=== PATIENT | male | born 1945 | race Caucasian/White ===

== ENCOUNTER 2017-01-18 10:02 | Emergency (ER) | payer MEDICARE, BC ==
[2017-01-18] MEDS ORDERED: Dexamethasone 4 mg/ml Vial ONE (12:26)
[2017-01-18] MEDS ORDERED: Ketorolac Tromethamine 60 MG/2 ML VIAL ONE (12:26)
== END 2017-01-18 12:49 | disposition home or self-care (01) ==
LOC: ERS 10:02
DX: M54.41 Lumbago with sciatica, right side (principal); I25.10 Atherosclerotic heart disease of native coronary artery without angina pectoris; I10 Essential (primary) hypertension; E78.5 Hyperlipidemia, unspecified; F41.9 Anxiety disorder, unspecified; F32.9 Major depressive disorder, single episode, unspecified; F17.210 Nicotine dependence, cigarettes, uncomplicated; Z79.82 Long term (current) use of aspirin; Z79.899 Other long term (current) drug therapy
CPT/HCPCS: 96372; J1100; J1885

== ENCOUNTER 2017-01-23 12:08 | Emergency (ER) | payer MEDICARE, BC ==
[2017-01-23] MEDS ORDERED: Methocarbamol 1 GM in Sodium Chloride 0.9% 250 ML 250 ML IVPB SCH (14:00)
--- NOTE | 2017-01-23 14:07 | RAD ---
3 VIEWS LUMBAR SPINE: Date: 01/23/17 HISTORY: Pain. COMPARISON: None. FINDINGS: Six lumbar-type vertebral bodies. Vertebral body height is maintained. No fracture. Disc space heigh t is preserved. Osteophytes are noted. No spondylolisthesis or spondylolysis. Atherosclerosis is miriam ntified. IMPRESSION: Unremarkable 3 views lumbar spine. POS: [facility]
[2017-01-23] MEDS ORDERED: Morphine 2 MG/ML SYRINGE ONE ×2 (14:24→15:53)
== END 2017-01-23 20:07 | disposition home or self-care (01) ==
LOC: ERS 12:08
DX: M54.5 Low back pain (principal); I10 Essential (primary) hypertension; E78.5 Hyperlipidemia, unspecified; F41.9 Anxiety disorder, unspecified; F32.9 Major depressive disorder, single episode, unspecified; F17.210 Nicotine dependence, cigarettes, uncomplicated
CPT/HCPCS: 72100; 96365; 96375; 96376; J2270; J2800; J7050

== ENCOUNTER 2017-01-29 10:45 | Emergency (ER) | payer MEDICARE, BC ==
[2017-01-29] MEDS ORDERED: Ketorolac Tromethamine 30 MG/ML VIAL ONE (15:30)
== END 2017-01-29 16:07 | disposition home or self-care (01) ==
LOC: ERS 10:45
DX: G89.29 Other chronic pain (principal); M54.5 Low back pain; I25.10 Atherosclerotic heart disease of native coronary artery without angina pectoris; I10 Essential (primary) hypertension; E78.5 Hyperlipidemia, unspecified; F41.9 Anxiety disorder, unspecified; F32.9 Major depressive disorder, single episode, unspecified; F17.210 Nicotine dependence, cigarettes, uncomplicated; Z79.891 Long term (current) use of opiate analgesic; Z79.82 Long term (current) use of aspirin; Z79.899 Other long term (current) drug therapy
CPT/HCPCS: 96372; J1885

== ENCOUNTER 2017-03-28 11:16 | Emergency (ER) | payer MEDICARE, BC ==
[2017-03-28 13:16] LABS: #Eosinphils 0.2 thou/uL (0.0-0.7); #Lymphocytes 1.9 thou/uL (1.20-3.40); #Monocytes 1.2 thou/uL (0.11-0.59); #Neutrophils 5.7 thou/uL (1.40-6.50); %Basophils 0.5 % (0.0-1.0); %Eosinophils 1.8 % (0.0-10.0); %Lymphocytes 20.9 % (21.0-51.0); %Monocytes 12.9 % (0.0-10.0); %Neutrophils 63.9 % (42.0-75.0); Hemoglobin 13.6 g/dL (14.0-18.0); Mean Corpuscular HGB CONC 32.6 g/dL (32.0-36.0); Mean Corpuscular Hemoglobin 31.6 pg (27.0-31.0); Mean Corpuscular Volume 96.8 fl (80.0-94.0); Mean Platelet Volume 7.5 fL (7.4-10.4); Platelet Count 179 thou/uL (130-400); RBC Distribution Width 13.3 % (11.5-14.5)
--- NOTE | 2017-03-28 13:20 | RAD ---
PA AND LATERAL VIEWS OF CHEST: HISTORY: Cough. FINDINGS: Comparison is made with the exam of 08/03/16. The heart size is prominent but stable. A left-sided pacing device remains in place. The lungs are expanded without focal areas of consolidation, pneumothorax, piyush pulmonary edema, or pleural effusi ons. Mild chronic changes are stable. IMPRESSION: No acute process. POS: [facility]
[2017-03-28 13:31] LABS: ALT (SGPT) 19 U/L (8-55); AST (SGOT) 20 U/L (5-34); Albumin 3.4 g/dL (3.4-4.8); Alkaline Phosphatase 71 U/L (40-150); Anion Gap 11 mmol/L (10-20); BUN (Urea Nitrogen) 11 mg/dL (8.4-25.7); Bilirubin, Total 0.9 mg/dL (0.2-1.2); Calc. Creatinine Clearance 0 mL/min (70-130); Calcium 9.7 mg/dL (7.8-10.44); Carbon Dioxide 27 mmol/L (23-31); Chloride 105 mmol/L (98-107); Estimated GFR-MDRD 76; Globulin 3.4 g/dL (2.4-3.5); Glucose 96 mg/dL (83-110); Potassium 3.9 mmol/L (3.5-5.1); Protein, Total 6.8 g/dL (5.8-8.1); Sodium 139 mmol/L (136-145)
[2017-03-28] MEDS ORDERED: Furosemide 20 MG/2 ML VIAL ONE (14:18)
--- NOTE | 2017-03-28 16:33 | CT ---
CT PULMONARY ANGIOGRAM WITH IV CONTRAST AND 2D POST PROCESSING: HISTORY: Cough. Elevated D-dimer. FINDINGS: There is good contrast opacification of the pulmonary arterial vasculature without filling defects to suggest pulmonary embolism. There are vascular calcifications without evidence of aneurysmal dilata tion of the thoracic aorta. No pleural or pericardial effusions are seen. No pneumothoraces. There is a small area of patchy consolidation/atelectatic change in the lingula. Degenerative changes are present in the spine. There are mild infiltrates versus atelectatic changes at the left lung base. IMPRESSION: No CT evidence of pulmonary embolism. POS: [facility]
[2017-03-28] MEDS ORDERED: ISOVUE-370 76%-LOCM 1 ML ONE (17:03)
== END 2017-03-28 16:25 | disposition home or self-care (01) ==
LOC: ERS 11:16
DX: J06.9 Acute upper respiratory infection, unspecified (principal); I10 Essential (primary) hypertension; E78.5 Hyperlipidemia, unspecified; F41.9 Anxiety disorder, unspecified; F32.9 Major depressive disorder, single episode, unspecified; F17.210 Nicotine dependence, cigarettes, uncomplicated; Z79.82 Long term (current) use of aspirin; Z79.899 Other long term (current) drug therapy
CPT/HCPCS: 36415; 71010; 71275; 80053; 83605; 83880; 85025; 85379; 96374; 96375; 99406; J0696; J1940; J7620

== ENCOUNTER 2017-04-20 09:28 | Outpatient (CLI) | payer MEDICARE, BC ==
--- NOTE | 2017-04-20 11:56 | CT ---
CT LUMBAR SPINE WITHOUT CONTRAST: Date: 04/20/17 HISTORY: Low back pain with lumbar radiculopathy. Bilateral hip pain. COMPARISON: None. TECHNIQUE: Lumbar spine CT is performed without intravenous or intrathecal contrast. Reformatted images are subm itted for interpretation. FINDINGS: No retroperitoneal mass, lymphadenopathy, or hematoma. Atherosclerosis of the nonaneurysmal aorta is noted. Symmetric attenuation of psoas muscles. Bilaterally, no obstructive uropathy. Neither urinary collecting system is completely assessed. There are five lumbar-type vertebral bodies. Lumbar spine vertebral body heights are maintained from L2 to L5. There is a chronic mild compression fracture versus a Schmorl's node defect along the super ior end plate of L1. The transverse processes are preserved. Vacuum disc phenomenon at L4-L5 and L5-S 1. Vacuum joint phenomenon involving the left interarticular facet joint at L5-S1. Limited evaluation of the contents of the central spinal canal and neural foramina due to technique. T11-T12: No high grade central canal stenosis or high grade foraminal narrowing. T12-L1: No high grade central canal stenosis or high grade foraminal narrowing. L1-L2: No high grade central canal stenosis. Right neural foramen is patent. Mild left foraminal narrowing. L2-L3: No high grade central canal stenosis. Mild to moderate right and left foraminal narrowing. L3-L4: Generalized disc bulge, ligamentum flavum thickening, and facet hypertrophy result in mild central ca nal stenosis. There is disc material extending laterally into the right paraspinal region. There is a lso disc material in the right neural foramen which partially obscures the foraminal right L3 nerve r oot, resulting in moderate foraminal narrowing. There is also moderate left foraminal narrowing due t o a combination of disc material and posterior element hypertrophy. L4-L5: Vacuum disc phenomenon, ligamentum flavum thickening, and facet hypertrophy result in moderate centra l canal stenosis. Moderate bilateral foraminal narrowing. L5-S1: Generalized disc bulge results in mild stenosis of the thecal sac. Disc material abuts but does not o bscure either traversing S1 nerve root. Mild to moderate right and moderate to severe left neural for aminal narrowing. IMPRESSION: 1. Degenerative changes of lumbar spine as above. 2. Significant central canal stenosis at L4-L5. 3. Significant foraminal narrowing at L3-L4, L4-L5 and L5-S1. POS: [facility]
== END 2017-04-20 09:29 | disposition home or self-care (01) ==
LOC: TBSIIMAG 09:28
PROVIDERS: ATTEND Neurological Surgery
DX: M47.26 Other spondylosis with radiculopathy, lumbar region (principal); M48.061 Spinal stenosis, lumbar region without neurogenic claudication; M99.53 Intervertebral disc stenosis of neural canal of lumbar region; M99.54 Intervertebral disc stenosis of neural canal of sacral region
CPT/HCPCS: 72131

== ENCOUNTER 2017-05-07 13:35 | Emergency (ER) | payer MEDICARE, BC ==
[2017-05-07 14:11] LABS: #Basophils 0.1 thou/uL (0.0-0.2); #Eosinphils 0.2 thou/uL (0.0-0.7); #Lymphocytes 2.1 thou/uL (1.20-3.40); #Monocytes 0.9 thou/uL (0.11-0.59); #Neutrophils 5.9 thou/uL (1.40-6.50); %Basophils 0.6 % (0.0-1.0); %Eosinophils 2.2 % (0.0-10.0); %Lymphocytes 23.4 % (21.0-51.0); %Monocytes 9.9 % (0.0-10.0); %Neutrophils 63.9 % (42.0-75.0); Mean Corpuscular HGB CONC 32.5 g/dL (32.0-36.0); Mean Corpuscular Hemoglobin 31.7 pg (27.0-31.0); Mean Corpuscular Volume 97.5 fl (80.0-94.0); Mean Platelet Volume 7.9 fL (7.4-10.4); Platelet Count 177 thou/uL (130-400); RBC Distribution Width 13.1 % (11.5-14.5); Red Blood Cell (RBC) Count 4.42 mill/uL (4.70-6.10); White Blood Cell (WBC) Count 9.2 thou/uL (4.8-10.8)
--- NOTE | 2017-05-07 14:26 | RAD ---
PORTABLE CHEST 1 VIEW: Date: 05/07/17 Time: 1408 hours HISTORY: Chest pain. FINDINGS/IMPRESSION: Comparison made with exam of 03/28/17. The heart size is enlarged. Left-sided pacemaker device remains in place. No pneumothoraces or large effusions are seen. There is suggestion of an infiltrate in the lingula. POS: [facility]
[2017-05-07 14:27] LABS: ALT (SGPT) 17 U/L (8-55); AST (SGOT) 17 U/L (5-34); Albumin 3.7 g/dL (3.4-4.8); Alkaline Phosphatase 74 U/L (40-150); Anion Gap 14 mmol/L (10-20); BUN (Urea Nitrogen) 14 mg/dL (8.4-25.7); CK (CPK) 58 U/L (30-200); Calc. Creatinine Clearance 0 mL/min (70-130); Calcium 9.6 mg/dL (7.8-10.44); Carbon Dioxide 23 mmol/L (23-31); Chloride 105 mmol/L (98-107); Estimated GFR-MDRD 64; Globulin 3.6 g/dL (2.4-3.5); Glucose 106 mg/dL (83-110); Potassium 3.8 mmol/L (3.5-5.1); Protein, Total 7.3 g/dL (5.8-8.1); Sodium 138 mmol/L (136-145)
[2017-05-07 14:33] LABS: CKMB 1.4 ng/mL (0-6.6); Troponin I 0.013 ng/mL (< 0.028)
[2017-05-07] MEDS ORDERED: diphenhydrAMINE 50 MG/ML VIAL ONE (16:22)
[2017-05-07] MEDS ORDERED: Famotidine/PF 20 mg/2ml Vial ONE (16:22)
[2017-05-07] MEDS ORDERED: methylPREDNISolone Sod Succ/PF 125 MG/2 ML VIAL ONE (16:22)
[2017-05-07] MEDS ORDERED: ISOVUE-370 76%-LOCM 1 ML ONE (16:38)
--- NOTE | 2017-05-07 17:37 | CT ---
CT ANGIO OF CHEST AND ABDOMEN PERFORMED WITH INTRAVENOUS CONTRAST ENHANCEMENT WITH 3D RECONSTRUCTIONS : 05/07/17 HISTORY: Acute onset of chest pain, also with pain while eating. Pain extending into right neck. This was done per the aortic dissection protocol. COMPARISON: 07/18/16 CT angio of the abdomen and a 03/28/17 CT angio of the chest. The lungs show some interstitial change in the left base which has been present on the prior studies most compatible with scar. There is no significant mediastinal or hilar lymphadenopathy. There is fairly good pulmonary artery opacification to evaluate for central pulmonary emboli and I se e no central embolus. The thoracic aorta is tortuous, but not aneurysmal. No dissection. CT ANGIO OF ABDOMEN PERFORMED WITH INTRAVENOUS CONTRAST ENHANCEMENT AND 3D RECONSTRUCTIONS: The liver, spleen, pancreas and gallbladder regions appear unremarkable given the limitations of an a ngiographic phase of the exam. Right and left adrenal glands are normal in appearance. There are hypodensities involving both kidney s that are stable in size as compared to the prior exam. There is no significant periaortic or mesent lilia adenopathy. The abdominal aorta is normal in caliber. No signs of dissection. IMPRESSION: No evidence of aortic aneurysm or dissection. POS: [facility]
== END 2017-05-07 18:00 | disposition home or self-care (01) ==
LOC: ERS 13:35
DX: R07.89 Other chest pain (principal); I25.10 Atherosclerotic heart disease of native coronary artery without angina pectoris; I10 Essential (primary) hypertension; E78.5 Hyperlipidemia, unspecified; F41.9 Anxiety disorder, unspecified; F17.210 Nicotine dependence, cigarettes, uncomplicated; Z79.82 Long term (current) use of aspirin; Z79.02 Long term (current) use of antithrombotics/antiplatelets; Z71.6 Tobacco abuse counseling; Z79.899 Other long term (current) drug therapy
CPT/HCPCS: 36415; 71045; 71275; 80053; 82550; 82553; 83880; 84484; 85025; 85379; 93005; 96374; 96375; J1200; J2930; S0028

== ENCOUNTER 2017-05-30 11:13 | Observation (INO) | payer MEDICARE, BC ==
[2017-05-30] MEDS ORDERED: Morphine 10 MG/ML VIAL ONE (11:55)
[2017-05-30] MEDS ORDERED: Dexamethasone 10 MG/ML VIAL ONE (11:55)
--- NOTE | 2017-05-30 12:59 | CT ---
CT LUMBAR SPINE WITHOUT CONTRAST: INDICATION: Low back pain with radiation to both extremities. This has worsened over the last 2 days. The patie nt reports pain with ambulation and sitting. COMPARISON: Prior exam dated 04/20/17. FINDINGS: There is diffuse osteopenia. There is stable superior end plate compression abnormality of L1. There are vascular calcifications involving the abdominopelvic vasculature. There is a stable left paracentral caudad-extending disc extrusion containing some vacuum-induced gas seen on image 46 of the sagittal series measuring 8 mm causing some mild encroachment on the marlee ing left S1 nerve root. This extrusion was present on the comparison examination in March of 2017. There is a residual broad-based disk-osteophyte complex and facet joint degenerative change at this level inducing at least moderate left and mild right osseous neural foraminal narrowing which is sta ble. At L4-5, there is a broad-based bulge with facet joint degenerative change and loss of disk space hei ght likely inducing at least moderate bilateral neural foraminal narrowing which is stable. There is vacuum disk phenomenon at L4-5. At L3-4, there is a suspected asymmetric to the right disk-osteophyte complex likely inducing moderat e to severe right and mild left osseous neural foraminal narrowing. This is stable to the prior exam . At L2-3, there is a suspected mild broad-based bulge likely inducing some mild bilateral neural marisela inal narrowing which appears similar to the prior exam. At L1-L2, there is no appreciable central canal or neural foraminal narrowing. At T12-L1, there is no appreciable central canal or neural foraminal narrowing. IMPRESSION: 1. Multilevel spondylosis of the lumbar spine is stable. Multilevel neural foraminal narrowing as d etailed above. 2. Stable superior end plate compression abnormality of L1. POS: [facility]
--- NOTE | 2017-05-30 13:54 | PDOC.FPRHP ---
- History of Present Illness Chief Complaint: low back pain History of Present Illness: Patient is a 71yo male with significant PMH of lumbar radiculopathy s/p injections done by Dr. Obando presents to ED with worsening back pain onset 2 days ago. Patient reports no unusual activity or injury outside of his normal. He works as a local company flatbed truck driver. Lying flat makes pain better and moving any other way but especially flexing the hip makes pain worse. He reports he wakes up in the morning, he takes an Oxycodone which usually gets him through the day but did not seem to help at all. He also tried Morphine without relief. He denies urinary sx, GI sx, and neurologic sx besides some numbness on the anterior aspect of the R leg. ED Course: Lumbar CT was done and shows extensive disc bulge along multiple levels. Dexamethasone 10mg and 8mg morphine were given for pain control. Patient continues to endorse severe pain and is not able to tolerate walking. - Allergies/Adverse Reactions Allergies Allergy/AdvReac Type Severity Reaction Status Date / Time iodine Allergy Verified 05/30/17 15:27 Iczgria-Mec-Pud Reductase Allergy Verified 05/30/17 15:27 Inhibitor - Home Medications Medication Instructions Recorded Confirmed Type Clopidogrel Bisulfate [Plavix] 75 mg PO DAILY 11/13/13 05/30/17 History Fish Oil/DHA/EPA [Fish Oil 1,200 1,000 mg PO BID 11/13/13 05/30/17 History mg Fish Oil] Finasteride [Proscar] 5 mg PO HS 07/02/14 05/30/17 History Aspirin 325 mg PO DAILY 02/21/15 05/30/17 History Lisinopril [Zestril] 5 mg PO DAILY #0 tab 02/27/15 05/30/17 Rx busPIRone HCl [Buspirone HCl] 10 mg PO TID 03/13/16 05/30/17 History Carvedilol [Coreg] 12.5 mg PO DAILY 07/15/16 05/30/17 History Cyclobenzaprine [Flexeril] 10 mg PO TID #40 tab 07/19/16 05/30/17 Rx Carvedilol [Coreg] 25 mg PO DAILY 05/30/17 05/30/17 History Digoxin [Lanoxin] 0.125 mg PO SEEPHYS 05/30/17 05/30/17 History Morphine Sulfate [Morphine Sulfate 30 mg PO Q12H 05/30/17 05/30/17 History ER] Multivitamin [Multiple Vitamins] 1 each PO DAILY 05/30/17 05/30/17 History PARoxetine HCl [PARoxetine HCl] 40 mg PO HS 05/30/17 05/30/17 History Ubidecarenone [Co Q-10] 100 mg PO BID 05/30/17 05/30/17 History oxyCODONE HCl/Acetaminophen 1 tab PO Q8H PRN 05/30/17 05/30/17 History [Oxycodone-Acetaminophen 10-325] predniSONE 10 mg PO QAM-WM 05/30/17 05/30/17 History - History PMHx: CAD s/p stent x2, HTN, HLD, anxiety PSHx: pacemaker, stent placement, carpal tunnel surgery, ear surgery x2, back surger (2013) FHx: Social: Smokes 2ppd for the last years. Denies alcohol and drug use. - Review of Systems General: denies: fever/chills Eyes: denies: eye pain, vision changes ENT: denies: nasal congestion, rhinorrhea Respiratory: denies: cough, congestion, shortness of breath Cardiovascular: denies: chest pain, palpitation Gastrointestinal: denies: nausea, vomiting, diarrhea, constipation, abdominal pain, GI bleeding Genitourinary: reports: other (Denies hematuria). denies: incontinence, dysuria , polyuria Skin: denies: rashes Musculoskeletal: reports: pain, tenderness, arthritis/arthralgias Neurological: reports: numbness. denies: syncope Psychological: denies: anxiety, depression - Vital signs BP: 166/88 HR: 68 RR: 20 Tmax: 97.9 Pox: 97% on RA Wt: 120.2kg - Physical Exam Constitutional: NAD, awake, alert and oriented -Constitutional: Obese HEENT: EOMI, grossly normal vision, grossly normal hearing Neck: FROM Chest: no-tender to palpation Heart: RRR, normal S1/S2, no murmurs/rubs/gallops Lungs: CTAB, no respiratory distress, good air movement Abdomen: soft, non-tender -Abdomen: hypoactive BS -Musculoskeletal: Tenderness to palpation along lumbar paraspinal muscles on the R, particularly quadratus lumborum, with hypertonicity of muscle. No ttp along R hip. Pain with hip flexion. Positive straight leg raise on the R. Decreased sensation in anterior medial thigh. Neurological: no focal deficit Skin: no rash/lesions Psychiatric: normal mood and affect, intact recent and remote memory FMR H&P: Results - Labs Result Diagrams: 05/30/17 16:03 05/30/17 16:03 - Radiology Interpretation Other Status: report reviewed by me Additional comment: Lumbar CT: Multilevel spondylosis of lumbar spine, stable from prior read. Multilevel neural foraminal narrowing and areas of concern for severe disc bulge. Stable superior end plate compression abnormality of L1. FMR H&P: A/P - Problem List (1) Lumbar radiculopathy, chronic Current Visit: Yes Status: Acute Code(s): M54.16 - RADICULOPATHY, LUMBAR REGION (2) Hx of polymyalgia rheumatica Current Visit: Yes Status: Acute Code(s): Z87.39 - PERSONAL HISTORY OF DISEASES OF THE MS SYS AND CONN TISS (3) CAD (coronary atherosclerotic disease) Current Visit: No Status: Chronic Code(s): I25.10 - ATHSCL HEART DISEASE OF [place] CORONARY ARTERY W/O ANG PCTRS (4) CHF (congestive heart failure) Current Visit: No Status: Chronic Code(s): I50.9 - HEART FAILURE, UNSPECIFIED (5) Depression Current Visit: No Status: Chronic Code(s): F32.9 - MAJOR DEPRESSIVE DISORDER , SINGLE EPISODE, UNSPECIFIED (6) Hyperlipidemia Current Visit: Yes Status: Acute Code(s): E78.5 - HYPERLIPIDEMIA, UNSPECIFIED (7) Anxiety Current Visit: No Status: Chronic Code(s): F41.9 - ANXIETY DISORDER, UNSPECIFIED (8) BPH (benign prostatic hyperplasia) Current Visit: No Status: Chronic Code(s): N40.0 - BENIGN PROSTATIC HYPERPLASIA WITHOUT LOWER URINRY TRACT SYMP (9) Hypertension Current Visit: No Status: Chronic Code(s): I10 - ESSENTIAL (PRIMARY) HYPERTENSION (10) Obstructive sleep apnea on CPAP Current Visit: No Status: Chronic Code(s): G47.33 - OBSTRUCTIVE SLEEP APNEA (ADULT) (PEDIATRIC) - Plan Lumbar Radiculopathy - Lumbar spine CT significant for multilevel neural foraminal narrowing and evidence of disc bulging. CT unchanged from 03/[address] - Pain control with oxycodone and morphine for breakthrough. - Will get BMP, CBC, UA, and UDS to throughouly evaluate. - Would likely benefit from muscle relaxer. - Will give one time dose of Toradol for acute pain. - Consider Gabapentin if not already on at home. - PT/OT consult - Patient unsure about home medications but has someone bringing meds. Will med rec at that time and restart home medications as needed. Hx of Polymyalgia Rheumatica - Started on Prednisone in the clinic and given Decadron in ED. Continue Decadron. CHF - Continue home meds once known CAD s/p stent x2 - Continue home meds once known - Patient on Plavix, continue. HTN - Hypertensive at this time. Will restart home meds and put on Labetalol prn. HLD - Continue home meds Anxiety - Continue home meds LIVE on CPAP - Continue CPAP at night. FMR H&P: Upper Level - Pertinent history 71 year old white male with a longstanding history of lumbar pain presents with increased right lumbar pain starting on Wednesday. He denies recent injury or increased activity. He is on oxycodone-acetaminophen 10-325 at home, last filled on 05/03/17 per [facility] Aware review. He states he has not yet run out of that prescription but that it has not improved his pain. It is prescribed by Dr. Natan Obando who is managing his pain. He has a history of spinal surgery in [address] Becerril. He was also prescribed prednisone [address] Guido Guan for polymyalgia rheumatica. He reports the current pain radiates to right anterior thigh and he has numbness in anterior of right anterior thigh. He denies fevers, chills, dysuria , polyuria, bowel incontinence, bladder incontinence, and muscle weakness. Also denies headache, chest pain, dyspnea, abdominal pain, nausea, vomiting, and diarrhea. - Pertinent findings Vital Signs at time of exam: RR 16 HR 69 BP 167/87 O2 sat 98% on room air Exam: General: Obese. Appears to be in pain but not in distress, AA&Ox4 Eyes: EORLI, PERRLA, nonicteric ENT: MMM, oropharynx clear CV: RRR, no murmurs, rubs, gallops auscultated. Pulses full and equal in all 4 extremities Resp: Distant breath sounds but clear. No wheezing, rales, or rhonchi. Breathing unlabored Abdomen: Soft, nontender, nondistended. BS+ in all 4 quadrants Ext: No cyanosis, clubbing, or edema. Equal movement of all limbs all though patient is laying on his side avoiding moving his right leg. Skin: Substantial sun damage apparent on dorsal surface of both forearms Neuro: CN II-XII intact. No focal deficits. Right sided straight leg raise causes pain radiating to right anterior thigh. Left straight leg raise negative Back: Tender to palpation over right lower lumbar muscles. No left-sided or spinal tenderness Musculoskeletal: Passive range of motion of right hip wnl. Mild discomfort in lumbar spine but not true hip joint with JESSE test. No pain with FADIR test. No tenderness or localization of pain to right hip joint - Plan Date/Time: 05/30/17 1352 I, Demetrius Mcnamara DO, have evaluated this patient and agree with findings/plan as outlined by epidemiology intern resident. Pertinent changes/additions are listed here. A/P: 71 year old white male with a past medical history of chronic lower back pain and polymyalgia rheumatica p/w: 1) Acute on chronic lumbar pain - Suspect muscular source - Place in observation - Will attempt to manage pain with patients home oxycodone with morphine for breakthrough pain - Check BMP to determine if kidneys can tolerate NSAIDs over the short term - Check CBC, BMP, UA, urine culture, and UDS - Consult PT/OT - Would likely benefit from muscle relaxer. - Continue Decadron 2) Polymalgia rheumatica - Continue steroids and to manage pain 3) Hypertension - Reconcile and restart home meds 4) CAD s/p stents - Continue home meds 5) History of renal insufficiency - Will check BMP. 6) Anxiety - Home meds 7) LIVE - Will order CPAP 8) HLD - Home meds. Heart healthy diet Attending Addendum - Attending Addendum Date/Time: 05/30/17 1720 I personally evaluated the patient and discussed the management with Dr. Barone. I agree with the History, Examination, Assessment and Plan documented above with any addition or exceptions noted below.. Patient here with 3 days of increased back pain above his baseline with radiation from R lower back around to mid thigh. Reports this pain is in his chronic location, but substantially increased. Reports only movement worsens his pain. He has been taking his home Oxycodone and MS Contin with no relief in pain. In ER, had CT lumbar spine that does not show any acute change. His neurological exam is normal other than chronic L thigh numbness. He does have significant tenderness to palpation in the paralumbar area radiating into R buttock. Labs are overall normal/stable with the exception of UA showing RBCs and moderate blood. Renal function normal. CT lumbar spine as above. Patient will be admitted for acute on chronic back pain that is affecting ambulation. Home meds with addition of Toradol x1 and Baclofen BID. PT will be consulted. Due to nature of pain and UA results, concern for urolithiasis. Radiology contacted and unable to expand view of CT L spine enough to evaluate the ureters. No sign of hydronephrosis. If pain not improved with current measures, consider CT stone protocol in AM. Fluid hydrate and will add Flomax. May consult pain mgmt in AM to see if they can offer any therapeutics if he is not improved. Chronic conditions will be managed with his home meds.
[2017-05-30] MEDS ORDERED: Ondansetron HCl/PF 4 MG/2 ML Vial IVP PRN (15:02)
[2017-05-30] MEDS ORDERED: Ondansetron ODT 4 MG TAB SL PRN (15:02)
[2017-05-30] MEDS ORDERED: Docusate 100 MG CAP PO PRN (15:29)
[2017-05-30] MEDS ORDERED: Ondansetron ODT 4 MG TAB PO PRN (15:29)
[2017-05-30] MEDS ORDERED: Nicotine 14 MG PATCH TD PRN (15:29)
[2017-05-30] MEDS ORDERED: Acetaminophen 325 MG TAB PO PRN (15:41)
[2017-05-30 16:08] LABS: Bilirubin Negative (Negative); Blood, Urine Moderate (Negative); Clarity CLEAR (Clear); Glucose, Urine (Dipstick) Negative (Negative); Leukocyte Negative (Negative); Nitrite Negative (Negative); Protein, Urine (Dipstick) Negative (Neg-Trace); Specific Gravity, Urine 1.011 (1.002-1.036); pH, Urine 6.5 (5.0-9.0)
[2017-05-30 16:11] LABS: Bacteria/HPF Rare-Few HPF (None Seen); Hyaline Casts/LPF 0-3 HYALINE CAST LPF (0-3 Hyaline); Pathc Cast-AUWi Flag 0.13 (0-2.49); RBC/HPF 21-50 HPF (0-3); Squamous Epithelial None Seen HPF (0-3); WBC/HPF 0-3 HPF (0-3)
[2017-05-30 16:12] LABS: #Monocytes 0.1 thou/uL (0.11-0.59); #Neutrophils 8.4 thou/uL (1.40-6.50); %Basophils 0.3 % (0.0-1.0); %Eosinophils 0.2 % (0.0-10.0); %Lymphocytes 10.1 % (21.0-51.0); %Monocytes 1.5 % (0.0-10.0); %Neutrophils 87.9 % (42.0-75.0); Hemoglobin 15.1 g/dL (14.0-18.0); Mean Corpuscular HGB CONC 33.1 g/dL (32.0-36.0); Mean Corpuscular Hemoglobin 31.4 pg (27.0-31.0); Mean Corpuscular Volume 94.8 fl (80.0-94.0); Mean Platelet Volume 7.4 fL (7.4-10.4); Platelet Count 207 thou/uL (130-400); RBC Distribution Width 12.5 % (11.5-14.5); Red Blood Cell (RBC) Count 4.82 mill/uL (4.70-6.10); White Blood Cell (WBC) Count 9.6 thou/uL (4.8-10.8)
[2017-05-30 16:21] LABS: Amphetamine Not Detected (NotDetected); Barbiturates Screen Not Detected (NotDetected); Benzodiazepine Screen Not Detected (NotDetected); Cocaine Metabolite Screen Not Detected (NotDetected); Medtox Control Line Valid? VALID (VALID); Medtox Reader # READER 1; Methadone Not Detected (NotDetected); Methamphetamine Not Detected (NotDetected); Opiate Screen Detected (NotDetected); Oxycodone Screen Not Detected (NotDetected); Phencyclidine (PCP) Not Detected (NotDetected); THC/Cannabinoid Screen Not Detected (NotDetected); Tricyclic Screen Not Detected (NotDetected)
[2017-05-30] MEDS ORDERED: Ketorolac Tromethamine 30 MG/ML VIAL IVP SCH (16:30)
[2017-05-30] MEDS ORDERED: Ketorolac Tromethamine 60 MG/2 ML VIAL IM SCH (16:30)
[2017-05-30 16:37] LABS: ALT (SGPT) 17 U/L (8-55); AST (SGOT) 16 U/L (5-34); Albumin 3.7 g/dL (3.4-4.8); Alkaline Phosphatase 84 U/L (40-150); Anion Gap 12 mmol/L (10-20); BUN (Urea Nitrogen) 11 mg/dL (8.4-25.7); Bilirubin, Total 0.9 mg/dL (0.2-1.2); Calc. Creatinine Clearance 0 mL/min (70-130); Calcium 9.5 mg/dL (7.8-10.44); Carbon Dioxide 25 mmol/L (23-31); Chloride 106 mmol/L (98-107); Estimated GFR-MDRD 80; Globulin 3.5 g/dL (2.4-3.5); Glucose 97 mg/dL (83-110); Potassium 4.2 mmol/L (3.5-5.1); Protein, Total 7.2 g/dL (5.8-8.1); Sodium 139 mmol/L (136-145)
[2017-05-30] MEDS ORDERED: Tamsulosin HCl 0.4 MG CAP PO SCH ×2 (17:30→21:00)
[2017-05-30] MEDS: Sodium Chloride 0.9% 1,000 ML IV SCH (17:38)
[2017-05-30] MEDS ORDERED: Polyethylene Glycol 3350 17 GM Packet PO PRN (17:56)
[2017-05-30] MEDS ORDERED: Polyethylene Glycol 3350 17 GM Packet PO SCH (18:00)
[2017-05-30] MEDS: Carvedilol 25 MG TAB PO SCH (20:54)
[2017-05-30] MEDS: Fish Oil 1,000 MG CAP PO SCH (20:54)
[2017-05-30] MEDS: Docusate 100 MG CAP PO SCH (20:56)
[2017-05-30] MEDS: Baclofen 10 MG TAB PO SCH (20:56)
[2017-05-30] MEDS: busPIRone HCl 10 MG TAB PO SCH (20:57)
[2017-05-30] MEDS: Finasteride 5 MG TAB PO SCH (20:57)
[2017-05-30] MEDS: PARoxetine 20 MG TAB PO SCH (20:57)
[2017-05-30] MEDS: Ubidecarenone 50 MG CAP PO SCH (20:58)
[2017-05-30] MEDS: oxyCODONE/Acetaminophen 5 mg/325 mg Tablet PO SCH (21:00)
[2017-05-31] MEDS: Sodium Chloride 0.9% 1,000 ML IV SCH ×2 (05:21→20:41)
[2017-05-31] MEDS: oxyCODONE/Acetaminophen 5 mg/325 mg Tablet PO SCH ×3 (05:22→21:30)
[2017-05-31] MEDS ORDERED: Carvedilol 25 MG TAB PO SCH (09:00)
[2017-05-31] MEDS ORDERED: FLU VACC TS2017-18 (>65YR) 0.5 ML SYRINGE IM ONE (09:00)
--- NOTE | 2017-05-31 09:15 | PDOC.FM ---
- Subjective Subjective: Patient states his pain is at 3/10 while laying down, but moves to 10/10 if he sits up on the side of the bed. He describes the pain as a sharp pain in the lumbar spine radiating around to the front of the right thigh. He denies incontinence or foot drop. Strength 4/4 in all extremities, leg raise negative bilaterally today. - Objective Vital Signs & Weight: Vital Signs (12 hours) Temp Pulse Resp BP Pulse Ox 05/31/17 07:29 97.5 F L 72 16 155/81 H 99 05/31/17 04:00 97.4 F L 71 18 123/65 99 05/31/17 00:00 98.0 F 71 20 111/65 99 Weight Weight 120 g I&O: 05/30/17 05/31/17 06/01/17 06:59 06:59 06:59 Intake Total 1860 Output Total 400 Balance 1460 Result Diagrams: 05/30/17 16:03 05/30/17 16:03 <Mika Quintana - Last Filed: 05/31/17 09:13> - Objective Vital Signs & Weight: Vital Signs (12 hours) Temp Pulse Resp BP BP Pulse Ox 05/31/17 11:00 97.5 F L 74 16 137/75 98 05/31/17 10:00 155/81 H 05/31/17 09:41 74 05/31/17 09:39 155/81 H 05/31/17 08:00 97.5 F L 74 16 99 05/31/17 07:29 97.5 F L 72 16 155/81 H 99 Weight Weight 120 g I&O: 05/30/17 05/31/17 06/01/17 06:59 06:59 06:59 Intake Total 1860 Output Total 400 Balance 1460 Result Diagrams: 05/30/17 16:03 05/30/17 16:03 <Aaron Travis - Last Filed: 05/31/17 16:02> Phys Exam - Physical Examination Constitutional: NAD HEENT: PERRLA, TM's clear Neck: no nodes, full ROM Respiratory: no wheezing, clear to auscultation bilateral Cardiovascular: RRR, no significant murmur Gastrointestinal: soft, non-tender, no distention, positive bowel sounds Musculoskeletal: no edema, pulses present normal sensation throughout lower extremities, raises both legs off bed 4/4 plantar/dorsiflexion, leg raise negative Psychiatric: normal affect, A&O x 3 Skin: no rash, cap refill <2 seconds <Mika Quintana - Last Filed: 05/31/17 09:13> Dx/Plan - Plan Plan: 1) Acute on chronic lumbar pain Suspect muscular source Place in observation Will attempt to manage pain with patients home oxycodone with morphine for breakthrough pain Consult PT/OT Continue Decadron Patient still unable to walk today, consulted neurosurgery, non-contrast MRI is ordered 2) Polymalgia rheumatica Continue steroids and to manage pain 3) Hypertension Reconcile and restart home meds 4) CAD s/p stents Continue home meds 5) History of renal insufficiency Cr 0.93, will monitor 6) Anxiety Home meds 7) LIVE Will order CPAP 8) HLD Home meds. Heart healthy diet 9) Possible Nephrolithiasis - blood on U/A - patient denies burning with urination - continue to strain urine <Mika Quintana - Last Filed: 05/31/17 09:13> Attending Addendum - Attending Addendum Date/Time: 05/31/17 1601 I personally evaluated the patient and discussed the management with Dr. Quintana. I agree with the History, Examination, Assessment and Plan documented above with any addition or exceptions noted below. MRI planned. Appreciate neurosurg recommendations. <Aaron Travis - Last Filed: 05/31/17 16:02>
[2017-05-31] MEDS: Fish Oil 1,000 MG CAP PO SCH ×2 (09:38→21:29)
[2017-05-31] MEDS: Carvedilol 6.25 MG TAB PO SCH ×2 (09:39→10:00)
[2017-05-31] MEDS: Baclofen 10 MG TAB PO SCH ×2 (09:41→21:26)
[2017-05-31] MEDS: Docusate 100 MG CAP PO SCH ×2 (09:41→20:41)
[2017-05-31] MEDS: busPIRone HCl 10 MG TAB PO SCH ×3 (09:41→20:42)
[2017-05-31] MEDS: Ubidecarenone 50 MG CAP PO SCH ×2 (09:41→21:25)
[2017-05-31] MEDS: Digoxin 0.125 MG TAB PO SCH (09:41)
[2017-05-31] MEDS: Lisinopril 5 MG TAB PO SCH (09:41)
[2017-05-31] MEDS: Aspirin 325 MG TAB PO SCH (09:42)
[2017-05-31] MEDS: Clopidogrel Bisulfate 75 MG TAB PO SCH (09:42)
[2017-05-31] MEDS: Dexamethasone 10 MG in Sodium Chloride 0.9% 50 ML IVPB SCH (11:10)
[2017-05-31] MEDS ORDERED: Lorazepam 2 MG/ML VIAL SLOW IVP SCH (14:15)
--- NOTE | 2017-05-31 17:43 | MRI ---
LUMBAR SPINE MRI WITHOUT CONTRAST; Date: 05/31/17 COMPARISON: 05/13/11. HISTORY: Lumbar radiculopathy. Disc bulge noted on CT. Back pain radiating down both legs x4 days. CORRELATION: CT lumbar spine dated 05/30/17. TECHNIQUE: MRI lumbar spine is performed without intravenous Gadolinium administration. Multisequential, multipl isabella imaging is performed. FINDINGS: There is a mild Schmorl's node irregularity involving the superior end plate of T12, chronic. There is appropriate T1 marrow signal intensity of the lumbar vertebra. Lumbar spine vertebral body h eight is maintained. No fracture. No significant STIR hyperintensity to suggest edema or ligamentous injury. Symmetric signal intensity of the psoas muscles. T2 hyperintensities in the right kidney are redemons trated, compatible with cysts. Conus medullaris terminates at the superior aspect of L1. T12-L1: Adequate disc hydration. No significant central canal stenosis or foraminal narrowing. L1-2: Adequate disc hydration. No significant central canal stenosis or foraminal narrowing. L2-L3: Adequate disc hydration. No significant posterior disc abnormality. Mild ligamentum flavum thickening or facet hypertrophy. No significant central canal stenosis. Mild bilateral foraminal narrowing. L3-L4: Adequate disc hydration. Generalized disc bulge, ligamentum flavum thickening, and facet hypertrophy result in mild central canal stenosis. Moderate bilateral foraminal narrowing. L4-L5: Mild loss of disc space height. Generalized disc bulge with a left subarticular component is present. There is ligament flavum thickening and facet hypertrophy. Overall mild stenosis of the thecal sac. There is mass effect and near complete obscuration of the traversing left L5 nerve root secondary to disc material. Moderate right and left foraminal narrowing. L5-S1: Desiccation with mild loss of disc space height. There is a generalized disc bulge with al eft and ri ght subarticular component. Disc material abuts both traversing S1 nerve roots without obscuration. O verall, there is mild central canal stenosis. There is bilateral facet hypertrophy, left greater than right. Moderate right and moderate to severe left foraminal narrowing. IMPRESSION: Degenerative changes of the lumbar spine at L4-L5 and L5-S1 as detailed above. There is mass effect u lilo the traversing bilateral S1 nerve roots. There is mass effect upon the traversing left L5 nerve r oots with partial obscuration. POS: [facility]
[2017-05-31] MEDS: Carvedilol 25 MG TAB PO SCH (21:27)
[2017-05-31] MEDS: Finasteride 5 MG TAB PO SCH (21:28)
[2017-05-31] MEDS: PARoxetine 20 MG TAB PO SCH (21:29)
[2017-06-01] MEDS: oxyCODONE/Acetaminophen 5 mg/325 mg Tablet PO SCH ×3 (05:53→21:31)
[2017-06-01] MEDS: Fish Oil 1,000 MG CAP PO SCH ×2 (08:42→21:26)
[2017-06-01] MEDS: Ubidecarenone 50 MG CAP PO SCH ×2 (08:42→23:25)
[2017-06-01] MEDS: Baclofen 10 MG TAB PO SCH ×2 (08:42→21:26)
[2017-06-01] MEDS: Clopidogrel Bisulfate 75 MG TAB PO SCH (08:42)
[2017-06-01] MEDS: Lisinopril 5 MG TAB PO SCH (08:43)
[2017-06-01] MEDS: Docusate 100 MG CAP PO SCH ×2 (08:43→21:27)
[2017-06-01] MEDS: Carvedilol 6.25 MG TAB PO SCH (08:43)
[2017-06-01] MEDS: Aspirin 325 MG TAB PO SCH (08:48)
[2017-06-01] MEDS: Dexamethasone 10 MG in Sodium Chloride 0.9% 50 ML IVPB SCH (08:48)
--- NOTE | 2017-06-01 09:17 | PDOC.FM ---
- Subjective Subjective: This morning patient was able to walk to the restroom which is improvement from yesterday. He states his pain is about the same as yesterday, says "I cannot live like this." Had MRI done yesterday, awaiting Neurosurgery consultation. - Objective Vital Signs & Weight: Vital Signs (12 hours) Temp Pulse Resp BP BP Pulse Ox 06/01/17 08:43 69 145/85 H 06/01/17 08:00 99.1 F 80 16 145/95 H 96 06/01/17 04:00 97.9 F 68 18 155/87 H 97 06/01/17 00:00 98.0 F 69 20 137/78 95 Weight Weight 120 g I&O: 05/31/17 06/01/17 06/02/17 06:59 06:59 06:59 Intake Total 1860 1440 Output Total 400 920 Balance 1460 520 Result Diagrams: 05/30/17 16:03 05/30/17 16:03 <Mika Quintana - Last Filed: 06/01/17 09:15> - Objective Vital Signs & Weight: Vital Signs (12 hours) Temp Pulse Resp BP BP Pulse Ox 06/03/17 11:37 97.3 F L 68 22 H 135/82 94 L 06/03/17 08:00 98.2 F 74 22 H 157/71 H 93 L 06/03/17 07:31 69 153/79 H 06/03/17 04:00 98.1 F 69 18 153/79 H 93 L Weight Weight 120 g I&O: 06/02/17 06/03/17 06/04/17 06:59 06:59 06:59 Intake Total 5250 Output Total 1100 2875 Balance -1100 2375 Result Diagrams: 05/30/17 16:03 06/02/17 04:14 <Aaron Travis - Last Filed: 06/03/17 13:42> Phys Exam - Physical Examination Constitutional: NAD HEENT: PERRLA, moist MMs Neck: no nodes, full ROM Respiratory: no wheezing, clear to auscultation bilateral Cardiovascular: RRR, no significant murmur Gastrointestinal: soft, non-tender, no distention, positive bowel sounds Musculoskeletal: no edema, pulses present Neurological: moves all 4 limbs 4/4 strength in all extremities, straight leg test negative, good sensation Psychiatric: normal affect, A&O x 3 <Mika Quintana - Last Filed: 06/01/17 09:15> Dx/Plan (1) Hx of polymyalgia rheumatica Code(s): Z87.39 - PERSONAL HISTORY OF DISEASES OF THE MS SYS AND CONN TISS Status: Acute (2) Hyperlipidemia Code(s): E78.5 - HYPERLIPIDEMIA, UNSPECIFIED Status: Acute (3) Lumbar radiculopathy, chronic Code(s): M54.16 - RADICULOPATHY, LUMBAR REGION Status: Acute (4) CHF, acute on chronic Code(s): I50.9 - HEART FAILURE, UNSPECIFIED Status: Acute QualifierTitle: Qualified Code(s): I50.43 - Acute on chronic combined systolic (congestive) and diastolic (congestive) heart failure (5) Obesity (BMI 30-39.9) Code(s): E66.9 - OBESITY, UNSPECIFIED Status: Acute (6) Hypertension Code(s): I10 - ESSENTIAL (PRIMARY) HYPERTENSION Status: Chronic (7) Obstructive sleep apnea on CPAP Code(s): G47.33 - OBSTRUCTIVE SLEEP APNEA (ADULT) (PEDIATRIC) Status: Chronic - Plan Plan: # Acute on chronic lumbar pain -Will attempt to manage pain with patients home oxycodone with morphine for breakthrough pain -Consult PT/OT -Continue Decadron -MRI yesterday shows disc bulging, narrowed foramina, central stenosis L4-S1 -Neurosurgery consulted, appreciate recs # Polymalgia rheumatica - Continue steroids and manage pain # Hypertension - home meds # CAD s/p stents - Continue home meds # History of renal insufficiency - Cr 0.93, will monitor # Anxiety - Home meds # LIVE - CPAP # HLD - Home meds. Heart healthy diet # Possible Nephrolithiasis - blood on U/A - patient denies burning with urination - continue to strain urine Dispo: awaiting neurosurgery recommendations <Mika Quintana - Last Filed: 06/01/17 09:15> Attending Addendum - Attending Addendum Date/Time: 06/03/17 [id number] I personally evaluated the patient and discussed the management with Drs. Quintana and Anders. I agree with the History, Examination, Assessment and Plan documented above with any addition or exceptions noted below. Neurosurg does not recommend surgical intervention. Neuro recommends lumbar steroid injection. Pain Management cannot perform injection until he is off plavix for 1 week. He is bale to walk with walker although the pain is considerable. He is disappointed surgery or injection could not be performed. He is stable for discharge with walker. <Aaron Travis - Last Filed: 06/03/17 13:42>
[2017-06-01] MEDS: busPIRone HCl 10 MG TAB PO SCH ×3 (10:02→21:28)
[2017-06-01] MEDS: Sodium Chloride 0.9% 1,000 ML IV SCH (10:25)
[2017-06-01] MEDS ORDERED: Gabapentin 300 MG CAP PO SCH ×2 (13:00→18:45)
[2017-06-01] MEDS: Gabapentin 300 MG CAP PO SCH (14:24)
--- NOTE | 2017-06-01 14:36 | RAD ---
LEFT HIP TWO VIEWS: History: Left hip pain. FINDINGS/IMPRESSION: Mild degenerative changes are present. No fracture, dislocation, or bony destruction is identified. POS: OFF
--- NOTE | 2017-06-01 14:37 | RAD ---
RIGHT HIP TWO VIEWS: History: Right hip pain. FINDINGS: Comparison made with exam of 03-16-16. Mild osteoarthritic changes are again seen. No fracture, dislocation, or bony destruction is identifi ed. IMPRESSION: No acute process. POS: OFF
[2017-06-01] MEDS ORDERED: Cyclobenzaprine 10 MG TAB PO PRN (18:39)
[2017-06-01] MEDS ORDERED: Ketorolac Tromethamine 30 MG/ML VIAL IVP SCH (18:45)
--- NOTE | 2017-06-01 19:57 | PRG-2 ---
DATE OF SERVICE: 06/01/2017 ENCOUNTER IN DETAIL: Primary team asked me to come and see the patient as I am his primary care physician outside the hospital. When I spoke with the patient starting approximately 1800 hours on date of service, the patient was complaining that he did not feel that his back pain was being addressed adequately. He stated that he was unable to ambulate without pain. Per the primary team, the patient was seen walking to and from the bathroom. When presented with this information, the patient stated that he did so, but with excruciating pain and was concerned that he would fall. He states that the only way he can experience relief is if he lies flat. MRI shows degenerative changes of the spine with desiccation and loss of disk space height in the level of L5-S1. There appeared to be mild central canal stenosis at that level as well. Per the primary team, Neurosurgery team did not feel that he was a surgical candidate at this time. The patient states that outside the hospital he sees a manufacturing engineer paint. He states he has been dealing with chronic low back pain for several years, but that has progressively worsened over the past 6 months. He takes oxycodone for pain control at baseline. He states that he has been on this medication approximately 1-1/2 months and that initially it worked well. However, his back has been having 2 to 3-day spells of [id number] pain leading up to this hospitalization for the past 2-3 weeks. Additionally, he sees a pain management doctor outpatient. Care plan was discussed with the patient. He is refusing to leave the hospital as he cannot ambulate. He does not have any support in the area. Closest next of kin lives in [place]. He does not have anybody to live at home with him. He does not currently have home health arranged. I informed the patient that the team would give an additional injection of Toradol, start him on gabapentin , and give him t.i.d. Flexeril. The primary team will re-evaluate him in the morning. I informed the patient that ideal disposition for him will be go to either alf facility or an inpatient rehabilitation center. However , since the patient does not meet inpatient criteria at this time and is on observation status, this would likely hinder the process. We will reconvene with case management in the morning to discuss possible placement options. The patient was still disgruntled, but somewhat in agreement with this plan at this time. We will recheck his basic metabolic panel in the morning to monitor kidney function. Creatinine at the time of admission was 0.93 and estimated GFR was 80. Could consider giving an additional dose of Toradol if he experiences some pain relief with this. MTDD
[2017-06-01] MEDS: Carvedilol 25 MG TAB PO SCH (21:26)
[2017-06-01] MEDS: PARoxetine 20 MG TAB PO SCH (21:26)
[2017-06-01] MEDS: Finasteride 5 MG TAB PO SCH (21:31)
[2017-06-02] MEDS: Sodium Chloride 0.9% 1,000 ML IV SCH ×3 (01:54→22:02)
[2017-06-02 04:55] LABS: Anion Gap 8 mmol/L (10-20); BUN (Urea Nitrogen) 24 mg/dL (8.4-25.7); Calc. Creatinine Clearance 0 mL/min (70-130); Calcium 8.8 mg/dL (7.8-10.44); Carbon Dioxide 27 mmol/L (23-31); Chloride 107 mmol/L (98-107); Estimated GFR-MDRD 67; Glucose 82 mg/dL (83-110); Potassium 4.2 mmol/L (3.5-5.1); Sodium 138 mmol/L (136-145)
[2017-06-02] MEDS: oxyCODONE/Acetaminophen 5 mg/325 mg Tablet PO SCH ×4 (06:03→22:10)
[2017-06-02] MEDS ORDERED: Ketorolac Tromethamine 30 MG/ML VIAL IVP SCH (06:15)
[2017-06-02] MEDS: Aspirin 325 MG TAB PO SCH (08:40)
[2017-06-02] MEDS: Lisinopril 5 MG TAB PO SCH (08:40)
[2017-06-02] MEDS: Carvedilol 6.25 MG TAB PO SCH (08:40)
[2017-06-02] MEDS: Digoxin 0.125 MG TAB PO SCH (08:41)
[2017-06-02] MEDS: Baclofen 10 MG TAB PO SCH ×2 (08:41→20:18)
[2017-06-02] MEDS: Cyclobenzaprine 10 MG TAB PO SCH ×3 (08:41→20:20)
[2017-06-02] MEDS: Gabapentin 300 MG CAP PO SCH ×3 (08:42→20:20)
[2017-06-02] MEDS: Docusate 100 MG CAP PO SCH ×2 (08:42→20:20)
[2017-06-02] MEDS: Clopidogrel Bisulfate 75 MG TAB PO SCH (08:42)
[2017-06-02] MEDS: Ubidecarenone 50 MG CAP PO SCH ×2 (08:46→20:25)
[2017-06-02] MEDS: busPIRone HCl 10 MG TAB PO SCH ×4 (08:57→20:19)
--- NOTE | 2017-06-02 09:23 | CON ---
DATE OF CONSULTATION: 06/02/2017 HISTORY OF PRESENT ILLNESS: Mr. Nettles is a 71-year-old man who is known to us for prior clinical ev aluation of low back pain who came to the hospital 2 days ago on 05/31/2017 for sudden increase in lo wer back pain and groin pain. Initially it appears that maybe this was hip related. Ultimately an M RI was performed. I am seeing him this morning at bedside and in addition to his groin pain he actua matildey has radicular intense pain that wraps from his buttock over the anterior thigh on the right lower extremity and stopping in the knee. It does not progress further down the omalley and into the foot an d is intensified when either sitting upright or standing. If he lays flat on his back he does get im provement in the symptoms, though they are still there. There is definitive L3 pattern of pain and o n the review of his MRI he does have some small disk protrusions at L4 and L5 and then centrally at L 1, L2, and L3. He has no significant pathology; however, to the right at L3 in the far lateral space lateral even to the foramen. There looks to be very likely is a far lateral disk herniation that co uld be displacing the exiting L3 nerve root. At present it does not look to be eminently surgical, but given his severe amount of pain he will nee d some type of intervention sooner than later. Preference would be to see if we can get him down to our pain management colleagues at the [facility] on-site in the hospital for an L3 ep idural steroid injection on the right. I think this will result in significant relief for him and we can likely get him home at that point for outpatient workup afterwards. He has no clinical weakness in the right lower extremity that would preclude surgery at this time, it is just significant pain t hat is needing to be brought under control.
[2017-06-02] MEDS: Fish Oil 1,000 MG CAP PO SCH ×2 (10:26→20:21)
[2017-06-02] MEDS: Dexamethasone 10 MG in Sodium Chloride 0.9% 50 ML IVPB SCH (12:50)
--- NOTE | 2017-06-02 12:56 | PDOC.FM ---
- Subjective Subjective: This morning patient states that he feels "a hair better." Still has significant pain sitting up or standing. He states he still does not feel safe walking without assistance because of the pain and he is afraid he will fall even walking to the bathroom. - Objective Vital Signs & Weight: Vital Signs (12 hours) Temp Pulse Resp BP BP Pulse Ox 06/02/17 12:25 98.6 F 70 20 145/72 H 95 06/02/17 11:45 98.6 F 70 20 145/72 H 95 06/02/17 08:41 71 06/02/17 08:40 71 151/88 H 06/02/17 08:30 98.6 F 71 20 06/02/17 07:37 98.6 F 71 20 151/88 H 93 L 06/02/17 06:16 98.1 F 69 16 139/73 92 L 06/02/17 01:44 97.5 F L 69 18 Weight Weight 120 g I&O: 06/01/17 06/02/17 06/03/17 06:59 06:59 06:59 Intake Total 1440 Output Total 920 1100 Balance 520 -1100 Result Diagrams: 05/30/17 16:03 06/02/17 04:14 <Mika Quintana - Last Filed: 06/02/17 12:55> - Objective Vital Signs & Weight: Vital Signs (12 hours) Temp Pulse Resp BP BP Pulse Ox 06/02/17 16:58 97.8 F 71 20 129/72 91 L 06/02/17 12:25 98.6 F 70 20 145/72 H 95 06/02/17 11:45 98.6 F 70 20 145/72 H 95 06/02/17 08:41 71 06/02/17 08:40 71 151/88 H 06/02/17 08:30 98.6 F 71 20 06/02/17 07:37 98.6 F 71 20 151/88 H 93 L 06/02/17 06:16 98.1 F 69 16 139/73 92 L Weight Weight 120 g I&O: 06/01/17 06/02/17 06/03/17 06:59 06:59 06:59 Intake Total 1440 Output Total 920 1100 775 Balance 520 -1100 -775 Result Diagrams: 03/04/18 16:03 06/02/17 04:14 <Aaron Travis - Last Filed: 06/02/17 17:16> Phys Exam - Physical Examination Constitutional: NAD HEENT: PERRLA, moist MMs Neck: no nodes, full ROM Respiratory: no wheezing, clear to auscultation bilateral Cardiovascular: RRR, no significant murmur, no rub Gastrointestinal: soft, non-tender, no distention, positive bowel sounds Musculoskeletal: no edema, pulses present strength is 4/4 in all extremities, patient has difficulty even sitting up this difficulty seems to be pain related, straight leg negative Psychiatric: normal affect, A&O x 3 Skin: no rash, normal turgor, cap refill <2 seconds <Mika Quintana - Last Filed: 06/02/17 12:55> Dx/Plan (1) Hx of polymyalgia rheumatica Code(s): Z87.39 - PERSONAL HISTORY OF DISEASES OF THE MS SYS AND CONN TISS Status: Acute (2) Hyperlipidemia Code(s): E78.5 - HYPERLIPIDEMIA, UNSPECIFIED Status: Acute (3) Lumbar radiculopathy, chronic Code(s): M54.16 - RADICULOPATHY, LUMBAR REGION Status: Acute (4) CHF, acute on chronic Code(s): I50.9 - HEART FAILURE, UNSPECIFIED Status: Acute QualifierTitle: Qualified Code(s): I50.43 - Acute on chronic combined systolic (congestive) and diastolic (congestive) heart failure (5) Obesity (BMI 30-39.9) Code(s): E66.9 - OBESITY, UNSPECIFIED Status: Acute (6) Hypertension Code(s): I10 - ESSENTIAL (PRIMARY) HYPERTENSION Status: Chronic (7) Obstructive sleep apnea on CPAP Code(s): G47.33 - OBSTRUCTIVE SLEEP APNEA (ADULT) (PEDIATRIC) Status: Chronic - Plan Plan: # Acute on chronic lumbar pain -PT/OT consulted - started tramadol, flexeril last night - titrating up on Gabapentin 300mg BID today -Neurosurgery consulted, appreciate recs - R L3 steroid injection is recommend by neurosurgery # Polymalgia rheumatica - Continue steroids and manage pain # Hypertension - home meds # CAD s/p stents - Continue home meds # History of renal insufficiency - Cr 0.93, will monitor # Anxiety - Home meds # LIVE - CPAP # HLD - Home meds. Heart healthy diet Dispo: anticipate L3 injection per neurosurgery, awaiting placement at inpatient rehab 2/2 patient's inability to consistently walk, awaiting PT nelly <Mika Quintana - Last Filed: 06/02/17 12:55> Attending Addendum - Attending Addendum Date/Time: 06/02/17 1516 I personally evaluated the patient and discussed the management with Dr. Quintana. I agree with the History, Examination, Assessment and Plan documented above with any addition or exceptions noted below. <Aaron Travis - Last Filed: 06/02/17 17:16>
[2017-06-02] MEDS: Carvedilol 25 MG TAB PO SCH (20:20)
[2017-06-02] MEDS: PARoxetine 20 MG TAB PO SCH (20:21)
[2017-06-02] MEDS: Finasteride 5 MG TAB PO SCH (20:25)
[2017-06-03] MEDS: oxyCODONE/Acetaminophen 5 mg/325 mg Tablet PO SCH ×2 (05:36→13:47)
--- NOTE | 2017-06-03 06:24 | CON ---
DATE OF CONSULTATION: 06/02/2017 REFERRING PHYSICIAN: Zay Cross MD REASON FOR CONSULTATION: Pain management. HISTORY OF PRESENT ILLNESS: Mr. Nettles is a 71-year-old male who has been consulted for ev aluation of pain management. History was obtained from the patient as well as the patient's medical chart. Apparently, the patient has a longstanding history of chronic lower back pain. He has had anu mbar spine surgery done approximately [address] Villarreal[address] He stated that this did help improve his pain at that time; however, his pain has returned over the past 1-2 years. He has been seeing Zarina Obando and has had injections done in the past without any help. He notes that his pain has been increasingly getting worse and he has been tried on multiple different neuropathic pain medicat ions, as well as muscle relaxers, as well as opioid analgesic pain medications without any help. He notes that the pain is located in the lower back, which radiates to the right hip and into the right groin and anterior aspect of the right thigh up to the knee. It does not go below the knee. This pa in is constant and is worse with any activities. It is also worse with lying down. He notes that he has tried Neurontin; he has tried Lyrica; he has tried tramadol, Toradol, oxycodone, morphine, and m ultiple other medications without any relief of his pain. He has had injections done by Dr. Obando approximately 2-3 weeks ago without any relief. As this pain was not improving, he decided to presen t to the hospital for further evaluation. PAST MEDICAL HISTORY: Significant for hypertension, hyperlipidemia, coronary artery disease, chronic back pain. PAST SURGICAL HISTORY: Significant for pacemaker placement, cardiac stent placement, ear surgery, ca rpal tunnel release, back surgery. SOCIAL HISTORY: The patient denies alcohol use or illicit drug use. He does smoke cigarettes, appro ximately 2 packs per day. CURRENT MEDICATIONS: Please review MAR. ALLERGIES: Include IODINE, STATINS. FAMILY HISTORY: Noncontributory. REVIEW OF SYSTEMS: As mentioned above in HPI, otherwise negative. PHYSICAL EXAMINATION: VITAL SIGNS: Blood pressure of 129/72, pulse of 71, temperature of 97.8, respirations of 20, O2 sats of 91% on room air. GENERAL: Agitated white male in no apparent distress. RESPIRATORY: Clear to auscultation bilaterally. CARDIOVASCULAR: Regular rate and rhythm. NEUROLOGIC: Mental status: The patient is awake, alert, oriented x3. He is very agitated throughou t my interview and examination. Cranial nerves: Pupils are 3 mm and reactive. Visual german are fu ll to threat. Extraocular muscles are intact. Face is symmetric. Motor exam showed normal tone and bulk with a 5/5 strength in both upper and lower extremities. This exam is limited by antalgic weak ness. I was not able to perform sensory or deep tendon reflexes as he had refused. LABORATORY DATA: Reviewed, which included CBC, CMP, urinalysis, and urine drug screen, which is sign ificant for BNP of 196.4. Urine drug screen was positive for opioids. IMAGING STUDIES: MRI of L-spine without contrast was reviewed, which showed degenerative changes on the lumbar spine at L4-L5 and L5-S1. There is a mass effect upon traversing bilateral S1 nerve roots , as well as left L5 nerve root. IMPRESSION: Chronic lumbar radiculopathy. ASSESSMENT AND PLAN: Mr. Nettles is a 71-year-old male with a chronic lower back pain, pres ented with worsening of lower back pain with radiation to the right groin and anterior aspect of the thigh up to the knee. This would indicate L3-L4 radiculopathy. At this time, he has tried multiple different neuropathic as well as opioid analgesic pain medications without any relief. The patient i s known to Dr. Obando with previous epidural injections. I will recommend reconsulting him tomorrow for his further recommendations. Unfortunately, my options are limited as far as the medication for pain management is concerned. Thank you for consultation.
[2017-06-03] MEDS: busPIRone HCl 10 MG TAB PO SCH ×2 (07:31→14:30)
[2017-06-03] MEDS: Lisinopril 5 MG TAB PO SCH (07:31)
[2017-06-03] MEDS: Aspirin 325 MG TAB PO SCH (07:31)
[2017-06-03] MEDS: Gabapentin 300 MG CAP PO SCH ×3 (07:31→13:47)
[2017-06-03] MEDS: Fish Oil 1,000 MG CAP PO SCH (07:31)
[2017-06-03] MEDS: Clopidogrel Bisulfate 75 MG TAB PO SCH (07:32)
[2017-06-03] MEDS: Baclofen 10 MG TAB PO SCH (07:32)
[2017-06-03] MEDS: Docusate 100 MG CAP PO SCH (07:32)
[2017-06-03] MEDS: Ubidecarenone 50 MG CAP PO SCH (07:32)
[2017-06-03] MEDS: Cyclobenzaprine 10 MG TAB PO SCH ×2 (07:32→13:48)
[2017-06-03] MEDS: Dexamethasone 10 MG in Sodium Chloride 0.9% 50 ML IVPB SCH (08:42)
--- NOTE | 2017-06-03 08:45 | PDOC.FM ---
Addendum entered and electronically signed by Mika Quintana MD 06/03/17 12:28: Rehab had accepted the patient pending L3 injection Injection cannot be completed for 1 week because the patient is on plavix CM and Rehab coordinator have been made aware Original Note: - Subjective Subjective: This morning the patient states his pain is a 2/10 while laying down but goes up to a 10/10 when sitting up or walking. The patient was able to ambulate to the restroom today using a walker, he states it was quite difficult. He thinks the muscle relaxers may be helping some. Patient is frustrated and thinks he needs a surgery to fix his pain. Re-iterated that this problem has been getting worse for some time and will take time working with rehab to get better. Re- iterated that surgery has seen and evaluated the patient and does not think he is a surgical candidate at this time. Dr. Fraser was consulted, he recommended consulting Dr. Obando who has seen this patient in the past. - Objective Vital Signs & Weight: Vital Signs (12 hours) Temp Pulse Resp BP BP Pulse Ox 06/03/17 08:00 98.2 F 74 22 H 157/71 H 93 L 06/03/17 07:31 69 153/79 H 06/03/17 04:00 98.1 F 69 18 153/79 H 93 L 06/03/17 00:00 98.1 F 74 20 137/76 92 L Weight Weight 120 g I&O: 06/02/17 06/03/17 06/04/17 06:59 06:59 06:59 Intake Total 5250 Output Total 1100 1745 Balance -1100 2375 Result Diagrams: 05/30/17 16:03 06/02/17 04:14 <Mika Quintana - Last Filed: 06/03/17 08:41> - Objective Vital Signs & Weight: Vital Signs (12 hours) Temp Pulse Resp BP BP Pulse Ox 06/03/17 11:37 97.3 F L 68 22 H 135/82 94 L 06/03/17 08:00 98.2 F 74 22 H 157/71 H 93 L 06/03/17 07:31 69 153/79 H Weight Weight 120 g I&O: 06/02/17 06/03/17 06/04/17 06:59 06:59 06:59 Intake Total 5250 Output Total 1100 0135 Balance -1100 2375 Result Diagrams: 05/30/17 16:03 06/02/17 04:14 <Aaron Tarvis - Last Filed: 06/03/17 16:03> Phys Exam - Physical Examination Constitutional: NAD HEENT: PERRLA, moist MMs Neck: no nodes, full ROM Respiratory: no wheezing, clear to auscultation bilateral Cardiovascular: RRR, no significant murmur Gastrointestinal: soft, non-tender, no distention, positive bowel sounds Musculoskeletal: no edema, pulses present observed patient having difficulty sitting up to eat breakfast, see PT note Neurological: non-focal, moves all 4 limbs unable to lift R foot off bed today 2/2 pain Lymphatic: no nodes Psychiatric: normal affect, A&O x 3 Skin: no rash, cap refill <2 seconds <Mika Quintana - Last Filed: 06/03/17 08:41> Dx/Plan (1) Hx of polymyalgia rheumatica Code(s): Z87.39 - PERSONAL HISTORY OF DISEASES OF THE MS SYS AND CONN TISS Status: Acute (2) Hyperlipidemia Code(s): E78.5 - HYPERLIPIDEMIA, UNSPECIFIED Status: Acute (3) Lumbar radiculopathy, chronic Code(s): M54.16 - RADICULOPATHY, LUMBAR REGION Status: Acute (4) CHF, acute on chronic Code(s): I50.9 - HEART FAILURE, UNSPECIFIED Status: Acute QualifierTitle: Qualified Code(s): I50.43 - Acute on chronic combined systolic (congestive) and diastolic (congestive) heart failure (5) Obesity (BMI 30-39.9) Code(s): E66.9 - OBESITY, UNSPECIFIED Status: Acute (6) Hypertension Code(s): I10 - ESSENTIAL (PRIMARY) HYPERTENSION Status: Chronic (7) Obstructive sleep apnea on CPAP Code(s): G47.33 - OBSTRUCTIVE SLEEP APNEA (ADULT) (PEDIATRIC) Status: Chronic - Plan Plan: # Acute on chronic lumbar pain -Will attempt to manage pain with patients home oxycodone with morphine for breakthrough pain - Patient still having difficulty with ambulation -Consult PT/OT -MRI shows disc bulging, narrowed foramina, central stenosis L4-S1 -Neurosurgery consulted, recommended steroid injection -Neurology Dr. Fraser consulted, recommended to consult Dr. Obando who has seen patient in the past # Polymalgia rheumatica - Continue steroids and manage pain # Hx CHF - BNP 196 on this admit - home meds # Hypertension - home meds # CAD s/p stents - Continue home meds # History of renal insufficiency - Cr 0.93, will monitor # Anxiety - Home meds # LIVE - CPAP # HLD - Home meds. Heart healthy diet Dispo: awaiting rehab placement, Dr. Obando recs <Mika Quintana - Last Filed: 06/03/17 08:41> Attending Addendum - Attending Addendum Date/Time: 06/03/17 1602 I personally evaluated the patient and discussed the management with Dr. Quintana. I agree with the History, Examination, Assessment and Plan documented above with any addition or exceptions noted below. <Aaron Travis - Last Filed: 06/03/17 16:03>
[2017-06-03] MEDS: Sodium Chloride 0.9% 1,000 ML IV SCH ×2 (09:55→14:30)
[2017-06-03] MEDS ORDERED: Ibuprofen 200 MG TAB PO SCH (11:30)
--- NOTE | 2017-06-03 13:59 | PDOC.EVN ---
Event Note - Event Note Event Note: Patient's oxycodone frequency has been increased. Dr. Godfrey consulted the pharmacy, they report patient has approximately 1/2 bottle of his 90 tablets from his home med. I called Dr. Obando's office as they prescribe this medication and advised them that his frequency has been increased and he would likely need a refill sooner. Office staff verbalized understanding. <Demetrius Mcnamara - Last Filed: 06/03/17 13:59> Attending Addendum - Attending Addendum Date/Time: 06/03/17 0019 I personally evaluated the patient and discussed the management with Dr. Quintana. I agree with the History, Examination, Assessment and Plan documented above with any addition or exceptions noted below. <Aaron Travis - Last Filed: 06/03/17 16:04>
[2017-06-03 16:04] VITALS: BP 133/68; TEMP 97.6
--- NOTE | 2017-06-03 17:01 | PDOC.EVN ---
Event Note - Event Note Event Note: Notified by IDALIA Abreu, that patient now reports he will participate in PT/OT if rehab will reevaluate him. Rehab has agreed to evaluate patient. Order placed to hold discharge pending rehab eval.
--- NOTE | 2017-06-03 19:19 | DIS-2 ---
DATE OF ADMISSION: 05/30/2017 DATE OF DISCHARGE: 06/03/2017 RESIDENT: Mika Quintana MD ADMITTING ATTENDING: Jg Servin MD DISCHARGE ATTENDING: Aaron Travis MD CONSULTATIONS: Neurosurgery, Neurology x2, Rehab, Pain Management. PROCEDURES: None. PRIMARY DIAGNOSIS: Lumbar radiculopathy. SECONDARY DIAGNOSES: Acute on chronic lumbar pain, polymyalgia rheumatica, history of congestive heart failure, hypertension, history of coronary artery disease, renal insufficiency history, anxiety, obstructive sleep apnea, hyperlipidemia. DISCHARGE MEDICATIONS: Aspirin 81 mg daily; Flexeril 10 mg p.o. t.i.d.; Percocet 10 mg q.6 hours p.r.n.; buspirone 10 mg t.i.d.; carvedilol 12.5 mg daily; digoxin 0.125 mg Wednesday, Wednesday, Wednesday; finasteride 5 mg nightly, gabapentin 300 mg p.o. t.i.d., lisinopril 5 mg p.o. daily, paroxetine 40 mg p.o. nightly. DISCONTINUED MEDICATIONS: Plavix. HOSPITAL COURSE: A 71-year-old male with significant past medical history of lumbar radiculopathy, status post injection by Dr. Obando presented to the ED with worsening back pain that started 2 days before his presentation. He reported no unusual activity or injury outside of his normal activity. He used to work as a dump truck operator. Lying flat made him better, but moving in any direction or sitting up made him hurt worse. He called EMS because he stated he was having difficulty walking. During the course of the hospital, lumbar CT was done and showed extensive disk bulge on multiple levels. He ultimately had a lumbar MRI, which showed central stenosis, bulging disk, narrowed foramina at L4 through S1. Also, showed disk bulge at L3 characteristic of lumbar radiculopathy. Neurosurgery was consulted and ultimately deemed the patient not a surgical candidate. Neurology was then consulted, who recommended consultation of another neurologist for pain management. I spoke to Pain Management who said that they could not do an injection secondary to the patient being on Plavix. Extensive work was done trying to get the patient into inpatient rehabilitation. The patient did not participate in physical therapy during his stay. There are multiple notes showing that he either already denied physical therapy or would only participate very briefly and then told them that the pain was too bad for him to participate. Because he could not get the steroid injection and he did not participate in physical therapy, inpatient rehab would not accept him. Then a way was found to get him into inpatient rehab by the excellent 4th floor case management team. He was discharged to inpatient rehab. for followup with PCP for pain management. He is to have a steroid injection in 1 week. After the steroid injection with Dr. Roa, he should be reevaluated for inpatient rehabilitation qualification. DISPOSITION: Stable. DISCHARGE INSTRUCTIONS: 1. Location: Inpatient Rehab 2. Diet: Heart healthy. ACTIVITY: As tolerated. FOLLOWUP: Follow up outpatient physical therapy, PCP within 3-5 days, pain management with Dr. Roa in 1 week for injection, inpatient rehabilitation. WANDA
== END 2017-06-03 19:10 ==
LOC: ERS 11:13 → T4-A 13:50
PROVIDERS: ADMIT Student in an Organized Health Care Education/Training Program; ATTEND Student in an Organized Health Care Education/Training Program
DX: M54.16 Radiculopathy, lumbar region (principal); G89.29 Other chronic pain; M35.3 Polymyalgia rheumatica; I11.0 Hypertensive heart disease with heart failure; I50.9 Heart failure, unspecified; I25.10 Atherosclerotic heart disease of native coronary artery without angina pectoris; N28.9 Disorder of kidney and ureter, unspecified; G47.33 Obstructive sleep apnea (adult) (pediatric); E78.5 Hyperlipidemia, unspecified; F41.9 Anxiety disorder, unspecified; E66.9 Obesity, unspecified; Z91.041 Radiographic dye allergy status; Z88.8 Allergy status to other drugs, medicaments and biological substances
CPT/HCPCS: 72131; 72148; 73502 ×2; 80048; 80053; 80306; 81001; 83880; 85025; 94760 ×2; 96361; 96365; 96366 ×2; 96375 ×3; 96376 ×2; 97139 ×6; 97530 ×3; 99285; 99406; G0008; G0378 ×2; G8978; G8979; G8987; G8988; Q2036; 36415; 90471; 90682; 96374; J1100; J1885; J2060; J2270; J7050; Q0162

== ENCOUNTER 2017-06-16 13:40 | Observation (INO) | payer MEDICARE, BC ==
[2017-06-16 16:22] LABS: Bilirubin Negative (Negative); Blood, Urine Moderate (Negative); Clarity CLEAR (Clear); Glucose, Urine (Dipstick) Negative (Negative); Leukocyte Negative (Negative); Nitrite Negative (Negative); Protein, Urine (Dipstick) Negative (Neg-Trace); Specific Gravity, Urine 1.013 (1.002-1.036)
[2017-06-16 16:24] LABS: Bacteria/HPF None Seen HPF (None Seen); Hyaline Casts/LPF 0-3 HYALINE CAST LPF (0-3 Hyaline); Pathc Cast-AUWi Flag 0.72 (0-2.49); RBC/HPF 21-50 HPF (0-3); Squamous Epithelial 0-3 HPF (0-3); WBC/HPF 0-3 HPF (0-3)
[2017-06-16 16:31] LABS: #Eosinphils 0.2 thou/uL (0.0-0.7); #Lymphocytes 1.8 thou/uL (1.20-3.40); #Neutrophils 5.6 thou/uL (1.40-6.50); %Basophils 0.3 % (0.0-1.0); %Lymphocytes 20.7 % (21.0-51.0); %Monocytes 11.3 % (0.0-10.0); %Neutrophils 65.7 % (42.0-75.0); Hemoglobin 14.1 g/dL (14.0-18.0); Mean Corpuscular HGB CONC 33.9 g/dL (32.0-36.0); Mean Corpuscular Hemoglobin 31.7 pg (27.0-31.0); Mean Corpuscular Volume 93.5 fl (80.0-94.0); Mean Platelet Volume 7.8 fL (7.4-10.4); Platelet Count 154 thou/uL (130-400); RBC Distribution Width 12.2 % (11.5-14.5); Red Blood Cell (RBC) Count 4.46 mill/uL (4.70-6.10); White Blood Cell (WBC) Count 8.5 thou/uL (4.8-10.8)
[2017-06-16 16:51] LABS: Troponin I 0.022 ng/mL (< 0.028)
[2017-06-16 16:53] LABS: ALT (SGPT) 20 U/L (8-55); AST (SGOT) 18 U/L (5-34); Albumin 3.5 g/dL (3.4-4.8); Alkaline Phosphatase 71 U/L (40-150); Anion Gap 13 mmol/L (10-20); BUN (Urea Nitrogen) 11 mg/dL (8.4-25.7); Bilirubin, Total 0.7 mg/dL (0.2-1.2); Calc. Creatinine Clearance 0 mL/min (70-130); Calcium 9.8 mg/dL (7.8-10.44); Carbon Dioxide 23 mmol/L (23-31); Chloride 106 mmol/L (98-107); Estimated GFR-MDRD 70; Globulin 3.4 g/dL (2.4-3.5); Glucose 95 mg/dL (83-110); Potassium 3.8 mmol/L (3.5-5.1); Protein, Total 6.9 g/dL (5.8-8.1); Sodium 138 mmol/L (136-145)
--- NOTE | 2017-06-16 17:17 | RAD ---
RADIOGRAPH CHEST 1 VIEW: Date: 06/16/17 Time: 4:39 p.m. HISTORY: 71-year-old male with mid sternal acute chest pain. COMPARISON: 05/07/17 FINDINGS: Left subclavian pacemaker. Left base, including left lateral costophrenic angle, has been excluded fr om the current field of view. Increased attenuation in the retrocardiac portion of left lower lobe, s imilar to or perhaps slightly worse, than on prior study. No consolidation in the upper lung zones. M ild haziness of the right mid and lower lung zones, slightly greater than prior study. No pneumothora x. IMPRESSION: 1. Nonspecific mildly increased density in the left lower lobe. 2. Recommend followup. MIRA [] POS: GILLIAN
[2017-06-16 17:26] LABS: Digoxin 0.26 ng/mL (0.8-2.0)
[2017-06-16 19:31] VITALS: BMI 32.6
--- NOTE | 2017-06-16 20:03 | PDOC.FPRHP ---
- History of Present Illness Chief Complaint: weakness History of Present Illness: 71 yo male with pmhx of polymyalgia rheumatica, CAD s/p stents placed in 2003 and sCHF presents with progressive weakness over the past month. He was discharged from the hospital recently after being treated for a lumbar radiculopathy. He reports that over the past month he become more and more weak in his upper and lower extremities. He endorses an overall lack of energy as well. He was prescribed prednisone in April when he was seen in our clinic for polymyalgia rheumatica, however at some time in the past few weeks he stopped taking it. He endorses worsening dyspnea on exertion, with only taking a few steps. He denies chest pain, cough, sick contacts. He does endorse nausea but denies vomiting or diarrhea. Denies sick contacts, but does endorse HIV exposure. - Allergies/Adverse Reactions Allergies Allergy/AdvReac Type Severity Reaction Status Date / Time iodine Allergy Verified 06/16/17 19:55 Yabdztg-Lxf-Urd Reductase Allergy Verified 06/16/17 19:55 Inhibitor - Home Medications Medication Instructions Recorded Confirmed Type Fish Oil/DHA/EPA [Fish Oil 1,200 1,000 mg PO BID 11/13/13 06/16/17 History mg Fish Oil] Finasteride [Proscar] 5 mg PO DAILY 07/02/14 06/16/17 History Lisinopril [Zestril] 5 mg PO DAILY #0 tab 02/27/15 06/16/17 Rx Carvedilol [Coreg] 12.5 mg PO DAILY 07/15/16 06/16/17 History Carvedilol [Coreg] 25 mg PO HS 05/30/17 06/16/17 History Digoxin [Lanoxin] 0.125 mg PO SEEPHYS 05/30/17 06/16/17 History Multivitamin [Multiple Vitamins] 1 each PO DAILY 05/30/17 06/16/17 History PARoxetine HCl 40 mg PO HS 05/30/17 06/16/17 History Ubidecarenone [Co Q-10] 200 mg PO BID 05/30/17 06/16/17 History oxyCODONE HCl/Acetaminophen 1 tab PO Q6HR 7 Days #30 tablet 06/03/17 06/16/17 Rx [Oxycodone-Acetaminophen 10-325] Aspirin 325 mg PO DAILY 06/16/17 06/16/17 History Clopidogrel Bisulfate [Plavix] 75 mg PO DAILY 06/16/17 06/16/17 History - History PMHx: 1.)CAD s/p stents placed in 2003, sees Dr. Neil; last saw him 3 mo prior 2.)Polymyalgia Rheumatica 3.)Anxiety 4.)Depression 5.)CHF, systolic 6.)LIVE 7.)Vit. D Deficiency 8.)CKD 9.)Hx of colon cancer s/p partial colectomy ~20 years prior; says he doesn't need another colonoscopy for several years. Dr. Choudhury is his GI dr. PSHx: 1.)Partial Colon resection ~ 20 years prior 2.)Ex lap 3.)back surgery 4.)pacemaker placed 5.)carpal tunnel surgery 6.)stents placed 2003 FHx: brother has HIV Social: endorses smoking 1-2ppd for the past 6 mo; prior to that had quit for 11 years. denies alcohol or drug use - Review of Systems General: reports: fatigue. denies: fever/chills, weight/appetite/sleep changes Eyes: denies: eye pain, vision changes ENT: denies: nasal congestion, rhinorrhea Respiratory: reports: shortness of breath. denies: cough, congestion Cardiovascular: denies: chest pain, palpitation, edema, paroxysmal nocturnal dyspnea, orthopnea Gastrointestinal: reports: nausea. denies: vomiting, diarrhea, constipation, abdominal pain Genitourinary: denies: incontinence, dysuria Skin: denies: rashes Musculoskeletal: denies: pain, tenderness, stiffness Neurological: reports: weakness (generalized). denies: numbness, syncope, seizure Psychological: denies: anxiety, depression - Vital signs BP: 133/68 HR: 76 RR: 22 Tmax: 97.6 Pox: 93% on RA Wt: 112kg - Physical Exam Constitutional: NAD, awake, alert and oriented, well developed HEENT: normocephalic and atraumatic, PERRLA, EOMI, grossly normal vision, grossly normal hearing, normal nasal mucosa, MMM Neck: supple, no LAD, no JVD, no thyromegaly Heart: RRR, normal S1/S2, no murmurs/rubs/gallops, pulses present, other (trace) Lungs: other (crackles at bases bilaterally; decreased breath sounds on the right) Abdomen: soft, non-tender, no masses/distention Musculoskeletal: normal structure, normal tone, ROM grossly normal Neurological: no focal deficit, CN II-XII intact, normal sensation, DTRs 2+, other (5/5 strenght bilateral upper and lower extremities) Skin: no rash/lesions, capillary refill <2 seconds, no jaundice Heme/Lymphatic: no unusual bruising or bleeding, no purpura, no petechia Psychiatric: normal mood and affect FMR H&P: Results - Labs Result Diagrams: 06/16/17 16:26 06/16/17 16:26 Lab results: WBC 8.5 thou/uL (4.8-10.8) 06/16/17 16:26 Hgb 14.1 g/dL (14.0-18.0) 06/16/17 16:26 Hct 41.8 % (42.0-52.0) L 06/16/17 16:26 MCV 93.5 fl (80.0-94.0) 06/16/17 16:26 Plt Count 154 thou/uL (130-400) 06/16/17 16:26 Neutrophils % 65.7 % (42.0-75.0) 06/16/17 16:26 Sodium 138 mmol/L (136-145) 06/16/17 16:26 Potassium 3.8 mmol/L (3.5-5.1) 06/16/17 16:26 Chloride 106 mmol/L (98-107) 06/16/17 16:26 Carbon Dioxide 23 mmol/L (23-31) 06/16/17 16:26 BUN 11 mg/dL (8.4-25.7) 06/16/17 16:26 Creatinine 1.04 mg/dL (0.6-1.3) 06/16/17 16:26 Glucose 95 mg/dL (83-110) 06/16/17 16:26 Calcium 9.8 mg/dL (7.8-10.44) 06/16/17 16:26 Total Bilirubin 0.7 mg/dL (0.2-1.2) 06/16/17 16:26 AST 18 U/L (5-34) 06/16/17 16:26 ALT 20 U/L (8-55) 06/16/17 16:26 Alkaline Phosphatase 71 U/L (40-150) 06/16/17 16:26 B-Natriuretic Peptide 130.3 pg/mL (0-100) H 06/16/17 16:27 Serum Total Protein 6.9 g/dL (5.8-8.1) 06/16/17 16:26 Albumin 3.5 g/dL (3.4-4.8) 06/16/17 16:26 Urine Ketones Negative mg/dL (Negative) 06/16/17 16:15 Urine Blood Moderate (Negative) H 06/16/17 16:15 Urine Nitrite Negative (Negative) 06/16/17 16:15 Ur Leukocyte Esterase Negative (Negative) 06/16/17 16:15 Urine RBC 21-50 HPF (0-3) H 06/16/17 16:15 Urine WBC 0-3 HPF (0-3) 06/16/17 16:15 Ur Squamous Epith Cells 0-3 HPF (0-3) 06/16/17 16:15 Urine Bacteria None Seen HPF (None Seen) 06/16/17 16:15 - EKG Interpretation EKG: paced rythm with some PVCs - Radiology Interpretation Chest x-ray Status: image reviewed by me, report reviewed by me (cardiomegaly; blunting of the left diaphragmatic border and possible infiltrate vs fluid collection in right lower lung base) FMR H&P: A/P - Problem List (1) Systolic CHF Current Visit: Yes Status: Acute Code(s): I50.20 - UNSPECIFIED SYSTOLIC ( CONGESTIVE) HEART FAILURE (2) Acute exacerbation of CHF (congestive heart failure) Current Visit: Yes Status: Acute Code(s): I50.9 - HEART FAILURE, UNSPECIFIED (3) Polymyalgia rheumatica syndrome Current Visit: Yes Status: Acute Code(s): M35.3 - POLYMYALGIA RHEUMATICA (4) Dyspnea Current Visit: No Status: Acute Code(s): R06.00 - DYSPNEA, UNSPECIFIED (5) History of colon cancer Current Visit: No Status: Acute Code(s): Z85.038 - PERSONAL HISTORY OF MALIGNANT NEOPLASM OF LARGE INTESTINE (6) Weakness Current Visit: No Status: Acute Code(s): R53.1 - WEAKNESS (7) Anxiety Current Visit: No Status: Chronic Code(s): F41.9 - ANXIETY DISORDER, UNSPECIFIED (8) CAD (coronary atherosclerotic disease) Current Visit: No Status: Chronic Code(s): I25.10 - ATHSCL HEART DISEASE OF [place] CORONARY ARTERY W/O ANG PCTRS (9) Depression Current Visit: No Status: Chronic Code(s): F32.9 - MAJOR DEPRESSIVE DISORDER , SINGLE EPISODE, UNSPECIFIED (10) Hypertension Current Visit: No Status: Chronic Code(s): I10 - ESSENTIAL (PRIMARY) HYPERTENSION (11) Obstructive sleep apnea on CPAP Current Visit: No Status: Chronic Code(s): G47.33 - OBSTRUCTIVE SLEEP APNEA (ADULT) (PEDIATRIC) (12) Vitamin D deficiency Current Visit: No Status: Chronic Code(s): E55.9 - VITAMIN D DEFICIENCY, UNSPECIFIED (13) CKD (chronic kidney disease) stage 2, GFR 60-89 ml/min Current Visit: Yes Status: Acute Code(s): N18.2 - CHRONIC KIDNEY DISEASE, STAGE 2 (MILD) - Plan 71 yo male with pmhx of polymyalgia rheumatica, CAD s/p stent placement in 2003 , and sCHF presents with generalized weakness/fatigue and REA, admitted for an acute systolic CHF exacerbation and polymyalgia rheumatica syndrome. 1.)Acute Systolic CHF exacerbation-Mr. Nettles has a hx of sCHF and was seen by Dr. Neil ~3mo ago. His BNP is elevated today and he has crackles in his bilateral lung bases. We will give him 80mg of lasix now, and then restart his home medications of Lasix 40mg daily, Lisinopril 5 mg daily, Coreg 25mg BID, Aspirin 325mg daily, and digoxin 125mcg daily. His most recent echo in [facility] was ~ 1 yr ago which showed an EF of 35-40%, mild aortic stenosis and posterior wall hypokinesis. 2.)Polymyalgia Rheumatica relapse-He was started on prednisone 10mg daily in clinic in April, but stopped taking it about 1 mo ago. We will start him on prednisone 20mg daily here since it appears that he is having a relapse in symptoms. We also ordered an ESR, CRP, and CK. 3.)Hematuria, chronic-recommend outpatient workup. He likely needs an abdominal and pelvic CT with and without contrast because of his risk factors for bladder cancer (male, >35, smoking hx). 4.)Infiltrate on CXR-pt does not have a leukocytosis or fever. We will follow his vitals and consider antibiotics if he fevers. 5.)CAD s/p stents in 2003-We will restart his aspirin 325mg daily and plavix 75mg daily. We will trend troponins and repeat an EKG if he develops chest pain. 6.)Tobacco use and abuse-We will [place] on cessation and provide a nicotine patch. 7.)Suspected COPD-He has a long smoking hx and complains of worsening shortness of breath, rea. We will provide duonebs scheduled and albuterol prn. We recommend outpatient spirometry testing and outpatient management. 8.)HIV exposure-Pt's brother has HIV and he said he was exposed in April. We ordered an HIV antibody test. 9.)Depression, controlled. We will restart his paxil 10.)Anxiety, controlled. We will restart his home meds 11.)HLD, controlled. We will restart his lipitor. 12.)LIVE, controlled with CPAP at night. We will order CPAP for him to use at night. 13.) CKD, stage 2-monitor with daily bmp's FMR H&P: Upper Level - Plan Date/Time: 06/16/172002 IVika, PGY3, have evaluated this patient and agree with findings/plan as outlined by automotive internet sales consultant resident. Pertinent changes/additions are listed here. This is a 71 yo WM w/ PMH CAD s/p stents x2, HTN, HLD, sCHF last ECHO 35-40% in 2017 w/ AICD and see's Dr. Neil Data Sme, LIVE on CPAP, tobacco abuse, Colon CA yrs ago in remission, presents w/ progressive weakness and general malaise over the past week. He has had difficulty concentrating as well. About 2 weeks ago he stopped his steroids. He also admits to worsening SOB at rest and w/ exertion. Denies any weight gain, LE edema. His last cardiology appointment was 3 months ago. PE: Gen: AOX4, but slower cognition HEENT: Atraumatic, appears unkept, very weak and fatigued. No lymphadenopathy. CV: +3 systolic murmur. RRR Resp: + crackles bases lungs bilaterally. minimally diminished air movement Abd: Non-tender, no rebound, no guarding Ext: Trace LE edema bilaterally Neuro: CN II-XII intact, strength +4/5 UE and LE symmetric bilaterally. Sensation intact UE and LE. +2 patellar reflexes bilaterally A/P: Generalized weakness possibly due to PMR vs sCHF exacerbation vs infection - Blood cx, urine cx, flu swab, HIV 1) sCHF exacerbation - Diuresis. I/O. Daily weights. BNP 130 verses 50 about 1 month ago. Continue other home medications. 2) Polymyalgia Rheumatica Flare - Prednisone. ESR, CRP, CK. Likely causing his weakness, fatigue as his steroids were stopped about 2 weeks ago. 3) LIVE - CPAP at night 4) CAD s/p stents x2 - CE x3. Initial EKG. Continue home medications. 5) Hx of exposure to HIV - HIV 6) Hematuria - present for over 1 year now. Recommend outpatient abdominopelvic CT w/ & w/o contrast and consider urology f/u as outpatient is a smoker and has hx of colon CA. 7) Infiltrate noted on CXR - no WBC, no fever. Consider starting antibiotics if patient fevers 8) COPD - Duonebs PHILIP. Workup outpatient. 9) Tobacco abuse - group therapy counselor on cessation. 10) Hx of colon ca - follow-up with Dr. [place] outpatient. Attending Addendum - Attending Addendum Date/Time: 06/16/17 4508 I personally evaluated the patient and discussed the management with Dr. Bobby Thomas on 06/16/17. I agree with the History, Examination, Assessment and Plan documented above with any addition or exceptions noted below. Patient with CHF exacerbation. With IV Lasix has now diuresed >750 mL and has improved clinically. Initially had frequent PVCs and chest pain, these are now resolved. Cardiac enzymes negative x2. With hx of CAD, will consider cardiology consult in AM. ESR 32, restart prednisone for PMR, although these symptoms are not likely related.
[2017-06-16] MEDS ORDERED: Albuterol Sulfate 1.25 MG/3 ML NEB NEB PRN (20:23)
[2017-06-16] MEDS ORDERED: Furosemide 100 MG/10 ML VIAL SLOW IVP SCH (20:30)
[2017-06-16 20:47] LABS: Magnesium 1.8 mg/dL (1.6-2.6)
[2017-06-16 20:54] LABS: Troponin I 0.012 ng/mL (< 0.028)
[2017-06-16 20:56] LABS: CRP (Inflammatory) 0.68 mg/dL (= or < 0.5)
[2017-06-16] MEDS ORDERED: Nicotine 21 MG PATCH TD SCH (21:00)
[2017-06-16] MEDS ORDERED: PARoxetine 20 MG TAB PO SCH (21:30)
[2017-06-16] MEDS ORDERED: Ubidecarenone 50 MG CAP PO SCH (21:30)
[2017-06-16] MEDS ORDERED: Carvedilol 25 MG TAB PO SCH (21:30)
[2017-06-16] MEDS ORDERED: Fish Oil 1,000 MG CAP PO SCH (21:30)
[2017-06-16 22:54] LABS: Troponin I 0.014 ng/mL (< 0.028)
[2017-06-16 23:14] LABS: HIV (1/2) Antibody/Antigen Non-Reactive (NonReactive); HIV 1/2 INDEX 0.15 S/CO (<1.00)
[2017-06-17 04:35] LABS: #Eosinphils 0.3 thou/uL (0.0-0.7); #Lymphocytes 2.1 thou/uL (1.20-3.40); #Neutrophils 4.3 thou/uL (1.40-6.50); %Basophils 0.6 % (0.0-1.0); %Eosinophils 3.4 % (0.0-10.0); %Lymphocytes 26.8 % (21.0-51.0); %Monocytes 13.3 % (0.0-10.0); %Neutrophils 55.9 % (42.0-75.0); Hemoglobin 13.9 g/dL (14.0-18.0); Mean Corpuscular HGB CONC 33.3 g/dL (32.0-36.0); Mean Corpuscular Hemoglobin 31.1 pg (27.0-31.0); Mean Corpuscular Volume 93.1 fl (80.0-94.0); Mean Platelet Volume 7.9 fL (7.4-10.4); Platelet Count 161 thou/uL (130-400); RBC Distribution Width 12.3 % (11.5-14.5); Red Blood Cell (RBC) Count 4.46 mill/uL (4.70-6.10); White Blood Cell (WBC) Count 7.7 thou/uL (4.8-10.8)
[2017-06-17 04:57] LABS: Anion Gap 12 mmol/L (10-20); BUN (Urea Nitrogen) 12 mg/dL (8.4-25.7); Calc. Creatinine Clearance 102 mL/min (70-130); Carbon Dioxide 27 mmol/L (23-31); Chloride 104 mmol/L (98-107); Estimated GFR-MDRD 70; Glucose 94 mg/dL (83-110); Potassium 3.7 mmol/L (3.5-5.1); Sodium 139 mmol/L (136-145)
[2017-06-17] MEDS ORDERED: Ubidecarenone 50 MG CAP PO SCH (09:00)
[2017-06-17] MEDS ORDERED: Clopidogrel Bisulfate 75 MG TAB PO SCH (09:00)
[2017-06-17] MEDS ORDERED: Fish Oil 1,000 MG CAP PO SCH (09:00)
[2017-06-17] MEDS ORDERED: Prevnar 13-Val Conj/PF 0.5 ML SYRINGE IM ONE (09:00)
[2017-06-17] MEDS ORDERED: Carvedilol 6.25 MG TAB PO SCH (09:00)
[2017-06-17] MEDS ORDERED: Finasteride 5 MG TAB PO SCH (09:00)
[2017-06-17] MEDS ORDERED: Furosemide 40 MG/4 ML VIAL SLOW IVP SCH (09:00)
[2017-06-17] MEDS ORDERED: Multivitamin W/ Minerals 1 TAB PO SCH (09:00)
[2017-06-17] MEDS ORDERED: Aspirin 325 MG TAB PO SCH (09:00)
[2017-06-17] MEDS ORDERED: Lisinopril 5 MG TAB PO SCH (09:00)
[2017-06-17] MEDS ORDERED: FLU VACC TS2017-18 (>65YR) 0.5 ML SYRINGE IM ONE (09:00)
--- NOTE | 2017-06-17 10:29 | RAD ---
2 VIEW CHEST: Date: 06/17/17 HISTORY: Follow-up after diuresis. Shortness of breath. COMPARISON: 06/16/17. FINDINGS: There is patchy atelectasis and/or infiltrate in the left lung base. Lungs are otherwise clear. No evidence of vascular congestion or edema. Heart size upper normal and s table. Pacemaker leads unchanged. Tiny effusions not excluded. IMPRESSION: 1. Patchy atelectasis and/or infiltrate in the left lung base. 2. Evidence of small bilateral effusions. POS: OFF
[2017-06-17] MEDS ORDERED: hydrOXYzine 25 MG TAB PO PRN (11:25)
--- NOTE | 2017-06-17 11:41 | PDOC.FM ---
- Subjective Subjective: This morning patient states he is feeling somewhat better. He denies any pain. Denies any dysuria or hematuria. He states he is still feeling generally weak but he is able to ambulate on the restroom on his own without difficulty. He states he is eating well with no N/V/D. Patient states he is feeling anxious like it is difficult to tame his thoughts. States he does feel occasional palpitations. - Objective Vital Signs & Weight: Vital Signs (12 hours) Temp Pulse Resp BP BP Pulse Ox 06/17/17 09:32 74 124/62 06/17/17 08:00 97.8 F 74 18 06/17/17 07:42 97.8 F 70 18 107/60 92 L 06/16/17 23:44 97.6 F 69 16 113/62 93 L Weight Weight 110.813 kg I&O: 06/16/17 06/17/17 06/18/17 06:59 06:59 06:59 Intake Total 340 Output Total 1850 175 Balance -1510 -175 Result Diagrams: 06/17/17 03:54 06/17/17 03:54 Phys Exam - Physical Examination Constitutional: NAD HEENT: PERRLA, moist MMs Neck: no nodes, full ROM Respiratory: no wheezing, clear to auscultation bilateral Cardiovascular: RRR, no significant murmur Gastrointestinal: soft, non-tender, no distention, positive bowel sounds Musculoskeletal: no edema, pulses present Neurological: non-focal, moves all 4 limbs Psychiatric: normal affect, A&O x 3 Skin: no rash, cap refill <2 seconds Dx/Plan (1) Acute exacerbation of CHF (congestive heart failure) Code(s): I50.9 - HEART FAILURE, UNSPECIFIED Status: Acute (2) CKD (chronic kidney disease) stage 2, GFR 60-89 ml/min Code(s): N18.2 - CHRONIC KIDNEY DISEASE, STAGE 2 (MILD) Status: Acute (3) Polymyalgia rheumatica syndrome Code(s): M35.3 - POLYMYALGIA RHEUMATICA Status: Acute (4) Systolic CHF Code(s): I50.20 - UNSPECIFIED SYSTOLIC (CONGESTIVE) HEART FAILURE Status: Acute (5) Anemia Code(s): D64.9 - ANEMIA, UNSPECIFIED Status: Acute (6) Dyspnea Code(s): R06.00 - DYSPNEA, UNSPECIFIED Status: Acute (7) Hematuria Code(s): R31.9 - HEMATURIA, UNSPECIFIED Status: Acute (8) History of colon cancer Code(s): Z85.038 - PERSONAL HISTORY OF MALIGNANT NEOPLASM OF LARGE INTESTINE Status: Acute (9) Hypertension Code(s): I10 - ESSENTIAL (PRIMARY) HYPERTENSION Status: Chronic (10) Obstructive sleep apnea on CPAP Code(s): G47.33 - OBSTRUCTIVE SLEEP APNEA (ADULT) (PEDIATRIC) Status: Chronic - Plan Plan: 71 yo male with pmhx of polymyalgia rheumatica, CAD s/p stent placement in 2003 , and sCHF presents with generalized weakness/fatigue and LAMAR, admitted for an acute systolic CHF exacerbation and polymyalgia rheumatica syndrome. 1.)Acute Systolic CHF exacerbation-Mr. Nettles has a hx of sCHF and was seen by Dr. Neil ~3mo ago. His BNP is elevated today and he has crackles in his bilateral lung bases. We will give him 80mg of lasix now, and then restart his home medications of Lasix 40mg daily, Lisinopril 5 mg daily, Coreg 25mg BID, Aspirin 325mg daily, and digoxin 125mcg daily. His most recent echo in [facility] was ~ 1 yr ago which showed an EF of 35-40%, mild aortic stenosis and posterior wall hypokinesis. 2.)Polymyalgia Rheumatica relapse-He was started on prednisone 10mg daily in clinic in April, but stopped taking it about 1 mo ago. We will start him on prednisone 20mg daily here since it appears that he is having a relapse in symptoms. We also ordered an ESR, CRP, and CK. 3.)Hematuria, chronic-recommend outpatient workup. He likely needs an abdominal and pelvic CT with and without contrast because of his risk factors for bladder cancer (male, >35, smoking hx). 4.)Infiltrate on CXR-pt does not have a leukocytosis or fever. We will follow his vitals and consider antibiotics if he fevers. 5.)CAD s/p stents in 2003-We will restart his aspirin 325mg daily and plavix 75mg daily. We will trend troponins and repeat an EKG if he develops chest pain. 6.)Tobacco use and abuse-We will [place] on cessation and provide a nicotine patch. 7.)Suspected COPD-He has a long smoking hx and complains of worsening shortness of breath, lamar. We will provide duonebs scheduled and albuterol prn. We recommend outpatient spirometry testing and outpatient management. 8.)HIV exposure-Pt's brother has HIV and he said he was exposed in April. We ordered an HIV antibody test. 9.)Depression, controlled. We will restart his paxil 10.)Anxiety, controlled. We will restart his home meds 11.)HLD, controlled. We will restart his lipitor. 12.)LIVE, controlled with CPAP at night. We will order CPAP for him to use at night. 13.) CKD, stage 2-monitor with daily bmp's # CHF exacerbation - diuresing well with lasix - repeat CXR 2 view at 1200 - CTA bilaterally - Per Dr. Neil's office, echo in apr 2017 shows EF 50-55% # Non-sustained Vtach - 2 events overnight - Coreg, Dig level below therapeutic - Consulted Dr. Neil, recs appreciated # PMR - did not receive steroids overnight - doing better this AM, anxious - will resume prednisone upon discharge # Hematuria - generalized weakness, hematuria on U/A, no gross hematuria per patient, no wt loss, hx smoking - outpatient workup consider CT w/ w/o contrast # Infiltrate on CXR - repeat CXR, likely fluid # HIV Exposure - negative # Depression - home meds #HLD - home meds # LIVE -cpap at night # Code - full # PPx - lovenox Dispo: Anticipate D/c this PM , pending cardiology recs
[2017-06-17] MEDS ORDERED: hydrOXYzine 25 MG TAB PO SCH ×2 (11:45→12:00)
[2017-06-17] MEDS ORDERED: Enoxaparin Sodium 40 MG/0.4 ML SYRINGE SC SCH (12:00)
--- NOTE | 2017-06-17 13:57 | ADD-PRG ---
This is an addendum to the note of Dr. Mika Quintana. Mr. Nettles is a 71-year-old white male patient who was admitted with a mild exacerbation of systolic heart failure. He has responded well to treatment and is not experiencing shortness of breath at thi s time. He is awake and alert. PHYSICAL EXAMINATION: Blood pressure is currently 107/60, his pulse rate 70 and regular. He is afeb rile. LABORATORY DATA: CBC: White count is 7,700, hemoglobin 13.9, hematocrit 41.5. Sodium 139, potassiu m 3.7, chloride 104, bicarbonate 27, BUN 12, and creatinine 1.04. C-reactive protein elevated at 0.6 8. ASSESSMENT AND PLAN: He also has microhematuria, which we will need to pursue as an outpatient once he is more clinically stable from a heart standpoint.
[2017-06-17 15:33] VITALS: BP 104/55; TEMP 98.3
--- NOTE | 2017-06-17 16:29 | PRG ---
DATE OF SERVICE: 06/17/2017 SUBJECTIVE: Mr. Ruben Nettles is a 71-year-old gentleman, who came to the hospital yesterday having some shortness of breath and lack of energy. He did not have chest pain. It was noted that he had p remature ventricular contractions on his EKG were consulted. He is currently feeling better. OBJECTIVE: VITAL SIGNS: His blood pressure has been variable, the most recent is 104/55, pulse 60. LUNGS: Clear. CARDIAC: Normal S1, normal S2. I do not hear any murmur. ABDOMEN: Soft, nontender. EXTREMITIES: There is no clubbing, no cyanosis, or edema. The echocardiogram revealed ejection fraction is unchanged at 40% to 45%. There is mild to moderate aortic stenosis. PERTINENT LABORATORY DATA: Hemoglobin is 13.9. The BNP is 130. Troponin level 0.022. The patient's cardiac enzymes were negative. We interrogated the pacemaker. He does have some asymptomatic short runs of ventricular tachycardia. He is pacing ventricular sensing 92.7% of the time. The patient had 4 episodes of VT over 4 beats since last interrogated in 02/2017. There was one episode of 1 second and one episode of 3 seconds. ASSESSMENT: 1. Probably has some element of congestive heart failure. 2. Mild to moderate aortic stenosis. 3. Previous coronary disease. PLAN: 1. We will stop digoxin at this point. 2. Continue carvedilol. Consider increasing dose later as tolerated. 3. Add Lasix 20 mg a day, potassium 10 mEq a day.
[2017-06-17] MEDS ORDERED: Carvedilol 25 MG TAB PO SCH (21:00)
[2017-06-17] MEDS ORDERED: PARoxetine 20 MG TAB PO SCH (21:00)
[2017-06-18] MEDS ORDERED: Potassium Chloride 10 MEQ TAB PO SCH (08:00)
[2017-06-18] MEDS ORDERED: Furosemide 20 MG TAB PO SCH (09:00)
[2017-06-18] MEDS ORDERED: Digoxin 0.125 MG TAB PO SCH (09:00)
--- NOTE | 2017-06-18 11:33 | DIS-2 ---
DATE OF ADMISSION: 06/16/2017 DATE OF DISCHARGE: 06/18/2017 RESIDENT: Mika Quintana M.D. ADMITTING ATTENDING: Annamaria José D.O. DISCHARGE ATTENDING: Favio Resendez M.D. CONSULTATIONS: Cardiology. PROCEDURES: None. PRIMARY DIAGNOSIS: Congestive heart failure exacerbation. SECONDARY DIAGNOSES: Polymyalgia rheumatica, hematuria, history of coronary artery disease, tobacco use, depression, anxiety, hyperlipidemia, obstructive sleep apnea, CKD stage 2, tachyarrhythmia. DISCHARGE MEDICATIONS: Lasix 20 mg daily, hydroxyzine 50 mg p.r.n., potassium 10 mg, prednisone 10 m g for 7 days, aspirin 325, carvedilol 12.5 mg daily, finasteride 5 mg daily, lisinopril 5 mg daily, m ultivitamin, and paroxetine 40 mg daily. DISCONTINUED MEDICATIONS: Digoxin. HISTORY OF PRESENT ILLNESS AND HOSPITAL COURSE: A 71-year-old male with history of polymyalgia rheum atica, CAD, and systolic congestive heart failure, presented with progressive weakness, worsening sin ce being discharged home from rehabilitation 4 days ago. He was recently treated for lumbar radiculo tad. He stated that his weakness just got worse overall. He stated he was having dyspnea with exe rtion, but denied chest pain, cough or sick contacts. Denied nausea, vomiting, or diarrhea. States he did have an HIV exposure. The patient's BNP was found to be in the 130s. Patient was diuresed aggressively overnight and some small effusions were found on chest x-ray. During the night, he was found to have a few short runs o f ventricular tachycardia. Cardiology was consulted. Interrogated the pacemaker and states that the re were a few nonsustained instances of ventricular tachycardia, but stated that treating him with co ntinued carvedilol was sufficient. The patient's digoxin was stopped based on Cardiology recommendat ions. He had a pacing ventricular sense of 92.7% of the time. He has instances of nonsustained V-ta ch and 3 seconds respectively. The patient was restarted on prednisone for his polymyalgia rheumatic a. DISPOSITION: Stable. DISCHARGE INSTRUCTIONS: 1. Location: Home. 2. Diet: Regular. 3. Activity: As tolerated. 4. Followup: Outpatient physical therapy, PCP. Please follow up on treatment of patient's polymyal krysta rheumatica. He has been given a 7-day course of steroids. Follow up with Cardiology as previous ly scheduled.
== END 2017-06-17 17:39 | disposition home or self-care (01) ==
LOC: ERS 13:40 → 2SW 19:24
PROVIDERS: ADMIT Family Medicine; ATTEND Family Medicine
DX: I13.0 Hypertensive heart and chronic kidney disease with heart failure and stage 1 through stage 4 chronic kidney disease, or unspecified chronic kidney disease (principal); N18.2 Chronic kidney disease, stage 2 (mild); I50.21 Acute systolic (congestive) heart failure; M35.3 Polymyalgia rheumatica; I25.10 Atherosclerotic heart disease of native coronary artery without angina pectoris; F32.9 Major depressive disorder, single episode, unspecified; F41.9 Anxiety disorder, unspecified; E78.5 Hyperlipidemia, unspecified; G47.33 Obstructive sleep apnea (adult) (pediatric); I35.0 Nonrheumatic aortic (valve) stenosis; R31.29 Other microscopic hematuria; F17.210 Nicotine dependence, cigarettes, uncomplicated; E55.9 Vitamin D deficiency, unspecified; Z85.038 Personal history of other malignant neoplasm of large intestine; Z88.8 Allergy status to other drugs, medicaments and biological substances; Z91.041 Radiographic dye allergy status; Z79.82 Long term (current) use of aspirin; Z79.02 Long term (current) use of antithrombotics/antiplatelets; Z79.899 Other long term (current) drug therapy; Z95.5 Presence of coronary angioplasty implant and graft; Z95.0 Presence of cardiac pacemaker; Z99.89 Dependence on other enabling machines and devices
CPT/HCPCS: 71045; 71046; 80048; 80162; 82550; 83735; 83880; 84100; 84484 ×2; 85025; 85652; 86140; 87040; 87081; 87389; 87430; 87804 ×2; 93005; 93306; 94640; 96372; 96374; 96376; 97139; 99285; G0008; G0378; Q2036; 36415; 80053; 81003; 81015; 84443; 90471; 90682; J1650; J1940; J7620

== ENCOUNTER 2017-06-21 16:33 | Emergency (ER) | payer MEDICARE, BC ==
--- NOTE | 2017-06-21 17:35 | RAD ---
SINGLE VIEW OF THE CHEST: Comparison: 06-16-17 History: Shortness of breath, chest pain. Tachycardia. FINDINGS: Single view of the chest shows an enlarged but stable cardiomediastinal silhouette. The pacemaker is unchanged in position. Increased interstitial markings are present. There is no evidence of consolida tion, mass, or pleural effusion. IMPRESSION: No evidence of acute cardiopulmonary disease. POS: [facility]
[2017-06-21 18:20] LABS: #Basophils 0.1 thou/uL (0.0-0.2); #Eosinphils 0.2 thou/uL (0.0-0.7); #Lymphocytes 2.8 thou/uL (1.20-3.40); #Neutrophils 6.5 thou/uL (1.40-6.50); %Basophils 0.6 % (0.0-1.0); %Eosinophils 2.1 % (0.0-10.0); %Lymphocytes 26.1 % (21.0-51.0); %Monocytes 9.8 % (0.0-10.0); %Neutrophils 61.5 % (42.0-75.0); Hemoglobin 14.8 g/dL (14.0-18.0); Mean Corpuscular HGB CONC 33.8 g/dL (32.0-36.0); Mean Corpuscular Hemoglobin 31.7 pg (27.0-31.0); Mean Corpuscular Volume 93.7 fl (80.0-94.0); Mean Platelet Volume 7.4 fL (7.4-10.4); Platelet Count 236 thou/uL (130-400); RBC Distribution Width 12.5 % (11.5-14.5); Red Blood Cell (RBC) Count 4.66 mill/uL (4.70-6.10); White Blood Cell (WBC) Count 10.6 thou/uL (4.8-10.8)
[2017-06-21 18:45] LABS: ALT (SGPT) 26 U/L (8-55); AST (SGOT) 19 U/L (5-34); Albumin 3.9 g/dL (3.4-4.8); Alkaline Phosphatase 72 U/L (40-150); Anion Gap 13 mmol/L (10-20); BUN (Urea Nitrogen) 23 mg/dL (8.4-25.7); Bilirubin, Total 0.6 mg/dL (0.2-1.2); CK (CPK) 40 U/L (30-200); Calc. Creatinine Clearance 0 mL/min (70-130); Carbon Dioxide 24 mmol/L (23-31); Chloride 107 mmol/L (98-107); Estimated GFR-MDRD 52; Globulin 3.5 g/dL (2.4-3.5); Glucose 96 mg/dL (83-110); Lipase 26 U/L (8-78); Potassium 4.1 mmol/L (3.5-5.1); Protein, Total 7.4 g/dL (5.8-8.1); Sodium 140 mmol/L (136-145)
[2017-06-21 18:49] LABS: Troponin I Less than 0.010 ng/mL (< 0.028)
== END 2017-06-21 22:14 | disposition left against medical advice (07) ==
LOC: ERS 16:33
DX: Z53.21 Procedure and treatment not carried out due to patient leaving prior to being seen by health care provider (principal)
CPT/HCPCS: 36415; 71045; 80053; 82550; 82553; 83690; 84484; 85025; 93005

== ENCOUNTER 2017-12-16 10:17 | Outpatient (CLI) | payer MEDICARE, BC ==
--- NOTE | 2017-12-16 12:51 | CT ---
CERVICAL SPINE CERVICAL SPINE WITHOUT CONTRAST: COMPARISON: 07/19/16. HISTORY: Radicular neck pain. Left-sided symptoms. TECHNIQUE: Noncontrast CT cervical spine is performed in the axial plane. Reformatted images are submitted for interpretation. FINDINGS: No craniocervical dissociation. There is appropriate alignment of the lateral masses of C1 and C2 as well as the facets. Intact odontoid process. Cervical vertebral body height is maintained. There is no fracture. There is straightening of normal cervical lordosis. There is an anterior fusion annetta te with transvertebral body screws at C4, C5, and C6. There is no evidence of perihardware lucency. The left screw at C6 has started to back out by approximately 3.2 mm. This finding is unchanged. Soft tissue neck structures, upper mediastinum, and lung apices are unremarkable. Limited evaluation of the contents of the central spinal canal and neural foramen due to technique. C2-C3: There is 2.7 mm of anterolisthesis of C2 upon C3. No significant central canal stenosis or f oraminal narrowing. C3-C4: There appears to be a broad-based disk-osteophyte complex with at least mild to moderate cent ral canal stenosis. Moderate bilateral foraminal narrowing. C4-C5. There is a disk prosthesis. There is a broad-based osteophyte ridge with at least mild centr al canal stenosis. Severe bilateral foraminal narrowing due to degenerative changes of the uncoverte bral joint and facet hypertrophy. C5-C6: There is a disk prosthesis in the joint space. There is a broad-based osteophyte ridge with mild central canal stenosis. Moderate bilateral foraminal narrowing. C6-C7: There is a broad-based osteophyte ridge. There is mild central canal stenosis. Moderate rig ht and mild to moderate left foraminal narrowing. C7-T1: No significant cardiac silhouette. Neural foramen are patent. IMPRESSION: 1. Degenerative changes of the cervical spine as detailed above. 2. Stable changes to the left screw at C6. POS: [facility]
== END 2017-12-16 10:18 | disposition home or self-care (01) ==
LOC: TBSIIMAG 10:17
PROVIDERS: ATTEND Neurological Surgery
DX: M47.22 Other spondylosis with radiculopathy, cervical region (principal); Z98.1 Arthrodesis status
CPT/HCPCS: 72125

== ENCOUNTER 2018-01-03 06:47 | Day surgery (SDC) | payer MEDICARE, BC ==
[2017-12-31 12:30] VITALS: BMI 32.1
[~2018-01-03 06:47] MED LIST: Prevnar 13-Val Conj/PF 0.5 ML SYRINGE IM ONE
[2018-01-03] MEDS ORDERED: diphenhydrAMINE 25 MG CAP ONE (07:08)
[2018-01-03 07:55] VITALS: BP 147/89; TEMP 97.7
--- NOTE | 2018-01-03 11:10 | RAD ---
CERVICAL SPINE MYELOGRAM UNDER FLUOROSCOPIC GUIDANCE: Date: 01/03/18 RADIATION EXPOSURE DATA: 0.3 minutes intermittent fluoroscopy. DOSE: 562 mGy*cm^2. CLINICAL HISTORY: Neck pain, back pain, radiculopathy. PROCEDURE: Informed consent was obtained. The patient was escorted to the fluoroscopy suite. Gas Booster Engineer imaging of th e lumbar spine was acquired. Utilizing a right interlaminar approach, attempt at the L3-4 level was p erformed. The needle was advanced to the posterior aspect of the vertebral canal, although CSF was no t retrieved at the needle hub, likely due to the high grade stenosis and the prominent degree of oste ophytosis impeding CSF backflow through the 22 gauge needle. Therefore, the patient was transferred t o CT to undergo CT guidance for the myelogram procedure. Reference separate procedure report for nai galvez in this regard. IMPRESSION: Fluoroscopic imaging for placement of 22 gauge needle to the posterior aspect of the vertebral canal of the lumbar spine in preparation for cervical spine myelogram. POS: [facility]
--- NOTE | 2018-01-03 12:04 | CT ---
CT GUIDED CERVICAL MYELOGRAM: Date: 01/03/18 CLINICAL HISTORY: Cervical radiculopathy, neck and back pain. PROCEDURE: Informed consent was obtained. The patient was escorted to the CT suite and placed in the prone posit ion. The L3-4 level of the low back was prepped and draped in the standard sterile fashion. Topical a nesthesia with buffered 1% lidocaine was performed. Using CT fluoroscopic guidance, uneventful access into the thecal sac was acquired with a 22 gauge needle. This was confirmed by the small volume of c ontrast which did occupy the thecal sac. Subsequently, 10 mL [id number]-300 was instilled into the thecal sac. Needle was removed. There were no procedural complications. Note is made that the patient does state an iodine allergy, and therefore the patient was appropriate ly prepped with medications for this allergy prior to the procedure. IMPRESSION: Technically successful CT guided cervical myelogram. Reference separate CT cervical spine report for details. POS: [facility]
--- NOTE | 2018-01-03 12:19 | CT ---
CT CERVICAL SPINE WITH CONTRAST CT CERVICAL MYELOGRAM: INDICATION: Cervical radiculopathy, back and neck pain. FINDINGS: There is multilevel prominent degenerative change throughout the postoperative cervical spine, with a nterior metallic fusion spanning the C4, C5, and C6 segments with intravertebral disk space devices a t the C4-5 and C5-6 levels. There is mottled heterogeneous density of the C4, 5, and 6 vertebral bod ies, likely postoperative, giving the indwelling hardware. Multilevel prominent marginal osteophyte formation is present. There is straightening of the normal cervical curvature. There is degenerativ e change at the atlantodental articulation. There is no high-grade central canal stenosis at the C1-2 or C2-3. There is a mild osteophyte of C2- 3. C3-4: There is a broad-based disk-osteophyte without high-grade central canal stenosis. There is mo derate left and mild right osseous compromise of the neural foramina. C4-5: Broad-based osteophyte effaces the ventral thecal sac. There is moderate to severe osseous na rrowing of each neural foramen. C5-6: Broad-based osteophyte with mild effacement of the ventral thecal sac and moderate to severe o sseous narrowing of each neural foramen. C6-7: There is a right asymmetric broad-based osteophyte with mild effacement of the ventral thecal sac. Moderate to severe osseous narrowing of the right neural foramen and moderate osseous narrowing of the left neural foramen present. C7-T1: There is no high-grade central canal stenosis. Lateral osteophyte formation, bilaterally, re sults in mild osseous narrowing of the neural foramina. There is multilevel bilateral mild to moderate degenerative facet hypertrophy. Incidental note of partial left mastoidectomy suggested, although incompletely visualized. Incidental note of heterogeneity of the thyroid gland and scattered vascular calcification. IMPRESSION: Multilevel prominent cervical spondylosis of the postoperative spine, as outlined above. POS: [facility]
[2018-01-03] MEDS ORDERED: Iopamidol-M 300 61% 15 ML VIAL ONE (15:18)
== END 2018-01-03 11:00 | disposition home or self-care (01) ==
LOC: RAD 06:47
PROVIDERS: ATTEND Neurological Surgery
DX: M47.22 Other spondylosis with radiculopathy, cervical region (principal); Z91.041 Radiographic dye allergy status
CPT/HCPCS: 62302; 72126; 77002

== ENCOUNTER 2018-04-18 11:32 | Inpatient (IN) | payer MEDICARE ==
[2018-04-18 12:21] LABS: #Eosinphils 0.1 thou/uL (0.0-0.7); #Lymphocytes 2.3 thou/uL (1.20-3.40); #Monocytes 1.1 thou/uL (0.11-0.59); #Neutrophils 10.3 thou/uL (1.40-6.50); %Basophils 0.3 % (0.0-1.0); %Eosinophils 0.5 % (0.0-10.0); %Lymphocytes 16.7 % (21.0-51.0); %Monocytes 8.3 % (0.0-10.0); %Neutrophils 74.3 % (42.0-75.0); Hemoglobin 13.2 g/dL (14.0-18.0); Mean Corpuscular HGB CONC 31.8 g/dL (32.0-36.0); Mean Corpuscular Hemoglobin 30.9 pg (27.0-31.0); Mean Platelet Volume 7.6 fL (7.4-10.4); Platelet Count 210 thou/uL (130-400); RBC Distribution Width 13.1 % (11.5-14.5); Red Blood Cell (RBC) Count 4.28 mill/uL (4.70-6.10); White Blood Cell (WBC) Count 13.8 thou/uL (4.8-10.8)
[2018-04-18 12:54] LABS: ALT (SGPT) 57 U/L (8-55); AST (SGOT) 55 U/L (5-34); Albumin 3.5 g/dL (3.4-4.8); Alkaline Phosphatase 69 U/L (40-150); Anion Gap 14 mmol/L (10-20); BUN (Urea Nitrogen) 24 mg/dL (8.4-25.7); Bilirubin, Total 0.8 mg/dL (0.2-1.2); Calc. Creatinine Clearance 0 mL/min (70-130); Calcium 9.2 mg/dL (7.8-10.44); Carbon Dioxide 22 mmol/L (23-31); Chloride 107 mmol/L (98-107); Estimated GFR-MDRD 54; Globulin 3.8 g/dL (2.4-3.5); Glucose 98 mg/dL (83-110); Potassium 4.9 mmol/L (3.5-5.1); Protein, Total 7.3 g/dL (5.8-8.1); Sodium 138 mmol/L (136-145)
[2018-04-18] MEDS ORDERED: predniSONE 20 MG TAB ONE (12:59)
[2018-04-18] MEDS ORDERED: Magnesium 2 GM/50 ML BAG (IN WATER) ONE (14:03)
--- NOTE | 2018-04-18 14:38 | RAD ---
PORTABLE CHEST: Date: 04-18-18 Provided Clinical History: Sepsis. Comparison: 06-21-17 FINDINGS: Cardiac silhouette remains enlarged. Left subclavian pacing device is again noted with the tips overl cisco the expected locations of RA and RV. Prominence of the pulmonary vasculature and pulmonary inter stitium. Bibasilar subsegmental atelectatic change. No large effusion or pneumothorax evident. IMPRESSION: Findings suggesting congestive failure. POS: [facility]
[2018-04-18] MEDS ORDERED: Albuterol Sulfate 2.5 mg/0.5 ml Neb ONE ×3 (14:39)
[2018-04-18] MEDS ORDERED: Albuterol Sulfate 2.5 mg/3 ml Neb ONE (14:40)
[2018-04-18] MEDS ORDERED: Furosemide 40 MG/4 ML VIAL ONE (15:07)
[2018-04-18] MEDS ORDERED: Calcium Carbonate 500 MG ChewTAB PO PRN (16:18)
[2018-04-18] MEDS ORDERED: Ondansetron PF 4 MG/2 ML Vial IVP PRN (16:18)
[2018-04-18] MEDS ORDERED: Bisacodyl 5 MG TAB PO PRN (16:18)
[2018-04-18] MEDS ORDERED: Ondansetron ODT 4 MG TAB PO PRN (16:18)
[2018-04-18] MEDS ORDERED: Acetaminophen 650 MG Suppository PR PRN (16:18)
[2018-04-18] MEDS ORDERED: Senokot S 8.6-50 MG TAB PO PRN (16:18)
[2018-04-18] MEDS ORDERED: Acetaminophen 325 MG TAB PO PRN (16:18)
[2018-04-18] MEDS ORDERED: Nicotine 21 MG PATCH TD PRN (16:18)
[2018-04-18] MEDS ORDERED: Enoxaparin Sodium 40 MG/0.4 ML SYRINGE SC SCH (17:15)
[2018-04-18] MEDS ORDERED: Enoxaparin Sodium 40 MG/0.4 ML SYRINGE ONE (20:44)
[2018-04-18] MEDS ORDERED: Gabapentin 300 MG CAP PO SCH (21:00)
[2018-04-18] MEDS ORDERED: PARoxetine 20 MG TAB PO SCH (21:00)
--- NOTE | 2018-04-18 21:44 | CON ---
DATE OF CONSULTATION: 04/18/2018 REASON FOR CONSULTATION: Atrial fibrillation. PRIMARY PRE SALES TECHNICAL ENGINEER: Marco Neil MD HISTORY OF PRESENT ILLNESS: Mr. Nettles is a pleasant 72-year-old white gentleman, who comes to the hospital for increased shortness of breath. He was evaluated and found to be in atrial fibrillation, so Cardiology has been consulted. He also has increased fluid with his last EF was on an echo back in 2018 at 40% to 45%. He is already feeling better after IV Lasix was given. PAST MEDICAL HISTORY: 1. Paroxysmal atrial fibrillation. 2. Hyperlipidemia. 3. Colon cancer in the past. 4. History of nonischemic cardiomyopathy. 5. Coronary artery disease, not sufficient to provoke such a reduced EF in the past. It has been a slow 30% and he only has a small circumflex lesion. 6. History of SVT. 7. Hypertension. 8. PVCs. 9. Sick sinus syndrome, status post pacemaker placement. 10. Removal of right nephrolithiasis. OUTPATIENT MEDICATIONS: Include; 1. Proscar. 2. CoQ10. 3. Fish oil. 4. Cyclobenzaprine. 5. Probiotic. 6. Aspirin 325 a day. 7. Paxil 40 mg a day. 8. Lisinopril 5 mg a day. 9. Ezetimibe 10 mg a day. 10. Plavix 75 mg a day. ALLERGIES: IODINE. FAMILY HISTORY: Father with heart disease. SOCIAL HISTORY: The patient continues to smoke cigarettes. REVIEW OF SYSTEMS: A 12-point review of systems was done and was found to be negative unless stated in the history present illness. PHYSICAL EXAMINATION: VITAL SIGNS: Temperature 98.2, pulse 78, respiratory rate 18, and sat 94% on 2 L nasal cannula. GENERAL: Awake, alert, and oriented x3. No distress. HEENT: Normocephalic and atraumatic. NECK: Supple. LUNGS: Have reduced breath sounds bilaterally at the bases with mild crackles. CARDIOVASCULAR: S1 and S2. No S3 or S4. Irregularly irregular heart rate in the 80s to 100s. ABDOMEN: Soft. Positive bowel sounds. EXTREMITIES: No edema. SKIN: Warm and dry. LABORATORY DATA: Laboratory work was reviewed. CBC with white count of 13, hemoglobin of 13, hematocrit of 41, and platelet count of 210. Chemistries were reviewed. AST and ALT mildly elevated. Magnesium of 2.8 is a little bit high. BNP is 138, is mildly elevated. Albumin is 3.8. Procalcitonin is 0.06. Chest x-ray was reviewed. Mild CHF. ASSESSMENT: 1. Atrial fibrillation: The patient has history of paroxysmal atrial fibrillation. He has never been on full anticoagulation as his burden of atrial fibrillation has been very, very low in the past. He has had several different runs, but they were less than a minute in length. This is probably the longest been an atrial fibrillation. We will probably need full anticoagulation after this given his left ventricular dysfunction. 2. Acute on chronic systolic heart failure. 3. Possible chronic obstructive pulmonary disease exacerbation. PLAN: 1. IV Lasix, gentle diuresis. 2. Continue pulmonary toilet per primary team. 3. Atrial fibrillation is not new onset. He has had that before. Continue outpatient regimen. We will probably need to start full anticoagulation before discharge. 4. We will follow. Job ID: [id number]
[2018-04-18 22:17] VITALS: BMI 31.4
--- NOTE | 2018-04-18 23:28 | HP ---
CODE STATUS: DNI/cardiac only. Discussion was held with the patient, who stated he would only want chest compressions, asynchronized defibrillation and medications given in the event of cardiac or respiratory arrest. He said he did not want to be intubated. RESIDENT: Guido Guan MD ATTENDING PHYSICIAN: Jim Giordano MD PRIMARY CARE PHYSICIAN: Guido Guan MD CHIEF COMPLAINT: Shortness of breath. HISTORY OF PRESENT ILLNESS: Mr. Nettles is a pleasant 72-year-old male with a known past medical history of coronary artery disease, status post stenting x2 vessel in 2003, status post two lead dual chamber pacemaker placement; obstructive sleep apnea; and extensive smoking history. He presents with a 4- day history of progressive worsening shortness of breath. He states he was seen in the urgent care on Wednesday, where he received a steroid dose-pack, azithromycin, and a "shot of antibiotics." This was believe to be a third-generation cephalosporin. He stated that he continued to experience worsening shortness of breath in spite of this treatment. This prompted him to come to the emergency room for evaluation. He reports chest tightness with deep inspiration. Also reports shortness of breath , dyspnea on exertion, and productive cough for the last 2 to 3 weeks, where he has been producing yellow sputum. He denies fevers or chills. He also reports rhinorrhea during the course of this illness. He denies history of atrial fibrillation or COPD. He states he sees Dr. Cunningham routinely for his obstructive sleep apnea and last saw Dr. Cunningham on Wednesday. He follows up with Dr. Neil for Cardiology. ER COURSE: While in the ER, the patient was seen and evaluated. Routine labs were drawn. EKG and chest x-ray were obtained. The patient received Lasix 40 mg IV, Levaquin 750 mg IV, continues albuterol nebulizer after receiving 2 DuoNeb, magnesium 2 g IV, normal saline 1 L, and prednisone 40 mg p.o. PAST MEDICAL HISTORY: 1. Coronary artery disease, status post stent placement x2 in 2003. 2. Remote history of colon cancer in his 20's. 3. Anxiety. 4. Depression. 5. Known heart failure with reduced ejection fraction of 40% to 45% on echo in May 2017. 6. Chronic kidney disease, stage 3. 7. Polymyalgia rheumatica, not currently on long-term steroids. 8. BPH. 9. Erectile dysfunction. PAST SURGICAL HISTORY: 1. Partial colon resection in his 20's. 2. Multiple back surgeries. 3. Pacemaker placement. 4. Carpal tunnel release. 5. Cardiac stents placed x2 in 2003. FAMILY HISTORY: Reports family history of hypertension, diabetes, and unspecified cancer. MEDICATIONS: 1. Aspirin 325 mg daily. 2. CoQ10 1 tab daily. 3. Fish oil 1200 mg daily. 4. Lisinopril 5 mg daily. 5. Finasteride 5 mg daily. 6. Paxil 40 mg daily. 7. Carvedilol 12.5 mg b.i.d. 8. Esomeprazole 40 mg daily. 9. Plavix 75 mg daily. 10. Gabapentin 300 mg at bedtime. ALLERGIES: THE PATIENT DENIES ALLERGIES TO MEDICATION, HOWEVER, EHR DOCUMENTS ALLERGIES TO IODINE AND STATINS. SOCIAL HISTORY: Reports smoking cigarettes 2 packs per day for over 40 years. Denies alcohol or illicit drug use. Currently, he lives alone and states he is able to perform all activities of daily living and essential activities of daily living. REVIEW OF SYSTEMS: GENERAL: Denies fevers or chills. HEENT: Denies blurry vision, double vision, or sore throat. Endorses rhinorrhea. CV: Denies palpitations or chest pain. Reports chest pressure. PULMONARY: Endorses shortness of breath, dyspnea on exertion. Denies hemoptysis. GI: Denies nausea, vomiting, constipation, or diarrhea. : Denies dysuria, incontinence, or difficulty initiating stream. MUSCULOSKELETAL: Endorses chronic neck and back pain. Denies new aches or pains. NEUROLOGIC: Denies numbness, weakness, or tingling. DERM: Denies rashes or lesions. PSYCHIATRIC: Denies anxiety or depression. ENDOCRINE: Denies warm or cold intolerance. PHYSICAL EXAMINATION: VITAL SIGNS: Blood pressure 121/71, pulse 102, respiratory rate 22, SpO2 100% on nebulizer. GENERAL: Mild respiratory distress, alert, and oriented x4, speaks in short 3 to 4 words sentences. Well developed, obese, appropriately interactive. HEENT: Normocephalic and atraumatic. PERRL. EOMI. External ears and nose grossly normal. Oropharynx reveals mild erythema of the posterior oropharynx. Moist mucous membranes. Normal dentition. NECK: Supple without lymphadenopathy or thyromegaly. CARDIOVASCULAR: Normal rate, irregularly irregular rhythm. No murmurs, rubs, or gallops noted. Radial pulses 2+ bilaterally. PULMONARY: Coarse breath sounds throughout, however, this felt to be of upper airway sounds. Faint crackles are heard in lung bases bilaterally. ABDOMEN: Soft, nontender to palpation. Bowel sounds present x4. No masses are noted. EXTREMITIES: Strength grossly normal. No gross deficits. NEUROLOGIC: No focal deficits. Moves all 4 limbs equally. SKIN: No rashes or lesions noted. Warm, dry, and intact. EXTREMITIES: No clubbing, cyanosis, or edema noted. PSYCHIATRIC: Mood and affect are congruent with stated. The patient is appropriately interactive. LABORATORY DATA: CBC; white blood cell count 13.8, hemoglobin 13.2, hematocrit 41.5, MCV 97, RDW 13.1, platelets 210, neutrophil 74.2, lymphocytes 16.7%. CMP: Sodium 138, potassium 4.9, chloride 107, bicarb 22, BUN 24, creatinine 1.30, estimated GFR 54, baseline GFR between 60 and 70, glucose 98, calcium 9.2, bilirubin 0.8, protein 7.3, albumin 3.5, globulin 3.8, alk phos 69, AST 55, ALT 57. Cardiac markers: Brain natriuretic peptide 138.8. Troponin 0.022. IMAGING DATA: Chest x-ray one-view reviewed by me shows pacemaker in place. Increased pulmonary vascular congestion in the lower lung field bilaterally. No effusions noted. EKG; atrial fibrillation with pacemaker spikes noted. Rate 104, occasional PVCs , no gross ST elevations or depressions, QTc interval 452. ASSESSMENT: Mr. Nettles is a 72-year-old male with a past medical history of coronary artery disease, status post pacemaker placement and 2-vessel stent placement; hypertension; with a known heart failure with reduced ejection fraction of 40% to 45%; obstructive sleep apnea; and presumed chronic obstructive pulmonary disease. He presents with a 4-day history of progressively worsening shortness of breath that has been refractory to steroids and outpatient antibiotics. The patient did not improve with nebulizer treatments and steroids in the ER. The patient had just received first dose of Lasix at the time of my examination. EKG shows atrial fibrillation with no known history of atrial fibrillation. PLAN: 1. Acute heart failure with reduced ejection fraction exacerbation. We will continue Lasix 40 mg IV b.i.d. Strict I's and O's, daily weights, fluid restrict to 1800 mL per day. We will monitor for signs of improved respiratory status. Continue home heart failure medications. Repeat transthoracic echocardiogram, which has been approximately 1 year since he had echo performed. 2. Atrial fibrillation. Currently, not in rapid ventricular response. Continue Coreg. We will consult Cardiology for recommendations. We will anticoagulate prophylactically with Lovenox 40 mg subcutaneous daily. We will check an anti- Xa level tomorrow morning. 3. Possible COPD exacerbation. We will continue p.o. prednisone at this time. Procalcitonin pending and we will continue antibiotics based on results of procalcitonin. If procalcitonin is positive, we will start Levaquin as the patient would have failed outpatient treatments with azithromycin and presumed Rocephin or other third-generation cephalosporin injection. 4. Coronary artery disease, status post stent placement. Continue home medications. 5. Hypertension, home medications. 6. Chronic back pain, p.r.n. medications available. 7. BPH, monitor for urine outputs, continue home medications. 8. CKD, 3, appears stable. 9. Obstructive sleep apnea. We will order CPAP h.s. and p.r.n. 10. Prophylaxis, Lovenox, fall. 11. Diet; heart-healthy, low sodium, 1800 mL fluid restriction. 12. Code status: DNI/cardiac code only. Again, this was discussed at length with the patient. 13. Disposition: Admitted under inpatient status, placed on telemetry monitoring. Length of stay, likely greater than 2 midnights. History and physical exam and management of this patient were discussed with Dr. Giordano, who is in agreement unless otherwise stated in his history and physical. Job ID: [id number] I, Jim Giordano MD, saw and examined the patient above and reviewed the Assessment and Plan with Dr. Guan on 04/18/18. I agree with the History, Physical Exam, Assessment and Plan as described above. Pt. is 72 y.o. WM with h/o CAD s/p stent x2 in 2003, h/o Colon CA, Anxiety/ Depression. sCHF with LVEF 40% to 45% on echo in May,, LIVE, CKD 3, Polymyalgia rheumatica, not currently on long-term steroids, BPH Erectile dysfunction here with progressive weakness and SOB with PE and CXR findings c/w acute exacerbation of CHF and new onset a-fib. Pt. also has poorly controlled COPD due to pt.'s denial this is a problem and will benefit from optimizing management in acute exacerbation of this. MTDD
[2018-04-19] MEDS: Fish Oil 1,000 MG CAP PO SCH ×2 (02:38→09:34)
[2018-04-19 05:22] LABS: #Lymphocytes 1.2 thou/uL (1.20-3.40); #Monocytes 0.8 thou/uL (0.11-0.59); #Neutrophils 6.5 thou/uL (1.40-6.50); %Basophils 0.5 % (0.0-1.0); %Eosinophils 0.1 % (0.0-10.0); %Lymphocytes 14.2 % (21.0-51.0); %Monocytes 8.8 % (0.0-10.0); %Neutrophils 76.3 % (42.0-75.0); Hemoglobin 11.5 g/dL (14.0-18.0); Mean Corpuscular HGB CONC 32.3 g/dL (32.0-36.0); Mean Corpuscular Hemoglobin 31.2 pg (27.0-31.0); Mean Corpuscular Volume 96.6 fL (78.0-98.0); Mean Platelet Volume 7.8 fL (7.4-10.4); Platelet Count 168 thou/uL (130-400); RBC Distribution Width 12.9 % (11.5-14.5); White Blood Cell (WBC) Count 8.6 thou/uL (4.8-10.8)
[2018-04-19 05:42] LABS: Anion Gap 13 mmol/L (10-20); BUN (Urea Nitrogen) 22 mg/dL (8.4-25.7); Calc. Creatinine Clearance 96 mL/min (70-130); Calcium 8.7 mg/dL (7.8-10.44); Carbon Dioxide 26 mmol/L (23-31); Chloride 105 mmol/L (98-107); Estimated GFR-MDRD 68; Glucose 87 mg/dL (83-110); Potassium 4.2 mmol/L (3.5-5.1); Sodium 140 mmol/L (136-145)
--- NOTE | 2018-04-19 06:16 | PDOC.FM ---
- Subjective Subjective: NAEO. Patient reports improved breathing as compared to yesterday. No complaints or concerns. Denies SOB, chest pain, palpitations, abdominal pain, NVD. - Objective MAR Reviewed: Yes Vital Signs & Weight: Vital Signs (12 hours) Temp Pulse Resp BP Pulse Ox 04/19/18 04:00 97.4 F L 81 20 120/58 L 93 L 04/18/18 22:50 94 L 04/18/18 22:10 98.4 F 99 16 113/55 L 94 L Weight Weight 110.949 kg I&O: 04/17/18 04/18/18 04/19/18 06:59 06:59 06:59 Output Total 300 Balance -300 Result Diagrams: 04/19/18 04:27 04/19/18 04:27 Phys Exam - Physical Examination Constitutional: NAD HEENT: PERRLA, moist MMs, sclera anicteric Neck: supple, full ROM Respiratory: no rales, no rhonchi exp wheeze heard diffusely Cardiovascular: RRR Gastrointestinal: soft, non-tender, no distention, positive bowel sounds Musculoskeletal: no edema Neurological: non-focal, moves all 4 limbs Psychiatric: normal affect, A&O x 3 Skin: no rash Dx/Plan (1) Atrial fibrillation Code(s): I48.91 - UNSPECIFIED ATRIAL FIBRILLATION Status: Acute (2) COPD exacerbation Code(s): J44.1 - CHRONIC OBSTRUCTIVE PULMONARY DISEASE W (ACUTE) EXACERBATION Status: Acute (3) Acute exacerbation of CHF (congestive heart failure) Code(s): I50.9 - HEART FAILURE, UNSPECIFIED Status: Acute (4) Cervical radiculopathy Code(s): M54.12 - RADICULOPATHY, CERVICAL REGION Status: Acute (5) Hx of polymyalgia rheumatica Code(s): Z87.39 - PERSONAL HISTORY OF DISEASES OF THE MS SYS AND CONN TISS Status: Acute (6) Lumbar radiculopathy, chronic Code(s): M54.16 - RADICULOPATHY, LUMBAR REGION Status: Acute (7) Obesity (BMI 30-39.9) Code(s): E66.9 - OBESITY, UNSPECIFIED Status: Acute (8) BPH (benign prostatic hyperplasia) Code(s): N40.0 - BENIGN PROSTATIC HYPERPLASIA WITHOUT LOWER URINRY TRACT SYMP Status: Chronic (9) CAD (coronary atherosclerotic disease) Code(s): I25.10 - ATHSCL HEART DISEASE OF [place] CORONARY ARTERY W/O ANG PCTRS Status: Chronic (10) Hypertension Code(s): I10 - ESSENTIAL (PRIMARY) HYPERTENSION Status: Chronic (11) Obstructive sleep apnea on CPAP Code(s): G47.33 - OBSTRUCTIVE SLEEP APNEA (ADULT) (PEDIATRIC) Status: Chronic - Plan Plan: Acute HFrEF exacerbation CXR evidence of HF. Symptoms consistent w/ acute CHF exacerbation. Symptoms improved today. - Will continue lasix 40mg IV BID - Strict I/Os, daily weight, fluid restrict 1800ml/day - Will continue to monitor resp status - Continue home HF medications - TTE pending Atrial Fibrillation - Continue coreg - Cards consulted - recommend full anticoagulation prior to discharge. Appreciate recommendations and participating in the care of this patient. Pt has a hx of atrial fibrillation, not a new diagnosis. Discussed with patient the need for anticoagulation including risks of bleeding and benefit stroke prophylaxis. Patient agrees to starting anticoagulation. All questions asked and answered. Will start xarelto and d/c lovenox. Possible COPD exacerbation - Will continue prednisone - day 05/03 - Will d/c abx as procal was negative at 0.06 CAD s/p stent placement - continue home medications HTN - continue home medications - Will continue to monitor; BPs 120/58 this AM Chronic back pain - PRN meds available BPH - Will monitor urine output and continue home medications CKD stage 3, stable - Will continue to monitor - BUN/Cr 22/1.07, GFR 68 LIVE - CPAP ordered and used overnight PPX: Xarelto Diet: HH, low sodium, 1800mL fluid restrict CODE: DNI/cardiac code only DISPO: discharge later today or tomorrow Addendum - Attending - Attending Attestation Date/Time: 04/19/18 2305 I personally evaluated the patient and discussed the management with Dr. Haynes I agree with the History, Examination, Assessment and Plan documented above with any addition or exceptions noted below. acute CHF exacerbation- EF 40% in 06/13- pending ECHO read from today. Continue lasix, beta cinthya and ZACHARY Inh Afib- rate controlled- will increase to full anticoagulation with Xarelto (or preferred insurance NOAC) COPD with exacerbation- on nebs and po prednisone Patient requesting discharge as his breathing at baseline. Stable for d/c home with close outpatient follow-up
[2018-04-19] MEDS: Furosemide 40 MG/4 ML VIAL SLOW IVP SCH ×2 (06:18→14:53)
[2018-04-19] MEDS ORDERED: predniSONE 20 MG TAB PO SCH (08:00)
[2018-04-19 08:23] LABS: Base Excess-Venous 4.2 mmol/L (0 (+/- 2.5)); Bicarbonate (HCO3v) 27.6 mmol/L (22.0-29.0); CO2 Tension (PvCO2) 36.3 mmHg (41.0-51.0); O2 Tension (PvO2) 93.9 mmHg (35.0-45.0); pH (Venous) 7.489 (7.35-7.45)
[2018-04-19 08:24] LABS: Calcium, Ionized 1.06 mmol/L (1.12-1.32); Hemoglobin - Calc 14.5 g/dL (12.0-18.0); Potassium 4.9 mmol/L (3.4-4.7); T. Carbon Dioxide 28.7 mmol/L (1.0-85.0); vO2 Saturation-calc 97.9 % (94-98)
[2018-04-19 08:25] LABS: Lactate 1.65 mmol/L (0.50-2.20)
[2018-04-19] MEDS ORDERED: Aspirin 325 MG TAB PO SCH (09:00)
[2018-04-19] MEDS ORDERED: Enoxaparin Sodium 40 MG/0.4 ML SYRINGE SC SCH (09:00)
[2018-04-19] MEDS ORDERED: Clopidogrel Bisulfate 75 MG TAB PO SCH (09:00)
[2018-04-19] MEDS ORDERED: Lisinopril 5 MG TAB PO SCH (09:00)
[2018-04-19] MEDS ORDERED: Rivaroxaban 10 MG TAB PO SCH (09:00)
[2018-04-19] MEDS ORDERED: Carvedilol 6.25 MG TAB PO SCH (09:00)
[2018-04-19 16:12] VITALS: BP 118/72; TEMP 98.2
--- NOTE | 2018-04-19 17:52 | PDOC.CTH ---
Cardiology Progress Note - Subjective Breathing better. Diuresing well. - Objective Vital Signs Temp Pulse Pulse Pulse Resp BP BP 04/19/18 15:25 98.2 F 91 18 04/19/18 09:00 89 129 H 141/71 H 124/65 04/19/18 08:45 04/19/18 07:40 98.4 F 94 18 BP Pulse Ox 04/19/18 15:25 118/72 91 L 04/19/18 09:00 04/19/18 08:45 94 L 04/19/18 07:40 140/80 94 L Weight 244 lb 9.6 oz 04/18/18 04/19/18 04/20/18 06:59 06:59 06:59 Output Total 300 Balance -300 - Physical Examination General/Neuro: alert & oriented x3, NAD Neck: no JVD present Lungs: unlabored respirations Heart: other: (Irregular) Abdomen: NT/ND Extremities: + edema B (1+) - Telemetry Telemetry Rhythm: Afib HR 80's. - Labs Result Diagrams: 04/19/18 04:27 04/19/18 04:27 Troponin/CKMB Troponin I 0.022 ng/mL (< 0.028) 04/18/18 11:58 - Assessment/Plan 1. Acute on chronic systolic heart failure. 2. COPD 3. Afib, paroxysmal 4. Presence of PPM. PLAN: - Will recommend full anticoagulation for stroke prophylaxis. - Switch to PO lasix tomorrow. - Would start Eliquis 5 mg BID.
[2018-04-19] MEDS ORDERED: Apixaban 5 MG TAB PO SCH (21:00)
[2018-04-20] MEDS ORDERED: Furosemide 40 MG TAB PO SCH (07:30)
[2018-04-20] MEDS ORDERED: Ubidecarenone 50 MG CAP PO SCH (09:00)
[2018-04-20] MEDS ORDERED: Lactinex Tablet PO SCH (09:00)
--- NOTE | 2018-04-20 12:54 | DIS ---
DATE OF ADMISSION: 04/18/2018 DATE OF DISCHARGE: 04/19/2018 RESIDENT: Rosalina Haynes MD ADMITTING ATTENDING: Dr. Giordano. DISCHARGE ATTENDING: Dr. Hobbs. CONSULTATION: Cardiology. PROCEDURES PERFORMED: None. PRIMARY DIAGNOSES: Acute congestive heart failure exacerbation, atrial fibrillation, and chronic obstructive pulmonary disease exacerbation. SECONDARY DIAGNOSES: Coronary artery disease, status post stent placement, hypertension, chronic back pain, BPH, chronic kidney disease stage 3, and obstructive sleep apnea. DISCHARGE MEDICATIONS: 1. Aspirin 81 mg oral daily. 2. Coreg 12.5 mg oral daily. 3. Prednisone 40 mg as directed. 4. Lasix 40 mg oral daily. 5. Eliquis 5 mg oral twice daily. 6. Fish oil 1000 mg oral twice daily. 7. Finasteride 5 mg oral daily. 8. Lisinopril 5 mg oral daily. 9. Paroxetine 40 mg oral at bedtime. 10. Plavix 75 mg oral daily. 11. Nexium 40 mg oral twice daily. 12. Coenzyme Q.10, 100 mg oral daily. 13. Probiotic 1.5 oral daily. DISCONTINUED MEDICATIONS: Coreg 25 mg oral twice daily. HISTORY OF PRESENT ILLNESS/HOSPITAL COURSE: This is a 72-year-old male who presents to the emergency department with a 4-day history of progressive worsening shortness of breath. The patient has a past medical history significant for coronary artery disease, status post stent, pacemaker placement, obstructive sleep apnea, and extensive smoking history. The patient states that he was seen at an Urgent Care on Wednesday, where he received a steroid dose pack, azithromycin, and a shot of antibiotics, presumably a third-generation cephalosporin. The patient states that over the weekend, shortness of breath continued to worsen despite this treatment. Upon admission, the patient also reported chest tightness with deep inspiration. The patient endorsed shortness of breath, dyspnea on exertion, and productive cough for last 2 to 3 weeks. The cough was productive of yellow sputum. The patient denied fever or chills. In the ED, the patient was given 40 mg IV Lasix, Levaquin, albuterol nebulizer, DuoNeb, magnesium, 1 L of normal saline, and prednisone. The patient was given Lasix due to symptoms possibly being related to CHF exacerbation. The patient was fluid restricted to 1800 mL per day. Heart failure medications from home were restarted. The patient was found to be in atrial fibrillation on EKG, rate controlled. Cardiology is consulted for further recommendations. Cardiology recommended full anticoagulation. The patient was started on Eliquis. The patient was also started on prednisone due to symptoms possibly being related to COPD. Antibiotics were discontinued due to procalcitonin being negative. The patient was given CPAP at night due to obstructive sleep apnea. Echo results are still pending at this time. The patient is planning on following up [facility], which will be discussed with the patient. Discussed with the patient starting anticoagulation with Eliquis including risk of bleeding. The patient asked questions which were answered. The patient agreed to move forward with full anticoagulation. DISPOSITION: Stable. DISCHARGE INSTRUCTIONS: 1. Location, home. 2. Activity, ad raj. 3. Diet, heart healthy with low-sodium diet. 4. Follow up with PCP on 04/25/2018 at 1:20 p.m., with Dr. Neil on 05/23/2018, and with cardiac rehab. Job ID: [id number]
== END 2018-04-19 19:55 | disposition home or self-care (01) | DRG 291 ==
LOC: ERS 11:32 → ERHOLD 15:44 → 2NO 22:10
PROVIDERS: ADMIT Family Medicine; ATTEND Family Medicine
DX: I13.0 Hypertensive heart and chronic kidney disease with heart failure and stage 1 through stage 4 chronic kidney disease, or unspecified chronic kidney disease (principal); I50.23 Acute on chronic systolic (congestive) heart failure; J44.1 Chronic obstructive pulmonary disease with (acute) exacerbation; I25.10 Atherosclerotic heart disease of native coronary artery without angina pectoris; G47.33 Obstructive sleep apnea (adult) (pediatric); F41.9 Anxiety disorder, unspecified; F32.9 Major depressive disorder, single episode, unspecified; N18.3 Chronic kidney disease, stage 3 (moderate); N40.0 Benign prostatic hyperplasia without lower urinary tract symptoms; F17.210 Nicotine dependence, cigarettes, uncomplicated; G89.29 Other chronic pain; M54.9 Dorsalgia, unspecified; M54.12 Radiculopathy, cervical region; M54.16 Radiculopathy, lumbar region; E66.9 Obesity, unspecified; I48.0 Paroxysmal atrial fibrillation; Z95.0 Presence of cardiac pacemaker; Z85.038 Personal history of other malignant neoplasm of large intestine; Z90.49 Acquired absence of other specified parts of digestive tract; Z98.890 Other specified postprocedural states; Z98.61 Coronary angioplasty status; Z79.82 Long term (current) use of aspirin; Z79.899 Other long term (current) drug therapy; Z79.02 Long term (current) use of antithrombotics/antiplatelets; Z88.8 Allergy status to other drugs, medicaments and biological substances; Z91.041 Radiographic dye allergy status; Z87.39 Personal history of other diseases of the musculoskeletal system and connective tissue; Z68.31 Body mass index [BMI] 31.0-31.9, adult
CPT/HCPCS: 36415; 71045; 80048; 80053; 82330; 82803; 83605; 83735; 83880; 84145; 84484; 85025; 85520; 87040; 93005; 93306; 94640; 94644; 96361; 96365; 96367; 96375; J1650; J1940; J1956; J7506; J7611; J7620

== ENCOUNTER 2018-05-02 10:00 | Observation (INO) | payer MEDICARE ==
[2018-05-02 10:37] LABS: #Lymphocytes 1.2 thou/uL (1.20-3.40); #Monocytes 1.4 thou/uL (0.11-0.59); #Neutrophils 7.1 thou/uL (1.40-6.50); %Basophils 0.2 % (0.0-1.0); %Eosinophils 0.5 % (0.0-10.0); %Lymphocytes 12.4 % (21.0-51.0); %Monocytes 14.2 % (0.0-10.0); %Neutrophils 72.8 % (42.0-75.0); Hemoglobin 12.8 g/dL (14.0-18.0); Mean Corpuscular HGB CONC 31.9 g/dL (32.0-36.0); Mean Corpuscular Hemoglobin 30.6 pg (27.0-31.0); Mean Platelet Volume 7.1 fL (7.4-10.4); Platelet Count 147 thou/uL (130-400); RBC Distribution Width 13.2 % (11.5-14.5); Red Blood Cell (RBC) Count 4.18 mill/uL (4.70-6.10); White Blood Cell (WBC) Count 9.7 thou/uL (4.8-10.8)
[2018-05-02 10:45] LABS: Prothrombin Time 13.6 SEC (12.0-14.7)
[2018-05-02 11:02] LABS: ALT (SGPT) 20 U/L (8-55); AST (SGOT) 14 U/L (5-34); Albumin 3.5 g/dL (3.4-4.8); Alkaline Phosphatase 60 U/L (40-150); Anion Gap 13 mmol/L (10-20); BUN (Urea Nitrogen) 15 mg/dL (8.4-25.7); Bilirubin, Total 1.8 mg/dL (0.2-1.2); CK (CPK) 43 U/L (30-200); Calc. Creatinine Clearance 0 mL/min (70-130); Carbon Dioxide 22 mmol/L (23-31); Chloride 105 mmol/L (98-107); Estimated GFR-MDRD 80; Globulin 3.1 g/dL (2.4-3.5); Glucose 92 mg/dL (83-110); Potassium 4.2 mmol/L (3.5-5.1); Protein, Total 6.6 g/dL (5.8-8.1); Sodium 136 mmol/L (136-145)
--- NOTE | 2018-05-02 11:15 | RAD ---
PORTABLE CHEST: Comparison: 04-18-18 History: Syncope. FINDINGS: Heart size is enlarged with a pacemaker in place. The lungs are clear of any infiltrative process. Th ere are no signs of failure. IMPRESSION: Cardiomegaly. POS: [facility]
[2018-05-02 11:22] LABS: CKMB 1.4 ng/mL (0-6.6)
[2018-05-02 12:20] LABS: Bilirubin Negative (Negative); Blood, Urine Moderate (Negative); Clarity CLEAR (Clear); Glucose, Urine (Dipstick) Negative (Negative); Leukocyte Negative (Negative); Nitrite Negative (Negative); Protein, Urine (Dipstick) Negative (Neg-Trace); Specific Gravity, Urine 1.013 (1.002-1.036); pH, Urine 7.5 (5.0-9.0)
[2018-05-02 12:37] LABS: Bacteria/HPF None Seen HPF (None Seen); Hyaline Casts/LPF 0-3 HYALINE CAST LPF (0-3 Hyaline); Pathc Cast-AUWi Flag 0.14 (0-2.49); RBC/HPF 21-50 HPF (0-3); Squamous Epithelial 0-3 HPF (0-3); WBC/HPF None Seen HPF (0-3)
--- NOTE | 2018-05-02 13:38 | PDOC.FPRHP ---
- History of Present Illness Chief Complaint: Weakness History of Present Illness: Mr. Nettles presents to the ED for a one month hx of weakness He reports he started feeling bad a few days after leaving the hospital, that one of the medications they started him on for his heart makes him feel bad. When asked to describe what he means he reports weakness all over, drowsiness, and pain in his legs. He additionally reports shortness of breath, which may be close to his baseline. He reports he stopped taking his coreg/eliquis 2 days [employer]. Otherwise he has been taking his medications as prescribed. Denies any CP, fever, wheeze, syncope, palpitations, or LAMAR. ED Course: Ua, Mg, Trop, CMP, PT/INR, CXR, CBC, CK, EKG 500 mL bolus - Allergies/Adverse Reactions Allergies Allergy/AdvReac Type Severity Reaction Status Date / Time iodine Allergy Verified 05/02/18 18:41 Ksblkir-Lda-Pjr Reductase Allergy Verified 05/02/18 18:41 Inhibitor - Home Medications Medication Instructions Recorded Confirmed Type Fish Oil/DHA/EPA [Fish Oil 1,200 1,000 mg PO DAILY 11/13/13 05/02/18 History mg Fish Oil] Finasteride [Proscar] 5 mg PO DAILY 07/02/14 05/02/18 History Lisinopril [Zestril] 5 mg PO DAILY #0 tab 02/27/15 05/02/18 Rx PARoxetine HCl 40 mg PO DAILY 05/30/17 05/02/18 History Clopidogrel Bisulfate [Plavix] 75 mg PO DAILY 12/31/17 05/02/18 History Aspirin [Ecotrin Low Strength] 81 mg PO DAILY 04/18/18 05/02/18 History Esomeprazole Magnesium [NexIUM 40 mg PO BID 04/18/18 05/02/18 History Oral Suspension] Lactobacillus Acidophilus 1 cap PO DAILY 04/18/18 05/02/18 History [Probiotic] Ubidecarenone [Coenzyme Q-10] 100 mg PO DAILY 04/18/18 05/02/18 History Carvedilol [Coreg] 12.5 mg PO DAILY #0 tab 04/19/18 05/02/18 Rx Furosemide [Lasix] 20 mg PO DAILY #30 tab 05/04/18 Rx - History PMHx:CAD, HFrEF, CKD, Polymyalgia rheumatica, BPH, ED PSHx: sentx2 2003, colon resection, back surg, pacemaker, FHx: HTN, DMII Social: 80 pk year, no alcohol or drugs - Review of Systems General: denies: fever/chills, weight/appetite/sleep changes Eyes: denies: vision changes ENT: denies: nasal congestion Respiratory: reports: shortness of breath. denies: cough, congestion, exercise intolerance Cardiovascular: denies: chest pain, palpitation, edema, paroxysmal nocturnal dyspnea Gastrointestinal: denies: nausea, vomiting, diarrhea, constipation, abdominal pain Genitourinary: reports: polyuria. denies: incontinence, dysuria Skin: denies: rashes Musculoskeletal: denies: pain, tenderness Neurological: denies: numbness, syncope - Vital signs BP: 112/66 HR: 102 RR: 19 Tmax: 99.1 Pox: 98% on 2L Wt: 113.4kg - Physical Exam Constitutional: other (mildly obtunded) HEENT: grossly normal vision, grossly normal hearing, MMM Neck: trachea midline, no JVD Chest: no-tender to palpation, no lesions Heart: normal S1/S2, other (irregularly irregular with elevated rate) Lungs: no respiratory distress, other (crackles/ronchi in LLF) Abdomen: soft, non-tender, bowel sounds present Musculoskeletal: normal structure, normal tone Neurological: no focal deficit, CN II-XII intact Skin: no rash/lesions, good turgor Heme/Lymphatic: no unusual bruising or bleeding Psychiatric: other (poor insight) FMR H&P: Results - Labs Result Diagrams: 05/03/18 05:18 05/03/18 05:18 Lab results: WBC 9.7 thou/uL (4.8-10.8) 05/02/18 10:26 Hgb 12.8 g/dL (14.0-18.0) L 05/02/18 10:26 Hct 40.1 % (42.0-52.0) L 05/02/18 10:26 MCV 96.0 fL (78.0-98.0) 05/02/18 10:26 Plt Count 147 thou/uL (130-400) 05/02/18 10:26 Neutrophils % 72.8 % (42.0-75.0) 05/02/18 10:26 Sodium 136 mmol/L (136-145) 05/02/18 10:26 Potassium 4.2 mmol/L (3.5-5.1) 05/02/18 10:26 Chloride 105 mmol/L (98-107) 05/02/18 10:26 Carbon Dioxide 22 mmol/L (23-31) L 05/02/18 10:26 BUN 15 mg/dL (8.4-25.7) 05/02/18 10:26 Creatinine 0.93 mg/dL (0.7-1.3) 05/02/18 10:26 Glucose 92 mg/dL (83-110) 05/02/18 10:26 Calcium 9.0 mg/dL (7.8-10.44) 05/02/18 10:26 Total Bilirubin 1.8 mg/dL (0.2-1.2) H 05/02/18 10:26 AST 14 U/L (5-34) 05/02/18 10:26 ALT 20 U/L (8-55) 05/02/18 10:26 Alkaline Phosphatase 60 U/L (40-150) 05/02/18 10:26 Creatine Kinase 43 U/L (30-200) 05/02/18 10:26 CK-MB (CK-2) 1.4 ng/mL (0-6.6) 05/02/18 10:26 Serum Total Protein 6.6 g/dL (5.8-8.1) 05/02/18 10:26 Albumin 3.5 g/dL (3.4-4.8) 05/02/18 10:26 Urine Ketones Negative mg/dL (Negative) 05/02/18 11:40 Urine Blood Moderate (Negative) H 05/02/18 11:40 Urine Nitrite Negative (Negative) 05/02/18 11:40 Ur Leukocyte Esterase Negative (Negative) 05/02/18 11:40 Urine RBC 21-50 HPF (0-3) H 05/02/18 11:40 Urine WBC None Seen HPF (0-3) 05/02/18 11:40 Ur Squamous Epith Cells 0-3 HPF (0-3) 05/02/18 11:40 Urine Bacteria None Seen HPF (None Seen) 05/02/18 11:40 - Radiology Interpretation Chest x-ray Status: image reviewed by me Additional comment: nawaf structure intact, enlarged mediastinum, cardiomegaly, lower lung opacifications possible indicating fluid overload or infectious process. FMR H&P: A/P - Problem List (1) CKD (chronic kidney disease) Status: Acute Code(s): N18.9 - CHRONIC KIDNEY DISEASE, UNSPECIFIED (2) Elevated troponin Status: Acute Code(s): R74.8 - ABNORMAL LEVELS OF OTHER SERUM ENZYMES (3) Atrial fibrillation Status: Acute Code(s): I48.91 - UNSPECIFIED ATRIAL FIBRILLATION (4) Hematuria Status: Acute Code(s): R31.9 - HEMATURIA, UNSPECIFIED (5) Hyperlipidemia Status: Acute Code(s): E78.5 - HYPERLIPIDEMIA, UNSPECIFIED (6) Polymyalgia rheumatica syndrome Status: Acute Code(s): M35.3 - POLYMYALGIA RHEUMATICA (7) CAD (coronary atherosclerotic disease) Status: Chronic Code(s): I25.10 - ATHSCL HEART DISEASE OF [place] CORONARY ARTERY W/O ANG PCTRS (8) CHF (congestive heart failure) Status: Chronic Code(s): I50.9 - HEART FAILURE, UNSPECIFIED (9) Hypertension Status: Chronic Code(s): I10 - ESSENTIAL (PRIMARY) HYPERTENSION - Plan Afib with RVR -diagnosed on last admission, previously rate controlled on medication -Resume coreg and eliquis -Admit to tele for monitoring Indeterminate troponin -Most likely demand ischemia -Down-trended HFrEF -CXR findings and PE c/w CHF exac vs lower lobe pna -Further work up required. BNP, procal, LA, BCx pending -Echo 05/2017 showed EF 40-45% consider repeat -strict IOs, weigh pt daily -continue home meds, treat as appropriate with completed work up. Hematuria -Unlikely infectious, UCx ordered. See above for infectious work up -present on previous admission -Cytology pending CAD - aware, continue home meds - EKG and additional trops for chest pain HLD - aware, does not tolerate statins Tobacco abuse - possible diagnosis of COPD - duonebs q4hr prn Code: full ppx: eliquis Disposition/LOS: Admit to tele for monitoring, further workup required to determine etiology. FMR H&P: Upper Level - Pertinent history 72M presents for complaint of weakness for 1 week, steadily worsening. He states that it was due to being started on elliquis for afib and moving worsens it. Associated symptom include confusion, knee pain, cough, congestion and sob. ER has concern that there is hx of high ER utilization and drug seeking behavior. In ER, he had trops that were indeterminate and was at one point, afib with rvr. He has smoked 2 pack per day, approximately 50 year. He has history of coronary artery requiring stent, pacemaker placement for a fib, hld and htn. - Pertinent findings Gen: Alert, grossly oriented, but unable to provide clear history, often meandering in thought process and dishevel looking HEENT: Normocephalic, no conjunctival injection, moist appearing mucosal membrane,supple neck CV: Irregularly irregular, tachycardic, no obvious m/g/r. Spider angioma present on chest. Resp: In lung bases, greater left then right, were crackles. No retraction or labored breathing. GI: Normoactive bowel, not tender. No heptojuglar reflex noted. Derm: Bruising noted on multiple extremities that may be from eillquis. Ext: 1+ pitting edema bilateral in lower extremities Neuro: Confused speech at time, but mostly appropriate. No gross focal abnormalities noted - Plan Date/Time: 05/02/18 1336 I, [Tristian Lynn], have evaluated this patient and agree with findings/plan as outlined by corporate intern resident. Pertinent changes/additions are listed here. 1. Indeterminate trop - EKG shows afib with pvc. Trops indeterminate. Patient with more 1 week of malaise and sob, but no other typicalACS signs - Heart Score 6 due to age, risk factor, ekg changes, and trops. - Plan to trend trops. Due to his afib with rvr, likely elevated trops and long time period would make ACS less likely. Will obtain echo, previous 1 year ago, 40-45 EF with mild-moderate aortic stenosis. - Base on further result, will plan further work up. 2. Afib with rvr - At this time rate controlled. - His coreg was recently lowered and his HR in ER has been WNL. Obtain TSH. Consider increasing coreg. Continue anticoagulant. 3. Malaise - Multiple different possible causes - Will rule out flu with swab. - CXR was read as normal, but there is crackles on exam, 1+ pitting edema. Consider CHF, will obtain lactic acid, BNP, ABG and treat as appropriate - Possibly due to ACS or afib with rvr. Will treat those as appropriate. - Consider COPD due to smoking history. Will place on breathing treatment, consider steroid if it becomes more apparent. 4. Microscopic hematuria - Found incidentally on UA. Advise follow up for repeat urine in outpatient setting. Will consider running urine cytology to elucidate cause of hematuria. Addendum - Attending - Attending Attestation Date/Time: 05/02/18 3024 I personally evaluated the patient and discussed the management with Dr. Canseco and Dr. Lynn I agree with the History, Examination, Assessment and Plan documented above with any addition or exceptions noted below. 72 yo male with history of CV dz including CAD, A. fib, HTN, HLD, and HFrEF presents for evaluation of weakness. Patient reports weakness, fatigue, and leg pain since d/c from hospital. Reports he stopped his beta cinthya and anticoagulant due to these symptoms. Also over the past 2 days report SOB/LAMAR. VS reviewed. Labs reviewed. NAD. IRR. a fib with RVR on monitor. Crackles at baseline bilaterally NT/ND. BS present No edema. 1. Acute CHF ex: Strict I/Os. BNP and CXR pending. IV diuresis. Place in obs on tele. 2. A. fib with RVR: Restart AV jacquelyn agent. Interrogate pace make to make sure no other concerning arrhythmias present. CCB drip as needed. CHADSVASC = 4. 3. Hematuria: Unsure etiology. Possible antiplatelet/anticoagulant, but with fpc tobacco use. Will send for FISH vs urine cytology review. Will need outpatient urology follow up. 4. Weakness/SOB: Believe related to CV dz and medication use. Flu negative. Continue to monitor. Obs on tele. Monitor closely for resolution of RVR. Adjust home meds as needed. Dinesh
[2018-05-02] MEDS ORDERED: Ondansetron ODT 4 MG TAB PO PRN (18:37)
[2018-05-02 18:41] VITALS: BMI 31.4
[2018-05-02 18:59] LABS: Amphetamine Not Detected (NotDetected); Barbiturates Screen Not Detected (NotDetected); Benzodiazepine Screen Not Detected (NotDetected); Cocaine Metabolite Screen Not Detected (NotDetected); Medtox Control Line Valid? VALID (VALID); Medtox Reader # READER 1; Methadone Not Detected (NotDetected); Methamphetamine Not Detected (NotDetected); Opiate Screen Not Detected (NotDetected); Oxycodone Screen Not Detected (NotDetected); Phencyclidine (PCP) Not Detected (NotDetected); THC/Cannabinoid Screen Not Detected (NotDetected); Tricyclic Screen Not Detected (NotDetected)
[2018-05-02 19:43] LABS: Lactic Acid 0.8 mmol/L (0.5-2.2)
[2018-05-02 20:06] LABS: Thyroid Stimulating Hormone 0.6962 uIU/mL (0.35-4.94)
[2018-05-02] MEDS: Apixaban 5 MG TAB PO SCH (21:03)
[2018-05-03 06:13] LABS: #Lymphocytes 1.5 thou/uL (1.20-3.40); #Monocytes 1.2 thou/uL (0.11-0.59); #Neutrophils 7.2 thou/uL (1.40-6.50); %Basophils 0.1 % (0.0-1.0); %Eosinophils 0.5 % (0.0-10.0); %Lymphocytes 14.7 % (21.0-51.0); %Monocytes 11.7 % (0.0-10.0); %Neutrophils 73.1 % (42.0-75.0); Hemoglobin 12.6 g/dL (14.0-18.0); Mean Corpuscular HGB CONC 32.8 g/dL (32.0-36.0); Mean Corpuscular Hemoglobin 31.1 pg (27.0-31.0); Mean Platelet Volume 7.7 fL (7.4-10.4); Platelet Count 140 thou/uL (130-400); RBC Distribution Width 13.1 % (11.5-14.5); Red Blood Cell (RBC) Count 4.06 mill/uL (4.70-6.10); White Blood Cell (WBC) Count 9.9 thou/uL (4.8-10.8)
[2018-05-03 06:30] LABS: ALT (SGPT) 14 U/L (8-55); AST (SGOT) 12 U/L (5-34); Albumin 3.4 g/dL (3.4-4.8); Alkaline Phosphatase 67 U/L (40-150); Anion Gap 11 mmol/L (10-20); BUN (Urea Nitrogen) 13 mg/dL (8.4-25.7); Bilirubin, Total 2.3 mg/dL (0.2-1.2); Calc. Creatinine Clearance 108 mL/min (70-130); Calcium 9.2 mg/dL (7.8-10.44); Carbon Dioxide 24 mmol/L (23-31); Chloride 104 mmol/L (98-107); Estimated GFR-MDRD 79; Globulin 3.2 g/dL (2.4-3.5); Glucose 90 mg/dL (83-110); Protein, Total 6.6 g/dL (5.8-8.1); Sodium 135 mmol/L (136-145)
[2018-05-03 06:40] LABS: Actual Bicarbonate (HCO3a) 24.1 mEq/L (22-28); Base Excess (BEa) 0.6 mEq/L (-2.0 to +3.0); CO2 Tension 35.3 mmHg (35.0-45.0); Calcium, Ionized 1.18 mmol/L (1.12-1.30); Hemoglobin (Hb) 13.2 g/dL (14.0-18.0); O2 Tension (PaO2) 87.6 mmHg (> 70.0); Potassium - ABG Lab 4.01 mmol/L (3.70-5.30); pH, Arterial 7.45 (7.35-7.45)
[2018-05-03 06:41] LABS: ALV-art Gradient 67.915 (0-20); Puncture Site LRA
--- NOTE | 2018-05-03 07:11 | PDOC.FM ---
- Subjective Subjective: Mr. Nettles is resting comfortably in bed, he reports pain in his back and legs that is worse since starting eliquis. He has pain at baseline but reports it has been worse for the past month. He has been refusing eliquis, risks explained. - Objective Vital Signs & Weight: Vital Signs (12 hours) Temp Pulse Resp BP Pulse Ox 05/03/18 04:17 98.4 F 113 H 20 117/67 93 L Weight Weight 109.27 kg I&O: 05/01/18 05/02/18 05/03/18 06:59 06:59 06:59 Intake Total 800 Output Total 1000 Balance -200 Result Diagrams: 05/03/18 05:18 05/03/18 05:18 Phys Exam - Physical Examination Constitutional: NAD HEENT: moist MMs Neck: no JVD crackles in LLW Cardiovascular: no significant murmur Gastrointestinal: soft, non-tender Musculoskeletal: pulses present Neurological: moves all 4 limbs Lymphatic: no nodes Deviation from normal: poor insight Skin: no rash Dx/Plan (1) CKD (chronic kidney disease) Code(s): N18.9 - CHRONIC KIDNEY DISEASE, UNSPECIFIED Status: Acute (2) Elevated troponin Code(s): R74.8 - ABNORMAL LEVELS OF OTHER SERUM ENZYMES Status: Acute (3) Atrial fibrillation Code(s): I48.91 - UNSPECIFIED ATRIAL FIBRILLATION Status: Acute (4) Hematuria Code(s): R31.9 - HEMATURIA, UNSPECIFIED Status: Acute (5) Hyperlipidemia Code(s): E78.5 - HYPERLIPIDEMIA, UNSPECIFIED Status: Acute (6) Polymyalgia rheumatica syndrome Code(s): M35.3 - POLYMYALGIA RHEUMATICA Status: Acute (7) CAD (coronary atherosclerotic disease) Code(s): I25.10 - ATHSCL HEART DISEASE OF [place] CORONARY ARTERY W/O ANG PCTRS Status: Chronic (8) CHF (congestive heart failure) Code(s): I50.9 - HEART FAILURE, UNSPECIFIED Status: Chronic (9) Hypertension Code(s): I10 - ESSENTIAL (PRIMARY) HYPERTENSION Status: Chronic - Plan Plan: Afib with RVR -diagnosed on last admission, previously rate controlled on medication -Resume coreg and eliquis, pt is refusing eliquis, risks/benefits/options explained -monitor on tele Indeterminate troponin -Most likely demand ischemia -Down-trended HFrEF -CXR findings and PE c/w CHF exac vs lower lobe pna - BNP >200, procal and LA neg, BCx pending -Echo 05/2017 showed EF 40-45%, repeat pending -strict IOs, weigh pt daily - begin lasix to address fluid overload -continue home meds Hematuria -Unlikely infectious, UCx ordered. See above for infectious work up -present on previous admission -Cytology pending CAD - aware, continue home meds - EKG and additional trops for chest pain HLD - aware, does not tolerate statins Tobacco abuse - possible diagnosis of COPD - duonebs q4hr prn Code: full ppx: eliquis dispo: [place], monitor. possible DC today or tomorrow.
[2018-05-03] MEDS: Carvedilol 6.25 MG TAB PO SCH (09:22)
[2018-05-03] MEDS: Apixaban 5 MG TAB PO SCH ×2 (09:22→21:18)
[2018-05-03] MEDS: Finasteride 5 MG TAB PO SCH (09:23)
[2018-05-03] MEDS: Lisinopril 5 MG TAB PO SCH (09:23)
[2018-05-03] MEDS: Clopidogrel Bisulfate 75 MG TAB PO SCH (09:23)
[2018-05-03] MEDS ORDERED: Furosemide 20 MG/2 ML VIAL SLOW IVP SCH (10:15)
[2018-05-03] MEDS: Acetaminophen 325 MG TAB PO PRN ×2 (10:57→21:18)
--- NOTE | 2018-05-03 12:44 | PRG ---
DATE OF SERVICE: 05/03/2018 Mr. Nettles was admitted for generalized weakness. He really seems no different than his discharge for heart failure over a month ago. He states that the Eliquis makes him drowsy, this is doubtful. We are continuing his treatment for what is likely diastolic heart failure in anticipation of possibly discharging him tomorrow. He is in no distress. Very talkative and complaining of chronic neck pain. Job ID: [id number]
--- NOTE | 2018-05-04 06:37 | PDOC.FM ---
- Subjective Subjective: Mr. Nettles reports improvement today, he still feels "droggy" but denies SOB or CP - Objective Vital Signs & Weight: Vital Signs (12 hours) Temp Pulse Resp BP Pulse Ox 05/04/18 03:42 97.4 F L 105 H 20 136/83 95 05/03/18 23:14 98.6 F 86 21 H 107/65 93 L 05/03/18 19:13 97.3 F L 96 20 112/57 L 91 L Weight Weight 109.089 kg I&O: 05/02/18 05/03/18 05/04/18 06:59 06:59 06:59 Intake Total 800 1140 Output Total 1000 1275 Balance -200 -135 Result Diagrams: 05/03/18 05:18 05/03/18 05:18 Phys Exam - Physical Examination HEENT: moist MMs Neck: no JVD Respiratory: no rhonchi, wheezing present Cardiovascular: RRR, no significant murmur, no rub Musculoskeletal: no edema, pulses present Neurological: non-focal, moves all 4 limbs Psychiatric: normal affect Skin: no rash Dx/Plan (1) CKD (chronic kidney disease) Code(s): N18.9 - CHRONIC KIDNEY DISEASE, UNSPECIFIED Status: Acute (2) Elevated troponin Code(s): R74.8 - ABNORMAL LEVELS OF OTHER SERUM ENZYMES Status: Acute (3) Atrial fibrillation Code(s): I48.91 - UNSPECIFIED ATRIAL FIBRILLATION Status: Acute (4) Hematuria Code(s): R31.9 - HEMATURIA, UNSPECIFIED Status: Acute (5) Hyperlipidemia Code(s): E78.5 - HYPERLIPIDEMIA, UNSPECIFIED Status: Acute (6) Polymyalgia rheumatica syndrome Code(s): M35.3 - POLYMYALGIA RHEUMATICA Status: Acute (7) CAD (coronary atherosclerotic disease) Code(s): I25.10 - ATHSCL HEART DISEASE OF [place] CORONARY ARTERY W/O ANG PCTRS Status: Chronic (8) CHF (congestive heart failure) Code(s): I50.9 - HEART FAILURE, UNSPECIFIED Status: Chronic (9) Hypertension Code(s): I10 - ESSENTIAL (PRIMARY) HYPERTENSION Status: Chronic - Plan Plan: Afib with RVR -diagnosed on last admission, previously rate controlled on medication -Resume coreg and eliquis -monitor on tele Indeterminate troponin -Most likely demand ischemia -Down-trended HFrEF -CXR findings and PE c/w CHF exac vs lower lobe pna - BNP >200, procal and LA neg, BCx pending -Echo 05/2017 showed EF 40-45% -strict IOs, weigh pt daily - begin lasix to address fluid overload -continue home meds Hematuria -Unlikely infectious, UCx ordered. See above for infectious work up -present on previous admission -Cytology pending, further work up including cystoscopy can be done outpatient CAD - aware, continue home meds - EKG and additional trops for chest pain HLD - aware, does not tolerate statins Tobacco abuse - possible diagnosis of COPD - duonebs q4hr b[place] Code: full ppx: eliquis dispo: [place], jean-paul. possible DC today or tomorrow.
[2018-05-04] MEDS ORDERED: Furosemide 20 MG TAB PO SCH (09:00)
[2018-05-04] MEDS: Clopidogrel Bisulfate 75 MG TAB PO SCH (09:14)
[2018-05-04] MEDS: Apixaban 5 MG TAB PO SCH (09:14)
[2018-05-04] MEDS: Lisinopril 5 MG TAB PO SCH (09:14)
[2018-05-04] MEDS: Carvedilol 6.25 MG TAB PO SCH (09:14)
[2018-05-04] MEDS: Finasteride 5 MG TAB PO SCH (09:14)
[2018-05-04 12:15] VITALS: TEMP 98.9
--- NOTE | 2018-05-04 12:37 | PRG ---
DATE OF SERVICE: 05/04/2018 Mr. Nettles really seems to be back to his baseline. He feels somewhat improvement with diuresis. I really believe his fatigue is a result of his reduced EF, heart failure as well as the use of beta cinthya for his heart failure. In any event, his current problems can likely be managed as an outpatient. Job ID: [id number]
[2018-05-04 15:03] VITALS: BP 106/78
--- NOTE | 2018-05-05 15:23 | DIS ---
DATE OF ADMISSION: 05/02/2018 DATE OF DISCHARGE: 05/04/2018 ADMITTING ATTENDING: Maricel Santos MD. DISCHARGE ATTENDING: Favio Resendez MD. RESIDENT: Trent Canseco DO. PROCEDURES: None. IMAGING DATA: Chest x-ray suspicious for bilateral pleural effusion, possibly volume overload from congestive heart failure. PRIMARY DIAGNOSIS: Congestive heart failure exacerbation. SECONDARY DIAGNOSES: 1. Indeterminate troponin. 2. Heart failure with reduced ejection fraction. 3. Hematuria. 4. Coronary artery disease. 5. Hyperlipidemia. 6. Tobacco abuse. DISCHARGE MEDICATIONS: 1. Fish oil 1000 mg p.o. daily. 2. Finasteride 5 mg p.o. daily. 3. Lisinopril 5 mg p.o. daily. 4. Paroxetine 40 mg p.o. daily. 5. Plavix 75 mg p.o. daily. 6. Nexium 40 mg p.o. b.i.d. 7. Aspirin 81 mg daily. 8. Coenzyme Q10 100 mg p.o. daily. 9. Probiotic 1 cap p.o. daily. 10. Coreg 12.5 mg daily. 11. Eliquis 5 mg daily. 12. Lasix 20 mg p.o. daily. DISCONTINUED MEDICATIONS: None. HISTORY OF PRESENT ILLNESS/HOSPITAL COURSE: Mr. Nettles is a 72-year-old male who presents to the emergency department for 1 month history of weakness. He reports that upon discharge from his last hospital stay, he has continued to feel weak. Upon further questioning, he is unable to quantify his weakness or describe it in further ways. He reports pain in his back and spine and feeling " Groggy." He reports that he believes this is secondary to taking Eliquis. He has read the package insert and is sure this is what it is. The patient had normal lab values and vital signs were normal besides an initial elevation in his pulse. Troponins were near baseline. His chest x-ray was significant for what appeared to be indicating a mild CHF exacerbation. He was given Lasix, did improve somewhat and how he was doing, but was counseled that congestive heart failure can cause a feeling of weakness and that was probably due to his severely reduced ejection fraction. The patient was deemed medically stable for discharge. He reported that he did not feel good for discharge, but it was determined that the rest of his symptoms could be followed up on an outpatient basis. DISPOSITION: Stable. DISCHARGE INSTRUCTIONS: Home. DIET: Heart healthy, low-sodium with volume restriction of 2 L a day. ACTIVITY: As tolerated. FOLLOWUP: Follow up with PCP, Dr. Guido Guan, in 3 days. Job ID: [id number]
== END 2018-05-04 17:59 | disposition home or self-care (01) ==
LOC: ERS 10:00 → ERHOLD 13:55 → 2SW 18:33
PROVIDERS: ADMIT Student in an Organized Health Care Education/Training Program; ATTEND Student in an Organized Health Care Education/Training Program
DX: I13.0 Hypertensive heart and chronic kidney disease with heart failure and stage 1 through stage 4 chronic kidney disease, or unspecified chronic kidney disease (principal); N18.9 Chronic kidney disease, unspecified; I50.21 Acute systolic (congestive) heart failure; I25.10 Atherosclerotic heart disease of native coronary artery without angina pectoris; E78.5 Hyperlipidemia, unspecified; F17.210 Nicotine dependence, cigarettes, uncomplicated; N40.0 Benign prostatic hyperplasia without lower urinary tract symptoms; N52.9 Male erectile dysfunction, unspecified; M35.3 Polymyalgia rheumatica; R74.8 Abnormal levels of other serum enzymes; I48.91 Unspecified atrial fibrillation; R31.9 Hematuria, unspecified; Z79.01 Long term (current) use of anticoagulants; Z79.02 Long term (current) use of antithrombotics/antiplatelets; Z79.82 Long term (current) use of aspirin; Z79.899 Other long term (current) drug therapy; Z88.8 Allergy status to other drugs, medicaments and biological substances; Z91.041 Radiographic dye allergy status; Z95.0 Presence of cardiac pacemaker; Z95.5 Presence of coronary angioplasty implant and graft; Z90.49 Acquired absence of other specified parts of digestive tract
CPT/HCPCS: 71045; 80053; 80306; 82550; 82553; 82805; 83605; 83735; 83880; 84145; 84484 ×2; 85025; 85610; 87040; 87804 ×2; 88112; 93005; 93798 ×2; 94640; 96374; 97139 ×3; 99285; G0378 ×2; 36415; 81003; 81015; 84443; J1940; J7620

== ENCOUNTER 2018-07-01 09:58 | Day surgery (SDC) | payer MEDICARE, BC ==
[2018-06-30 15:17] VITALS: BMI 32.3
[2018-07-01] MEDS ORDERED: PROPOFOL 200 MG/20 ML VIAL ONE (10:38)
[2018-07-01 11:30] LABS: #Eosinphils 0.2 thou/uL (0.0-0.7); #Lymphocytes 1.8 thou/uL (1.20-3.40); #Monocytes 0.7 thou/uL (0.11-0.59); #Neutrophils 3.1 thou/uL (1.40-6.50); %Basophils 0.8 % (0.0-1.0); %Eosinophils 2.8 % (0.0-10.0); %Lymphocytes 30.1 % (21.0-51.0); %Monocytes 12.8 % (0.0-10.0); %Neutrophils 53.6 % (42.0-75.0); Hemoglobin 11.2 g/dL (14.0-18.0); Mean Corpuscular HGB CONC 31.6 g/dL (32.0-36.0); Mean Corpuscular Hemoglobin 29.7 pg (27.0-31.0); Mean Corpuscular Volume 93.9 fL (78.0-98.0); Mean Platelet Volume 7.7 fL (7.4-10.4); Platelet Count 197 thou/uL (130-400); RBC Distribution Width 12.9 % (11.5-14.5); Red Blood Cell (RBC) Count 3.76 mill/uL (4.70-6.10); White Blood Cell (WBC) Count 5.8 thou/uL (4.8-10.8)
[2018-07-01 11:36] LABS: INR-International Normal Ratio 1.2; PTT 33.9 SEC (22.9-36.1); Prothrombin Time 15.6 SEC (12.0-14.7)
[2018-07-01 12:27] LABS: Anion Gap 11 mmol/L (10-20); BUN (Urea Nitrogen) 17 mg/dL (8.4-25.7); Calc. Creatinine Clearance 92 mL/min (70-130); Calcium 9.3 mg/dL (7.8-10.44); Carbon Dioxide 27 mmol/L (23-31); Chloride 107 mmol/L (98-107); Estimated GFR-MDRD 64; Glucose 96 mg/dL (83-110); Sodium 141 mmol/L (136-145)
[2018-07-01] MEDS ORDERED: PROPOFOL 20 ML ONE (12:53)
--- NOTE | 2018-07-01 14:46 | EKG ---
Test Reason : PREOP CARDIOVERSION Blood Pressure : / mmHG Vent. Rate : 079 BPM Atrial Rate : 088 BPM P-R Int : 000 ms QRS Dur : 150 ms QT Int : 448 ms P-R-T Axes : 000 -78 103 degrees QTc Int : 513 ms Electronic ventricular pacemaker When compared with ECG of 02-MAY-2018 10:08, Electronic ventricular pacemaker has replaced Atrial fibrillation Confirmed by JEN ORTIZ, DR. Corrigan ([id number]) on 07/01/2018 2:46:12 PM Referred By: LUIS Confirmed By:DR. Shekhar LI MD
--- NOTE | 2018-07-01 20:58 | OP ---
DATE OF PROCEDURE: 07/01/2018 PROCEDURE PERFORMED: Electrical cardioversion. REASON FOR PROCEDURE: Mr. Nettles is a 72-year-old man with prior history of a coronary artery disease, previously had an isthmus dependent atrial flutter ablated in September 2015, but now has atrial fibrillation since February 2018. He has been on triple anticoagulants and is undergoing a cardioversion to restore sinus rhythm. DESCRIPTION OF PROCEDURE: The patient received propofol by Anesthesia specialist. After adequate level of sedation achieved, a synchronized 200-joule shocks promptly converted the patient back to sinus rhythm. The pacemaker was interrogated pre and post procedure and was found to be adequate functioning. PLAN: At this point, continue monitoring for recurrent arrhythmias. Consider ablation procedure if recurrent arrhythmias seen versus antiarrhythmic agents could be considered. Job ID: [id number]
== END 2018-07-01 15:20 | disposition home or self-care (01) ==
LOC: CCL 09:58
PROVIDERS: ATTEND Internal Medicine Cardiovascular Disease
PROC: 5A2204Z Restoration of Cardiac Rhythm, Single (ICD-10-PCS; principal; 2018-07-01)
DX: I48.91 Unspecified atrial fibrillation (principal); I25.10 Atherosclerotic heart disease of native coronary artery without angina pectoris; Z95.0 Presence of cardiac pacemaker; E78.5 Hyperlipidemia, unspecified; F32.9 Major depressive disorder, single episode, unspecified; F41.9 Anxiety disorder, unspecified; M35.3 Polymyalgia rheumatica; I12.9 Hypertensive chronic kidney disease with stage 1 through stage 4 chronic kidney disease, or unspecified chronic kidney disease; N18.3 Chronic kidney disease, stage 3 (moderate); Z85.038 Personal history of other malignant neoplasm of large intestine; Z95.5 Presence of coronary angioplasty implant and graft; Z87.891 Personal history of nicotine dependence; Z91.09 Other allergy status, other than to drugs and biological substances; Z88.8 Allergy status to other drugs, medicaments and biological substances; Z79.82 Long term (current) use of aspirin; Z79.02 Long term (current) use of antithrombotics/antiplatelets; Z79.01 Long term (current) use of anticoagulants; Z79.899 Other long term (current) drug therapy
CPT/HCPCS: 80048; 85025; 85610; 85730; 92960; 93005; 93010; J2704

== ENCOUNTER 2018-08-17 10:07 | Inpatient (IN) | payer MEDICARE ==
[2018-08-17 11:22] LABS: #Eosinphils 0.2 thou/uL (0.0-0.7); #Lymphocytes 1.6 thou/uL (1.20-3.40); #Monocytes 0.6 thou/uL (0.11-0.59); #Neutrophils 2.9 thou/uL (1.40-6.50); %Basophils 0.6 % (0.0-1.0); %Eosinophils 3.1 % (0.0-10.0); %Lymphocytes 29.6 % (21.0-51.0); %Monocytes 12.3 % (0.0-10.0); %Neutrophils 54.5 % (42.0-75.0); Hemoglobin 11.5 g/dL (14.0-18.0); Mean Corpuscular HGB CONC 31.5 g/dL (32.0-36.0); Mean Corpuscular Hemoglobin 28.1 pg (27.0-31.0); Mean Corpuscular Volume 89.2 fL (78.0-98.0); Mean Platelet Volume 7.7 fL (7.4-10.4); Platelet Count 228 thou/uL (130-400); RBC Distribution Width 13.6 % (11.5-14.5); Red Blood Cell (RBC) Count 4.09 mill/uL (4.70-6.10); White Blood Cell (WBC) Count 5.2 thou/uL (4.8-10.8)
[2018-08-17 11:32] LABS: INR-International Normal Ratio 1.3
[2018-08-17 11:47] LABS: Anion Gap 12 mmol/L (10-20); BUN (Urea Nitrogen) 19 mg/dL (8.4-25.7); Calc. Creatinine Clearance 0 mL/min (70-130); Calcium 9.4 mg/dL (7.8-10.44); Carbon Dioxide 26 mmol/L (23-31); Chloride 104 mmol/L (98-107); Estimated GFR-MDRD 53; Glucose 89 mg/dL (83-110); Potassium 4.1 mmol/L (3.5-5.1); Sodium 138 mmol/L (136-145)
[2018-08-17] MEDS ORDERED: PROPOFOL 200 MG/20 ML VIAL ONE (14:59)
[2018-08-17] MEDS ORDERED: PROPOFOL 20 ML ONE (15:13)
[2018-08-17] MEDS ORDERED: PROVENTIL INHALER 6.7 G (200 INHALATIONS) INH PRN (15:44)
[2018-08-17 18:19] VITALS: BMI 29.9
[2018-08-17] MEDS: Carvedilol 3.125 MG TAB PO SCH (21:50)
[2018-08-17] MEDS: Sotalol HCl 80 MG TAB PO SCH (21:51)
[2018-08-17] MEDS: Apixaban 5 MG TAB PO SCH (21:53)
--- NOTE | 2018-08-17 22:38 | OP ---
DATE OF PROCEDURE: 08/17/2018 PROCEDURE PERFORMED: Electrical cardioversion. REFERRING PHYSICIAN: Marco Neil MD. REASON FOR PROCEDURE: Mr. Nettles is a 72-year-old man, with prior history of persistent atrial fibrillation, nonischemic cardiomyopathy, sick sinus syndrome post pacemaker implantation in the past, mild renal disease, and remote history of stenting. He is here with recurrent atrial fibrillation. He was given Multaq, but he could not tolerate it, and he quit about 10 days ago. Plan is to restore sinus rhythm. He has been well anticoagulated with Eliquis, also Plavix and aspirin on board. DESCRIPTION OF PROCEDURE: The patient received propofol by Anesthesia specialist. After adequate level of sedation achieved, a synchronized 150-joule shock converted the patient back to sinus rhythm. After this initial shock, recurrence of atrial fibrillation was seen. A repeated 150 joule shock was delivered. The patient maintained sinus rhythm after that. CONCLUSION: Successful cardioversion. PLAN: Admit for sotalol loading and monitor for over 2 nights. EKGs will be obtained regularly. Job ID: [id number]
[2018-08-18] MEDS: Lactinex Tablet PO SCH (09:26)
[2018-08-18] MEDS: Apixaban 5 MG TAB PO SCH ×2 (09:26→21:22)
[2018-08-18] MEDS: Sotalol HCl 80 MG TAB PO SCH ×2 (09:26→21:21)
[2018-08-18] MEDS: Fish Oil 1,000 MG CAP PO SCH (09:29)
[2018-08-18] MEDS: PARoxetine 20 MG TAB PO SCH (09:29)
[2018-08-18] MEDS: Lisinopril 5 MG TAB PO SCH (09:29)
[2018-08-18] MEDS: Magnesium Oxide 400 MG TAB PO SCH (09:29)
[2018-08-18] MEDS: Clopidogrel Bisulfate 75 MG TAB PO SCH (09:29)
[2018-08-18] MEDS: Carvedilol 3.125 MG TAB PO SCH ×2 (09:29→21:21)
[2018-08-18] MEDS: Finasteride 5 MG TAB PO SCH (09:30)
[2018-08-18] MEDS: Ubidecarenone 50 MG CAP PO SCH (09:30)
[2018-08-18] MEDS: Furosemide 40 MG TAB PO SCH (09:31)
[2018-08-18] MEDS: Aspirin 81 mg Enteric Coated Tablet PO SCH (09:43)
--- NOTE | 2018-08-18 16:29 | PDOC.CTH ---
Cardiology Progress Note - Subjective EP PROGRESS NOTE: 08/18/18 Mr. Nettles is a 72-year-old man, with prior history of persistent atrial fibrillation, nonischemic cardiomyopathy, sick sinus syndrome post pacemaker implantation in the past, mild renal disease, and remote history of stenting. He is here with recurrent atrial fibrillation. He was given Multaq, but he could not tolerate it, and he quit about 10 days ago. He has been well anticoagulated with Eliquis, also Plavix and aspirin on board. He was admitted s/p CV for sotalol loading. He is feeling well today. No new concerns or complaints. - Objective Vital Signs Temp Pulse Resp BP BP Pulse Ox 08/18/18 15:13 98.3 F 74 13 112/60 96 08/18/18 11:25 98.6 F 80 16 127/68 94 L 08/18/18 09:29 75 126/75 08/18/18 09:26 98.4 F 80 14 126/75 93 L Admit Weight 233 lb 9.6 oz Weight 233 lb 9.6 oz 08/17/18 08/18/18 08/19/18 06:59 06:59 06:59 Intake Total 480 720 Output Total 700 240 Balance -220 480 - Physical Examination General/Neuro: alert & oriented x3, NAD Neck: carotid US brisk, no JVD present Lungs: CTA, unlabored respirations Heart: PMI normal, RRR Abdomen: NT/ND, soft - Telemetry Telemetry Rhythm: SR, A Paced, Long VT. Occasional V pacing. - Labs Result Diagrams: 08/17/18 11:10 08/17/18 11:10 - Assessment/Plan 1. Persistent atrial fibrillation -s/p CV on 08/17 -sotalol loading. started on 120mg PO BID. I found Qt 420/QTc 491ms on 12 lead this AM after sotalol. Continue current dose. - Likley PVAI as outpt. 2. Chronic anticoagulation - continue Eliquis 5mg PO BID 3. ChF, LVEF 40-45%. 4. Dual Chamber PPM in place.
[2018-08-19 06:32] LABS: Anion Gap 9 mmol/L (10-20); BUN (Urea Nitrogen) 19 mg/dL (8.4-25.7); Calc. Creatinine Clearance 80 mL/min (70-130); Calcium 9.3 mg/dL (7.8-10.44); Carbon Dioxide 25 mmol/L (23-31); Chloride 107 mmol/L (98-107); Estimated GFR-MDRD 57; Glucose 84 mg/dL (83-110); Potassium 3.8 mmol/L (3.5-5.1); Sodium 137 mmol/L (136-145)
[2018-08-19] MEDS: Aspirin 81 mg Enteric Coated Tablet PO SCH (08:57)
[2018-08-19] MEDS: Finasteride 5 MG TAB PO SCH (08:57)
[2018-08-19] MEDS: Lactinex Tablet PO SCH (08:57)
[2018-08-19] MEDS: Fish Oil 1,000 MG CAP PO SCH (08:57)
[2018-08-19] MEDS: Sotalol HCl 80 MG TAB PO SCH (08:57)
[2018-08-19] MEDS: Ubidecarenone 50 MG CAP PO SCH (08:58)
[2018-08-19] MEDS: Carvedilol 3.125 MG TAB PO SCH (08:59)
[2018-08-19] MEDS: Lisinopril 5 MG TAB PO SCH (08:59)
[2018-08-19] MEDS: Apixaban 5 MG TAB PO SCH (08:59)
[2018-08-19] MEDS: Clopidogrel Bisulfate 75 MG TAB PO SCH (08:59)
[2018-08-19] MEDS: Furosemide 40 MG TAB PO SCH (08:59)
[2018-08-19] MEDS: PARoxetine 20 MG TAB PO SCH (09:00)
[2018-08-19] MEDS: Magnesium Oxide 400 MG TAB PO SCH (09:00)
--- NOTE | 2018-08-19 10:47 | PQF ---
DATE: 08-19-18 ATTN: DR. ODALYS SMITH Please exercise your independent, professional judgment in responding to the clarification form. Clinical indicators are provided on the bottom of this form for your review Please check appropriate box(s): [ ] Acute Renal Failure (ARF) / Acute Kidney Injury (JENNIE) [ ] Acute on Chronic Renal Failure please specify Stage of CKD (see below) [ X ] CKD without ARF/JENNIE please specify Stage of CKD [ ] Other diagnosis [ ] Unable to determine In addition, please specify: Present on Admission (POA): [X ] Yes [ ] No [ ] Unable to determine National Kidney Foundation Guidelines for CKD Staging Stage I Kidney damage with normal or increased GFRGFR > 90 Stage IIKidney damage with mildly decreased GFRGFR 60-89 XX Stage III Kidney damage with moderately decreased GFRGFR 30-59 Stage IVKidney damage with severely decreased GFRGFR 16-29 Stage VKidney failureGFR<15 ESRDEnd Stage Renal DiseaseOn dialysis Acute Renal Failure/Acute Kidney Failure defined as: Increases in SCr by (>) 0.3 mg/dl within 48 hours OR- Increases in SCr by (>) 1.5 times baseline, known or presumed to have occurred within the prior 7 days OR- Urine volume < 0.5 ml/kg/hour for 6 hours (KDIGO supplement 2012 for RIFLE/SHASHANK criteria) For continuity of documentation, please document condition throughout progress notes and discharge summary. Thank You. CLINICAL INDICATORS - SIGNS / SYMPTOMS / LABS: GFR: 08-17-18: 53 08-19-18: 57 CREATININE: 08-17-18: 1.32 08-19-18: 1.24 BUN: 08-17-18: 19 08-19-18: [address] SMITH 08-17-18: PRIOR HX OF PERSISTENT A FIB, NONISCHEMIC CARDIOMYOPATHY, SICK SINUS SYNDROME POST PACEMAKER IMPLANTATION IN THE PAST, MILD RENAL DISEASE AND REMOTE HX OF STENTING. RISK FACTORS: CARDIOLOGY PN DR. SMITH 08-17-18: PRIOR HX OF PERSISTENT A FIB, NONISCHEMIC CARDIOMYOPATHY, SICK SINUS SYNDROME POST PACEMAKER IMPLANTATION IN THE PAST, MILD RENAL DISEASE AND REMOTE HX OF STENTING. MAR: LASIX PO, COREG PO, LISINOPRIL, ASA TREATMENTS: MONITORING LABS ANESTHESIA NOTE 08-17-18: NORMAL SALINE IV (This form is maintained as a part of the permanent medical record) 2014 [employer]. All Rights Reserved [email or web address] Office: [phone] [facility] CENTERZarina
[2018-08-19] MEDS ORDERED: Acetaminophen 325 MG TAB PO PRN (12:57)
[2018-08-19] MEDS ORDERED: Ibuprofen 200 MG TAB PO PRN (12:58)
--- NOTE | 2018-08-19 13:03 | PDOC.CTH ---
Cardiology Progress Note - Subjective EP PROGRESS NOTE: 08/18/18 Mr. Nettles is a 72-year-old man, with prior history of persistent atrial fibrillation, nonischemic cardiomyopathy, sick sinus syndrome post pacemaker implantation in the past, mild renal disease, and remote history of stenting. He is here with recurrent atrial fibrillation. He was given Multaq, but he could not tolerate it, and he quit about 10 days ago. He has been well anticoagulated with Eliquis, also Plavix and aspirin on board. He was admitted s/p CV for sotalol loading. He is feeling well today. No new concerns or complaints but is reporting some left neck tenderness this AM. - Objective Vital Signs Temp Pulse Resp BP Pulse Ox 08/19/18 12:09 98.2 F 84 18 117/65 96 08/19/18 08:55 97.6 F 98 20 125/71 97 08/19/18 04:00 98.6 F 86 12 112/71 94 L Admit Weight 233 lb 9.6 oz Weight 233 lb 9.6 oz 08/18/18 08/19/18 08/20/18 06:59 06:59 06:59 Intake Total 480 970 Output Total 700 240 Balance -220 730 - Physical Examination General/Neuro: alert & oriented x3, NAD Neck: carotid US brisk, no JVD present Lungs: CTA, unlabored respirations Heart: PMI normal, RRR Abdomen: NT/ND, soft - Telemetry Telemetry Rhythm: AP, VS. Prolonged NM. Occasional V pacing - Labs Result Diagrams: 08/17/18 11:10 08/19/18 05:41 - Assessment/Plan 1. Persistent atrial fibrillation - s/p CV on 08/17 - sotalol loading. started on 120mg PO BID. I found - 08/18: QT/QTc 420/491ms on 12 lead - 08/19: QT/QTc= 400/479 ms on 12 lead - needs PVAI as outpt. 2. Chronic anticoagulation - continue Eliquis 5mg PO BID 3. ChF, LVEF 40-45%. 4. Dual Chamber PPM in place. -nml operation/function QT/QTc stable on current sotalol dose. DC today. Plan for PVAI in near future as OP
[2018-08-19 15:20] VITALS: BP 114/62; TEMP 98.3
--- NOTE | 2018-08-20 05:51 | DIS ---
DATE OF ADMISSION: 08/17/2018 DATE OF DISCHARGE: 08/19/2018 HISTORY OF PRESENT ILLNESS: Mr. Nettles is a 72-year-old gentleman with prior history of persistent atrial fibrillation; nonischemic cardiomyopathy; sick sinus syndrome, status post pacemaker implantation in the past; mild renal disease; and history of coronary artery stenting. He was admitted for cardioversion for recurrent atrial fibrillation. He was previously on Multaq, but could not tolerate it. He had been well anticoagulated with Eliquis in addition to Plavix and aspirin. Following successful cardioversion, he was admitted for sotalol loading and arrhythmia suppression. His QT and QTc intervals have remained stable on sotalol 120 mg p.o. b.i.d. with QTc remaining between 470 to 500 milliseconds with no ventricular arrhythmias detected. He is feeling well today and eager to discharge home. Ultimately, he will require an outpatient atrial fibrillation ablation, but will continue sotalol in the interim until these arrangements are made. SUBJECTIVE: Mr. Nettles is feeling well today. He denies any heart racing, palpitations, chest pain, pressure, syncope, near syncope, stroke, stroke-like symptoms, bleeding dyscrasias, or shortness of breath. He had mild symptoms of shortness of breath when he was in atrial fibrillation, which have subsided since maintaining sinus rhythm. OBJECTIVE: VITAL SIGNS: Temperature 98.3, pulse 84, blood pressure 114/62, respirations 18, and oxygen is 95% on room air. GENERAL: Patient is alert and oriented. Speech is clear. Affect is appropriate. NECK: Supple without jugular venous distention. LUNGS: Clear to auscultation. HEART: Rate is . ABDOMEN: Obese, soft, and nontender. Hepatojugular reflux is negative. EXTREMITIES: Warm and dry to touch without clubbing, cyanosis, or edema. NEUROLOGIC: Grossly intact and nonfocal. Gait is stable. DATABASE: Telemetry and EKGs reveal A paced V sensed rhythm with occasional ventricular pacing. There is [place] prolongation at baseline. DISCHARGE MEDICATIONS: 1. Resuming home medications of magnesium oxide daily. 2. Probiotic daily. 3. Furosemide 40 mg daily. 4. Fish oil daily. 5. Zestril 5 mg daily. 6. Finasteride daily. 7. Esomeprazole 40 mg b.i.d. 8. Plavix 75 mg daily. 9. Paroxetine 10 daily. 10. Aspirin 81 mg daily. 11. CoQ10 daily. 12. Eliquis 5 mg p.o. b.i.d. 13. Carvedilol 12.5 mg p.o. b.i.d. 14. ProAir as needed. New prescription for sotalol 120 mg p.o. b.i.d. was submitted electronically. DISCHARGE INSTRUCTIONS: Continue medical management as detailed above with oral anticoagulation Eliquis and antiarrhythmic therapy on sotalol. Contact [facility] with any arrhythmia or device related questions. I will be contacting him to schedule an outpatient ablation in the near future. If this will be scheduled for greater than 30 days in the future, I will need to see him back in clinic for an HP update. CONDITION AT DISCHARGE: Stable. Job ID: [id number]
--- NOTE | 2018-08-20 13:31 | EKG ---
Test Reason : PREOP Blood Pressure : / mmHG Vent. Rate : 076 BPM Atrial Rate : 076 BPM P-R Int : 000 ms QRS Dur : 112 ms QT Int : 434 ms P-R-T Axes : 000 085 -66 degrees QTc Int : 488 ms Atrial fibrillation with occasional ventricular paced beats and premature ventricular beats Nonspecific ST and T wave abnormality Prolonged QT Abnormal ECG Confirmed by DR. Rosa Isela CERVANTES ([id number]) on 08/20/2018 1:31:37 PM Referred By: LUIS Confirmed By:DR. Rosa Isela CERVANTES
--- NOTE | 2018-08-20 13:32 | EKG ---
Test Reason : Blood Pressure : / mmHG Vent. Rate : 093 BPM Atrial Rate : 093 BPM P-R Int : 000 ms QRS Dur : 106 ms QT Int : 374 ms P-R-T Axes : -19 071 -44 degrees QTc Int : 465 ms Atrial-paced rhythm with prolonged AV conduction with occasional ventricular-paced complexes and Mauro ature ventricular complexes Low voltage QRS Nonspecific ST and T wave abnormality Prolonged QT Abnormal ECG Confirmed by DR. Rosa Isela CERVANTES ([id number]) on 08/20/2018 1:32:39 PM Referred By: [facility] Confirmed By:DR. Rosa Isela CERVANTES
--- NOTE | 2018-08-20 13:35 | EKG ---
Test Reason : ROUTINE Blood Pressure : / mmHG Vent. Rate : 089 BPM Atrial Rate : 089 BPM P-R Int : 144 ms QRS Dur : 110 ms QT Int : 386 ms P-R-T Axes : 013 069 -37 degrees QTc Int : 469 ms Electronic atrial pacemaker When compared with ECG of 17-AUG-2018 15:34, (Unconfirmed) Electronic atrial pacemaker has replaced Electronic ventricular pacemaker Confirmed by DR. Rosa Isela CERVANTES ([id number]) on 08/20/2018 1:35:00 PM Referred By: [facility] Confirmed By:DR. Rosa Isela CERVANTES
--- NOTE | 2018-08-20 13:47 | EKG ---
Test Reason : TIMED EKG Blood Pressure : / mmHG Vent. Rate : 082 BPM Atrial Rate : 082 BPM P-R Int : 330 ms QRS Dur : 112 ms QT Int : 458 ms P-R-T Axes : 000 084 -05 degrees QTc Int : 535 ms Electronic atrial pacemaker long first degree AV block Nonspecific ST and T wave abnormality Prolonged QT Abnormal ECG When compared with ECG of 17-AUG-2018 15:34, (Unconfirmed) Electronic atrial pacemaker has replaced Electronic ventricular pacemaker Confirmed by DR. Rosa Isela CERVANTES ([id number]) on 08/20/2018 1:46:55 PM Referred By: [facility] Confirmed By:DR. Rosa Isela CERVANTES
--- NOTE | 2018-08-20 13:50 | EKG ---
Test Reason : ROUTINE Blood Pressure : / mmHG Vent. Rate : 087 BPM Atrial Rate : 087 BPM P-R Int : 000 ms QRS Dur : 110 ms QT Int : 412 ms P-R-T Axes : 000 084 -77 degrees QTc Int : 495 ms Electronic atrial pacemaker long first degree AV block Incomplete left bundle branch block Nonspecific ST and T wave abnormality Prolonged QT Abnormal ECG When compared with ECG of 18-AUG-2018 11:41, (Unconfirmed) Nonspecific T wave abnormality now evident in Anterior leads Confirmed by DR. Rosa Isela CERVANTES ([id number]) on 08/20/2018 1:50:27 PM Referred By: Confirmed By:DR. Rosa Isela CERVANTES
--- NOTE | 2018-08-20 13:54 | EKG ---
Test Reason : 2 HRS POST MED Blood Pressure : / mmHG Vent. Rate : 086 BPM Atrial Rate : 086 BPM P-R Int : 154 ms QRS Dur : 110 ms QT Int : 394 ms P-R-T Axes : -21 079 -65 degrees QTc Int : 471 ms Electronic atrial pacemaker long first degree AV block Prolonged QT Abnormal ECG When compared with ECG of 18-AUG-2018 23:16, (Unconfirmed) Incomplete left bundle branch block is no longer Present Confirmed by DR. Rosa Isela CERVANTES ([id number]) on 08/20/2018 1:53:52 PM Referred By: LUIS Confirmed By:DR. Rosa Isela CERVANTES
== END 2018-08-19 16:30 | disposition home or self-care (01) | DRG 309 ==
LOC: CCL 10:07 → 2NO 17:26
PROVIDERS: ADMIT Internal Medicine Cardiovascular Disease; ATTEND Internal Medicine Cardiovascular Disease
PROC: 5A2204Z Restoration of Cardiac Rhythm, Single (ICD-10-PCS; principal; 2018-08-17)
DX: I48.1 Persistent atrial fibrillation (principal); I13.0 Hypertensive heart and chronic kidney disease with heart failure and stage 1 through stage 4 chronic kidney disease, or unspecified chronic kidney disease; N18.3 Chronic kidney disease, stage 3 (moderate); I50.9 Heart failure, unspecified; I42.8 Other cardiomyopathies; I49.5 Sick sinus syndrome; E78.5 Hyperlipidemia, unspecified; G47.30 Sleep apnea, unspecified; M19.90 Unspecified osteoarthritis, unspecified site; F17.210 Nicotine dependence, cigarettes, uncomplicated; N40.0 Benign prostatic hyperplasia without lower urinary tract symptoms; Z95.0 Presence of cardiac pacemaker; Z95.5 Presence of coronary angioplasty implant and graft; Z79.01 Long term (current) use of anticoagulants; Z79.899 Other long term (current) drug therapy
CPT/HCPCS: 36415; 80048; 85025; 85610; 85730; 92960; 93005; 93010; J2704

== ENCOUNTER 2018-09-19 06:32 | Observation (INO) | payer MEDICARE, BC ==
[2018-09-16 09:49] VITALS: BMI 30.8
[2018-09-19] MEDS ORDERED: Fentanyl 100 MCG/2 ML VIAL ONE (08:33)
[2018-09-19] MEDS ORDERED: Sodium Chloride 0.9% 10 ML ONE (08:49)
[2018-09-19] MEDS ORDERED: Heparin 10,000 UNITS/1 ML VIAL ONE ×4 (09:01→12:30)
[2018-09-19] MEDS ORDERED: Phenylephrine HCL 10 MG/ML VIAL ONE ×2 (09:07→10:26)
[2018-09-19] MEDS ORDERED: Lidocaine 1% (PF) 30 ML VIAL ONE (09:12)
[2018-09-19] MEDS ORDERED: ePHEDrine 50 MG/ML VIAL ONE (10:30)
[2018-09-19] MEDS ORDERED: Lidocaine 1% PF 5 ML VIAL ONE (10:30)
[2018-09-19] MEDS ORDERED: Rocuronium Bromide 10 MG/ML (10ML VIAL) ONE (10:30)
[2018-09-19] MEDS ORDERED: Dexamethasone 20 MG/5 ML VIAL ONE (10:30)
[2018-09-19] MEDS ORDERED: PROPOFOL 200 MG/20 ML VIAL ONE (10:30)
[2018-09-19] MEDS ORDERED: Ondansetron PF 4 MG/2 ML Vial ONE (10:30)
[2018-09-19] MEDS ORDERED: Glycopyrrolate 0.2 MG/ML 5 ML SYRINGE ONE (10:30)
[2018-09-19] MEDS ORDERED: PHENYLEPHRINE-NS 100 MCG/ML 10 ML SYRINGE ONE (10:30)
[2018-09-19] MEDS ORDERED: Heparin 30,000 units/30 ml VIAL ONE (10:30)
[2018-09-19] MEDS ORDERED: Heparin 25,000 units/D5W 500 ML ONE (11:16)
[2018-09-19] MEDS ORDERED: Protamine Sulfate 50 MG/5 ML VIAL ONE (11:18)
[2018-09-19] MEDS ORDERED: Isoproterenol 0.2 MG/1 ML AMP ONE (11:34)
[2018-09-19] MEDS ORDERED: Ketorolac Tromethamine 30 MG/ML VIAL IVP PRN ×2 (14:28→15:30)
[2018-09-19] MEDS ORDERED: Acetaminophen/Codeine 30-300mg Tablet PO PRN ×2 (14:30)
[2018-09-19] MEDS ORDERED: PROVENTIL INHALER 6.7 G (200 INHALATIONS) INH PRN (14:42)
[2018-09-19] MEDS ORDERED: Acetaminophen/Codeine 30-300mg Tablet ONE (15:09)
[2018-09-19] MEDS ORDERED: Apixaban 5 MG TAB PO SCH (17:00)
--- NOTE | 2018-09-19 17:04 | OP ---
DATE OF PROCEDURE: 09/19/2018 PROCEDURES PERFORMED: Electrophysiology study and radiofrequency ablation. REASON FOR PROCEDURE: Mr. Nettles is a 73-year-old man with history of recurrent atrial arrhythmias, sick sinus syndrome with pacemaker in place, hypertension, and cardiomyopathy with LVEF 40% to 45%. He is on anticoagulation. He is here for hence recurrent and persistent atrial fibrillation. DESCRIPTION OF PROCEDURE: The patient received propofol by Anesthesia specialist with a general anesthesia was performed. The left and right femoral venous area were prepped, draped, and anesthetized using subcutaneous lidocaine and under ultrasound guidance, both femoral veins were cannulated. On the left side, an 11-Maldivian sheath was used to advance an intracardiac echocardiogram probe, which was used to monitor transseptal procedure as well as pericardial. Also on the left side, a Preface sheath was used to advanced a duodeca catheter to the right atrium and coronary sinus positions. On the right side, the femoral venous access, two 8-Maldivian short sheath was introduced, initially a [employer] SFST catheter was used to obtain the right atrial image/Carto 3D map with His bundle and CS were delineated. Following that, transseptal puncture was performed after exchanging an 8-Maldivian short sheath through the SL1 sheath and under fluoroscopy and ultrasound guidance, transseptal puncture was performed. IV heparin bolus and drip were administered at this point to keep ACTs over 350 throughout the procedure. The left atrial map was obtained with a 20 pole Lasso catheter and four-vein pulmonary venous isolation and posterior wall ablation were performed with roof and inferior line. Throughout the course of procedure, an esophageal temperature probe was used to avoid excessive heating in the esophagus. Following that, basic EP study was obtained. The following findings were noted; the baseline rhythm was sinus rhythm with cycle length 1055 milliseconds, AL 198 milliseconds, QRS 108 milliseconds, QT 445 milliseconds, AH 105 milliseconds, and HV 56 milliseconds. AV Wenckebach cycle is 480 milliseconds. AV and VA Wenckebach cycle lengths were both 480 milliseconds. The concentric retrograde VA conduction was seen. Atrial pacing induced the right atrial appearing atrial flutter with [id number] activation on the CS catheter. Overdrive pacing attempts terminated the flutter. The cycle length was 320 milliseconds. Following this, Isuprel was administered and any reconnection was re-ablated. The catheter was pulled in the right side, heparin was stopped. Cavo-tricuspid isthmus ablation was also performed achieving transisthmus block>150ms. The intracardiac ultrasound and cine did not demonstrate effusion. IV heparin was reversed with protamine infusion. The sheaths were exchanged for short sheaths and a Vascade closure device was performed at all femoral venous access sites. The patient tolerated the procedure well. No complications noted. A total of 20 ablation lesions, 28 minute at 40 arceo were delivered. CONCLUSION: 1. Successful pulmonary venous and posterior wall isolation. 2. Cavotricuspid isthmus ablation performed, hence inducible typical atrial flutter. 3. No evidence of accessory pathway with LV pacing. PLAN: 1. Resumo oral anticoagulants Job ID: [id number] [facility]
[2018-09-19] MEDS: Carvedilol 6.25 MG TAB PO SCH (21:00)
[2018-09-20] MEDS ORDERED: Clopidogrel Bisulfate 75 MG TAB PO SCH (09:00)
[2018-09-20] MEDS ORDERED: Lactinex Tablet PO SCH (09:00)
[2018-09-20] MEDS ORDERED: Finasteride 5 MG TAB PO SCH (09:00)
[2018-09-20] MEDS ORDERED: Fish Oil 1,000 MG CAP PO SCH (09:00)
[2018-09-20] MEDS ORDERED: Apixaban 5 MG TAB PO SCH (09:00)
[2018-09-20] MEDS ORDERED: PARoxetine 20 MG TAB PO SCH (09:00)
[2018-09-20] MEDS ORDERED: Furosemide 40 MG TAB PO SCH (09:00)
[2018-09-20] MEDS: Carvedilol 6.25 MG TAB PO SCH (10:02)
[2018-09-20 12:27] VITALS: BP 112/59; TEMP 98.1
--- NOTE | 2018-09-20 23:10 | DIS ---
DATE OF ADMISSION: 09/19/2018 DATE OF DISCHARGE: 09/20/2018 DIAGNOSIS: Persistent atrial fibrillation. PROCEDURES PERFORMED: Electrophysiology study and radiofrequency ablation. The patient received a total of 28 minutes RF energy lesions delivered, successful pulmonary venous and posterior wall isolation in addition to cavotricuspid isthmus ablation for typical atrial flutter. No evidence of accessory pathway with LV pacing. HISTORY OF PRESENT ILLNESS: Mr. Nettles is a pleasant in 73-year-old gentleman known to our practice for history of persistent atrial fibrillation. He has previously been attempted on Multaq in addition to sotalol for antiarrhythmic therapy. He did not tolerate Multaq and had refractory arrhythmia issues with sotalol. He is anticoagulated with Xarelto, which he feels makes him quite fatigued, but it was decided upon to proceed with an elective outpatient ablation to better address his atrial arrhythmia issues. His procedure was performed on 09/19/2018, by Dr. Escobedo as mentioned above without any obvious or postablation complications. He has done well overnight and denies any heart racing, palpitations, chest pain, pressure, syncope, near syncope, stroke, or stroke-like symptoms. He is eating and drinking, been out of bed. Groin sites are stable. He feels he is stable to go home. REVIEW OF SYSTEMS: As per HPI. PHYSICAL EXAMINATION: VITAL SIGNS: Temperature 98.1 degrees Fahrenheit, pulse 69, blood pressure 112/59, respirations 16, oxygen is 94% on room air. GENERAL: The patient is alert oriented. Speech is clear. Affect is appropriate. NECK: Supple without jugular venous distention. LUNGS: Respirations are even and nonlabored. No crackles are heard. Mild expiratory wheezes heard, greater on the right than the left. No rhonchi. HEART: Rate is regularly regular. [place] S1 and S2 appreciated. ABDOMEN: Obese, soft, and nontender without palpable masses. EXTREMITIES: Warm and dry to touch with trace bilateral lower extremity edema. No clubbing or cyanosis. NEUROLOGICAL: Nonfocal. Bilateral groin sites are stable without hematoma or bleeding complication. DISCHARGE INSTRUCTIONS: No lifting more than 10 pounds for 1 week, light duty for 1 week. No soaking baths for one week. Then resume activity gradually as tolerated. No driving for at least 2 days or until access site pain is resolved. Follow up with clinic in 6 weeks or sooner if symptoms dictate. Take medications as prescribed. Do not interrupt Eliquis for oral anticoagulation. DISCHARGE MEDICATIONS: 1. Eliquis 5 mg p.o. b.i.d. 2. CoQ10 100 mg daily. 3. Paroxetine 40 mg daily. 4. Probiotic daily. 5. Lasix 40 mg daily. 6. Fish oil daily. 7. Carvedilol 12.5 mg p.o. b.i.d. 8. Nexium 40 mg b.i.d. 9. Plavix 75 mg daily. 10. Finasteride 5 mg daily. 11. ProAir as needed. New prescriptions called in for: 1. Carafate 1 g p.o. q.i.d. x2 weeks. 2. Furosemide 40 mg daily p.o. p.r.n. shortness of breath, fluid retention, to be taken with potassium chloride 20 mEq p.o. p.r.n. CONDITION AT DISCHARGE: Stable. Job ID: [id number]
== END 2018-09-20 13:33 | disposition home or self-care (01) ==
LOC: CCL 06:32 → 2SW 14:14
PROVIDERS: ADMIT Internal Medicine Cardiovascular Disease; ATTEND Internal Medicine Cardiovascular Disease
PROC: 02583ZZ Destruction of Conduction Mechanism, Percutaneous Approach (ICD-10-PCS; principal; 2018-09-19)
PROC: 02K83ZZ Map Conduction Mechanism, Percutaneous Approach (ICD-10-PCS; 2018-09-19)
PROC: 4A023FZ Measurement of Cardiac Rhythm, Percutaneous Approach (ICD-10-PCS; 2018-09-19)
PROC: 4A0234Z Measurement of Cardiac Electrical Activity, Percutaneous Approach (ICD-10-PCS; 2018-09-19)
DX: I48.1 Persistent atrial fibrillation (principal); I49.5 Sick sinus syndrome; I25.10 Atherosclerotic heart disease of native coronary artery without angina pectoris; I48.91 Unspecified atrial fibrillation; E78.5 Hyperlipidemia, unspecified; F32.9 Major depressive disorder, single episode, unspecified; F41.9 Anxiety disorder, unspecified; I12.9 Hypertensive chronic kidney disease with stage 1 through stage 4 chronic kidney disease, or unspecified chronic kidney disease; N18.3 Chronic kidney disease, stage 3 (moderate); I42.9 Cardiomyopathy, unspecified; Z79.01 Long term (current) use of anticoagulants; Z79.02 Long term (current) use of antithrombotics/antiplatelets; Z79.899 Other long term (current) drug therapy; Z88.8 Allergy status to other drugs, medicaments and biological substances; Z91.041 Radiographic dye allergy status; Z98.890 Other specified postprocedural states; Z95.5 Presence of coronary angioplasty implant and graft; Z95.0 Presence of cardiac pacemaker
CPT/HCPCS: 76942; 85347 ×2; 93005 ×3; 93613; 93622; 93623; 93656; 93662; C1731; C1732 ×3; C1769; 93010; J1100; J1644; J2001; J2370; J2405; J2704; J2720; J3010; J3490; J7620

== ENCOUNTER 2018-11-10 01:07 | Inpatient (IN) | payer MEDICARE, BC ==
[2018-11-10] MEDS ORDERED: methylPREDNISolone Sod Succ/PF 125 MG/2 ML VIAL ONE (01:15)
[2018-11-10 01:28] LABS: #Lymphocytes 1.7 thou/uL (1.20-3.40); #Monocytes 0.9 thou/uL (0.11-0.59); #Neutrophils 7.2 thou/uL (1.40-6.50); %Basophils 0.3 % (0.0-1.0); %Eosinophils 0.4 % (0.0-10.0); %Lymphocytes 16.9 % (21.0-51.0); %Monocytes 8.8 % (0.0-10.0); %Neutrophils 73.6 % (42.0-75.0); Hemoglobin 8.6 g/dL (14.0-18.0); Mean Corpuscular HGB CONC 31.5 g/dL (32.0-36.0); Mean Corpuscular Hemoglobin 25.7 pg (27.0-31.0); Mean Corpuscular Volume 81.6 fL (78.0-98.0); Mean Platelet Volume 7.9 fL (7.4-10.4); Platelet Count 186 thou/uL (130-400); RBC Distribution Width 15.4 % (11.5-14.5); Red Blood Cell (RBC) Count 3.33 mill/uL (4.70-6.10); White Blood Cell (WBC) Count 9.8 thou/uL (4.8-10.8)
[2018-11-10 01:52] LABS: ALT (SGPT) Less than 7 U/L (8-55); AST (SGOT) 16 U/L (5-34); Albumin 3.6 g/dL (3.4-4.8); Alkaline Phosphatase 79 U/L (40-150); Anion Gap 11 mmol/L (10-20); BUN (Urea Nitrogen) 11 mg/dL (8.4-25.7); Bilirubin, Total 1.3 mg/dL (0.2-1.2); CK (CPK) 81 U/L (30-200); Calc. Creatinine Clearance 0 mL/min (70-130); Calcium 9.1 mg/dL (7.8-10.44); Carbon Dioxide 24 mmol/L (23-31); Chloride 104 mmol/L (98-107); Estimated GFR-MDRD 60; Globulin 3.6 g/dL (2.4-3.5); Glucose 107 mg/dL (83-110); Potassium 3.4 mmol/L (3.5-5.1); Protein, Total 7.2 g/dL (5.8-8.1); Sodium 136 mmol/L (136-145)
[2018-11-10] MEDS ORDERED: Furosemide 40 MG/4 ML VIAL ONE (02:38)
[2018-11-10] MEDS ORDERED: Senokot S 8.6-50 MG TAB PO PRN (04:22)
[2018-11-10] MEDS ORDERED: Loperamide HCl 2 MG CAP PO PRN ×2 (04:22)
[2018-11-10] MEDS ORDERED: Guaifenesin DM 100-10/5 ML UDCUP PO PRN (04:22)
[2018-11-10] MEDS ORDERED: Acetaminophen 325 MG TAB PO PRN (04:22)
--- NOTE | 2018-11-10 04:22 | PDOC.FPRHP ---
- History of Present Illness Chief Complaint: SOB History of Present Illness: Pt is a 73 yo M with PMH of HFrEF, Afib, and HTN who presents with worsening SOB. The patient said he has been feeling more short of breath since he started Eliquis a couple of months ago. He said it has worsened over the past couple of days and he has started coughing up a white mucus. He says he decide to come in today, because he tried laying down to rest and couldn't breathe every time he laid down. ED Course: In the ED, He was given 3 Duoneb breathing treatments, received 40mg IV Lasix, and 125 of Solumedrol IV. His chest xray showed pulmonary edema. He had several runs of wide QRS Vtach, so he was started on an amio drip. - Allergies/Adverse Reactions Allergies Allergy/AdvReac Type Severity Reaction Status Date / Time iodine Allergy Unknown Verified 11/10/18 07:46 Nnqaawl-Fmu-Mhd Reductase Allergy Verified 11/10/18 07:46 Inhibitor - Home Medications Medication Instructions Recorded Confirmed Type Fish Oil/DHA/EPA [Fish Oil 1,200 1,200 mg PO DAILY 11/13/13 11/10/18 History mg Fish Oil] PARoxetine HCl 40 mg PO DAILY 05/30/17 11/10/18 History Clopidogrel Bisulfate [Plavix] 75 mg PO DAILY 12/31/17 11/10/18 History Esomeprazole Magnesium [NexIUM 40 mg PO BID 04/18/18 11/10/18 History Oral Suspension] Lactobacillus Acidophilus 1 cap PO DAILY 04/18/18 11/10/18 History [Probiotic] Ubidecarenone [Coenzyme Q-10] 100 mg PO DAILY 04/18/18 11/10/18 History Albuterol Sulfate [Proair HFA] 2 puff INH ASDIR PRN 06/30/18 11/10/18 History Furosemide [Lasix] 40 mg PO DAILY 06/30/18 11/10/18 History Carvedilol 12.5 mg PO BID 08/17/18 11/10/18 History Finasteride 5 mg PO DAILY 08/17/18 11/10/18 History Apixaban [Eliquis] 1 tab PO BID 09/19/18 11/10/18 History Furosemide 40 mg PO DAILY PRN #10 tablet 09/20/18 11/10/18 Rx Potassium Chloride [K-Dur] 20 meq PO DAILY PRN #10 tab 09/20/18 11/10/18 Rx Sucralfate [Carafate] 1 gm PO QID #56 tab 09/20/18 11/10/18 Rx - History PMHx:CAD, HFrEF, CKD, Polymyalgia rheumatica, BPH, ED, Afib PSHx: Stents x2 2003, Colon resection, Back surg, Pacemaker, Ablation in September FHx: HTN, DMII Social: 80 pk year, no alcohol or drugs - Review of Systems General: denies: fever/chills, night sweats Eyes: denies: eye pain, vision changes ENT: denies: nasal congestion, rhinorrhea Respiratory: reports: cough, shortness of breath Cardiovascular: reports: chest pain, edema Gastrointestinal: denies: nausea, vomiting Skin: denies: rashes, jaundice Musculoskeletal: denies: pain, tenderness Neurological: reports: weakness. denies: syncope Psychological: denies: anxiety, depression - Vital signs BP: [143/76] HR: [81] RR: [15] Tmax: [97.8] Pox: [96]% on [3L] Wt: [111.13 kg ] - Physical Exam Constitutional: NAD, awake, alert and oriented HEENT: normocephalic and atraumatic, MMM Neck: supple Heart: pulses present -Heart: Tachycardic with regular rhythm -Lungs: Diffuse wheezing Abdomen: soft, non-tender, bowel sounds present Musculoskeletal: normal structure Neurological: no focal deficit, CN II-XII intact Skin: no rash/lesions, no jaundice Heme/Lymphatic: no unusual bruising or bleeding, no purpura Psychiatric: normal mood and affect FMR H&P: Results - Labs Result Diagrams: 11/10/18 01:20 11/10/18 01:20 Lab results: WBC 9.8 thou/uL (4.8-10.8) 11/10/18 01:20 Hgb 8.6 g/dL (14.0-18.0) L 11/10/18 01:20 Hct 27.2 % (42.0-52.0) L 11/10/18 01:20 MCV 81.6 fL (78.0-98.0) 11/10/18 01:20 Plt Count 186 thou/uL (130-400) 11/10/18 01:20 Neutrophils % 73.6 % (42.0-75.0) 11/10/18 01:20 Sodium 136 mmol/L (136-145) 11/10/18 01:20 Potassium 3.4 mmol/L (3.5-5.1) L 11/10/18 01:20 Chloride 104 mmol/L (98-107) 11/10/18 01:20 Carbon Dioxide 24 mmol/L (23-31) 11/10/18 01:20 BUN 11 mg/dL (8.4-25.7) 11/10/18 01:20 Creatinine 1.18 mg/dL (0.7-1.3) 11/10/18 01:20 Glucose 107 mg/dL (83-110) 11/10/18 01:20 Calcium 9.1 mg/dL (7.8-10.44) 11/10/18 01:20 Total Bilirubin 1.3 mg/dL (0.2-1.2) H 11/10/18 01:20 AST 16 U/L (5-34) 11/10/18 01:20 ALT Less than 7 U/L (8-55) L 11/10/18 01:20 Alkaline Phosphatase 79 U/L (40-150) 11/10/18 01:20 Creatine Kinase 81 U/L (30-200) 11/10/18 01:20 B-Natriuretic Peptide 801.4 pg/mL (0-100) H 11/10/18 01:20 Serum Total Protein 7.2 g/dL (5.8-8.1) 11/10/18 01:20 Albumin 3.6 g/dL (3.4-4.8) 11/10/18 01:20 FMR H&P: A/P - Problem List (1) V-tach Current Visit: Yes Status: Acute Code(s): I47.2 - VENTRICULAR TACHYCARDIA (2) CHF (congestive heart failure) Current Visit: No Status: Chronic Code(s): I50.9 - HEART FAILURE, UNSPECIFIED (3) Anemia Current Visit: No Status: Acute Code(s): D64.9 - ANEMIA, UNSPECIFIED (4) History of emphysema Current Visit: No Status: Chronic Code(s): Z87.09 - PERSONAL HISTORY OF OTHER DISEASES OF THE RESPIRATORY SYSTEM (5) Hypertension Current Visit: No Status: Chronic Code(s): I10 - ESSENTIAL (PRIMARY) HYPERTENSION - Plan Pt is a 73 yo M with PMH of HFrEF, Afib, and HTN who presents with worsening SOB. 1. V-tach EKG shows wide QRS with V-Tach. He had several episodes in the ER * Trend Trops * Amio drip started * Will move to [facility] and keep on telemetry 2. CHF with reduced EF SOB * Cxray: shows pulm edema * Lasix given in ER * Requiring 3L of Oxygen * Started on Duonebs Q4H with Albuterol 2H prn 3. Normocytic Anemia Hgb:8.6, MCV: 81.6 * Will monitor Hgb status * Ordered Iron, TIBC, and Ferritin to rule out Iron deficiency anemia 4. History of Emphysema Wheezing on Exam * Being treated with Duonebs and Albuterol * Continue on O2 * Nicotine patch and smoking cessation counseling ordered 5. HTN BP:143/76 * Restarted home medication: Carvedilol 6. BPH * Restarted Finasteride Lines: Peripheral Code Status: Full DVT Prophylaxis: Eliquis and Plavix GI Prophylaxis: Pepcid and Carafate Dispo: Inpt, LOS>2 days. FMR H&P: Upper Level - Pertinent history 73 yo M w/ PMH of A fib, htn, cad, hld, BPH and polymyalgia rheumatica presents with 3 day h/o increasing dyspnea. Pt reports he has been becoming progressively more short of breath and has noticed worsenieng symptoms when lying flat. He also reports cough productive of white sputum over same time. denies fever, chills. Denies CP. Denies NVDC. - Pertinent findings ROS: As above PE: Gen: Ill appearing male HEENT: NCAT, PERRLA, EOMI CV: RRR course murmur 2/6, hepatojugular reflux present, JVD present Resp: Diminished breath sounds throughout with mild scattered expiratory wheezes Abd: Soft NTND BSx4 Neuro: Alert and oriented, no focal deficit Extremities: No clubbing cyanosis. Trace LE edema CXR: Image reviewed shows pulmonary edema and small pleural effusions, concerning for CHF - Plan Date/Time: 11/10/18420 Ruslan Quintero DO, have evaluated this patient and agree with findings/ plan as outlined by it intern resident. Pertinent changes/additions are listed here. 1) Wide complex tahycardia - pt developed arrythmia after initial evaluation - repeat troponins mildly increased - pt placed on amio drip and transferred to IMCU - after initittion of amio pt returned to atrial paced rhythm 2) Pulmonary edema - pt had bnp >800, most recent echo showed aortic stenosis and EF 40-45% - cardiology cosulted and appreciate recs - repeat echo - 40mg lasix given in ed - strict Is Os and daily weights 3) A fib - s/p ablation - cont home medications and eliquis 4) BPH: cont home meds 5) CAD: - ekg showed atrial paced rhythm; however, intermittent wide complex tachycardia and nonsustained vtach which has been rpesent since the according to pacemaker readings - cards consult, await recs - chest pain free on evaluation 6) TOBACCO ABUSE: - 80 pack year history - bryon duonedbs and prn albuterol - continue diuresis Dispo: guarded, admit to IMCU and consult cardiology. Start amio drip for ventricular arrythmia and await cardiology recs. Addendum - Attending - Attending Attestation Date/Time: 11/10/18 4618 I personally evaluated the patient and discussed the management with Dr. Alejandro. I agree with the History, Examination, Assessment and Plan documented above with any addition or exceptions noted below. The patient presents with a history of worsening shortness of breath and lower extremity edema. He was found to have a bnp over 800. Pt with hx of HFrEF with EF of 40%. The patient was noted to have a wide complex tachycardia in the ER and decision was made to admit to IMCU instead of tele. He was placed on an amiodarone drip. Dr. Neil has been consulted. Dr. Neil was at the bedside when I saw the patient. Interrogation of pacer showed on v-tach. Amiodarone will be stopped. Pt can transfer to telemetry. Will also add nebs and he received a dose of steroids for copd as well. He is currently requiring oxygen and we will wean as tolerated. Strict I/O's. Continue IV lasix. Repeat Echo.
[2018-11-10] MEDS ORDERED: Albuterol Sulfate 1.25 MG/3 ML NEB NEB PRN (04:28)
[2018-11-10] MEDS ORDERED: Furosemide 100 MG/10 ML VIAL SLOW IVP SCH (04:30)
[2018-11-10] MEDS ORDERED: Potassium Chloride 20 MEQ TAB PO PRN (04:30)
[2018-11-10] MEDS ORDERED: Potassium Chloride 20 MEQ TAB ONE (05:24)
[2018-11-10] MEDS: Nicotine 14 MG PATCH TD SCH (05:28)
[2018-11-10] MEDS ORDERED: Potassium Chloride 20 MEQ TAB PO SCH ×2 (05:30→12:00)
[2018-11-10 05:54] LABS: Troponin I 0.033 ng/mL (< 0.028)
[2018-11-10] MEDS ORDERED: Amiodarone 150 MG/3 ML VIAL ONE (06:27)
[2018-11-10] MEDS ORDERED: Amiodarone 150 MG in Dextrose 5% in Water 100 ML IVPB SCH (06:30)
[2018-11-10] MEDS ORDERED: Amiodarone 450 MG in Dextrose 5% in Water 250 ML IVPB SCH (06:30)
[2018-11-10] MEDS ORDERED: Ondansetron ODT 4 MG TAB PO PRN (07:26)
[2018-11-10] MEDS ORDERED: Ondansetron PF 4 MG/2 ML Vial IVP PRN (07:26)
[2018-11-10 07:53] VITALS: BMI 31.4
--- NOTE | 2018-11-10 08:17 | RAD ---
CHEST ONE VIEW: Indication: Shortness of breath, chest pain Comparison: 05-02-18 FINDINGS: There is cardiomegaly with pulmonary vascular congestion and perihilar edema. There are small right p leural effusions. There is a dual-lead pacemaker. No acute osseous abnormality is evident. IMPRESSION: Findings suspicious for CHF. POS: BH
[2018-11-10] MEDS ORDERED: Spironolactone 25 MG TAB PO SCH (09:30)
[2018-11-10 09:57] LABS: Hemoglobin A1c 5.3 % (4.0-6.0)
[2018-11-10 10:12] LABS: Iron 22 ug/dL (65-175); Iron Binding Capacity, Total 393 mcg/dL (261-462)
[2018-11-10] MEDS: Ubidecarenone 50 MG CAP PO SCH (10:35)
[2018-11-10] MEDS: PARoxetine 20 MG TAB PO SCH (10:35)
[2018-11-10] MEDS: Fish Oil 1,000 MG CAP PO SCH (10:35)
[2018-11-10] MEDS: Apixaban 5 MG TAB PO SCH ×2 (10:35→21:41)
[2018-11-10] MEDS: Carvedilol 25 MG TAB PO SCH ×2 (10:36→21:45)
[2018-11-10] MEDS: Finasteride 5 MG TAB PO SCH (10:36)
[2018-11-10] MEDS: Saccharomyces boulardii 250 MG CAP PO SCH (10:36)
[2018-11-10] MEDS: Famotidine 20 MG TAB PO SCH ×2 (10:37→21:41)
[2018-11-10] MEDS: Sucralfate 1 GM TAB PO SCH ×4 (10:37→21:41)
[2018-11-10] MEDS: Clopidogrel Bisulfate 75 MG TAB PO SCH (10:37)
--- NOTE | 2018-11-10 10:50 | CON ---
DATE OF CONSULTATION: 11/10/2018 HISTORY OF PRESENT ILLNESS: Mr. Nettles is admitted to the hospital last night with episode of congestive heart failure. He was short of breath. He had no chest pain. He received diuretic. He is feeling better. His situation is improved since coming in early this morning. PAST MEDICAL HISTORY: 1. He has a history of coronary artery disease, best treated medically. 2. History of congestive heart failure, systolic, diastolic, mixed, chronic. 3. Atrial fibrillation ablation about 6 weeks ago. 4. Previous pacemaker insertion. 5. History of cardiac catheterization most recently, February 2015, at least in an obtuse marginal, a previously placed stent the circumflex patent with good flow. MEDICATIONS: At home included; 1. Clopidogrel 75 mg a day. 2. Carvedilol 12.5 mg twice a day. 3. Apixaban 5 mg twice a day. 4. Sucralfate. 5. Potassium if needed. 6. Furosemide 40 mg a day. ALLERGIES: TO IODINE AND STATINS. REVIEW OF SYSTEMS: VISION: No changes. HEARING: No changes. PULMONARY: Positive for shortness of breath. CARDIAC: Positive for shortness of breath. GASTROINTESTINAL: No nausea, vomiting, or diarrhea. SKIN: No rashes. NEUROLOGIC: No unilateral weakness or numbness. PSYCHIATRIC: No unusual depression or anxiety. DIAGNOSTIC DATA: EKG reveals atrial paced, ventricular sensed rhythm with occasional ventricular pacing. PERTINENT LABORATORY DATA: Potassium is 3.4. Troponin 0.033. BNP 801. Chest x-ray does look like some pulmonary vascular congestion. ASSESSMENT: 1. Congestive heart failure, systolic, diastolic, mixed, acute on chronic. 2. Coronary artery disease, appears stable. 3. Anemia. 4. Previous pacemaker insertion. 5. Atrial fibrillation is now very infrequent. PLAN: 1. Replete potassium. 2. Add spironolactone. 3. Repeat echocardiogram. Most recent echo was in April 2018. Ejection fraction was 40% to 45% at that time. We will follow with you. 4. We will stop IV amiodarone. I do not see any evidence of ventricular tachycardia. Job ID: [id number]
[2018-11-10 13:18] LABS: Troponin I 0.021 ng/mL (< 0.028)
[2018-11-10] MEDS: Furosemide 40 MG TAB PO SCH (13:20)
[2018-11-10] MEDS ORDERED: Doxycycline 100 MG CAP PO SCH ×2 (14:00→21:00)
[2018-11-10 14:02] LABS: Reticulocyte Count 1.3 % (0.5-1.5)
[2018-11-10] MEDS: Doxycycline 100 MG CAP PO SCH (21:41)
[2018-11-11] MEDS ORDERED: Melatonin 3 MG TAB PO SCH (00:15)
[2018-11-11 04:33] LABS: #Lymphocytes 1.6 thou/uL (1.20-3.40); #Monocytes 1.1 thou/uL (0.11-0.59); #Neutrophils 6.2 thou/uL (1.40-6.50); %Basophils 0.3 % (0.0-1.0); %Eosinophils 0.5 % (0.0-10.0); %Lymphocytes 17.8 % (21.0-51.0); %Monocytes 12.3 % (0.0-10.0); %Neutrophils 69.2 % (42.0-75.0); Hemoglobin 7.6 g/dL (14.0-18.0); Mean Corpuscular HGB CONC 31.8 g/dL (32.0-36.0); Mean Corpuscular Hemoglobin 26.2 pg (27.0-31.0); Mean Corpuscular Volume 82.5 fL (78.0-98.0); Mean Platelet Volume 8.1 fL (7.4-10.4); Platelet Count 169 thou/uL (130-400); RBC Distribution Width 15.5 % (11.5-14.5); Red Blood Cell (RBC) Count 2.88 mill/uL (4.70-6.10); White Blood Cell (WBC) Count 8.9 thou/uL (4.8-10.8)
[2018-11-11 04:59] LABS: Anion Gap 10 mmol/L (10-20); BUN (Urea Nitrogen) 22 mg/dL (8.4-25.7); Calc. Creatinine Clearance 85 mL/min (70-130); Calcium 8.5 mg/dL (7.8-10.44); Carbon Dioxide 26 mmol/L (23-31); Chloride 106 mmol/L (98-107); Estimated GFR-MDRD 59; Glucose 97 mg/dL (83-110); Potassium 3.9 mmol/L (3.5-5.1); Sodium 138 mmol/L (136-145)
[2018-11-11] MEDS: Nicotine 14 MG PATCH TD SCH (06:08)
--- NOTE | 2018-11-11 08:29 | PDOC.FM ---
- Subjective Subjective: Patient reports SOB as resolved. Denies chest pain or palpitations. NAEO. - Objective Vital Signs & Weight: Vital Signs (12 hours) Temp Pulse Resp BP Pulse Ox 11/11/18 06:46 89 19 11/11/18 06:44 85 18 100 11/11/18 03:31 97.4 F L 95 16 100/57 L 96 11/11/18 02:31 82 16 100 11/10/18 23:32 99 11/10/18 23:00 98.0 F 11/10/18 22:41 80 18 100 11/10/18 22:16 100 11/10/18 21:44 94 20 Weight Weight 106.6 kg Most Recent Monitor Data Heart Rate from ECG 79 NIBP 96/42 NIBP BP-Mean 60 Respiration from ECG 17 SpO2 100 I&O: 11/10/18 11/11/18 11/12/18 06:59 06:59 06:59 Intake Total 250 240 Output Total 1150 475 Balance -900 -235 Result Diagrams: 11/11/18 04:23 11/11/18 04:23 Phys Exam - Physical Examination Constitutional: NAD wheezing on exam, no crackles Cardiovascular: RRR systolic murmur Gastrointestinal: soft, no distention obese 1+ pitting edema BLE Neurological: non-focal, moves all 4 limbs Skin: normal turgor, cap refill <2 seconds Dx/Plan (1) Acute respiratory failure with hypoxia Code(s): J96.01 - ACUTE RESPIRATORY FAILURE WITH HYPOXIA Status: Acute (2) Anemia Code(s): D64.9 - ANEMIA, UNSPECIFIED Status: Chronic (3) CKD (chronic kidney disease) Code(s): N18.9 - CHRONIC KIDNEY DISEASE, UNSPECIFIED Status: Chronic (4) COPD exacerbation Code(s): J44.1 - CHRONIC OBSTRUCTIVE PULMONARY DISEASE W (ACUTE) EXACERBATION Status: Acute (5) Obesity (BMI 30-39.9) Code(s): E66.9 - OBESITY, UNSPECIFIED Status: Chronic (6) BPH (benign prostatic hyperplasia) Code(s): N40.0 - BENIGN PROSTATIC HYPERPLASIA WITHOUT LOWER URINRY TRACT SYMP Status: Chronic (7) CHF (congestive heart failure) Code(s): I50.9 - HEART FAILURE, UNSPECIFIED Status: Chronic (8) History of emphysema Code(s): Z87.09 - PERSONAL HISTORY OF OTHER DISEASES OF THE RESPIRATORY SYSTEM Status: Chronic (9) Hypertension Code(s): I10 - ESSENTIAL (PRIMARY) HYPERTENSION Status: Chronic (10) Obstructive sleep apnea on CPAP Code(s): G47.33 - OBSTRUCTIVE SLEEP APNEA (ADULT) (PEDIATRIC) Status: Chronic (11) Nicotine abuse Code(s): Z72.0 - TOBACCO USE Status: Acute - Plan Plan: #Acute Hypoxic Resp Failure 2/2 Acute on Chronic CHF exacerbation -In ED:BNP 800s, Pulm vascular congestion on CXR, crackles on exam, started on 4L O2 -s/p Pacemaker, EKG shows paced rhythm -Lasix BID -Daily weights, strict I/Os -Lung crackles resolved this AM -Trops down trended -Echo pending -Cards Dr. Neil consulted, appreciate recommendations #Acute COPD exacerbation, hx Emphysema -Wheezing on exam today, SOB and wheezing improved with duoneb in ED -Duonebs, prednisone, doxycycline -Wean O2 as tolerated, O2 goal: 88-92% #LIVE -Cpap at night #Normocytic Anemia -Hgb:8.6 -> 7.6 -Low reticulocyte index -continue to monitor #Nicotine abuse -Nicotine patch -encourage cessation #HTN -Restarted home medication: Carvedilol #BPH -Restarted Finasteride Lines: Peripheral Code Status: Full DVT Prophylaxis: Eliquis and Plavix GI Prophylaxis: Pepcid and Carafate Addendum - Attending - Attending Attestation Date/Time: 11/11/18 1052 I personally evaluated the patient and discussed the management with Dr. Quintana. I agree with the History, Examination, Assessment and Plan documented above with any addition or exceptions noted below. Patient is wheezing this morning. Continuing nebs along with diuresis. Pt is iron deficient and will receive iron transfusion. Trend hemoglobin as his anemia has worsened.
[2018-11-11] MEDS: Fish Oil 1,000 MG CAP PO SCH (08:41)
[2018-11-11] MEDS: Ubidecarenone 50 MG CAP PO SCH (08:41)
[2018-11-11] MEDS: Doxycycline 100 MG CAP PO SCH ×2 (08:41→20:04)
[2018-11-11] MEDS: Finasteride 5 MG TAB PO SCH (08:42)
[2018-11-11] MEDS: Sucralfate 1 GM TAB PO SCH ×4 (08:42→20:05)
[2018-11-11] MEDS: Spironolactone 25 MG TAB PO SCH (08:42)
[2018-11-11] MEDS: predniSONE 20 MG TAB PO SCH (08:42)
[2018-11-11] MEDS: Saccharomyces boulardii 250 MG CAP PO SCH (08:42)
[2018-11-11] MEDS: Furosemide 40 MG TAB PO SCH (08:42)
[2018-11-11] MEDS: Famotidine 20 MG TAB PO SCH ×2 (08:43→20:04)
[2018-11-11] MEDS: Clopidogrel Bisulfate 75 MG TAB PO SCH (08:43)
[2018-11-11] MEDS: PARoxetine 20 MG TAB PO SCH (08:43)
[2018-11-11] MEDS: Carvedilol 25 MG TAB PO SCH ×2 (08:43→20:04)
[2018-11-11] MEDS: Apixaban 5 MG TAB PO SCH ×2 (08:43→20:05)
[2018-11-11] MEDS ORDERED: Furosemide 40 MG TAB PO SCH (09:00)
--- NOTE | 2018-11-11 09:41 | PRG ---
DATE OF SERVICE: 11/11/2018 SUBJECTIVE: Mr. Nettles is feeling much better today. His breathing is improved. OBJECTIVE: VITAL SIGNS: Blood pressure 114/55 and pulse 88, regular. LUNGS: Clear. CARDIAC: Normal S1 and normal S2. ABDOMEN: Soft and nontender. EXTREMITIES: Mild edema. PERTINENT LABORATORY DATA: Hemoglobin is down to 7.6. Potassium is 3.9 and creatinine is 1.2. ASSESSMENT: 1. Congestive heart failure, systolic and diastolic mixed, improved. 2. Anemia, probably GI blood loss. 3. Recent atrial fibrillation ablation. 4. Previous pacemaker insertion. 5. Coronary artery disease. PLAN: 1. We will stop Plavix for now. He did receive it this morning. 2. Need to continue apixaban with recent atrial fibrillation ablation. 3. Give intravenous iron. 4. Follow blood counts. 5. Given one extra dose of Lasix. 6. Hold off on transfusion for now. 7. May need evaluation of GI tract. Job ID: [id number]
[2018-11-11] MEDS ORDERED: Furosemide 40 MG/4 ML VIAL SLOW IVP SCH ×2 (10:00)
--- NOTE | 2018-11-11 10:03 | CON ---
DATE OF CONSULTATION: 11/10/2018 HISTORY OF PRESENT ILLNESS: I am seeing Mr. Nettles at our [facility] step-down ICU as an electrophysiology interior design consultant. His problems are: 1. Recurrent atrial arrhythmias: a. Status post pulmonary venous isolation procedure for persistent atrial fibrillation on September 19, 2018. b. No sustained atrial fibrillation. Short PAT runs are seen. 2. Sick sinus syndrome with adequately functioning dual-chamber pacemaker in place. a. No evidence of ventricular tachycardia per patient interrogation. 3. Zrzna-dk-myybpbo systolic/diastolic congestive heart failure with elevated BNP. 4. Marked anemia, on anticoagulation. 5. History of stage 3 kidney disease. 6. History of depression and anxiety. 7. History of colon cancer. 8. Polymyalgia rheumatica, not on steroids. 9. Coronary artery disease with stent placement in 2003. ALLERGIES: IODINE AND STATINS. MEDICATIONS: At home include fish oil supplements, paroxetine, Plavix, Nexium, CoQ10, lactobacillus, probiotic, albuterol, ProAir, furosemide, carvedilol 12.5 mg twice a day, finasteride, apixaban 5 mg twice a day, sucralfate, and potassium. SUBJECTIVE: Mr. Nettles is here and has progressive dyspnea for the last couple of days. Denies chest pains. He was diuresed and now feeling better. He was noted to have wide-complex heart beats and was admitted for monitoring, In the ER transient amiodarone was started - now stopped. These appear to be paced complexes. He also has nonsustained atrial tachyarrhythmia runs as well. PAST MEDICAL HISTORY: As above. SOCIAL HISTORY: The patient denies EtOH or drug abuse. Two packs a day smoking history for last 40 years. FAMILY HISTORY: There is a known family history of hypertension, diabetes, and cancer. PHYSICAL EXAMINATION: VITAL SIGNS: Blood pressure is 115/65, heart rate 71, respiratory rate 18, and temperature 98.4 degrees Fahrenheit. GENERAL: Alert and oriented man, in no apparent distress. NECK: Supple. Jugular veins not distended. CHEST: Coarse without crackles. HEART: Sounds are regular to rate and rhythm. No murmur or gallop. ABDOMEN: Benign. Bowel sounds positive. EXTREMITIES: Lower extremities without edema, clubbing, or cyanosis. Pulses are adequate. NEUROLOGIC: The patient is nonfocal. MUSCULOSKELETAL: No joint deformity. SKIN: Without rashes. DATABASE: EKG is reviewed revealing sinus rhythm, narrow QRS, no significant ST -T changes, occasionally ventricular paced rhythms are noted. Also, short run with rates of 130 beats per minute are seen, Interrogation of the pacemaker reveals [employer]onic dual-chamber pacemaker with adequate battery longevity. Lead parameters are adequate. Only short nonsustained ventricular tachycardia seen. No recent sustained atrial arrhythmias. Nonsustained atrial arrhythmias were seen only. LABORATORY DATA: White cell count 9.8, hemoglobin 8.6, platelet count is 186. Sodium 136, potassium 3.4, BUN is 11, creatinine 1.18. Troponin level 0.033. BNP is 801. ASSESSMENT/PLAN: 1. Mr. Nettles is a pleasant 73-year-old man with history of mild cardiomyopathy and history of coronary artery disease in the past, who had peristent and symptomatic atrial fibrillation prompting a pulmonary venous isolation procedure about 6 weeks ago. He is presenting with what appears to be heart failure with exacerbation, elevated BNP, but he has also had decreased hemoglobin levels. He was noted to have a wide-complex rhythm, but that appears to paced complexes. No definite ventricular tachycardia seen on telemetry recording or on pacemaker interrogation. Also, short nonsustained atrial arrhythmias are seen only. At this point, I would rule out ventricular tachycardia diagnosis here. 2. Continue monitor for recurrent atrial arrhythmias. 3. Followup 2D echogram would be beneficial, rule out effusion. 4. Follow hemoglobin levels. 5. Maximize beta-cinthya therapy. We will follow up with you. Thank for allowing me to participate in care of this patient. Job ID: [id number] [facility]
[2018-11-11] MEDS: Iron, Sodium Ferric Gluconate 250 MG in Sodium Chloride 0.9% 100 ML IVPB SCH ×2 (10:05→20:06)
[2018-11-11] MEDS ORDERED: Potassium Chloride 20 MEQ TAB PO SCH (12:00)
[2018-11-11] MEDS: Furosemide 20 MG/2 ML VIAL SLOW IVP SCH (13:04)
--- NOTE | 2018-11-11 15:15 | PRG ---
DATE OF SERVICE: 11/11/2018 SUBJECTIVE: Mr. Nettles seems to be doing better today. He continues to be diuresed. He has less orthopnea. No dizziness. No palpitations. No stroke-like symptoms. OBJECTIVE DATA: VITAL SIGNS: Blood pressure is 136/69, heart rate 80, respiratory rate 18, and temperature 97.9 degrees Fahrenheit. GENERAL: Alert and oriented man, in no apparent distress. NECK: Supple. Jugular veins are minimally distended. Hepatojugular reflux still positive. CHEST: Coarse without crackles. HEART: Sounds are regular to rate and rhythm. No murmur or gallop. ABDOMEN: Benign. Bowel sounds positive. EXTREMITIES: Lower extremities 1+ edema bilaterally. DATABASE: 2D echo reveals LVEF estimated at 35% to 40%, frequent PVCs, [id number] left atrial enlargement, mildly stenotic aortic valve with mild AI. The in's and out's revealing about 900 mL negative balance this morning. LABORATORY DATA: Reveals hemoglobin 7.6, white cell count 8.9, platelet count 269. Sodium 138, potassium 3.9, BUN is 20, creatinine 1.2. Troponin level 0.021. Transferrin is 278. ASSESSMENT/PLAN: Mr. Nettles is a pleasant 73-year-old man with prior history of mild ischemic cardiomyopathy, remote stents, who also had persistent atrial fibrillation, underwent pulmonary venous isolation procedure about 6 weeks back, now readmitted with fluid overload. Currently doing better after diuresis, but continues in sinus rhythm with frequent PVCs though. Pacemaker is functioning adequately. My plan at this point, 1. History of atrial fibrillation, status post PVI with short PAT runs only, mostly maintaining sinus rhythm. Continue monitoring for atrial arrhythmia recurrence. 2. Frequent PVCs, possibly contributing to his heart failure. After optimization of fluid status and achieving adequate medical therapy, rechecking the PVC burden could be made if frequent monomorphic PVCs still present, ablation options could be discussed. 3. Anemia with worsening hemoglobin today on apixaban post ablation and GI evaluation. He will likely need to resume Eliquis if possible, so far no definite blood loss is documented. Low reticulocyte index is noted. He is receiving workup as per primary team. 4. Continue routine monitoring of pacemaker function. 5. Followup in the office will be arranged in 6 weeks. If being discharged on weekend, otherwise, I will see him on Wednesday. Job ID: [id number]
[2018-11-11] MEDS ORDERED: Melatonin 3 MG TAB PO PRN (22:19)
[2018-11-11] MEDS: Melatonin 3 MG TAB PO PRN (22:27)
[2018-11-12 05:28] LABS: #Lymphocytes 1.8 thou/uL (1.20-3.40); #Monocytes 0.9 thou/uL (0.11-0.59); #Neutrophils 5.6 thou/uL (1.40-6.50); %Basophils 0.3 % (0.0-1.0); %Eosinophils 0.2 % (0.0-10.0); %Lymphocytes 21.1 % (21.0-51.0); %Monocytes 11.1 % (0.0-10.0); %Neutrophils 67.3 % (42.0-75.0); Hemoglobin 7.9 g/dL (14.0-18.0); Mean Corpuscular HGB CONC 31.1 g/dL (32.0-36.0); Mean Corpuscular Hemoglobin 25.8 pg (27.0-31.0); Mean Corpuscular Volume 82.9 fL (78.0-98.0); Mean Platelet Volume 8.5 fL (7.4-10.4); Platelet Count 218 thou/uL (130-400); RBC Distribution Width 15.7 % (11.5-14.5); Red Blood Cell (RBC) Count 3.07 mill/uL (4.70-6.10); White Blood Cell (WBC) Count 8.3 thou/uL (4.8-10.8)
--- NOTE | 2018-11-12 05:42 | PDOC.FM ---
- Subjective Subjective: Doing well this morning, no acute events overnight. Slept well with CPAP. States his breathing is improved, no CP, fever/chills, n/v/d/c, or pain. He states he is close to baseline. No major concerns or complaints. - Objective MAR Reviewed: Yes Vital Signs & Weight: Vital Signs (12 hours) Temp Pulse Resp BP Pulse Ox 11/12/18 04:00 98.5 F 84 18 113/55 L 97 11/12/18 01:40 66 16 11/11/18 21:53 72 18 97 11/11/18 21:41 72 18 97 11/11/18 19:58 98.7 F 74 18 131/57 L 95 11/11/18 18:09 71 16 98 Weight Weight 106.6 kg Most Recent Monitor Data Heart Rate from ECG 79 NIBP 96/42 NIBP BP-Mean 60 Respiration from ECG 17 SpO2 100 I&O: 11/10/18 11/11/18 11/12/18 06:59 06:59 06:59 Intake Total 250 1050 Output Total 1150 1375 Balance -900 -325 Result Diagrams: 11/12/18 05:06 11/12/18 05:06 EKG Reviewed by me: Yes (Tele: Apaced, no acute events) Phys Exam - Physical Examination Constitutional: NAD (resting comfortably) HEENT: moist MMs Neck: supple Respiratory: no rales, no rhonchi, clear to auscultation bilateral very mild end-exp wheeze bilaterally, good air movement throughout Cardiovascular: RRR, no rub 2/6 systolic ejection murmur Gastrointestinal: soft, non-tender, no distention, positive bowel sounds Musculoskeletal: no edema Psychiatric: A&O x 3 Dx/Plan (1) Acute respiratory failure with hypoxia Code(s): J96.01 - ACUTE RESPIRATORY FAILURE WITH HYPOXIA Status: Acute (2) Acute exacerbation of CHF (congestive heart failure) Code(s): I50.9 - HEART FAILURE, UNSPECIFIED Status: Acute (3) Atrial fibrillation Code(s): I48.91 - UNSPECIFIED ATRIAL FIBRILLATION Status: Chronic (4) CHF, acute on chronic Code(s): I50.9 - HEART FAILURE, UNSPECIFIED Status: Acute (5) CKD (chronic kidney disease) stage 2, GFR 60-89 ml/min Code(s): N18.2 - CHRONIC KIDNEY DISEASE, STAGE 2 (MILD) Status: Chronic (6) COPD exacerbation Code(s): J44.1 - CHRONIC OBSTRUCTIVE PULMONARY DISEASE W (ACUTE) EXACERBATION Status: Acute (7) Anemia Code(s): D64.9 - ANEMIA, UNSPECIFIED Status: Chronic - Plan Plan: 73 yo M with PMH of HFrEF, Afib, and HTN with Pacemaker who presents with acute CHF and COPD exacerbation 1. Acute Hypoxic Resp Failure 2/2 Acute on Chronic CHF exacerbation - In ED: BNP 800s, Pulm vascular congestion on CXR, crackles on exam, started on 4L O2, - Lung exam improved, mild BL wheeze, no rales or crackles, good aeration throughout, weaned to RA and satting well now - s/p Pacemaker, EKG shows paced rhythm, no acute events on tele - Transitioned from IV to PO lasix home dose of 40mg daily. Continue Daily weights, strict I/Os - Cr bumped from 1.2 to 1.32, changed to PO lasix from IV, down from 40mg BID to 20mg BID yesterday, will monitor. - Trops down trended - Echo similar to previous with EF of 40-45% - Cards Dr. Neil consulted, d/c'ed amio, added spironolactone, apprec recs - EP Dr. Escobedo consulted, recommended maximizing beta cinthya, apprec recs 2. Acute COPD exacerbation, hx Emphysema - SOB and wheezing improved with duoneb - Continue prednisone Day 3, doxycycline Day 3 - O2 goal: 88-92%, weaned to RA 3. LIVE - Cpap at night 4. Normocytic Anemia - Hgb:8.6 -> 7.9 - Low reticulocyte index - continue to monitor, no signs of acute blood loss, likely anemia of chronic disease 5. Nicotine abuse - Nicotine patch - encourage cessation 6. HTN - Continue home Carvedilol 7. BPH - Continue home Finasteride Lines: Peripheral Code Status: Full DVT Prophylaxis: Eliquis and Plavix GI Prophylaxis: Pepcid and Carafate Dispo: Pending improvement of clinical status, anticipate discharge within next 2 days Addendum - Attending - Attending Attestation Date/Time: 11/12/18 3767 I personally evaluated the patient and discussed the management with Dr. Alejandro. I agree with the History, Examination, Assessment and Plan documented above with any addition or exceptions noted below.3 Patient overall doing well, reports he is near baseline. Denies complaints. Will discuss if Cardiology has further interventions planned for him. His blood counts are stable. He is likely nearing stability for discharge.
[2018-11-12 05:52] LABS: Anion Gap 11 mmol/L (10-20); BUN (Urea Nitrogen) 26 mg/dL (8.4-25.7); Calc. Creatinine Clearance 74 mL/min (70-130); Calcium 8.8 mg/dL (7.8-10.44); Carbon Dioxide 25 mmol/L (23-31); Chloride 106 mmol/L (98-107); Estimated GFR-MDRD 53; Glucose 110 mg/dL (83-110); Potassium 4.2 mmol/L (3.5-5.1); Sodium 138 mmol/L (136-145)
[2018-11-12] MEDS: Furosemide 20 MG/2 ML VIAL SLOW IVP SCH (05:54)
[2018-11-12] MEDS: Nicotine 14 MG PATCH TD SCH (05:55)
[2018-11-12] MEDS ORDERED: Furosemide 40 MG TAB PO SCH (07:30)
[2018-11-12] MEDS: predniSONE 20 MG TAB PO SCH (09:26)
[2018-11-12] MEDS: Fish Oil 1,000 MG CAP PO SCH (09:26)
[2018-11-12] MEDS: Apixaban 5 MG TAB PO SCH ×2 (09:26→19:48)
[2018-11-12] MEDS: Sucralfate 1 GM TAB PO SCH ×4 (09:26→19:49)
[2018-11-12] MEDS: Saccharomyces boulardii 250 MG CAP PO SCH (09:26)
[2018-11-12] MEDS: Ubidecarenone 50 MG CAP PO SCH (09:27)
[2018-11-12] MEDS: PARoxetine 20 MG TAB PO SCH (09:27)
[2018-11-12] MEDS: Famotidine 20 MG TAB PO SCH ×2 (09:27→19:48)
[2018-11-12] MEDS: Doxycycline 100 MG CAP PO SCH ×2 (09:27→19:49)
[2018-11-12] MEDS: Finasteride 5 MG TAB PO SCH (09:27)
[2018-11-12] MEDS: Spironolactone 25 MG TAB PO SCH (09:33)
[2018-11-12] MEDS: Carvedilol 25 MG TAB PO SCH ×2 (09:34→19:48)
[2018-11-12] MEDS: Furosemide 20 MG TAB PO SCH (13:34)
[2018-11-12] MEDS ORDERED: Senokot 8.6 MG TAB PO PRN (16:35)
[2018-11-12] MEDS: Melatonin 3 MG TAB PO PRN (22:28)
[2018-11-13 05:26] LABS: #Lymphocytes 1.3 thou/uL (1.20-3.40); #Monocytes 0.5 thou/uL (0.11-0.59); #Neutrophils 5.5 thou/uL (1.40-6.50); %Eosinophils 0.1 % (0.0-10.0); %Lymphocytes 18.1 % (21.0-51.0); %Monocytes 7.2 % (0.0-10.0); %Neutrophils 74.5 % (42.0-75.0); Hemoglobin 8.5 g/dL (14.0-18.0); Mean Corpuscular HGB CONC 30.5 g/dL (32.0-36.0); Mean Corpuscular Hemoglobin 25.2 pg (27.0-31.0); Mean Corpuscular Volume 82.6 fL (78.0-98.0); Mean Platelet Volume 7.9 fL (7.4-10.4); Platelet Count 250 thou/uL (130-400); RBC Distribution Width 15.8 % (11.5-14.5); Red Blood Cell (RBC) Count 3.39 mill/uL (4.70-6.10); White Blood Cell (WBC) Count 7.4 thou/uL (4.8-10.8)
--- NOTE | 2018-11-13 05:31 | PDOC.FM ---
- Subjective Subjective: Pt doing well this morning, slept well with CPAP. Patient is concerned for his restless legs that has been ongoing for months. States dyspnea is improved, denies any CP, fever/chills, n/v/d/c. No acute events overnight. - Objective MAR Reviewed: Yes Vital Signs & Weight: Vital Signs (12 hours) Temp Pulse Resp BP Pulse Ox 11/13/18 02:15 82 12 11/12/18 22:26 104 H 14 11/12/18 22:15 104 H 16 11/12/18 19:40 98.2 F 96 18 132/61 96 11/12/18 19:02 98 16 98 Weight Weight 103.6 kg Most Recent Monitor Data Heart Rate from ECG 79 NIBP 96/42 NIBP BP-Mean 60 Respiration from ECG 17 SpO2 100 I&O: 11/11/18 11/12/18 11/13/18 06:59 06:59 06:59 Intake Total 250 1050 1220 Output Total 1150 1375 3200 Balance -900 -325 -8685 Result Diagrams: 11/13/18 05:01 11/13/18 05:01 EKG Reviewed by me: Yes (Tele: A-paced, no acute events) Phys Exam - Physical Examination Constitutional: NAD (resting comfortably with CPAP) Neck: supple Good aeration, BL end-exp wheeze with mild crackles BL Cardiovascular: RRR, no rub 2/6 Systolic ejection murmur Gastrointestinal: soft, non-tender, no distention, positive bowel sounds Musculoskeletal: no edema Psychiatric: A&O x 3 Dx/Plan (1) Acute respiratory failure with hypoxia Code(s): J96.01 - ACUTE RESPIRATORY FAILURE WITH HYPOXIA Status: Acute (2) Acute exacerbation of CHF (congestive heart failure) Code(s): I50.9 - HEART FAILURE, UNSPECIFIED Status: Acute (3) Atrial fibrillation Code(s): I48.91 - UNSPECIFIED ATRIAL FIBRILLATION Status: Chronic (4) CHF, acute on chronic Code(s): I50.9 - HEART FAILURE, UNSPECIFIED Status: Acute (5) CKD (chronic kidney disease) stage 2, GFR 60-89 ml/min Code(s): N18.2 - CHRONIC KIDNEY DISEASE, STAGE 2 (MILD) Status: Chronic (6) COPD exacerbation Code(s): J44.1 - CHRONIC OBSTRUCTIVE PULMONARY DISEASE W (ACUTE) EXACERBATION Status: Acute (7) Anemia Code(s): D64.9 - ANEMIA, UNSPECIFIED Status: Chronic - Plan Plan: 73 yo M with PMH of HFrEF, Afib, and HTN with Pacemaker who presented with acute CHF and COPD exacerbation 1. Acute Hypoxic Resp Failure 2/2 Acute on Chronic CHF exacerbation - In ED: BNP 800s, Pulm vascular congestion on CXR, crackles on exam, started on 4L O2, - Lung exam mild BL wheeze with mild crackles, good aeration throughout, weaned to RA and satting well now - EKG shows paced rhythm, no acute events on tele - PO lasix home dose of 40mg daily. Continue Daily weights, strict I/Os - Cr bumped from 1.2 to 1.35, changed to PO lasix from IV, down from 40mg BID to 20mg BID yesterday, will monitor. - Trops down trended - Echo similar to previous with EF of 40-45% - Cards Dr. Neil consulted, d/c'ed amio, added spironolactone, stopped plavix , apprec recs - EP Dr. Escobedo consulted, recommended maximizing beta cinthya, apprec recs 2. Acute COPD exacerbation, hx Emphysema - SOB and wheezing improved with duoneb, will attempt to step out nebs - Continue prednisone and doxycycline - O2 goal: 88-92%, weaned to RA 3. LIVE - Cpap at night 4. Normocytic Anemia - Hgb:8.6 -> 7.9 - Low reticulocyte index - continue to monitor, no signs of acute blood loss, likely anemia of chronic disease - s/p iron transfusion 5. Nicotine abuse - Nicotine patch - encourage cessation 6. HTN - Continue home Carvedilol 7. BPH - Continue home Finasteride Lines: Peripheral Code Status: Full DVT Prophylaxis: Eliquis GI Prophylaxis: Pepcid and Carafate Dispo: Pending improvement of clinical status, anticipate discharge today vs tomorrow pending cards recs. Addendum - Attending - Attending Attestation Date/Time: 11/13/18 1055 I personally evaluated the patient and discussed the management with Dr. Alejandro. I agree with the History, Examination, Assessment and Plan documented above with any addition or exceptions noted below. Patient doing well overall. He is near baseline and not requiring supplemental O2. His renal function is stable. Awaiting further cardiology recs but possible discharge either today or tomorrow.
[2018-11-13 05:58] LABS: Anion Gap 14 mmol/L (10-20); BUN (Urea Nitrogen) 24 mg/dL (8.4-25.7); Calc. Creatinine Clearance 70 mL/min (70-130); Calcium 9.2 mg/dL (7.8-10.44); Carbon Dioxide 25 mmol/L (23-31); Chloride 104 mmol/L (98-107); Estimated GFR-MDRD 52; Glucose 118 mg/dL (83-110); Potassium 4.5 mmol/L (3.5-5.1); Sodium 138 mmol/L (136-145)
[2018-11-13] MEDS: Nicotine 14 MG PATCH TD SCH (05:58)
[2018-11-13] MEDS: predniSONE 20 MG TAB PO SCH (09:15)
[2018-11-13] MEDS: Apixaban 5 MG TAB PO SCH ×2 (09:16→20:22)
[2018-11-13] MEDS: Finasteride 5 MG TAB PO SCH (09:16)
[2018-11-13] MEDS: PARoxetine 20 MG TAB PO SCH (09:16)
[2018-11-13] MEDS: Carvedilol 25 MG TAB PO SCH ×2 (09:16→20:23)
[2018-11-13] MEDS: Famotidine 20 MG TAB PO SCH ×2 (09:17→20:22)
[2018-11-13] MEDS: Spironolactone 25 MG TAB PO SCH (09:17)
[2018-11-13] MEDS: Furosemide 20 MG TAB PO SCH ×2 (09:17→13:38)
[2018-11-13] MEDS: Saccharomyces boulardii 250 MG CAP PO SCH (09:18)
[2018-11-13] MEDS: Doxycycline 100 MG CAP PO SCH ×2 (09:18→20:23)
[2018-11-13] MEDS: Sucralfate 1 GM TAB PO SCH ×4 (09:18→20:23)
[2018-11-13] MEDS: Ubidecarenone 50 MG CAP PO SCH (09:18)
[2018-11-13] MEDS: Fish Oil 1,000 MG CAP PO SCH (09:19)
[2018-11-13] MEDS: Fluticasone Propionate Nasal Spray 16 gm Bottle NASAL SCH (09:22)
[2018-11-13] MEDS: Melatonin 3 MG TAB PO PRN (20:55)
[2018-11-14] MEDS: Nicotine 14 MG PATCH TD SCH (05:55)
[2018-11-14 05:56] LABS: #Eosinphils 0.1 thou/uL (0.0-0.7); #Lymphocytes 2.3 thou/uL (1.20-3.40); #Neutrophils 5.9 thou/uL (1.40-6.50); %Basophils 0.2 % (0.0-1.0); %Eosinophils 0.6 % (0.0-10.0); %Lymphocytes 24.8 % (21.0-51.0); %Monocytes 10.3 % (0.0-10.0); %Neutrophils 64.1 % (42.0-75.0); Hemoglobin 8.4 g/dL (14.0-18.0); Mean Corpuscular HGB CONC 31.8 g/dL (32.0-36.0); Mean Corpuscular Hemoglobin 26.3 pg (27.0-31.0); Mean Corpuscular Volume 82.8 fL (78.0-98.0); Platelet Count 255 thou/uL (130-400); RBC Distribution Width 16.2 % (11.5-14.5); Red Blood Cell (RBC) Count 3.19 mill/uL (4.70-6.10); White Blood Cell (WBC) Count 9.3 thou/uL (4.8-10.8)
[2018-11-14 06:18] LABS: Anion Gap 11 mmol/L (10-20); BUN (Urea Nitrogen) 28 mg/dL (8.4-25.7); Calc. Creatinine Clearance 67 mL/min (70-130); Carbon Dioxide 27 mmol/L (23-31); Chloride 102 mmol/L (98-107); Estimated GFR-MDRD 49; Glucose 95 mg/dL (83-110); Potassium 3.9 mmol/L (3.5-5.1); Sodium 136 mmol/L (136-145)
[2018-11-14] MEDS: PARoxetine 20 MG TAB PO SCH (08:53)
[2018-11-14] MEDS: Sucralfate 1 GM TAB PO SCH ×3 (08:53→17:05)
[2018-11-14] MEDS: predniSONE 20 MG TAB PO SCH (08:53)
[2018-11-14] MEDS: Spironolactone 25 MG TAB PO SCH (08:53)
[2018-11-14] MEDS: Fish Oil 1,000 MG CAP PO SCH (08:54)
[2018-11-14] MEDS: Apixaban 5 MG TAB PO SCH (08:54)
[2018-11-14] MEDS: Doxycycline 100 MG CAP PO SCH (08:55)
[2018-11-14] MEDS: Carvedilol 25 MG TAB PO SCH (08:55)
--- NOTE | 2018-11-14 08:55 | PDOC.FM ---
- Subjective Subjective: Patient reports he still has some SOB. He reports he has been walking, eating, drinking, voiding, stooling. Patient states he wants to speak to Dr. Neil before being discharged home. - Objective Vital Signs & Weight: Vital Signs (12 hours) Temp Pulse Resp BP Pulse Ox 11/14/18 07:56 98.6 F 90 14 133/72 97 11/14/18 07:02 77 16 11/14/18 07:01 98 11/14/18 06:59 74 19 98 11/14/18 04:00 98.5 F 84 18 105/66 97 11/14/18 03:11 93 L 11/13/18 22:09 74 17 11/13/18 22:08 74 16 93 L Weight Weight 102.4 kg Most Recent Monitor Data Heart Rate from ECG 79 NIBP 96/42 NIBP BP-Mean 60 Respiration from ECG 17 SpO2 100 I&O: 11/13/18 11/14/18 11/15/18 06:59 06:59 06:59 Intake Total 1780 1680 Output Total 4100 1200 Balance -2320 480 Result Diagrams: 11/14/18 05:20 11/14/18 05:20 Phys Exam - Physical Examination Constitutional: NAD diffuse wheezing on exam, no crackles Cardiovascular: RRR, no significant murmur Gastrointestinal: soft, non-tender, positive bowel sounds Musculoskeletal: no edema, pulses present Neurological: non-focal, moves all 4 limbs Psychiatric: normal affect Skin: normal turgor, cap refill <2 seconds Dx/Plan (1) Acute respiratory failure with hypoxia Code(s): J96.01 - ACUTE RESPIRATORY FAILURE WITH HYPOXIA Status: Acute (2) Anemia Code(s): D64.9 - ANEMIA, UNSPECIFIED Status: Chronic (3) CKD (chronic kidney disease) Code(s): N18.9 - CHRONIC KIDNEY DISEASE, UNSPECIFIED Status: Chronic (4) COPD exacerbation Code(s): J44.1 - CHRONIC OBSTRUCTIVE PULMONARY DISEASE W (ACUTE) EXACERBATION Status: Acute (5) Obesity (BMI 30-39.9) Code(s): E66.9 - OBESITY, UNSPECIFIED Status: Chronic (6) BPH (benign prostatic hyperplasia) Code(s): N40.0 - BENIGN PROSTATIC HYPERPLASIA WITHOUT LOWER URINRY TRACT SYMP Status: Chronic (7) CHF (congestive heart failure) Code(s): I50.9 - HEART FAILURE, UNSPECIFIED Status: Chronic (8) History of emphysema Code(s): Z87.09 - PERSONAL HISTORY OF OTHER DISEASES OF THE RESPIRATORY SYSTEM Status: Chronic (9) Hypertension Code(s): I10 - ESSENTIAL (PRIMARY) HYPERTENSION Status: Chronic (10) Obstructive sleep apnea on CPAP Code(s): G47.33 - OBSTRUCTIVE SLEEP APNEA (ADULT) (PEDIATRIC) Status: Chronic (11) Nicotine abuse Code(s): Z72.0 - TOBACCO USE Status: Acute - Plan Plan: 1. Acute Hypoxic Resp Failure 2/2 Acute on Chronic CHF exacerbation - In ED: BNP 800s, Pulm vascular congestion on CXR, crackles on exam, started on 4L O2 - Now on Room air, CPAP at night - Lung exam wheezing present - EKG shows paced rhythm, no acute events on tele - PO lasix home dose of 40mg daily. Increase fluid restriction to 2000 ml/day. Continue Daily weights, strict I/Os, fluid restriction. - Echo similar to previous with EF of 40-45% - Cards Dr. Neil consulted, d/c'ed amio, added spironolactone, stopped plavix , apprec recs - EP Dr. Escobedo consulted, recommended maximizing beta cinthya, apprec recs 2. Acute COPD exacerbation, hx Emphysema - SOB and wheezing improved with duoneb - Continue prednisone and doxycycline, today is last day for both - O2 goal: 88-92%, weaned to RA - Walking O2 test today 3. LIVE - Cpap at night 4. Normocytic Anemia - s/p iron transfusion, Hgb improved to 8.4 today - Low reticulocyte index - screening FOBT today - Start home Fe 5. Nicotine abuse - Nicotine patch - encourage cessation 6. HTN - Continue home Carvedilol 7. BPH - Continue home Finasteride Lines: Peripheral Code Status: Full DVT Prophylaxis: Eliquis GI Prophylaxis: Pepcid and Carafate Dispo: anticipate discharge today Addendum - Attending - Attending Attestation Date/Time: 11/14/18 7512 I personally evaluated the patient and discussed the management with Dr. Quintana I agree with the History, Examination, Assessment and Plan documented above with any addition or exceptions noted below. Patient with advanced COPD he lives at home he is stable for discharge he is declining Home Health PT etc will need short term f/u when dismissed for rx compliance, before dismissal needs walking trial for home oxygen. Patient would benefit from LAMA, LABA and ICS inhalers at home admonished to quit smoking patient using NRP at present.Patient seen by Cardiology/EP as well appreciate any further recommendations.
[2018-11-14] MEDS: Furosemide 20 MG TAB PO SCH ×2 (08:56→14:01)
[2018-11-14] MEDS: Ubidecarenone 50 MG CAP PO SCH (08:56)
[2018-11-14] MEDS: Saccharomyces boulardii 250 MG CAP PO SCH (08:56)
[2018-11-14] MEDS: Famotidine 20 MG TAB PO SCH (08:56)
[2018-11-14] MEDS: Finasteride 5 MG TAB PO SCH (08:56)
[2018-11-14] MEDS: Fluticasone Propionate Nasal Spray 16 gm Bottle NASAL SCH (09:03)
[2018-11-14] MEDS ORDERED: Polyethylene Glycol 3350 17 GM Packet PO PRN (09:13)
[2018-11-14] MEDS ORDERED: Potassium Chloride 20 MEQ TAB PO SCH (09:30)
--- NOTE | 2018-11-14 10:08 | PRG ---
DATE OF SERVICE: 11/14/2018 SUBJECTIVE: Mr. Nettles is feeling better. He is up walking in the halls. OBJECTIVE: VITAL SIGNS: His blood pressure is somewhat variable, but is averaging about 110 systolic. He has some orthostatic hypotension when he stands up quickly. LUNGS: Few rhonchi. No wheezing. CARDIAC: Normal S1. Normal S2. ABDOMEN: Soft and nontender. EXTREMITIES: Only mild edema, LABORATORY DATA: The patient's creatinine has gone up to 1.41. ASSESSMENT: 1. Congestive heart failure, systolic and diastolic combined, ejection fraction about 40%. 2. Aortic stenosis, looks mild on echo Doppler. 3. Recent atrial fibrillation ablation. 4. Renal function, worsening on spironolactone. PLAN: 1. Reduce spironolactone to 12.5 mg a day. 2. Furosemide 20 mg twice a day. 3. Given an extra dose potassium today. 4. He is off Plavix. 5. Continue Eliquis for the paroxysmal atrial fibrillation with recent atrial fibrillation ablation. Okay to me to go home and he will follow up in our office with Monique Dalton in about 2 weeks. Job ID: [id number]
--- NOTE | 2018-11-14 11:11 | PRG ---
DATE OF SERVICE: 11/14/2018 SUBJECTIVE: Mr. Nettles was doing better over the weekend, continues to be diuresed. He has no dizziness or loss of consciousness. He had short runs of atrial fibrillation yesterday, but then spontaneously terminated. OBJECTIVE: VITAL SIGNS: Blood pressure is 133/72, heart rate is 90, respirations 14, and temperature 98.6 degrees Fahrenheit. GENERAL: Alert and oriented man, in no apparent distress. NECK: Supple. Jugular veins not distended. CHEST: Coarse without crackles. HEART: Sounds are regular to rate and rhythm. No murmur or gallop. Left precordial pacemaker insertion site is without reaction. ABDOMEN: Benign. Bowel sounds positive. EXTREMITIES: Lower extremity without edema, clubbing, or cyanosis. LABORATORY DATA: Hemoglobin 8.4, white count is 9.3, and platelet count is 255. Sodium 136, potassium 3.9, BUN is 28, and creatinine 1.4. ASSESSMENT AND PLAN: Mr. Nettles is a pleasant 73-year-old man with prior history of congestive heart failure and combined systolic/diastolic heart failure. Left ventricular ejection fraction about 40%, who also had persistent atrial fibrillation in the past. Most recent ablation about 6 weeks ago. He has a dual-chamber pacemaker in place. He was admitted with heart failure exacerbation and nausea improving with continued diuresis. His weight is down over 10 pounds since admit. He was also found to be anemic, but that has now stabilized. The patient received iron transfusion. Hemoglobin improving, receiving FOBT today. Continues on Eliquis for anticoagulation. Heart failure. He has reasonable amount of PVCs 20% to 30%, which mildly improved with diuresis. Continue monitoring for that. Recent atrial fibrillation ablation, minimal recurrence yesterday with quick termination, atrial ATPs also programmed on, continue monitoring with anticoagulation on board if possible. Routine follow up in the office will be requested in 6 weeks if the patient gets discharged. Job ID: [id number]
[2018-11-14 12:30] VITALS: TEMP 98.2
[2018-11-14 15:47] VITALS: BP 113/59
[2018-11-14] MEDS ORDERED: Ferrous Sulfate 325 MG TAB PO SCH (17:00)
[2018-11-15] MEDS ORDERED: Spironolactone 25 MG TAB PO SCH (08:00)
--- NOTE | 2018-11-15 13:17 | DIS ---
DATE OF ADMISSION: 11/10/2018 DATE OF DISCHARGE: 11/14/2018 RESIDENT: Maru Quintana MD ADMITTING ATTENDING: Brittni Boothe MD DISCHARGE ATTENDING: Victor Manuel Fontaine MD CONSULTS: Dr. Neil, Cardiology, 11/10/2018. PROCEDURES PERFORMED: 1. Chest x-ray, 11/10/2018. Findings suspicious for congestive heart failure. 2. Echocardiogram, 11/11/2018. Ejection fraction is visually estimated at 35% to 49%. Aortic valve sclerotic and mildly stenotic. Mild aortic insufficiency. PRIMARY DIAGNOSES: 1. Acute hypoxic respiratory failure secondary to acute on chronic congestive heart failure exacerbation. 2. Acute chronic obstructive pulmonary disease exacerbation. SECONDARY DIAGNOSES: 1. Emphysema, obstructive sleep apnea, normocytic anemia, nicotine abuse, hypertension. 2. BPH. DISCHARGE MEDICATIONS: 1. Doxycycline 100 mg p.o. b.i.d. 2. Ferrous sulfate 325 mg p.o. b.i.d. with meals. 3. Fluticasone salmeterol one inhalation twice daily. 4. Furosemide 20 mg p.o. b.i.d. 5. Guaifenesin 50 mL p.o. q.4 hours p.r.n. for cough. 6. Fish oil 1200 mg oral daily. 7. Paroxetine 40 mg p.o. daily. 8. Nexium 40 mg p.o. b.i.d. 9. Coenzyme Q10 of 100 mg oral daily. 10. Probiotic one cap p.o. daily. 11. Carvedilol 12.5 mg b.i.d. 12. Finasteride 5 mg p.o. daily. 13. Apixaban one tab p.o. b.i.d. 14. Sucralfate 1 g p.o. 4 times daily. 15. Potassium chloride 20 mEq p.o. daily, take one tab only with p.r.n. Lasix. 16. ProAir two puffs inhalation as directed as needed. DISCONTINUED MEDICATIONS: 1. Clopidogrel 75 mg p.o. daily. 2. Lasix 40 mg p.o. daily. 3. Furosemide 40 mg p.o. daily p.r.n. for shortness of breath and/or wheezing. HISTORY OF PRESENT ILLNESS/HOSPITAL COURSE: A 73-year-old male with a past medical history of heart failure with reduced ejection fraction, atrial fibrillation and hypertension, who presented with worsening shortness of breath. The patient reported he had been feeling more short of breath since starting Eliquis a couple months ago. He reported it had acutely worsened over the past few days and has started coughing up white mucus. He was also reporting having difficulty laying down and breathing when he tried to rest. In the ED, His chest x-ray showed pulmonary vascular congestion. BNP 800s. He was given DuoNebs, IV Lasix, and Solu-Medrol. He had several episodes of what was thought to be possibly a wide-complex tachycardia, so he was started on amiodarone drip. This was quickly discontinued after Cardiology saw the patient and reported it to be a paced rhythm. His symptoms improved with diuresis. An echo was repeated, which showed a similar ejection fraction to his last visit. Dr. Neil was consulted: discontinued Plavix, started spironolactone, and consulted Dr. Escobedo. The patient was also treated for acute COPD exacerbation. Symptoms improved with the DuoNeb. He was started on a 5-day course of prednisone and doxycycline. The patient was weaned down to room air. Walking O2 test was done prior to discharge showed the patient was not a candidate for home oxygen. The patient was discharged on an Advair inhaler, as well as Mucinex for cough. We recommend outpatient pulmonary function testing. The patient was also found to have normocytic anemia. Iron studies showed low iron. He was given iron transfusion during his stay. He was discharged on p.o. iron supplementation. Recommend outpatient follow up. DISPOSITION: Stable. DISCHARGE INSTRUCTIONS: 1. Location: Home. 2. Diet: Heart healthy, fluid restriction to 1800 mL per day. 3. Activity: As tolerated. 4. Followup: Followup with Dr. Escobedo in six weeks. Followup with Dr. Neil on 11/17/2018 at 9:00 a.m. Follow up with primary care provider at [facility] Dr. Guan within 1 week. Job ID: [id number] MTDD
--- NOTE | 2018-11-19 14:57 | EKG ---
Test Reason : Blood Pressure : / mmHG Vent. Rate : 101 BPM Atrial Rate : 070 BPM P-R Int : 000 ms QRS Dur : 112 ms QT Int : 386 ms P-R-T Axes : 000 088 -87 degrees QTc Int : 500 ms Electronic atrial pacemaker Nonspecific ST and T wave abnormality Abnormal ECG Confirmed by KARISSA BOYKIN ([id number]), copy editor DANNY FALCON ([id number]) on 11/19/2018 2:56:57 PM Referred By: Confirmed By:KARISSA BOYKIN
== END 2018-11-14 17:36 | disposition home or self-care (01) | DRG 291 ==
LOC: ERS 01:07 → ERHOLD 03:30 → IMCU/EMU 07:18 → 2NO 23:34
PROVIDERS: ADMIT Family Medicine; ATTEND Family Medicine
DX: I13.0 Hypertensive heart and chronic kidney disease with heart failure and stage 1 through stage 4 chronic kidney disease, or unspecified chronic kidney disease (principal); I50.43 Acute on chronic combined systolic (congestive) and diastolic (congestive) heart failure; J96.01 Acute respiratory failure with hypoxia; J44.1 Chronic obstructive pulmonary disease with (acute) exacerbation; I47.2 Ventricular tachycardia; I25.10 Atherosclerotic heart disease of native coronary artery without angina pectoris; N40.0 Benign prostatic hyperplasia without lower urinary tract symptoms; I48.91 Unspecified atrial fibrillation; D64.9 Anemia, unspecified; N18.3 Chronic kidney disease, stage 3 (moderate); M35.3 Polymyalgia rheumatica; E66.9 Obesity, unspecified; G47.33 Obstructive sleep apnea (adult) (pediatric); Z68.29 Body mass index [BMI] 29.0-29.9, adult; Z91.041 Radiographic dye allergy status; Z88.8 Allergy status to other drugs, medicaments and biological substances; Z79.899 Other long term (current) drug therapy; Z95.5 Presence of coronary angioplasty implant and graft; Z95.0 Presence of cardiac pacemaker; Z98.890 Other specified postprocedural states; Z87.891 Personal history of nicotine dependence; Z87.09 Personal history of other diseases of the respiratory system
CPT/HCPCS: 36415; 36416; 71045; 80048; 80053; 82550; 82728; 83036; 83540; 83550; 83735; 83880; 84145; 84466; 84484; 85025; 85046; 93005; 93306; 93798; 94640; 94660; 94760; 96374; 96375; J0282; J1940; J2916; J2930; J3490; J7070; J7512; J7620

== ENCOUNTER 2019-03-26 12:13 | Inpatient (IN) | payer MEDICARE, BC ==
[2019-03-26 12:37] LABS: #Basophils 0.1 thou/uL (0.0-0.2); #Lymphocytes 2.1 thou/uL (1.20-3.40); #Monocytes 1.4 thou/uL (0.11-0.59); #Neutrophils 11.3 thou/uL (1.40-6.50); %Basophils 0.7 % (0.0-1.0); %Eosinophils 0.3 % (0.0-10.0); %Lymphocytes 13.9 % (21.0-51.0); %Monocytes 9.2 % (0.0-10.0); %Neutrophils 75.9 % (42.0-75.0); Hemoglobin 13.8 g/dL (14.0-18.0); Mean Corpuscular HGB CONC 32.9 g/dL (32.0-36.0); Mean Corpuscular Volume 94.2 fL (78.0-98.0); Mean Platelet Volume 7.3 fL (7.4-10.4); Platelet Count 250 thou/uL (130-400); RBC Distribution Width 15.2 % (11.5-14.5); Red Blood Cell (RBC) Count 4.44 mill/uL (4.70-6.10); White Blood Cell (WBC) Count 14.9 thou/uL (4.8-10.8)
[2019-03-26 13:00] LABS: ALT (SGPT) 21 U/L (8-55); AST (SGOT) 13 U/L (5-34); Albumin 3.9 g/dL (3.4-4.8); Alkaline Phosphatase 66 U/L (40-110); Anion Gap 13 mmol/L (10-20); BUN (Urea Nitrogen) 30 mg/dL (8.4-25.7); Bilirubin, Total 1.1 mg/dL (0.2-1.2); Calc. Creatinine Clearance 0 mL/min (70-130); Calcium 9.1 mg/dL (7.8-10.44); Carbon Dioxide 24 mmol/L (23-31); Chloride 108 mmol/L (98-107); Estimated GFR-MDRD 54; Globulin 3.4 g/dL (2.4-3.5); Glucose 124 mg/dL (83-110); Potassium 3.7 mmol/L (3.5-5.1); Protein, Total 7.3 g/dL (5.8-8.1); Sodium 141 mmol/L (136-145)
[2019-03-26 13:23] LABS: CKMB 2.9 ng/mL (0-6.6)
--- NOTE | 2019-03-26 13:29 | PDOC.FPRHP ---
- History of Present Illness Chief Complaint: SOB and palpiatations History of Present Illness: 73 y/o With a past medical history of a fib, COPD, hypertension, and iron deficiency anemia, comes into the emergency department after feeling very bad, shaking, shortness of breath for 2 to 3 days off and on. Patient states that the symptoms are much worse with exertion and are alleviated when lying down and resting. Patient complains of palpitations, and shortness of breath intermittently. This is the first time that he has ever experience symptoms like this. Patient denies any chest pain. Patient states that he has been coughing and hearing rattling in his chest for about one month now. Hes been treated out patient with prednisone as well as clarithromycin Po B.i.d. for about 10 days now after seeing his ear nose throat doctor which recommended the antibiotics and prednisone taper. Patient stated these medications and not improve his symptoms very much. Patient denies ever having the pneumonia vaccines or the flu shot this year. Patient states when he was having the symptoms his blood pressure at home was 88 /56 with a heart rate of 112. Patient denies any nausea vomiting diarrhea or abdominal pain. Patient denies sick contacts. Patient denies any extremity swelling. ED Course: patients original EKG showed SVT rate 154. Patients vitals upon coming to the emergency room was heart rate ranging from 150 to 170s. Oxygen saturation 96% on room air. Patient has a pacemaker/defibrillator that and self converted to sinus rhythm with pace rate. Right in the 70s. Blood pressure was 132/92. Trop: 0.045, CKMB 2.9 WBC 14.9 - Allergies/Adverse Reactions Allergies Allergy/AdvReac Type Severity Reaction Status Date / Time iodine Allergy Unknown Verified 03/26/19 17:21 Wuyqbef-Txh-Ved Reductase Allergy Verified 03/26/19 17:21 Inhibitor - Home Medications Medication Instructions Recorded Confirmed Type Fish Oil/DHA/EPA [Fish Oil 1,200 1,000 mg PO BID 11/13/13 03/26/19 History mg Fish Oil] PARoxetine HCl 40 mg PO DAILY 05/30/17 03/26/19 History Esomeprazole Magnesium [NexIUM 40 mg PO BID 04/18/18 03/26/19 History Oral Suspension] Lactobacillus Acidophilus 1 cap PO DAILY 04/18/18 03/26/19 History [Probiotic] Carvedilol 12.5 mg PO BID 08/17/18 03/26/19 History Finasteride 5 mg PO DAILY 08/17/18 03/26/19 History Apixaban [Eliquis] 1 tab PO BID 09/19/18 03/26/19 History Inhaler, Assist Devices [Space 1 each MC ASDIR #2 each 11/14/18 03/26/19 Rx Chamber Plus] Spironolactone [Aldactone] 12.5 mg PO QAM-WM #15 tab 11/14/18 03/26/19 Rx Albuterol Sulfate [Proair HFA] 2 puff INH Q6H PRN 03/26/19 03/26/19 History Clarithromycin 500 mg PO BID 03/26/19 03/26/19 History Ferrous Sulfate [Feosol] 325 mg PO DAILY 03/26/19 03/26/19 History Fluticasone/Salmeterol [Advair 1 inh IH BID 03/26/19 03/26/19 History Diskus 250/50] Furosemide [Lasix] 20 mg PO BID 03/26/19 03/26/19 History Lisinopril [Zestril] 5 mg PO DAILY 03/26/19 03/26/19 History Ubidecarenone/Vit E Acet [Co Q-10 1 tab PO BID 03/26/19 03/26/19 History 100 mg Softgel] - History PMHx: A fib, COPD, HTN, iorn deficiency anemia, colon cancer in P[facility]x: colon resection in mid . Gastric ulcer repair. FHx: father: valvular heart disease. Mother: cystic fibrosis. Social: smokes 2 PPD for 45 years. denies etoh, or drug use. - Review of Systems General: reports: fatigue. denies: fever/chills, weight/appetite/sleep changes ENT: denies: nasal congestion, rhinorrhea Respiratory: reports: cough, congestion, shortness of breath, exercise intolerance Cardiovascular: reports: palpitation, edema. denies: chest pain, paroxysmal nocturnal dyspnea, orthopnea Gastrointestinal: denies: nausea, vomiting, diarrhea, abdominal pain, GI bleeding Genitourinary: denies: incontinence, dysuria Skin: denies: rashes, lesions Musculoskeletal: reports: swelling (BLE). denies: pain, tenderness Neurological: denies: numbness, syncope, seizure - Vital signs BP: 132/92 HR: 73 RR: 14 Tmax: 98 Pox: 97% on ra Wt: 102.28 kg - Physical Exam Constitutional: NAD, awake, alert and oriented HEENT: normocephalic and atraumatic, PERRLA, EOMI, conjunctiva clear, no scleral icterus, grossly normal vision, grossly normal hearing, MMM, oropharynx clear, other (poor dentition) Neck: supple, FROM, trachea midline, no LAD, no thyromegaly Heart: RRR, normal S1/S2, pulses present Lungs: no respiratory distress, good air movement, no retractions, other ( bibasilar crackles.) Abdomen: soft, non-tender, bowel sounds present, no masses/distention Musculoskeletal: normal structure, ROM grossly normal Neurological: no focal deficit, CN II-XII intact, normal sensation Skin: no rash/lesions, good turgor, capillary refill <2 seconds, no jaundice Heme/Lymphatic: no unusual bruising or bleeding, no purpura, no petechia Psychiatric: normal mood and affect, good judgment and insight, intact recent and remote memory FMR H&P: Results - Labs Result Diagrams: 03/26/19 12:24 03/26/19 12:24 Lab results: WBC 14.9 thou/uL (4.8-10.8) H 03/26/19 12:24 Hgb 13.8 g/dL (14.0-18.0) L 03/26/19 12:24 Hct 41.8 % (42.0-52.0) L 03/26/19 12:24 MCV 94.2 fL (78.0-98.0) 03/26/19 12:24 Plt Count 250 thou/uL (130-400) 03/26/19 12:24 Neutrophils % 75.9 % (42.0-75.0) H 03/26/19 12:24 Sodium 141 mmol/L (136-145) 03/26/19 12:24 Potassium 3.7 mmol/L (3.5-5.1) 03/26/19 12:24 Chloride 108 mmol/L (98-107) H 03/26/19 12:24 Carbon Dioxide 24 mmol/L (23-31) 03/26/19 12:24 BUN 30 mg/dL (8.4-25.7) H 03/26/19 12:24 Creatinine 1.29 mg/dL (0.7-1.3) 03/26/19 12:24 Glucose 124 mg/dL (83-110) H 03/26/19 12:24 Calcium 9.1 mg/dL (7.8-10.44) 03/26/19 12:24 Total Bilirubin 1.1 mg/dL (0.2-1.2) 03/26/19 12:24 AST 13 U/L (5-34) 03/26/19 12:24 ALT 21 U/L (8-55) 03/26/19 12:24 Alkaline Phosphatase 66 U/L (40-110) 03/26/19 12:24 CK-MB (CK-2) 2.9 ng/mL (0-6.6) 03/26/19 12:24 Serum Total Protein 7.3 g/dL (5.8-8.1) 03/26/19 12:24 Albumin 3.9 g/dL (3.4-4.8) 03/26/19 12:24 - EKG Interpretation EKG: SVT rate 148 FMR H&P: A/P - Problem List (1) Supraventricular arrhythmia Current Visit: Yes Status: Acute Code(s): I49.9 - CARDIAC ARRHYTHMIA, UNSPECIFIED (2) Acute exacerbation of CHF (congestive heart failure) Current Visit: Yes Status: Acute Code(s): I50.9 - HEART FAILURE, UNSPECIFIED Qualifiers: Heart failure type: systolic Qualified Code(s): I50.23 - Acute on chronic systolic (congestive) heart failure (3) Dyspnea Current Visit: Yes Status: Acute Code(s): R06.00 - DYSPNEA, UNSPECIFIED (4) Elevated troponin Current Visit: Yes Status: Acute Code(s): R74.8 - ABNORMAL LEVELS OF OTHER SERUM ENZYMES (5) History of colon cancer Current Visit: No Status: Acute Code(s): Z85.038 - PERSONAL HISTORY OF MALIGNANT NEOPLASM OF LARGE INTESTINE (6) Hyperlipidemia Current Visit: No Status: Acute Code(s): E78.5 - HYPERLIPIDEMIA, UNSPECIFIED (7) Nicotine abuse Current Visit: Yes Status: Acute Code(s): Z72.0 - TOBACCO USE (8) Atrial fibrillation Current Visit: No Status: Chronic Code(s): I48.91 - UNSPECIFIED ATRIAL FIBRILLATION (9) BPH (benign prostatic hyperplasia) Current Visit: No Status: Chronic Code(s): N40.0 - BENIGN PROSTATIC HYPERPLASIA WITHOUT LOWER URINRY TRACT SYMP (10) CAD (coronary atherosclerotic disease) Current Visit: No Status: Chronic Code(s): I25.10 - ATHSCL HEART DISEASE OF [place] CORONARY ARTERY W/O ANG PCTRS (11) CKD (chronic kidney disease) Current Visit: Yes Status: Chronic Code(s): N18.9 - CHRONIC KIDNEY DISEASE, UNSPECIFIED (12) Depression Current Visit: No Status: Chronic Code(s): F32.9 - MAJOR DEPRESSIVE DISORDER , SINGLE EPISODE, UNSPECIFIED (13) Hypertension Current Visit: Yes Status: Chronic Code(s): I10 - ESSENTIAL (PRIMARY) HYPERTENSION - Plan 73 y/o M with PMHx of HFrEF, COPD, HTN and A fib admitted to tele obs for further treatment and evaluation of palpitations 2/2 a fib with RVR, rate 150' s. Pt self converted in the ER to NSR, rate 70's. 1. SVT - Symptomatic with SOB, palpitations - Ordered Mag, phos, TSH - Ordered CXR - Trop 0.045, likely elevated due to demand ischemia - Will consider electrophysiology consult is pt continue to have arrhythmias post interventions. - interrogate pacemaker - Mag, phos, TSH all wnl. - continuous cardiac monitoring 2. CHF exacerbation; HFrEF - Ordered cxr, procal - WBC 14.9, likely elevated from recent steroid use. - Chronic cough - Ordered CXR, pending -gave 40 IV lasix - resume home heart failure medications - Echo 10/2018: EF 35-40%, LV mildly dilated, LA mild-mod dilation - daily weights, fluid restrict, strict I/O 3. Indeterminant Trops - Trop 0.045, will trend - Most likely etiology is demand ischemia from tachyarrhythmia 4. Hx of HTN - resume home meds 5. Hx of CKD - Cr 1.29, GFR 54 - will monitor with use of diuretics 6. Depression - continue paroxetine 7. Hx of COPD - continue home meds. - continue steroid taper 8. hx of colon ca 9. Hx of BPH - continue home meds Code status: full code Diet: HH, fluid restict 1800 ml daily DVT ppx: eliquis Dispo: stable, admit to tele obs for continuous cardiac monitoring. FMR H&P: Upper Level - Plan Date/Time: 03/26/19 1329 I, Leta Barone, have evaluated this patient and agree with findings/plan as outlined by internal security manager resident. Pertinent changes/additions are listed here. 73yo M presented with acute palpitations and 2wk hx of head congestion and cough with worsening SOB over the past 2 days. On presentation, noted to have SVT at a rate of 140's, prior to any intervention, self converted. Pt denies CP , orthopnea. Pt with hx of pAfib s/p ablation by Dr. Escobedo 07/2018. Currently pulse rate of 70's, BP 130's/80's. Exam notable for bibasilar crackles and trace LE edema but otherwise negative. EKG shows SVT. A/P: 1)SVT, resolved- pt with hx of pAfib s/p ablation. Concern precipitation from infectious process vs volume overload wth lung exam findings. Will admit to tele and consider EP consult. Plan for pacemaker interrogation. Resume home eliquis and Coreg. 2) Elevated BNP, likely mild CHF exacerbation- BNP 258. Hx of HFrEF, does not follow fluid restriction. Daily Wt, Strict IO. CXR pending. Procal negative. Will give Xsize18ik IV x1. Echo 10/2018 EF 35-40%. 3)Recent URI- currently on steroid taper and Clarithromycin but not improving, procal negative. D/c Abx and steroid taper at this time. 4) indeterminate trops- likely 2/2 demand. Will trend and continue to monitor for CP. For all other chronic medical problems, will restart home meds as stated above in internal security manager note. Dispo: LOS >48h Code Status: Full DVT ppx: Eliquis
[2019-03-26] MEDS ORDERED: Acetaminophen 325 MG TAB PO PRN (14:26)
[2019-03-26] MEDS ORDERED: Ondansetron ODT 4 MG TAB PO PRN (14:26)
[2019-03-26 14:42] LABS: Phosphorus 2.8 mg/dL (2.3-4.7)
[2019-03-26 16:57] LABS: Troponin I 0.044 ng/mL (< 0.028)
[2019-03-26 17:05] VITALS: BMI 29.7
[2019-03-26] MEDS ORDERED: Furosemide 40 MG/4 ML VIAL SLOW IVP SCH (17:30)
[2019-03-26] MEDS: Nicotine 14 MG PATCH TD SCH (18:14)
--- NOTE | 2019-03-26 18:22 | RAD ---
TWO VIEWS CHEST: Comparison: 06-17-17 History: Shortness of breath and cough. FINDINGS: Two views of the chest shows a cardiomediastinal silhouette which his upper limits of normal in size. The pacemaker is unchanged in position. There is no evidence of consolidation, mass, or pleural effu connor. Degenerative changes are seen in the spine. IMPRESSION: No evidence of acute cardiopulmonary disease. POS: C
[2019-03-26] MEDS ORDERED: PROVENTIL INHALER 6.7 G (200 INHALATIONS) INH PRN (18:34)
[2019-03-26] MEDS ORDERED: [UNRECOGNIZED DRUG - OTHER] MC SCH (18:45)
[2019-03-26 19:32] LABS: Troponin I 0.017 ng/mL (< 0.028)
[2019-03-26] MEDS: Fish Oil 1,000 MG CAP PO SCH (19:39)
[2019-03-26] MEDS: Ubidecarenone 50 MG CAP PO SCH (19:39)
[2019-03-26] MEDS: Carvedilol 6.25 MG TAB PO SCH (19:40)
[2019-03-26] MEDS: Pantoprazole 40 MG GRANULES PACKET PO SCH (19:41)
[2019-03-26] MEDS: Apixaban 5 MG TAB PO SCH (19:41)
[2019-03-26] MEDS ORDERED: Non-Formulary Item 1 EACH (Esomeprazole Magnesium [Nexium Oral Suspension] 40 MG) PO SCH (21:00)
[2019-03-26] MEDS ORDERED: Non-Formulary Item 1 EACH (Fluticasone/Salmeterol [Advair Diskus 250/50] 1 INH) IH SCH (21:00)
[2019-03-27 05:05] LABS: #Basophils 0.1 thou/uL (0.0-0.2); #Eosinphils 0.2 thou/uL (0.0-0.7); #Neutrophils 4.5 thou/uL (1.40-6.50); %Basophils 0.6 % (0.0-1.0); %Lymphocytes 34.4 % (21.0-51.0); %Monocytes 11.7 % (0.0-10.0); %Neutrophils 51.3 % (42.0-75.0); Hemoglobin 11.6 g/dL (14.0-18.0); Mean Corpuscular Hemoglobin 31.4 pg (27.0-31.0); Mean Corpuscular Volume 95.3 fL (78.0-98.0); Mean Platelet Volume 7.3 fL (7.4-10.4); Platelet Count 218 thou/uL (130-400); RBC Distribution Width 15.2 % (11.5-14.5); White Blood Cell (WBC) Count 8.7 thou/uL (4.8-10.8)
[2019-03-27 05:29] LABS: Anion Gap 9 mmol/L (10-20); BUN (Urea Nitrogen) 27 mg/dL (8.4-25.7); Calc. Creatinine Clearance 69 mL/min (70-130); Calcium 8.5 mg/dL (7.8-10.44); Carbon Dioxide 30 mmol/L (23-31); Chloride 106 mmol/L (98-107); Estimated GFR-MDRD 52; Glucose 84 mg/dL (83-110); Potassium 3.7 mmol/L (3.5-5.1); Sodium 141 mmol/L (136-145)
--- NOTE | 2019-03-27 06:20 | PDOC.FM ---
- Subjective Subjective: Pt states he has not felt any palpitations overnight. Tele monitoring overnight: a paced rate in 60's. Diuresis 2350 ml overnight. C/O coughing. Denies CP. SOB much alleviated. - Objective MAR Reviewed: Yes Vital Signs & Weight: Vital Signs (12 hours) Temp Pulse Resp BP BP Pulse Ox 03/27/19 05:05 98.5 F 71 16 109/57 L 95 03/26/19 19:50 98 F 60 15 138/68 99 Weight Weight 100.698 kg I&O: 03/25/19 03/26/19 03/27/19 06:59 06:59 06:59 Intake Total 964 Output Total 2350 Balance -1386 Result Diagrams: 03/27/19 04:41 03/27/19 04:41 Phys Exam - Physical Examination Constitutional: NAD HEENT: PERRLA, moist MMs Neck: no nodes, full ROM Respiratory: wheezing present bases clear to auscultation this morning. Cardiovascular: RRR, no rub Gastrointestinal: soft, non-tender, no distention, positive bowel sounds Musculoskeletal: pulses present, edema present (trace BLE edema ) Neurological: non-focal, moves all 4 limbs Psychiatric: normal affect, A&O x 3 Skin: no rash, normal turgor, cap refill <2 seconds Dx/Plan (1) Supraventricular arrhythmia Code(s): I49.9 - CARDIAC ARRHYTHMIA, UNSPECIFIED Status: Acute (2) Acute exacerbation of CHF (congestive heart failure) Code(s): I50.9 - HEART FAILURE, UNSPECIFIED Status: Acute Qualifiers: Heart failure type: systolic Qualified Code(s): I50.23 - Acute on chronic systolic (congestive) heart failure (3) Dyspnea Code(s): R06.00 - DYSPNEA, UNSPECIFIED Status: Acute (4) Elevated troponin Code(s): R74.8 - ABNORMAL LEVELS OF OTHER SERUM ENZYMES Status: Acute (5) History of colon cancer Code(s): Z85.038 - PERSONAL HISTORY OF MALIGNANT NEOPLASM OF LARGE INTESTINE Status: Acute (6) Hyperlipidemia Code(s): E78.5 - HYPERLIPIDEMIA, UNSPECIFIED Status: Acute (7) Nicotine abuse Code(s): Z72.0 - TOBACCO USE Status: Acute (8) Atrial fibrillation Code(s): I48.91 - UNSPECIFIED ATRIAL FIBRILLATION Status: Chronic (9) BPH (benign prostatic hyperplasia) Code(s): N40.0 - BENIGN PROSTATIC HYPERPLASIA WITHOUT LOWER URINRY TRACT SYMP Status: Chronic (10) CAD (coronary atherosclerotic disease) Code(s): I25.10 - ATHSCL HEART DISEASE OF [place] CORONARY ARTERY W/O ANG PCTRS Status: Chronic (11) CKD (chronic kidney disease) Code(s): N18.9 - CHRONIC KIDNEY DISEASE, UNSPECIFIED Status: Chronic (12) Depression Code(s): F32.9 - MAJOR DEPRESSIVE DISORDER, SINGLE EPISODE, UNSPECIFIED Status : Chronic (13) Hypertension Code(s): I10 - ESSENTIAL (PRIMARY) HYPERTENSION Status: Chronic - Plan Plan: 73 y/o M with PMHx of HFrEF, COPD, HTN and A fib admitted to tele obs for further treatment and evaluation of palpitations 2/2 a fib with RVR, rate 150' s. Pt self converted in the ER to NSR, rate 70's. 1. SVT, resolved - Symptomatic with SOB, palpitations; resolved. Likely etiology from CHF exacerbation. - Mag, phos, TSH wnl - CXR: no acute cardiopulmonary findings - Trop 0.045, 0.044, 0.017 likely elevated due to demand ischemia. trended down. - Will consider electrophysiology consult if pt continue to have arrhythmias post interventions. No events on tele monitoring overnight. - interrogate pacemaker - continuous cardiac monitoring 2. CHF exacerbation; HFrEF - WBC 14.9, likely elevated from recent steroid use. improved to 8.7 on 03/27. - Chronic cough - CXR no acute cardiopulmonary findings. - gave 40 IV lasix - resume home heart failure medications - Echo 10/2018: EF 35-40%, LV mildly dilated, LA mild-mod dilation - daily weights, fluid restrict, strict I/O 3. Indeterminant Trops - Trop 0.045, 0.044, .0017 - Most likely etiology is demand ischemia from tachyarrhythmia 4. Hx of HTN - resume home meds 5. CKD, with JENNIE - Cr 1.29-> 1.34, GFR 54-> 52, - will monitor with use of diuretics 6. Depression - continue paroxetine 7. Hx of COPD - continue home meds. - Start dulera inhaler. - added mucinex and fluticasone spray for symptomatic treatment of cough. 8. hx of colon ca 9. Hx of BPH - continue home meds Code status: full code Diet: HH, fluid restict 1800 ml daily DVT ppx: eliquis Dispo: stable, admit to tele obs for continuous cardiac monitoring.
[2019-03-27] MEDS: Mometasone/Formoterol 120 PUFF INHALER INH SCH ×3 (07:08→18:58)
[2019-03-27] MEDS ORDERED: FLU VACC TS2019-20(65YR UP)/PF 180 MCG/0.5 ML SYRINGE IM ONE (09:00)
[2019-03-27] MEDS ORDERED: Prevnar 13-Val Conj/PF 0.5 ML SYRINGE IM ONE (09:00)
[2019-03-27] MEDS ORDERED: PARoxetine 20 MG TAB PO SCH (09:00)
[2019-03-27] MEDS: Spironolactone 25 MG TAB PO SCH (10:21)
[2019-03-27] MEDS: Carvedilol 6.25 MG TAB PO SCH ×2 (10:21→21:29)
[2019-03-27] MEDS: Apixaban 5 MG TAB PO SCH ×2 (10:21→21:29)
[2019-03-27] MEDS: Ferrous Sulfate 325 MG TAB PO SCH (10:21)
[2019-03-27] MEDS: Fish Oil 1,000 MG CAP PO SCH ×2 (10:22→21:29)
[2019-03-27] MEDS: Fluticasone Propionate Nasal Spray 16 gm Bottle NASAL SCH (10:22)
[2019-03-27] MEDS: Finasteride 5 MG TAB PO SCH (10:22)
[2019-03-27] MEDS: Pantoprazole 40 MG GRANULES PACKET PO SCH ×2 (10:23→21:29)
[2019-03-27] MEDS: Lisinopril 5 MG TAB PO SCH (10:23)
[2019-03-27] MEDS: Lactinex Tablet PO SCH (10:23)
[2019-03-27] MEDS: guaiFENesin ER 600 MG TAB PO SCH ×2 (10:23→21:29)
[2019-03-27] MEDS: Ubidecarenone 50 MG CAP PO SCH ×2 (10:24→21:29)
--- NOTE | 2019-03-27 11:36 | PRG ---
DATE OF SERVICE: 03/27/2019 I have reviewed the note of Dr. Fiorella Gonzalez, and agree with her assessment and plan. Mr. Nettles is a 73-year-old man with a history of reduced ejection fraction and heart failure, COPD, and atrial fibrillation, who was admitted with shortness of breath of 2 to 3 days duration. He denied any chest pain. He had made some visits to other doctors and was treated for respiratory symptoms with antibiotics and prednisone and did not improve. He presented to the ER short of breath and with a heart rate of 154. He has a history of SVT and had ablation several months ago. In the event, he was also noted to likely be experiencing an exacerbation of heart failure and after one IV dose of Lasix, he diuresed briskly and felt much improved thereafter. He was no longer short of breath and no longer having palpitations. Other studies done while in the hospital. His troponins initially showed a very slight 0.044 consistent with demand ischemia dropping to 0.017. His sodium is 141, potassium 3.7, chloride was 106, bicarb 30, BUN 27, creatinine 1.34. [place] [address], likely a leukemoid reaction from steroids. Hemoglobin was 13.8 and hematocrit was 41.8 with an MCV of 94. As stated, after one dose of IV Lasix, by the next morning, Mr. Nettles looked and felt much better. Mr. Nettles seems to have a very poor understanding of his heart condition and we are consulting the [facility] people to come by and talk to him. After that, he can likely be discharged for close followup. Job ID: [id number]
[2019-03-27] MEDS ORDERED: Furosemide 20 MG/2 ML VIAL SLOW IVP SCH (13:00)
[2019-03-27] MEDS: Nicotine 14 MG PATCH TD SCH (14:44)
--- NOTE | 2019-03-27 20:06 | PRG ---
DATE OF SERVICE: 03/27/2019 SUBJECTIVE: Mr. Nettles came to the hospital with feeling of rapid heart rate. He was found to have a narrow complex tachycardia. The patient has a history of atrial fibrillation, and atrial fibrillation ablation, also history of moderately depressed left ventricular function and mild aortic stenosis with mild coronary artery disease. PHYSICAL EXAMINATION: VITAL SIGNS: The blood pressure 126/59, pulse 68. LUNGS: Clear posteriorly, there are a few rales anteriorly. CARDIAC: Normal S1, normal S2. Previous evaluation an echocardiogram done in October revealed ejection fraction 35-40%, mild aortic stenosis. ASSESSMENT: Recurrent supraventricular arrhythmias. PLAN: 1. I have asked Dr. Jones to check the patient tomorrow morning for further recommendations. 2. Previous pacemaker functioning normally. Job ID: [id number]
[2019-03-27] MEDS: PARoxetine 20 MG TAB PO SCH (21:29)
[2019-03-27] MEDS: Furosemide 20 MG TAB PO SCH (21:30)
[2019-03-28 00:03] LABS: Hemoglobin 12.3 g/dL (14.0-18.0); Platelet Count 192 thou/uL (130-400)
[2019-03-28 05:11] LABS: #Eosinphils 0.1 thou/uL (0.0-0.7); #Lymphocytes 0.9 thou/uL (1.20-3.40); #Monocytes 0.9 thou/uL (0.11-0.59); #Neutrophils 9.3 thou/uL (1.40-6.50); %Basophils 0.2 % (0.0-1.0); %Lymphocytes 8.2 % (21.0-51.0); %Monocytes 8.2 % (0.0-10.0); %Neutrophils 82.3 % (42.0-75.0); Hemoglobin 12.4 g/dL (14.0-18.0); Mean Corpuscular HGB CONC 31.9 g/dL (32.0-36.0); Mean Corpuscular Hemoglobin 30.5 pg (27.0-31.0); Mean Corpuscular Volume 95.6 fL (78.0-98.0); Mean Platelet Volume 7.5 fL (7.4-10.4); Platelet Count 203 thou/uL (130-400); RBC Distribution Width 15.2 % (11.5-14.5); Red Blood Cell (RBC) Count 4.06 mill/uL (4.70-6.10); White Blood Cell (WBC) Count 11.2 thou/uL (4.8-10.8)
[2019-03-28 05:24] LABS: Anion Gap 10 mmol/L (10-20); BUN (Urea Nitrogen) 37 mg/dL (8.4-25.7); Calc. Creatinine Clearance 59 mL/min (70-130); Calcium 8.8 mg/dL (7.8-10.44); Carbon Dioxide 29 mmol/L (23-31); Chloride 105 mmol/L (98-107); Estimated GFR-MDRD 44; Glucose 97 mg/dL (83-110); Sodium 140 mmol/L (136-145)
--- NOTE | 2019-03-28 06:27 | PDOC.FM ---
- Subjective Subjective: Pt denies any cp. States SOB is much improved. No feelings of palpitations overnight. Had episode of hypotension overnight, no associated arrhythmia. - Objective MAR Reviewed: Yes Vital Signs & Weight: Vital Signs (12 hours) Temp Pulse Resp BP BP Pulse Ox 03/28/19 04:40 65 16 117/57 L 94 L 03/28/19 00:04 98.1 F 63 18 94/51 L 93 L 03/27/19 21:29 97/56 L 03/27/19 20:05 98.0 F 65 15 83/46 L 97 Weight Weight 100.698 kg I&O: 03/26/19 03/27/19 03/28/19 06:59 06:59 06:59 Intake Total 964 1200 Output Total 2350 1425 Balance -1386 -225 Result Diagrams: 03/28/19 04:37 03/28/19 04:37 Phys Exam - Physical Examination Constitutional: NAD HEENT: moist MMs, sclera anicteric Neck: supple, full ROM Respiratory: no rales, no rhonchi, wheezing present Cardiovascular: RRR, no rub Gastrointestinal: soft, non-tender, no distention, positive bowel sounds Musculoskeletal: pulses present, edema present (trace LE's) Neurological: non-focal, moves all 4 limbs Psychiatric: A&O x 3 Skin: normal turgor, cap refill <2 seconds Dx/Plan (1) Supraventricular arrhythmia Code(s): I49.9 - CARDIAC ARRHYTHMIA, UNSPECIFIED Status: Acute (2) Acute exacerbation of CHF (congestive heart failure) Code(s): I50.9 - HEART FAILURE, UNSPECIFIED Status: Acute Qualifiers: Heart failure type: systolic Qualified Code(s): I50.23 - Acute on chronic systolic (congestive) heart failure (3) Dyspnea Code(s): R06.00 - DYSPNEA, UNSPECIFIED Status: Acute (4) Elevated troponin Code(s): R74.8 - ABNORMAL LEVELS OF OTHER SERUM ENZYMES Status: Acute (5) History of colon cancer Code(s): Z85.038 - PERSONAL HISTORY OF MALIGNANT NEOPLASM OF LARGE INTESTINE Status: Acute (6) Hyperlipidemia Code(s): E78.5 - HYPERLIPIDEMIA, UNSPECIFIED Status: Acute (7) Nicotine abuse Code(s): Z72.0 - TOBACCO USE Status: Acute (8) Atrial fibrillation Code(s): I48.91 - UNSPECIFIED ATRIAL FIBRILLATION Status: Chronic (9) BPH (benign prostatic hyperplasia) Code(s): N40.0 - BENIGN PROSTATIC HYPERPLASIA WITHOUT LOWER URINRY TRACT SYMP Status: Chronic (10) CAD (coronary atherosclerotic disease) Code(s): I25.10 - ATHSCL HEART DISEASE OF [place] CORONARY ARTERY W/O ANG PCTRS Status: Chronic (11) CKD (chronic kidney disease) Code(s): N18.9 - CHRONIC KIDNEY DISEASE, UNSPECIFIED Status: Chronic (12) Depression Code(s): F32.9 - MAJOR DEPRESSIVE DISORDER, SINGLE EPISODE, UNSPECIFIED Status : Chronic (13) Hypertension Code(s): I10 - ESSENTIAL (PRIMARY) HYPERTENSION Status: Chronic - Plan Plan: 73 y/o M with PMHx of HFrEF, COPD, HTN and A fib admitted to tele obs for further treatment and evaluation of palpitations 2/2 a fib with RVR, rate 150' s. Pt self converted in the ER to NSR, rate 70's. 1. SVT, resolved - Symptomatic with SOB, palpitations; resolved. Likely etiology from CHF exacerbation. - Mag, phos, TSH wnl - CXR: no acute cardiopulmonary findings - Trop 0.045, 0.044, 0.017 likely elevated due to demand ischemia. trended down. - Will consider electrophysiology consult if pt continue to have arrhythmias post interventions. No events on tele monitoring overnight. - interrogate pacemaker, evidence of suprventricular arrhythmias and few episodes of V tach. - Dr. Escobedo consulted on 03/28. Appreciate recs. - continuous cardiac monitoring 2. CHF exacerbation; HFrEF - WBC 14.9, likely elevated from recent steroid use. improved to 8.7 on 03/27. - Chronic cough - CXR no acute cardiopulmonary findings. - gave 40 IV lasix 03/26, 20 mg IV 03/27, restarted home PO lasix 03/27 PM. - resume home heart failure medications. - Echo 10/2018: EF 35-40%, LV mildly dilated, LA mild-mod dilation - daily weights, fluid restrict, strict I/O - Consulted HF clinic. - Dr. Neil is Pt's eyelet cutter, saw pt 03/27 in hospital as courtesy. Thank you for recommendations. 3. Indeterminant Trops - Trop 0.045, 0.044, .0017 - Most likely etiology is demand ischemia from tachyarrhythmia 4. Hx of HTN - resume home meds 5. CKD, with JENNIE - Cr 1.29-> 1.34, GFR 54-> 52, - will monitor with use of diuretics 6. Depression - continue paroxetine 7. Hx of COPD - continue home meds. - Start dulera inhaler. - added mucinex and fluticasone spray for symptomatic treatment of cough. 8. hx of colon ca 9. Hx of BPH - continue home meds Code status: full code Diet: HH, fluid restict 1800 ml daily DVT ppx: eliquis Dispo: stable, admit to tele obs for continuous cardiac monitoring. EP consult 03/28.
[2019-03-28] MEDS: Mometasone/Formoterol 120 PUFF INHALER INH SCH ×4 (06:50→18:18)
[2019-03-28] MEDS: Spironolactone 25 MG TAB PO SCH (08:38)
[2019-03-28] MEDS: Apixaban 5 MG TAB PO SCH ×2 (08:39→21:51)
[2019-03-28] MEDS: Carvedilol 6.25 MG TAB PO SCH (08:39)
[2019-03-28] MEDS: Finasteride 5 MG TAB PO SCH (08:40)
[2019-03-28] MEDS: guaiFENesin ER 600 MG TAB PO SCH ×2 (08:40→21:51)
[2019-03-28] MEDS: Furosemide 20 MG TAB PO SCH ×2 (08:40→21:53)
[2019-03-28] MEDS: Lisinopril 5 MG TAB PO SCH (08:40)
[2019-03-28] MEDS: Fluticasone Propionate Nasal Spray 16 gm Bottle NASAL SCH (08:42)
[2019-03-28] MEDS ORDERED: Sotalol HCl 80 MG TAB PO SCH (10:30)
[2019-03-28] MEDS: Ferrous Sulfate 325 MG TAB PO SCH (10:45)
[2019-03-28] MEDS: Pantoprazole 40 MG GRANULES PACKET PO SCH ×2 (10:45→21:52)
[2019-03-28] MEDS: Fish Oil 1,000 MG CAP PO SCH ×2 (10:45→21:51)
[2019-03-28] MEDS: Lactinex Tablet PO SCH (10:45)
[2019-03-28] MEDS: Ubidecarenone 50 MG CAP PO SCH ×2 (10:45→21:52)
--- NOTE | 2019-03-28 11:01 | PRG ---
DATE OF SERVICE: 03/28/2019 Mr. Nettles is walking comfortably in the hallway, in no distress. He has been seen in consultation by Dr. Neil and by Dr. Escobedo. They have increased his amiodarone and anticipate possible ablation if this increased dose is ineffective. In the event, Mr. Nettles is asymptomatic, in no distress. Job ID: [id number]
[2019-03-28] MEDS: Nicotine 14 MG PATCH TD SCH (15:24)
--- NOTE | 2019-03-28 16:56 | CON ---
DATE OF CONSULTATION: 03/28/2019 This is Page Hammer NP dictating a report for Bogdan Escobedo MD. REASON FOR CONSULTATION: Narrow complex tachycardia and arrhythmia management. HISTORY OF PRESENT ILLNESS: Mr. Nettles is a 73-year-old gentleman, known to our practice for history of CTI dependent flutter and atrial fibrillation, both. His flutter was ablated in 2014 and he underwent PVAI with Dr. Escobedo in August 2018. He has previously been on sotalol very briefly for arrhythmia suppression. This was before his PVAI. He also has a history of nonischemic cardiomyopathy with a severely reduced ejection fraction of 35%. More recent echocardiogram showed improved ejection fraction and previously worn LifeVest was then removed. Since the time of his ablation, he has had occasional episodes of ectopy over 24 hours, largely rate controlled, but his burden remains less than 5%. He has largely been asymptomatic with these episodes when he was seen in clinic earlier this month and it was recommended that he remain on anticoagulation for his CHADS-VASc score of 5. Mr. Nettles presented to [facility] with reports of palpitations and feeling very poorly with shaking and shortness of breath for 2-3 days. He reports the shortness of breath is worse with exertion. His initial EKG showed SVT with rates in the 150s, but this episode has since spontaneously terminated back into sinus rhythm. His pacemaker was interrogated and the report is on the chart. Currently, Mr. Nettles has returned to his room after a smoking break and is feeling much improved. He denies any current heart racing, palpitations, chest pain, pressure, syncope, near syncope, stroke, or stroke-like symptoms. PAST MEDICAL HISTORY: 1. Atrial arrhythmias. a. Atrial fibrillation diagnosed in 03/2018, status post PVAI in 08/2018. b. Typical atrial flutter status post CTI ablation in 09/2015. 2. Chronic systolic heart failure with severely reduced ejection fraction of 35% in 10/2018, though partially recovered by recent echocardiogram in his slubber frame changer's office. 3. Coronary artery disease. 4. Sick sinus syndrome status post dual-chamber pacemaker on 09/27/2014. 5. PVCs. 6. Hypertension. 7. Hyperlipidemia. 8. Depression. 9. Anxiety. 10. Polymyalgia rheumatica. 11. Stage 3 kidney disease. 12. Colon cancer in the remote past. ALLERGIES: IODINE AND STATINS. HOME MEDICATIONS: 1. Finasteride. 2. ProAir. 3. Advair. 4. Probiotic. 5. Fish oil. 6. Paroxetine. 7. Feosol. 8. Esomeprazole. 9. Aldactone. 10. Lasix. 11. Clarithromycin. 12. Carvedilol 12.5 mg b.i.d. 13. Eliquis 5 mg b.i.d. 14. CoQ10. 15. Zestril. FAMILY HISTORY: Father had valvular disease. Mother had cystic fibrosis. SOCIAL HISTORY: Smokes 2 packs a day for 45 years. Denies alcohol or illicit drug use. OBJECTIVE: VITAL SIGNS: Most recent vital signs: Temperature 98.3, pulse 69, blood pressure 113/59, respirations 20, and oxygen is 93% on room air. GENERAL: The patient is alert and oriented. Speech is clear. Affect is appropriate. He is in no apparent distress. HEENT: Head is normocephalic. Extraocular movements are intact. Sclerae anicteric. NECK: Supple without jugular venous distention. Thyroid is nonpalpable. There is no lymphadenopathy. LUNGS: Clear to auscultation bilaterally without wheezes, crackles, or rhonchi. Respirations are even and unlabored. HEART: Rate is irregularly irregular without murmur, rub, or gallop. PMI is nondisplaced. Device is palpable at the left infraclavicular fossa without swelling, bruising, erosion, or drainage. ABDOMEN: Obese, soft, and nontender without palpable masses. Hepatojugular reflux is negative. EXTREMITIES: Warm and dry to touch and well perfused without clubbing, cyanosis, or edema. Gait is stable. DATABASE: EKG today shows sinus rhythm. DEVICE CHECK: The patient has a [employer] Advisa DR MRI-compatible dual-chamber pacemaker, implanted on 09/27/2014. Battery longevity is estimated at 5.5 years. Lead parameters are stable. Underlying rhythm is sinus rhythm. Loaded intact rate is set at 60, upper tracking is 130, AT/AF intact is 150, VT monitor is greater than 150, [employer] HEAD 2%, AP 98%. Device interrogation shows recent and fairly frequent episodes of either atrial tachycardia versus AVNRT occurring right at the tachycardia detect caught off. This in fact episodes are longer than being reported, but the device is functioning normally. LABORATORY DATA: Hematology was unremarkable. White count was slightly elevated at 15 on admission, currently 11.2. Chemistry: Creatinine 1.56 and potassium 4.0. Troponin 0.017 yesterday. IMPRESSION: 1. Supraventricular tachycardia versus atrial tachycardia, occurring at and below the detect rate on his pacemaker, spontaneously terminating in a sinus rhythm. 2. History of atrial arrhythmias with pulmonary venous ablation isolation in 08/2018, now with low burden arrhythmia episodes. 3. CHADS-VASc score of 5, on continued Eliquis for stroke prophylaxis. 4. Cardiomyopathy with partially recovered ejection fraction. 5. Tobacco habituation. PLAN AND RECOMMENDATIONS: Mr. Nettles is a 73-year-old gentleman, well known to our group. By his device interrogation, he is now having episodes of either atrial tachycardia or appears what could be AVNRT. He has had some low burden atrial arrhythmias since his ablation, but has largely been asymptomatic with these. Resuming sotalol 80 mg b.i.d. and would like him monitored in the hospital for at least 4 doses to monitor for any QT prolongation. We will re-evaluate in an outpatient basis and discuss potential redo-ablation versus SVT ablation. In the interim, I will have him continue Eliquis for stroke prophylaxis. Thank you for allowing me to participate in the care of this patient. Job ID: [id number]
[2019-03-28] MEDS: PARoxetine 20 MG TAB PO SCH (21:52)
[2019-03-28] MEDS: Sotalol HCl 80 MG TAB PO SCH (21:52)
[2019-03-29 05:12] LABS: #Eosinphils 0.2 thou/uL (0.0-0.7); #Monocytes 0.8 thou/uL (0.11-0.59); #Neutrophils 4.1 thou/uL (1.40-6.50); %Basophils 0.4 % (0.0-1.0); %Eosinophils 2.7 % (0.0-10.0); %Monocytes 12.6 % (0.0-10.0); %Neutrophils 67.2 % (42.0-75.0); Hemoglobin 11.9 g/dL (14.0-18.0); Mean Corpuscular HGB CONC 32.5 g/dL (32.0-36.0); Mean Corpuscular Hemoglobin 31.4 pg (27.0-31.0); Mean Corpuscular Volume 96.6 fL (78.0-98.0); Mean Platelet Volume 7.5 fL (7.4-10.4); Platelet Count 176 thou/uL (130-400); RBC Distribution Width 14.8 % (11.5-14.5); White Blood Cell (WBC) Count 6.1 thou/uL (4.8-10.8)
[2019-03-29 05:36] LABS: Anion Gap 13 mmol/L (10-20); BUN (Urea Nitrogen) 38 mg/dL (8.4-25.7); Calc. Creatinine Clearance 69 mL/min (70-130); Calcium 8.6 mg/dL (7.8-10.44); Carbon Dioxide 26 mmol/L (23-31); Chloride 106 mmol/L (98-107); Estimated GFR-MDRD 53; Glucose 96 mg/dL (83-110); Potassium 3.6 mmol/L (3.5-5.1); Sodium 141 mmol/L (136-145)
--- NOTE | 2019-03-29 06:30 | PDOC.FM ---
- Subjective Subjective: Dr. Escobedo started sotalol yesterday, pt being monitored for first 4 doses of this medication. Pt had lower BP's overnight. changed torsemide to once daily. No acute overnight events on tele. a paced rate 60-70's. QT measured 444. denies cp, sob improved. - Objective MAR Reviewed: Yes Vital Signs & Weight: Vital Signs (12 hours) Temp Pulse Resp BP BP BP Pulse Ox 03/29/19 04:10 63 16 107/58 L 95 03/28/19 23:43 97.0 F L 55 L 20 90/54 L 95 03/28/19 21:52 78 104/56 L 03/28/19 19:56 96 03/28/19 19:26 98.0 F 78 16 93/54 L 99 Weight Weight 99.246 kg I&O: 03/27/19 03/28/19 03/29/19 06:59 06:59 06:59 Intake Total 964 1200 1340 Output Total 2350 1725 1000 Balance -1386 -525 340 Result Diagrams: 03/29/19 04:46 03/29/19 04:46 Phys Exam - Physical Examination Constitutional: NAD HEENT: moist MMs, sclera anicteric Neck: no nodes, no JVD, full ROM Respiratory: no wheezing, no rales, no rhonchi, clear to auscultation bilateral Cardiovascular: RRR, no rub Gastrointestinal: soft, non-tender, positive bowel sounds Musculoskeletal: pulses present Neurological: non-focal, moves all 4 limbs Psychiatric: normal affect, A&O x 3 Skin: normal turgor, cap refill <2 seconds Dx/Plan (1) Supraventricular arrhythmia Code(s): I49.9 - CARDIAC ARRHYTHMIA, UNSPECIFIED Status: Acute (2) Acute exacerbation of CHF (congestive heart failure) Code(s): I50.9 - HEART FAILURE, UNSPECIFIED Status: Acute Qualifiers: Heart failure type: systolic Qualified Code(s): I50.23 - Acute on chronic systolic (congestive) heart failure (3) Dyspnea Code(s): R06.00 - DYSPNEA, UNSPECIFIED Status: Acute (4) Elevated troponin Code(s): R74.8 - ABNORMAL LEVELS OF OTHER SERUM ENZYMES Status: Acute (5) History of colon cancer Code(s): Z85.038 - PERSONAL HISTORY OF MALIGNANT NEOPLASM OF LARGE INTESTINE Status: Acute (6) Hyperlipidemia Code(s): E78.5 - HYPERLIPIDEMIA, UNSPECIFIED Status: Acute (7) Nicotine abuse Code(s): Z72.0 - TOBACCO USE Status: Acute (8) Atrial fibrillation Code(s): I48.91 - UNSPECIFIED ATRIAL FIBRILLATION Status: Chronic (9) BPH (benign prostatic hyperplasia) Code(s): N40.0 - BENIGN PROSTATIC HYPERPLASIA WITHOUT LOWER URINRY TRACT SYMP Status: Chronic (10) CAD (coronary atherosclerotic disease) Code(s): I25.10 - ATHSCL HEART DISEASE OF [place] CORONARY ARTERY W/O ANG PCTRS Status: Chronic (11) CKD (chronic kidney disease) Code(s): N18.9 - CHRONIC KIDNEY DISEASE, UNSPECIFIED Status: Chronic (12) Depression Code(s): F32.9 - MAJOR DEPRESSIVE DISORDER, SINGLE EPISODE, UNSPECIFIED Status : Chronic (13) Hypertension Code(s): I10 - ESSENTIAL (PRIMARY) HYPERTENSION Status: Chronic - Plan Plan: 73 y/o M with PMHx of HFrEF, COPD, HTN and A fib admitted to tele obs for further treatment and evaluation of palpitations 2/2 a fib with RVR, rate 150' s. Pt self converted in the ER to NSR, rate 70's. 1. SVT vs atria arrhythmia , resolved - Symptomatic with SOB, palpitations; resolved. Likely etiology from CHF exacerbation. - Mag, phos, TSH wnl - CXR: no acute cardiopulmonary findings - Trop 0.045, 0.044, 0.017 likely elevated due to demand ischemia form tachy- arrhythmias. trended down. - interrogate pacemaker, evidence of suprventricular arrhythmias and few episodes of V tach. - Dr. Escobedo consulted on 03/28. Appreciate recs. Added Sotalol and would like to have pt monitored on tele for at least 4 first doses for QT prolongation SE profile. Will f/u out pt for possible ablation. - continuous cardiac monitoring 2. CHF exacerbation; HFrEF - WBC 14.9, likely elevated from recent steroid use. improved to 8.7 on 03/27. - Chronic cough - CXR no acute cardiopulmonary findings. - gave 40 IV lasix 03/26, 20 mg IV 03/27, restarted home PO lasix 03/27 PM. - resume home heart failure medications. - Echo 10/2018: EF 35-40%, LV mildly dilated, LA mild-mod dilation - daily weights, fluid restrict, strict I/O - Consulted HF clinic. - Dr. Neil is Pt's encyclopedia research worker, saw pt 03/27 in hospital as courtesy. Thank you for recommendations. 3. Indeterminant Trops - Trop 0.045, 0.044, .0017 - Most likely etiology is demand ischemia from tachy-arrhythmia 4. Hx of HTN - resume home meds 5. CKD, with JENNIE - Cr 1.29-> 1.34-> 1.31, GFR 54-> 52 - will monitor with use of diuretics 6. Depression - continue paroxetine 7. Hx of COPD - continue home meds. - Start dulera inhaler. - added mucinex and fluticasone spray for symptomatic treatment of cough. 8. hx of colon ca 9. Hx of BPH - continue home meds Code status: full code Diet: HH, fluid restict 1800 ml daily DVT ppx: eliquis Dispo: stable, admit to tele obs for continuous cardiac monitoring. EP consult 03/28. monitoring for 4 doses of sotalol.
[2019-03-29] MEDS: Mometasone/Formoterol 120 PUFF INHALER INH SCH ×4 (07:26→19:18)
[2019-03-29] MEDS: Apixaban 5 MG TAB PO SCH ×2 (08:48→21:03)
[2019-03-29] MEDS: Spironolactone 25 MG TAB PO SCH (08:48)
[2019-03-29] MEDS: Ferrous Sulfate 325 MG TAB PO SCH (08:48)
[2019-03-29] MEDS: Fluticasone Propionate Nasal Spray 16 gm Bottle NASAL SCH (08:49)
[2019-03-29] MEDS: guaiFENesin ER 600 MG TAB PO SCH ×2 (08:49→21:03)
[2019-03-29] MEDS: Fish Oil 1,000 MG CAP PO SCH ×2 (08:49→21:02)
[2019-03-29] MEDS: Finasteride 5 MG TAB PO SCH (08:49)
[2019-03-29] MEDS: Lactinex Tablet PO SCH (08:49)
[2019-03-29] MEDS: Furosemide 20 MG TAB PO SCH (08:49)
[2019-03-29] MEDS: Sotalol HCl 80 MG TAB PO SCH ×2 (08:50→21:02)
[2019-03-29] MEDS: Ubidecarenone 50 MG CAP PO SCH ×2 (08:50→21:02)
[2019-03-29] MEDS: Pantoprazole 40 MG GRANULES PACKET PO SCH ×2 (08:50→21:04)
[2019-03-29] MEDS: Lisinopril 5 MG TAB PO SCH (08:50)
[2019-03-29] MEDS ORDERED: Potassium Chloride 20 MEQ TAB PO SCH (10:15)
--- NOTE | 2019-03-29 11:28 | PRG ---
DATE OF SERVICE: 03/29/2019 Mr. Nettles is resting quietly in bed, in no distress. He was seen in consultation yesterday by the [facility] Failure [facility] and we appreciate their input. Cardiology has started him on sotalol and I recommended that we observe him for 48 hours to ensure there is no significant QT prolongation. Clinically, he is stable. Job ID: [id number]
--- NOTE | 2019-03-29 12:45 | PDOC.CPN ---
- Subjective Date: 03/29/19 Time: 13:01 Interval history: The pt seen and examined. No overnight events. No cardiac complaints. - Objective Allergies/Adverse Reactions: Allergies Allergy/AdvReac Type Severity Reaction Status Date / Time iodine Allergy Unknown Verified 03/26/19 17:21 Tufdlmv-Eep-Axm Reductase Allergy Verified 03/26/19 17:21 Inhibitor Visit Medications: Current Medications Acetaminophen (Tylenol) 650 mg PO Q4H PRN PRN Reason: Headache/Fever/Mild Pain (1-3) Acidophilus (Floranex) 1 tab PO DAILY [facility] Last Admin: 03/29/19 08:49 Dose: 1 tab Albuterol Sulfate (Proventil Hfa) 2 puff INH Q6H PRN PRN Reason: SOB/Wheezing Apixaban (Eliquis) 5 mg PO BID [facility] Last Admin: 03/29/19 08:48 Dose: 5 mg Coenzyme Q10 (Coenzyme Q10) 100 mg PO BID [facility] Last Admin: 03/29/19 08:50 Dose: 100 mg Ferrous Sulfate (Feosol) 325 mg PO DAILY [facility] Last Admin: 03/29/19 08:48 Dose: 325 mg Finasteride (Proscar) 5 mg PO DAILY [facility] Last Admin: 03/29/19 08:49 Dose: 5 mg Fish Oil (Fish Oil) 1,000 mg PO BID [facility] Last Admin: 03/29/19 08:49 Dose: 1,000 mg Fluticasone Propionate (Flonase Nasal Circle) 0 gm NASAL DAILY [facility] Last Admin: 03/29/19 08:49 Dose: Not Given Furosemide (Lasix) 20 mg PO DAILY [facility] Last Admin: 03/29/19 08:49 Dose: 20 mg Guaifenesin (Mucinex) 600 mg PO Q12HR [facility] Last Admin: 03/29/19 08:49 Dose: 600 mg Lisinopril (Zestril) 5 mg PO DAILY [facility] Last Admin: 03/29/19 08:50 Dose: 5 mg Mometasone Furoate/Formoterol Fumar (Dulera 200 Mcg/5 Mcg Inhaler) 2 puff INH BID-RT [facility] Last Admin: 03/29/19 07:26 Dose: 2 puff Mometasone Furoate/Formoterol Fumar (Dulera 100 Mcg/5 Mcg Inhaler) 2 puff INH BID-RT [facility] Last Admin: 03/29/19 07:29 Dose: Not Given Nicotine (Nicoderm Patch) 14 mg TD 1500 [facility] Last Admin: 03/28/19 15:24 Dose: Not Given Ondansetron HCl (Zofran Odt) 4 mg PO Q6H PRN PRN Reason: Nausea/Vomiting Pantoprazole Sodium (Protonix) 40 mg PO BID [facility] Last Admin: 03/29/19 08:50 Dose: 40 mg Paroxetine HCl (Paxil) 40 mg PO HS [facility] Last Admin: 03/28/19 21:52 Dose: 40 mg Sotalol HCl (Betapace) 80 mg PO BID [facility] Last Admin: 03/29/19 08:50 Dose: 80 mg Spironolactone (Aldactone) 12.5 mg PO [facility] Last Admin: 03/29/19 08:48 Dose: 12.5 mg Vital Signs & Weight: Vital Signs Temp Pulse Resp BP BP BP Pulse Ox 03/29/19 11:13 97.4 F L 70 17 101/58 L 97 03/29/19 08:50 65 122/57 L 03/29/19 07:26 98.1 F 65 20 122/57 L 96 03/29/19 04:10 63 16 107/58 L 95 Weight 218 lb 12.8 oz - Physical Exam General: alert & oriented x3 HEENT: mucus membranes moist Neck: supple neck Cardiac: irregularly regular Lungs: decreased breath sounds, wheezes - Labs Result Diagrams: 03/29/19 04:46 03/29/19 04:46 Troponin/CKMB CK-MB (CK-2) 2.9 ng/mL (0-6.6) 03/26/19 12:24 Troponin I 0.017 ng/mL (< 0.028) 03/26/19 18:59 - Telemetry Supraventricular conduction: other (Afib with A paced, PVCs) - Assessment/Plan Assessment/Plan: 1. Afib with RVR - hx of PVAI in 08/2018; On Sotalol 80mg BID since 2100 on ; cont. monitor in the hospital for at least 4 doses for any QT prolongation (ECG today showed no QT changes) 2. Non-ischemic CMY - stable 3. Acute on Chronic Systolic HF with EF 35-40% in 10/2018 - stable; on Lisinopril, Lasix and Sotalol: hx of COPD 4. HTN - stable 5. HLD 6. SSS with hx of dual PM placement in 09/2014 7. CAD 8. CKD stage 3 - 9. hx of colon cancer 10. current smoker - strongly recommend smoking cessation 11. Hx of COPD MAR reviewed * Dr Neil's pt. Pt. seen and eval. by me. I agree with the A/P by the ASSOCIATE CIVIL ENGINEER. QT stable thus far. Chest clear. gjmays
[2019-03-29] MEDS: Nicotine 14 MG PATCH TD SCH (15:08)
[2019-03-29] MEDS: PARoxetine 20 MG TAB PO SCH (21:03)
[2019-03-30 05:43] LABS: #Eosinphils 0.2 thou/uL (0.0-0.7); #Lymphocytes 1.2 thou/uL (1.20-3.40); #Neutrophils 4.8 thou/uL (1.40-6.50); %Basophils 0.1 % (0.0-1.0); %Eosinophils 2.9 % (0.0-10.0); %Lymphocytes 16.9 % (21.0-51.0); %Monocytes 14.3 % (0.0-10.0); %Neutrophils 65.8 % (42.0-75.0); Hemoglobin 11.9 g/dL (14.0-18.0); Mean Corpuscular HGB CONC 32.8 g/dL (32.0-36.0); Mean Corpuscular Hemoglobin 30.9 pg (27.0-31.0); Mean Corpuscular Volume 94.5 fL (78.0-98.0); Mean Platelet Volume 7.7 fL (7.4-10.4); Platelet Count 161 thou/uL (130-400); RBC Distribution Width 14.6 % (11.5-14.5); Red Blood Cell (RBC) Count 3.84 mill/uL (4.70-6.10); White Blood Cell (WBC) Count 7.3 thou/uL (4.8-10.8)
[2019-03-30 06:05] LABS: Anion Gap 11 mmol/L (10-20); BUN (Urea Nitrogen) 30 mg/dL (8.4-25.7); Calc. Creatinine Clearance 83 mL/min (70-130); Calcium 8.8 mg/dL (7.8-10.44); Carbon Dioxide 24 mmol/L (23-31); Chloride 107 mmol/L (98-107); Estimated GFR-MDRD 65; Glucose 85 mg/dL (83-110); Sodium 138 mmol/L (136-145)
--- NOTE | 2019-03-30 06:16 | PDOC.FM ---
- Subjective Subjective: tele monitoring overnight: a-paced rate at 60-70's. no acute overnight events. Receives 4th dose of sotalol this AM. No cp, palpitations or SOB. - Objective MAR Reviewed: Yes Vital Signs & Weight: Vital Signs (12 hours) Temp Pulse Resp BP BP Pulse Ox 03/30/19 04:10 97.3 F L 63 16 109/59 L 95 03/29/19 21:02 75 96 03/29/19 19:23 97.9 F 75 16 114/59 L 96 03/29/19 19:16 70 18 9 L Weight Weight 99.337 kg I&O: 03/28/19 03/29/19 03/30/19 06:59 06:59 06:59 Intake Total 1200 1340 1040 Output Total 1725 1000 1875 Balance -525 340 -835 Result Diagrams: 03/30/19 05:25 03/30/19 05:25 Phys Exam - Physical Examination Constitutional: NAD HEENT: moist MMs, sclera anicteric Neck: supple, full ROM Respiratory: no wheezing, no rales, no rhonchi, clear to auscultation bilateral Cardiovascular: RRR, no rub Gastrointestinal: soft, non-tender Musculoskeletal: pulses present Neurological: non-focal, moves all 4 limbs Psychiatric: normal affect, A&O x 3 Skin: normal turgor, cap refill <2 seconds Dx/Plan (1) Supraventricular arrhythmia Code(s): I49.9 - CARDIAC ARRHYTHMIA, UNSPECIFIED Status: Acute (2) Acute exacerbation of CHF (congestive heart failure) Code(s): I50.9 - HEART FAILURE, UNSPECIFIED Status: Acute Qualifiers: Heart failure type: systolic Qualified Code(s): I50.23 - Acute on chronic systolic (congestive) heart failure (3) Dyspnea Code(s): R06.00 - DYSPNEA, UNSPECIFIED Status: Acute (4) Elevated troponin Code(s): R74.8 - ABNORMAL LEVELS OF OTHER SERUM ENZYMES Status: Acute (5) History of colon cancer Code(s): Z85.038 - PERSONAL HISTORY OF MALIGNANT NEOPLASM OF LARGE INTESTINE Status: Acute (6) Hyperlipidemia Code(s): E78.5 - HYPERLIPIDEMIA, UNSPECIFIED Status: Acute (7) Nicotine abuse Code(s): Z72.0 - TOBACCO USE Status: Acute (8) Atrial fibrillation Code(s): I48.91 - UNSPECIFIED ATRIAL FIBRILLATION Status: Chronic (9) BPH (benign prostatic hyperplasia) Code(s): N40.0 - BENIGN PROSTATIC HYPERPLASIA WITHOUT LOWER URINRY TRACT SYMP Status: Chronic (10) CAD (coronary atherosclerotic disease) Code(s): I25.10 - ATHSCL HEART DISEASE OF [place] CORONARY ARTERY W/O ANG PCTRS Status: Chronic (11) CKD (chronic kidney disease) Code(s): N18.9 - CHRONIC KIDNEY DISEASE, UNSPECIFIED Status: Chronic (12) Depression Code(s): F32.9 - MAJOR DEPRESSIVE DISORDER, SINGLE EPISODE, UNSPECIFIED Status : Chronic (13) Hypertension Code(s): I10 - ESSENTIAL (PRIMARY) HYPERTENSION Status: Chronic - Plan Plan: 73 y/o M with PMHx of HFrEF, COPD, HTN and A fib admitted to tele inpt for further treatment and evaluation of palpitations 2/2 a fib with RVR, rate 150' s. Pt self converted in the ER to NSR, rate 70's. Started on sotalol, needed monitoring for first 4 doses. 1. SVT vs atria arrhythmia , resolved - Symptomatic with SOB, palpitations; resolved. Likely etiology from CHF exacerbation. - Mag, phos, TSH wnl - CXR: no acute cardiopulmonary findings - Trop 0.045, 0.044, 0.017 likely elevated due to demand ischemia form tachy- arrhythmias. trended down. - interrogate pacemaker, evidence of suprventricular arrhythmias and few episodes of V tach. - Dr. Escobedo consulted on 03/28. Appreciate recs. Added Sotalol and would like to have pt monitored on tele for at least 4 first doses for QT prolongation SE profile. Will f/u out pt for possible ablation. - continuous cardiac monitoring 2. CHF exacerbation; HFrEF - WBC 14.9, likely elevated from recent steroid use. improved to 8.7 on 03/27. - Chronic cough - CXR no acute cardiopulmonary findings. - gave 40 IV lasix 03/26, 20 mg IV 03/27, restarted home PO lasix 03/27 PM. - resume home heart failure medications. - Echo 10/2018: EF 35-40%, LV mildly dilated, LA mild-mod dilation - daily weights, fluid restrict, strict I/O - Consulted HF clinic. - Dr. Neil is Pt's magento web developer, saw pt 03/27 in hospital as courtesy. Thank you for recommendations. 3. Indeterminate Trops - Trop 0.045, 0.044, .0017 - Most likely etiology is demand ischemia from tachy-arrhythmia 4. Hx of HTN - resume home meds 5. CKD, with JENNIE - Cr 1.29-> 1.34-> 1.31, GFR 54-> 52 - will monitor with use of diuretics 6. Depression - continue paroxetine 7. Hx of COPD - continue home meds. - Start dulera inhaler. - added mucinex and fluticasone spray for symptomatic treatment of cough. 8. hx of colon ca 9. Hx of BPH - continue home meds Code status: full code Diet: HH, fluid restict 1800 ml daily DVT ppx: eliquis Dispo: stable, admit to tele inpt for continuous cardiac monitoring. EP consult 03/28. monitoring for 4 doses of sotalol.
--- NOTE | 2019-03-30 06:40 | PDOC.EP ---
- Subjective Date: 03/30/19 Time: 08:00 Interval History: follow up for arrhythmia management. Sotalol loading. +shortness of breath and fatigue which are chronic issues - Review of Systems Constitutional: denies: chills, fever, malaise, sweats, weakness, other (+ fatigue) Respiratory: reports: shortness of breath. denies: cough, hemoptysis, pleuritic pain Cardiology: denies: chest pain, edema, heart racing, light headedness, palpitations Gastrointestinal: denies: abdominal pain, constipation, diarrhea - Objective Allergies/Adverse Reactions: Allergies Allergy/AdvReac Type Severity Reaction Status Date / Time iodine Allergy Unknown Verified 03/26/19 17:21 Asyxlzt-Njn-Ymd Reductase Allergy Verified 03/26/19 17:21 Inhibitor Current Medications Acetaminophen (Tylenol) 650 mg PO Q4H PRN PRN Reason: Headache/Fever/Mild Pain (1-3) Acidophilus (Floranex) 1 tab PO DAILY [facility] Last Admin: 03/29/19 08:49 Dose: 1 tab Albuterol Sulfate (Proventil Hfa) 2 puff INH Q6H PRN PRN Reason: SOB/Wheezing Apixaban (Eliquis) 5 mg PO BID [facility] Last Admin: 03/29/19 21:03 Dose: 5 mg Coenzyme Q10 (Coenzyme Q10) 100 mg PO BID [facility] Last Admin: 03/29/19 21:02 Dose: 100 mg Ferrous Sulfate (Feosol) 325 mg PO DAILY [facility] Last Admin: 03/29/19 08:48 Dose: 325 mg Finasteride (Proscar) 5 mg PO DAILY [facility] Last Admin: 03/29/19 08:49 Dose: 5 mg Fish Oil (Fish Oil) 1,000 mg PO BID [facility] Last Admin: 03/29/19 21:02 Dose: 1,000 mg Fluticasone Propionate (Flonase Nasal [place]) 0 gm NASAL DAILY [facility] Last Admin: 03/29/19 08:49 Dose: Not Given Furosemide (Lasix) 20 mg PO DAILY [facility] Last Admin: 03/29/19 08:49 Dose: 20 mg Guaifenesin (Mucinex) 600 mg PO Q12HR [facility] Last Admin: 03/29/19 21:03 Dose: 600 mg Lisinopril (Zestril) 5 mg PO DAILY [facility] Last Admin: 03/29/19 08:50 Dose: 5 mg Mometasone Furoate/Formoterol Fumar (Dulera 200 Mcg/5 Mcg Inhaler) 2 puff INH BID-RT [facility] Last Admin: 03/29/19 19:16 Dose: 2 puff Mometasone Furoate/Formoterol Fumar (Dulera 100 Mcg/5 Mcg Inhaler) 2 puff INH BID-RT [facility] Last Admin: 03/29/19 19:18 Dose: Not Given Nicotine (Nicoderm Patch) 14 mg TD 1500 [facility] Last Admin: 03/29/19 15:08 Dose: Not Given Ondansetron HCl (Zofran Odt) 4 mg PO Q6H PRN PRN Reason: Nausea/Vomiting Pantoprazole Sodium (Protonix) 40 mg PO BID [facility] Last Admin: 03/29/19 21:04 Dose: 40 mg Paroxetine HCl (Paxil) 40 mg PO HS [facility] Last Admin: 03/29/19 21:03 Dose: 40 mg Sotalol HCl (Betapace) 80 mg PO BID [facility] Last Admin: 03/29/19 21:02 Dose: 80 mg Spironolactone (Aldactone) 12.5 mg PO QAM-WM [facility] Last Admin: 03/29/19 08:48 Dose: 12.5 mg Vital Signs & Weight: Vital Signs Temp Pulse Resp BP BP Pulse Ox 03/30/19 04:10 97.3 F L 63 16 109/59 L 95 03/29/19 21:02 75 96 03/29/19 19:23 97.9 F 75 16 114/59 L 96 03/29/19 19:16 70 18 9 L Weight 219 lb I/O: I/O 03/28/19 03/29/19 03/30/19 06:59 06:59 06:59 Intake Total 1200 1340 1040 Output Total 1725 1000 1875 Balance -525 780 -302 - Quality Measures Condition: Atrial Fibrillation/Flutter (hx or current) CV meds: Eliquis: Yes - Physical Exam General: alert & oriented x3, appears well, no apparent distress, speech clear, affect appropriate HEENT: mucus membranes moist, normocephaly Neck: supple neck, midline trachea, no JVD/HJR, no masses, no bruit, no lymphadenopathy, no thromegaly Cardiology: regular rate and rhythm, no murmur, regular rate, regular rhythm, PMI nondisplaced Lungs: no wheeze, rales, rhonchi, decreased breath sounds Neurology: cranial nerve 2-12 intact, grossly intact, motor function intact Abdomen: unremarkable, active bowel sounds, soft, HJR negative Extremities: dry, strong pulses, warm. negative: clubbing, cyanosis, erythema - Labs Result Diagrams: 03/30/19 09:32 03/30/19 09:32 - EKG Interpretation EKG shows: Sinus rhythm - Device Device: dual - Assessment/Plan Assessment/Plan: 1. Supraventricular tachycardia versus atrial tachycardia -occurring at and below the detect rate on his pacemaker, spontaneously terminating in a sinus rhythm. 2. History of atrial arrhythmias -with pulmonary venous ablation isolation in 08/2018, now with low burden arrhythmia episodes. 3. CHADS-VASc score of 5, -on continued Eliquis for stroke prophylaxis. 4. Cardiomyopathy -with partially recovered ejection fraction. 5. Tobacco habituation. Sotalol initiated on Wednesday. QTc ~460 by EKG this AM. Stable on sotalol. OK for DC by EP. Creat stable at 1.1 6 week follow up to discuss repeat ablation for A tach vs AVNRT.
[2019-03-30 08:06] VITALS: TEMP 98.2
[2019-03-30] MEDS: Mometasone/Formoterol 120 PUFF INHALER INH SCH ×2 (08:15→08:16)
[2019-03-30] MEDS: Spironolactone 25 MG TAB PO SCH (09:20)
[2019-03-30] MEDS: guaiFENesin ER 600 MG TAB PO SCH (09:21)
[2019-03-30] MEDS: Finasteride 5 MG TAB PO SCH (09:21)
[2019-03-30] MEDS: Ferrous Sulfate 325 MG TAB PO SCH (09:21)
[2019-03-30] MEDS: Lactinex Tablet PO SCH (09:21)
[2019-03-30] MEDS: Pantoprazole 40 MG GRANULES PACKET PO SCH (09:21)
[2019-03-30] MEDS: Apixaban 5 MG TAB PO SCH (09:21)
[2019-03-30] MEDS: Fish Oil 1,000 MG CAP PO SCH (09:21)
[2019-03-30] MEDS: Lisinopril 5 MG TAB PO SCH (09:21)
[2019-03-30] MEDS: Furosemide 20 MG TAB PO SCH (09:21)
[2019-03-30] MEDS: Sotalol HCl 80 MG TAB PO SCH (09:21)
[2019-03-30] MEDS: Ubidecarenone 50 MG CAP PO SCH (09:22)
[2019-03-30] MEDS: Fluticasone Propionate Nasal Spray 16 gm Bottle NASAL SCH (09:22)
[2019-03-30 09:44] LABS: Hemoglobin 12.7 g/dL (14.0-18.0); Platelet Count 175 thou/uL (130-400)
--- NOTE | 2019-03-30 11:06 | PRG ---
DATE OF SERVICE: 03/30/2019 Mr. Nettles is sitting quietly in bed, in no distress. His EKG this morning does not show significant QT prolongation. He will be discharged on his sotalol, to follow up with Cardiology. Job ID: [id number]
[2019-03-30 11:43] VITALS: BP 97/55
--- NOTE | 2019-03-30 16:36 | EKG ---
Test Reason : ROUTINE Blood Pressure : / mmHG Vent. Rate : 063 BPM Atrial Rate : 063 BPM P-R Int : 000 ms QRS Dur : 118 ms QT Int : 448 ms P-R-T Axes : 000 072 239 degrees QTc Int : 458 ms Atrial-paced rhythm with prolonged AV conduction with occasional Premature ventricular complexes Non-specific intra-ventricular conduction delay Abnormal ECG When compared with ECG of 26-MAR-2019 12:28, (Unconfirmed) Premature ventricular complexes are now Present T wave inversion now evident in Inferior leads T wave inversion now evident in Lateral leads Confirmed by DR. Monique HUTCHISON (3) on 03/30/2019 4:35:57 PM Referred By: ODALYS SMITH Confirmed By:DR. Monique HUTCHISON
--- NOTE | 2019-03-30 16:37 | EKG ---
Test Reason : TIMED Blood Pressure : / mmHG Vent. Rate : 068 BPM Atrial Rate : 040 BPM P-R Int : 000 ms QRS Dur : 116 ms QT Int : 418 ms P-R-T Axes : 000 069 111 degrees QTc Int : 444 ms Electronic atrial pacemaker Nonspecific ST and T wave abnormality some aberrantly conducted beats Abnormal ECG When compared with ECG of 28-MAR-2019 23:36, (Unconfirmed) Premature ventricular complexes are no longer Present T wave inversion no longer evident in Inferior leads Confirmed by DR. Monique HUTCHISON (3) on 03/30/2019 4:37:36 PM Referred By: LUIS Confirmed By:DR. Monique HUTCHISON
--- NOTE | 2019-03-30 16:45 | EKG ---
Test Reason : SCHEDULED Blood Pressure : / mmHG Vent. Rate : 072 BPM Atrial Rate : 072 BPM P-R Int : 000 ms QRS Dur : 116 ms QT Int : 424 ms P-R-T Axes : 000 060 148 degrees QTc Int : 464 ms Electronic atrial pacemaker Nonspecific ST and T wave abnormality Prolonged QT pvc's Abnormal ECG When compared with ECG of 29-MAR-2019 08:44, (Unconfirmed) No significant change was found Confirmed by DR. Monique HUTCHISON (3) on 03/30/2019 4:45:09 PM Referred By: KUNAL Confirmed By:DR. Monique HUTCHISON
--- NOTE | 2019-03-30 16:47 | EKG ---
Test Reason : TIMED Blood Pressure : / mmHG Vent. Rate : 080 BPM Atrial Rate : 080 BPM P-R Int : 242 ms QRS Dur : 114 ms QT Int : 392 ms P-R-T Axes : 000 071 084 degrees QTc Int : 452 ms Electronic atrial pacemaker Nonspecific ST and T wave abnormality pvc's Abnormal ECG When compared with ECG of 29-MAR-2019 08:44, (Unconfirmed) No significant change was found Confirmed by DR. Monique HUTCHISON (3) on 03/30/2019 4:47:32 PM Referred By: LUIS Confirmed By:DR. Monique HUTCHISON
--- NOTE | 2019-03-31 15:32 | DIS ---
DATE OF ADMISSION: 03/28/2019 DATE OF DISCHARGE: 03/30/2019 RESIDENT: Fiorella Gonzalez DO ADMITTING ATTENDING: Jim Giordano MD DISCHARGE ATTENDING: Favio Resendez MD CONSULTS: Dr. Escobedo with Electrophysiology and Dr. Hinojosa with Cardiology. PROCEDURES PERFORMED: None. DIAGNOSES: 1. Supraventricular tachycardia versus atrial arrhythmia. 2. Congestive heart failure exacerbation, heart failure with reduced ejection fraction. 3. Indeterminate stroke. 4. History of hypertension. 5. Chronic kidney disease with acute kidney injury. 6. Depression. 7. History of chronic obstructive pulmonary disease. 8. History of colon cancer. 9. History of BPH. DISCHARGE MEDICATIONS: 1. Albuterol 2 puffs inhaled q.6 hours. 2. Eliquis 5 mg p.o. b.i.d. 3. Nexium 40 mg p.o. b.i.d. 4. Ferrous sulfate 325 mg p.o. daily. 5. Finasteride 5 mg p.o. daily. 6. Fish oil 1000 mg p.o. b.i.d. 7. Fluticasone nasal spray 1 to 2 sprays each naris daily. 8. Lasix 20 mg p.o. b.i.d. 9. Guaifenesin 600 mg p.o. q.12 hours. 10. Probiotic one capsule p.o. daily. 11. Lisinopril 5 mg p.o. daily. 12. Paroxetine 40 mg p.o. daily. 13. Sotalol 80 mg p.o. b.i.d. 14. Spironolactone 12.5 mg p.o. q.a.m. 15. CoQ10 one tablet p.o. b.i.d. DISCONTINUED MEDICATIONS: Carvedilol. HISTORY OF PRESENT ILLNESS/HOSPITAL COURSE: Mr. Nettles is a 73-year-old male with a history of heart failure with reduced ejection fraction, COPD, hypertension, atrial fibrillation, came in because of feeling very bad off and on the last few weeks, was found to be SVT on admission with symptoms of dyspnea, lightheadedness and palpitations. The patient was diuresed, seems clinically volume overloaded at the time, and his symptoms of palpitations as well as evidence of any arrhythmias went away on telemonitoring. Dr. Escobedo was consulted, who had recently seen the patient, but changed his medications of carvedilol to sotalol and adjusted his pacemaker. Dr. Escobedo wants to see the patient in the office setting in the next couple weeks. He also recommended starting Eliquis 5 mg b.i.d. The patient's arrhythmia were not present throughout the hospital course and he was much improved after he diuresed well. DISPOSITION: Stable upon discharge. DISCHARGE INSTRUCTIONS: 1. Location: Home. 2. Diet: Heart healthy. 3. Activity: As tolerated. 4. Followup: Follow up with Dr. Escobedo in 2 to 3 weeks. Follow up with [facility] in 14 days. Follow up with Dr. Neil on 05/24/2019. Followup with [facility] on 04/06/2019. Job ID: [id number]
== END 2019-03-30 13:58 | disposition home or self-care (01) | DRG 291 ==
LOC: ERS 12:13 → ERHOLD 14:09 → 2SW 16:58 → OBSVTOIN 03-28 10:11
PROVIDERS: ADMIT Family Medicine; ATTEND Neuromusculoskeletal Medicine & OMM
PROC: 4B02XSZ Measurement of Cardiac Pacemaker, External Approach (ICD-10-PCS; principal; 2019-03-26)
DX: I13.0 Hypertensive heart and chronic kidney disease with heart failure and stage 1 through stage 4 chronic kidney disease, or unspecified chronic kidney disease (principal); I50.23 Acute on chronic systolic (congestive) heart failure; I47.1 Supraventricular tachycardia; I24.8 Other forms of acute ischemic heart disease; N17.9 Acute kidney failure, unspecified; J44.9 Chronic obstructive pulmonary disease, unspecified; I48.91 Unspecified atrial fibrillation; R79.9 Abnormal finding of blood chemistry, unspecified; E78.5 Hyperlipidemia, unspecified; F17.200 Nicotine dependence, unspecified, uncomplicated; N40.0 Benign prostatic hyperplasia without lower urinary tract symptoms; I25.10 Atherosclerotic heart disease of native coronary artery without angina pectoris; F32.9 Major depressive disorder, single episode, unspecified; I35.0 Nonrheumatic aortic (valve) stenosis; N18.3 Chronic kidney disease, stage 3 (moderate); F41.9 Anxiety disorder, unspecified; I42.8 Other cardiomyopathies; Z95.0 Presence of cardiac pacemaker; Z71.6 Tobacco abuse counseling; Z85.038 Personal history of other malignant neoplasm of large intestine
CPT/HCPCS: 36415; 71046; 80048; 80053; 82553; 83735; 83880; 84100; 84145; 84443; 84484; 85025; 90471; 90662; 90670; 93005; 93010; 94640; 94760; 96360; G0008; G0009; J1940; J7620

== ENCOUNTER 2019-05-10 08:45 | Observation (INO) | payer MEDICARE, BC ==
[2019-05-09 10:03] VITALS: BMI 28.8
[2019-05-10] MEDS ORDERED: Fentanyl 100 MCG/2 ML VIAL ONE ×2 (10:41→14:17)
[2019-05-10] MEDS ORDERED: HEPARIN ONE (11:08)
[2019-05-10] MEDS ORDERED: Heparin 10,000 UNITS/1 ML VIAL ONE ×3 (11:08→13:29)
[2019-05-10] MEDS ORDERED: Ondansetron PF 4 MG/2 ML Vial ONE (11:20)
[2019-05-10] MEDS ORDERED: EPHEDRINE 25 MG/5 ML SYRINGE ONE (11:20)
[2019-05-10] MEDS ORDERED: Glycopyrrolate 0.2 MG/ML 5 ML SYRINGE ONE (11:20)
[2019-05-10] MEDS ORDERED: Lidocaine 1% PF 5 ML VIAL ONE (11:20)
[2019-05-10] MEDS ORDERED: PROPOFOL 200 MG/20 ML VIAL ONE (11:20)
[2019-05-10] MEDS ORDERED: PHENYLEPHRINE-NS 100 MCG/ML 10 ML SYRINGE ONE (11:20)
[2019-05-10] MEDS ORDERED: Rocuronium Bromide 10 MG/ML (10ML VIAL) ONE (11:20)
[2019-05-10] MEDS ORDERED: Heparin 25,000 units/D5W 500 ML ONE (12:10)
[2019-05-10] MEDS ORDERED: Isoproterenol 0.2 MG/1 ML AMP ONE ×2 (12:56)
[2019-05-10] MEDS ORDERED: Norepinephrine 4 MG/4 ML VIAL ONE (12:56)
[2019-05-10] MEDS ORDERED: Protamine Sulfate 50 MG/5 ML VIAL ONE (13:38)
[2019-05-10] MEDS ORDERED: Ketorolac Tromethamine 30 MG/ML VIAL IVP PRN (15:04)
[2019-05-10] MEDS ORDERED: Acetaminophen 325 MG TAB PO PRN (15:07)
[2019-05-10] MEDS ORDERED: PROVENTIL INHALER 6.7 G (200 INHALATIONS) INH PRN (15:07)
[2019-05-10] MEDS ORDERED: Acetaminophen/Codeine 30-300mg Tablet PO PRN ×2 (15:15)
[2019-05-10] MEDS: Sucralfate 1 GM TAB PO SCH (18:28)
[2019-05-10] MEDS ORDERED: Finasteride 5 MG TAB PO SCH (21:00)
[2019-05-10] MEDS: Apixaban 5 MG TAB PO SCH (21:16)
[2019-05-10] MEDS: Ubidecarenone 50 MG CAP PO SCH (21:16)
[2019-05-11] MEDS: Sucralfate 1 GM TAB PO SCH ×2 (00:45→05:59)
[2019-05-11] MEDS ORDERED: Spironolactone 25 MG TAB PO SCH (08:00)
[2019-05-11] MEDS ORDERED: Ferrous Sulfate 325 MG TAB PO SCH (08:00)
[2019-05-11] MEDS ORDERED: Potassium Chloride 20 MEQ TAB PO SCH (08:30)
[2019-05-11] MEDS ORDERED: Furosemide 20 MG/2 ML VIAL SLOW IVP SCH (08:30)
[2019-05-11] MEDS: Apixaban 5 MG TAB PO SCH (08:37)
[2019-05-11] MEDS: Ubidecarenone 50 MG CAP PO SCH (08:37)
[2019-05-11 08:38] VITALS: BP 150/67
[2019-05-11 08:52] VITALS: TEMP 97.4
[2019-05-11] MEDS ORDERED: PARoxetine 20 MG TAB PO SCH (09:00)
[2019-05-11] MEDS ORDERED: Lactinex Tablet PO SCH (09:00)
[2019-05-11] MEDS ORDERED: Fish Oil 1,000 MG CAP PO SCH (09:00)
[2019-05-11] MEDS ORDERED: Lisinopril 5 MG TAB PO SCH (09:00)
[2019-05-11] MEDS ORDERED: Furosemide 20 MG TAB PO SCH (09:00)
--- NOTE | 2019-05-11 14:36 | OP ---
DATE OF PROCEDURE: 05/10/2019 PROCEDURES PERFORMED: Electrophysiology study and radiofrequency ablation. REASON FOR PROCEDURE: Mr. Nettles is a 73-year-old male with prior history of CHF and cardiomyopathy. He has reduced LVEF and 45% to 50% range in January 2019. He has a dual-chamber pacemaker in place and he has bradycardia. 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 He is here for EP study and ablation. DESCRIPTION OF PROCEDURE: The patient received propofol by Anesthesia specialist. General anesthesia was delivered. After adequate level of sedation achieved, the left and right femoral veins were prepped, draped, and anesthetized using subcutaneous lidocaine and ultrasound guidance, both femoral veins were cannulated x2. On the left side, an 11-Dutch sheath was used to advance an intracardiac echocardiogram probe to the right atrium, advanced to the right atrium and it was used to monitor the pericardial space, the transeptal procedure as soon as the catheter manipulation. Also on the left side, a Preface sheath was advanced and used to deliver a DuoDeca catheter into the coronary sinus in right atrial position. On the right side, two 8-Dutch short sheaths were introduced and a ThermoCool SFST catheter was advanced to the right atrium. 3D map for right atrium was obtained, delineating His bundle, CS, cavotricuspid isthmus IVC, and SVC locations clearly. Basic EP study was performed with the following findings. Baseline rhythm was sinus rhythm with RR of 97 milliseconds, AZ 138 milliseconds, QRS 50 milliseconds, QTc 78 milliseconds, AH 93 milliseconds, HV 58 milliseconds. Intermittent atrial pacing was noted for the chronic pacemaker. Sinus node recovery time is 1614 with correction 600 milliseconds. AV Wenckebach cycle was 460 milliseconds. Retrograde Wenckebach cycle length at baseline was 520 milliseconds. Concentric retrograde VA conduction was seen. AV jacquelyn ERP was 600/240 milliseconds with dual AV node physiology was present. Burst atrial pacing maneuvers do not reinduce any SVT or atrial flutter fibrillation at baseline. At this point, transseptal puncture was performed using two SL1 sheaths from the right femoral vein under intracardiac echo monitoring and utilizing a [employer] transseptal needle. IV heparin was also administered at this time and in IV bolus and drip fashion and ACTs were monitored throughout the procedure. ACT was kept over 350. A PentaRay catheter and ThermoCool SFST catheter were advanced to the left atrium. 3D map of the left atrium was obtained obtaining a voltage map as well. Significant amount of scarring in the posterior wall and pulmonary veins were seen consistent with prior ablation. Activation map was also noted. There is minor reconnection and a posterior wall portion of the right inferior vein is seen, also in the inferior portion of the posterior wall in superior line, also had some minor reconnection. These areas were ablated with close attention paid to the esophagus with the esophageal temperature probe to avoid excessive heating. Following that, Isuprel was administered and any reconnection was reablated. AV induction was re-attempted and we were able to induce AV ajcquelyn reentrant tachycardia appearing tachyarrhythmia with cycle length 370 milliseconds. Ventricular overdrive pacing demonstrated VA, AV response. The catheter was pulled back from the left side, and an octapolar catheter was advanced to the RV and His position. heparin was stopped. The slow pathway modification was performed with clear junctional beats observed throughout at 25 arceo energy delivered through the ThermoCool SFST catheter. No AV block was seen. Following this, Isuprel was readministered and arrhythmia induction reattempted, but we were not able to reinduce AV jacquelyn reentrant tachycardia. After slow pathway modification, AV Wenckebach cycle length about 460 milliseconds. At the end of the case, the catheter was removed from the body and the sheath was changed to short sheaths. The protamine was administered to reverse heparin effect, and Vascade closure was performed under ultrasound guidance on all four venous access sites. Also, prior to this, intracardiac echo did not demonstrate any change in the pericardial space and cardiac silhouette did not change either throughout the procedure. The patient tolerated the procedure well. No complications noted. At the end of the case, pacemaker function under verified and reprogrammed back to the original settings. CONCLUSION: 1. 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 2. Successful pathway modification performed eliminating inducibility of AV jacquelyn reentrant tachycardia. 3. Connections of the right inferior pulmonary veins and inferior posterior wall were ablated. 4. No evidence of accessory pathway. 5. Abnormal sinus jacquleyn function but with adequate pacemaker function present from a chronic indwelling pacemaker. PLAN: Continue oral anticoagulation. Stop sotalol. Monitor for recurrent arrhythmia. Job ID: [id number]
--- NOTE | 2019-05-12 11:57 | DIS ---
DATE OF ADMISSION: 05/10/2019 DATE OF DISCHARGE: 05/11/2019 This is Penelope Stokes NP, for Bogdan Escobedo MD. FINAL HOSPITAL DISCHARGE DIAGNOSES: 1. Persistent atypical atrial flutter in spite of previous pulmonary venous antrum isolation. 2. Supraventricular tachycardia. 3. Sinus node dysfunction. 4. Dual-chamber pacemaker in-situ. 5. Congestive heart failure, probably combination of systolic and diastolic dysfunction. PROCEDURES: On 05/10/2019, the patient underwent re-isolation of the right inferior pulmonary vein in the left atrial wall. He was also inducible for AV jacquelyn reentrant tachycardia and underwent radiofrequency modification of the slow AV jacquelyn pathway. SUMMARY: Ruben Nettles is a 73-year-old male patient, who has a history of persistent atrial fibrillation. He underwent pulmonary venous antrum isolation. He experienced late recurrence of atypical atrial flutter and was recommended for further left atrial ablated therapy. This was accomplished by Dr. Escobedo without incident. Post procedure, the patient was maintaining sinus mechanism. He was given Lasix with supplemental potassium for mild fluid overload. PHYSICAL EXAMINATION: On discharge; GENERAL: The patient is an overweight appearing male, in no apparent distress. VITAL SIGNS: Blood pressure 123/59, pulse 71, and respirations 18. NECK: Supple without jugular venous distention. RESPIRATORY: Breath sounds diminished throughout the lung german, but no adventitious sounds were noted. Respiratory effort unlabored with good bilateral excursion. CARDIOVASCULAR: Regular rate and rhythm. S1 and S2. ABDOMEN: Soft/nontender. Bowel sounds normoactive. Hepatojugular reflex negative. EXTREMITIES: No lower extremity edema noted. DIAGNOSTIC DATA: Monitor tracing demonstrated atrial pacing with intact AV node conduction. DISCHARGE MEDICATIONS: 1. Carafate 1 g p.o. q.6 hours for 2 weeks. 2. Spironolactone 12.5 mg daily. 3. Paxil 40 mg daily. 4. Protonix 40 mg daily for 2 weeks. 5. Lisinopril 5 mg daily. 6. Lasix 40 mg daily for 3 days, then back down to 20 mg daily. 7. Potassium chloride 40 mEq p.o. daily for 3 days. 8. Fish oil daily. 9. Ferrous sulfate daily. 10. Proscar 5 mg daily. 11. Eliquis 5 mg b.i.d. 12. Albuterol inhaler p.r.n. 13. Tylenol No.3 one to two tablets p.o. q.4 hours p.r.n. pain as previously directed. DISPOSITION: Home. PROGNOSIS: Good. FOLLOWUP: Tests and appointments, Dr. Bogdan Escobedo in 6 weeks. The patient was encouraged to avoid strenuous activity and lifting more than 10 pounds for 1 week. He should notify our office regarding fever, chills, shortness of breath, chest discomfort, difficulty swallowing, or groin hematoma. Job ID: [id number]
== END 2019-05-11 11:05 | disposition home or self-care (01) ==
LOC: CCL 08:45 → 2SE 17:10
PROVIDERS: ADMIT Internal Medicine Cardiovascular Disease; ATTEND Internal Medicine Cardiovascular Disease
PROC: 02583ZZ Destruction of Conduction Mechanism, Percutaneous Approach (ICD-10-PCS; principal; 2019-05-10)
PROC: 4A023FZ Measurement of Cardiac Rhythm, Percutaneous Approach (ICD-10-PCS; 2019-05-10)
PROC: 4A0234Z Measurement of Cardiac Electrical Activity, Percutaneous Approach (ICD-10-PCS; 2019-05-10)
PROC: 02K83ZZ Map Conduction Mechanism, Percutaneous Approach (ICD-10-PCS; 2019-05-10)
DX: I47.1 Supraventricular tachycardia (principal); I48.19 Other persistent atrial fibrillation; I48.4 Atypical atrial flutter; I11.0 Hypertensive heart disease with heart failure; I50.20 Unspecified systolic (congestive) heart failure; I42.9 Cardiomyopathy, unspecified; G47.33 Obstructive sleep apnea (adult) (pediatric); I25.10 Atherosclerotic heart disease of native coronary artery without angina pectoris; E78.5 Hyperlipidemia, unspecified; N40.0 Benign prostatic hyperplasia without lower urinary tract symptoms; F32.9 Major depressive disorder, single episode, unspecified; E87.70 Fluid overload, unspecified; M35.3 Polymyalgia rheumatica; F41.9 Anxiety disorder, unspecified; D64.9 Anemia, unspecified; Z87.891 Personal history of nicotine dependence; Z79.01 Long term (current) use of anticoagulants; Z79.899 Other long term (current) drug therapy; Z95.0 Presence of cardiac pacemaker; Z95.5 Presence of coronary angioplasty implant and graft; Z99.89 Dependence on other enabling machines and devices; Z98.890 Other specified postprocedural states
CPT/HCPCS: 76942; 85347 ×2; 93005 ×2; 93613; 93623; 93655; 93656; 93662; 96374; C1730; C1731; C1732; C1759; C1769; G0378 ×2; 93010; J1644; J1940; J2001; J2405; J2704; J2720; J3010

== ENCOUNTER 2019-08-14 13:33 | Outpatient (CLI) | payer MEDICARE, BC ==
--- NOTE | 2019-08-14 14:11 | ULT ---
ULTRASOUND DOPPLER DUPLEX VENOUS LEFT LOWER EXTREMITY: DATE: 08/14/2019 HISTORY: 73-year-old male with left lower extremity pain TECHNIQUE: Grayscale, color-flow, and spectral analysis, of major veins of left lower extremity. FINDINGS: There is demonstration of blood flow with normal compressibility, of the left common femoral, profund a femoral, greater saphenous, femoral, popliteal, and posterior tibial, veins. IMPRESSION: Negative. No deep venous thrombosis of left lower extremity.
== END 2019-08-14 13:34 | disposition home or self-care (01) ==
LOC: ULT 13:33
PROVIDERS: ATTEND Internal Medicine Infectious Disease
DX: M79.662 Pain in left lower leg (principal)

== ENCOUNTER → 2019-08-15 | Day surgery (SDC) | payer MEDICARE, BC ==
[~2019-08-15] MED LIST changes: +Heparin 1,000 UNITS/ML VIAL ONE; -Prevnar 13-Val Conj/PF 0.5 ML SYRINGE IM ONE
--- NOTE | 2019-08-15 11:08 | SPC ---
Right upper extremity PICC sonographic guided HISTORY: UTI. FINDINGS: After explaining the procedure and answering all questions, the right upper extremity was p repped and draped in usual sterile fashion. Sterile technique, buffered local anesthesia, sonographic guidance, and a 22-gauge needle were used t o carefully access the right basilic vein. Standard technique was used to place the tip of a 5 [place] single lumen PICC so that the tip lies at the cavoatrial junction. Catheter was flushed and secured externally. Patient tolerated the procedure well and was dismissed i n good condition. Fluoroscopy time 0.2 minutes. IMPRESSION : Right upper extremity PICC is ready for use.
== END ==
LOC: SPEC 08:10
PROVIDERS: ATTEND Internal Medicine Infectious Disease
PROC: 02HV33Z Insertion of Infusion Device into Superior Vena Cava, Percutaneous Approach (ICD-10-PCS; principal; 2019-08-15)
PROC: B548ZZA Ultrasonography of Superior Vena Cava, Guidance (ICD-10-PCS; 2019-08-15)
DX: N39.0 Urinary tract infection, site not specified (principal); Z88.3 Allergy status to other anti-infective agents; Z88.8 Allergy status to other drugs, medicaments and biological substances
CPT/HCPCS: 36569; C1751; J1644

== ENCOUNTER 2019-10-19 10:50 | Observation (INO) | payer MEDICARE, BC, OTHER ==
[2019-10-19] MEDS ORDERED: Albuterol 200 PUFF (6.7GM INHALER) ONE (11:18)
[2019-10-19 11:29] LABS: #Eosinphils 0.1 thou/uL (0.0-0.7); #Lymphocytes 1.3 thou/uL (1.20-3.40); #Monocytes 0.6 thou/uL (0.11-0.59); #Neutrophils 3.4 thou/uL (1.40-6.50); %Basophils 0.8 % (0.0-1.0); %Eosinophils 1.7 % (0.0-10.0); %Lymphocytes 23.9 % (21.0-51.0); %Monocytes 11.5 % (0.0-10.0); %Neutrophils 62.2 % (42.0-75.0); Mean Corpuscular HGB CONC 32.9 g/dL (32.0-36.0); Mean Corpuscular Hemoglobin 32.2 pg (27.0-31.0); Mean Corpuscular Volume 97.8 fL (78.0-98.0); Platelet Count 152 thou/uL (130-400); RBC Distribution Width 11.6 % (11.5-14.5); Red Blood Cell (RBC) Count 3.71 mill/uL (4.70-6.10); White Blood Cell (WBC) Count 5.5 thou/uL (4.8-10.8)
--- NOTE | 2019-10-19 11:39 | RAD ---
Exam: Chest one view HISTORY:Shortness of breath. Weakness. Comparison: 11/10/2018, 06/14/2019 FINDINGS: Pacing device: Stable left-sided dual-lead transvenous pacemaker. Cardiac silhouette:Mild enlarged cardiac silhouette Aorta: Atherosclerosis Pulmonary vessels: Normal Costophrenic angles: Clear LUNGS: Hyperinflation with chronic changes. No consolidation or mass. Pneumothorax: None Osseous abnormalities: No acute osseous abnormalities. Nonspecific metallic density projects over the right axillary soft tissues. IMPRESSION: 1. Atherosclerosis 2. Correlate for congestive heart failure.
[2019-10-19 11:59] LABS: ALT (SGPT) 10 U/L (8-55); AST (SGOT) 16 U/L (5-34); Albumin 3.6 g/dL (3.4-4.8); Alkaline Phosphatase 71 U/L (40-110); Anion Gap 11 mmol/L (10-20); BUN (Urea Nitrogen) 24 mg/dL (8.4-25.7); Bilirubin, Total 0.8 mg/dL (0.2-1.2); Calc. Creatinine Clearance 0 mL/min (70-130); Calcium 8.7 mg/dL (7.8-10.44); Carbon Dioxide 23 mmol/L (23-31); Chloride 106 mmol/L (98-107); Estimated GFR-MDRD 49; Globulin 3.4 g/dL (2.4-3.5); Glucose 132 mg/dL (83-110); Potassium 3.6 mmol/L (3.5-5.1); Sodium 136 mmol/L (136-145)
[2019-10-19] MEDS ORDERED: Aspirin 325 MG TAB ONE (12:30)
[2019-10-19 12:33] LABS: Actual Bicarbonate (HCO3a) 24.7 mEq/L (22-28); Analyzer IN Cardio ER; Base Excess (BEa) 0.1 mEq/L (-2.0 to +3.0); CO2 Tension 40.2 mmHg (35.0-45.0); Calcium, Ionized (arterial) 1.18 mmol/L (1.12-1.30); Carboxyhemoglobin (COHb) 2.7 gm% (0.0-3.0); Hemoglobin (Hb) 11.8 g/dL (14.0-18.0); O2 Tension (PaO2), arterial 167.4 mmHg (> 70.0); Potassium - ABG Lab 3.79 mmol/L (3.70-5.30); pH, Arterial 7.41 (7.35-7.45)
[2019-10-19 12:39] LABS: Puncture Site LRA
--- NOTE | 2019-10-19 13:25 | PDOC.FPRHP ---
- History of Present Illness Chief Complaint: Feeling bad and SOB History of Present Illness: Mr. Nettles is a 74yo M with a PMH of atrial arrhythmia s/p ablation x2 and AICD , HTN, HLD, HFrEF, COPD, current tobacco abuse, CAD s/p stents, and CKD who presents for feeling weak for about 1 week. He also complains of polyuria "peeing all day and night" and a decreased appetite. He has experienced some weakness and SOB as well. He has some 'heart problems' and sees Drs. Escobedo and Rashaad, last visit 3 months ago. Has noticed he's a little swollen in his feet. He has also noticed gurgling noises when he breathes, which has been going on for a while. He has inhalers that he uses "when he needs them". ED Course: ASA 325, Albuterol 4 puffs - Allergies/Adverse Reactions Allergies Allergy/AdvReac Type Severity Reaction Status Date / Time iodine Allergy Unknown Verified 06/16/19 17:39 Oucozlz-Vpe-Utu Reductase Allergy Verified 06/16/19 17:39 Inhibitor - Home Medications Medication Instructions Recorded Confirmed Type Fish Oil/DHA/EPA [Fish Oil 1,200 720 mg PO BID 11/13/13 10/19/19 History mg Fish Oil] PARoxetine HCl 40 mg PO DAILY 05/30/17 10/19/19 History Esomeprazole Magnesium [NexIUM 40 mg PO DAILY 04/18/18 10/19/19 History Oral Suspension] Finasteride 5 mg PO DAILY 08/17/18 10/19/19 History Apixaban [Eliquis] 1 tab PO BID 09/19/18 10/19/19 History Spironolactone [Aldactone] 12.5 mg PO QAM-WM #15 tab 11/14/18 10/19/19 Rx Ferrous Sulfate [Feosol] 325 mg PO DAILY 03/26/19 10/19/19 History Lisinopril [Zestril] 5 mg PO DAILY 03/26/19 10/19/19 History Ubidecarenone/Vit E Acet [Co Q-10 1 tab PO BID 03/26/19 10/19/19 History 100 mg Softgel] Furosemide [Lasix] 40 mg PO DAILY 3 Days tab 05/11/19 10/19/19 Rx - History PMHx: A fib, s/p AICD CAD, with stents HFrEF (11/14 EF 35-40%) COPD HTN CKD HLD iorn deficiency anemia colon cancer in P[facility]x: colon resection in mid . Gastric ulcer repair. FHx: father: valvular heart disease. Mother: cystic fibrosis. Social: smokes 2 PPD for 45 years. denies etoh, or drug use. - Review of Systems General: reports: weight/appetite/sleep changes, fatigue. denies: fever/chills , night sweats Eyes: denies: eye pain, vision changes ENT: denies: nasal congestion, rhinorrhea Respiratory: reports: shortness of breath. denies: cough, congestion, exercise intolerance Cardiovascular: reports: edema, orthopnea. denies: chest pain, palpitation, paroxysmal nocturnal dyspnea Gastrointestinal: denies: nausea, vomiting, constipation Genitourinary: reports: other (Nocturia). denies: incontinence, dysuria, polyuria Skin: denies: rashes, lesions Musculoskeletal: denies: pain, tenderness Neurological: reports: weakness. denies: numbness, syncope, seizure - Vital signs BP: 146/77, MAP: 100, Pulse: 64, Resp: 22, Pain: 0, O2 sat: 100 on (2L Oxygen), Time: 10/19/2019 12:25. Wt: 104.33kg - Physical Exam Constitutional: NAD, awake, alert and oriented HEENT: normocephalic and atraumatic, EOMI, grossly normal vision, grossly normal hearing -HEENT: Poor dentition Neck: supple, trachea midline Heart: RRR, normal S1/S2, no murmurs/rubs/gallops -Heart: Non pitting edema present bilaterally. Lungs: no respiratory distress, good air movement -Lungs: Rales and rhonchi present bilaterally Abdomen: soft, non-tender, bowel sounds present Musculoskeletal: normal structure, normal tone Neurological: no focal deficit, CN II-XII intact Skin: no rash/lesions, good turgor Heme/Lymphatic: no unusual bruising or bleeding, no purpura Psychiatric: normal mood and affect, good judgment and insight, intact recent and remote memory FMR H&P: Results - Labs Result Diagrams: 10/19/19 11:15 10/19/19 11:15 Lab results: WBC 5.5 thou/uL (4.8-10.8) 10/19/19 11:15 Hgb 12.0 g/dL (14.0-18.0) L 10/19/19 11:15 Hct 36.3 % (42.0-52.0) L 10/19/19 11:15 MCV 97.8 fL (78.0-98.0) 10/19/19 11:15 Plt Count 152 thou/uL (130-400) 10/19/19 11:15 Neutrophils % 62.2 % (42.0-75.0) 10/19/19 11:15 ABG pH 7.41 (7.35-7.45) 10/19/19 12:33 ABG pCO2 40.2 mmHg (35.0-45.0) 10/19/19 12:33 ABG pO2 167.4 mmHg (> 70.0) H 10/19/19 12:33 Sodium 136 mmol/L (136-145) 10/19/19 11:15 Potassium 3.6 mmol/L (3.5-5.1) 10/19/19 11:15 Chloride 106 mmol/L (98-107) 10/19/19 11:15 Carbon Dioxide 23 mmol/L (23-31) 10/19/19 11:15 BUN 24 mg/dL (8.4-25.7) 10/19/19 11:15 Creatinine 1.40 mg/dL (0.7-1.3) H 10/19/19 11:15 Glucose 132 mg/dL (83-110) H 10/19/19 11:15 Lactic Acid 1.1 mmol/L (0.5-2.2) 10/19/19 11:15 Calcium 8.7 mg/dL (7.8-10.44) 10/19/19 11:15 Total Bilirubin 0.8 mg/dL (0.2-1.2) 10/19/19 11:15 AST 16 U/L (5-34) 10/19/19 11:15 ALT 10 U/L (8-55) 10/19/19 11:15 Alkaline Phosphatase 71 U/L (40-110) 10/19/19 11:15 CK-MB (CK-2) 2.0 ng/mL (0-6.6) 10/19/19 11:15 B-Natriuretic Peptide 234.9 pg/mL (0-100) H 10/19/19 11:15 Serum Total Protein 7.0 g/dL (5.8-8.1) 10/19/19 11:15 Albumin 3.6 g/dL (3.4-4.8) 10/19/19 11:15 COVID 19 Negative 10/19/2019 (rapid test in ER) - EKG Interpretation EKG: Atrial paced rhytm with PVCs - Radiology Interpretation Chest x-ray Status: image reviewed by me, report reviewed by me (Hyperinflation with chronic changes. Cardiomegaly.) FMR H&P: A/P - Problem List (1) HFrEF (heart failure with reduced ejection fraction) Current Visit: Yes Status: Acute Code(s): I50.20 - UNSPECIFIED SYSTOLIC ( CONGESTIVE) HEART FAILURE (2) Acute respiratory failure with hypoxia Current Visit: No Status: Acute Code(s): J96.01 - ACUTE RESPIRATORY FAILURE WITH HYPOXIA (3) COPD exacerbation Current Visit: No Status: Acute Code(s): J44.1 - CHRONIC OBSTRUCTIVE PULMONARY DISEASE W (ACUTE) EXACERBATION (4) Dyspnea Current Visit: No Status: Acute Code(s): R06.00 - DYSPNEA, UNSPECIFIED (5) Elevated troponin Current Visit: No Status: Acute Code(s): R74.8 - ABNORMAL LEVELS OF OTHER SERUM ENZYMES (6) History of colon cancer Current Visit: No Status: Acute Code(s): Z85.038 - PERSONAL HISTORY OF MALIGNANT NEOPLASM OF LARGE INTESTINE (7) Hyperlipidemia Current Visit: No Status: Acute Code(s): E78.5 - HYPERLIPIDEMIA, UNSPECIFIED (8) Nicotine abuse Current Visit: No Status: Acute Code(s): Z72.0 - TOBACCO USE (9) Weakness Current Visit: No Status: Acute Code(s): R53.1 - WEAKNESS (10) Anemia Current Visit: No Status: Chronic Code(s): D64.9 - ANEMIA, UNSPECIFIED (11) BPH (benign prostatic hyperplasia) Current Visit: No Status: Chronic Code(s): N40.0 - BENIGN PROSTATIC HYPERPLASIA WITHOUT LOWER URINRY TRACT SYMP (12) CAD (coronary atherosclerotic disease) Current Visit: No Status: Chronic Code(s): I25.10 - ATHSCL HEART DISEASE OF [place] CORONARY ARTERY W/O ANG PCTRS (13) CKD (chronic kidney disease) Current Visit: No Status: Chronic Code(s): N18.9 - CHRONIC KIDNEY DISEASE, UNSPECIFIED (14) Depression Current Visit: No Status: Chronic Code(s): F32.9 - MAJOR DEPRESSIVE DISORDER , SINGLE EPISODE, UNSPECIFIED (15) Hypertension Current Visit: No Status: Chronic Code(s): I10 - ESSENTIAL (PRIMARY) HYPERTENSION (16) Obesity (BMI 30-39.9) Current Visit: No Status: Chronic Code(s): E66.9 - OBESITY, UNSPECIFIED - Plan CHF vs COPD exacerbation - Initially required O2 for symptoms, however saturation was 100% on RA. - Procal pending - CXR shows bilateral changes consistent with CHF. - Will give one dose of lasix - Echo 10/2018: EF 35-40%, LV mildly dilated, LA mild-mod dilation - daily weights, fluid restrict, strict I/O - Resume home medications Indeterminant Trops - Trop 0.032, will trend Hx of HTN - resume home meds Hx of CKD - Cr 1.40, CrCl 64mL/min - will monitor with use of diuretics Depression - continue paroxetine Hx of COPD - continue home meds. - continue steroid taper Hx of colon ca - s/p resection Hx of BPH - continue home meds H/o atrial arrhythmia - s/p ablation and AICD. - EKG showed atrial paced rhythm. - Will monitor on tele. Code status: full code Diet: HH, fluid restict 1800 ml daily DVT ppx: Xarelto Dispo: stable, admit to tele obs for continuous cardiac monitoring. FMR H&P: Upper Level - Plan Date/Time: 10/19/19 1325 Addendum - Attending - Attending Attestation Date/Time: 10/19/19 1635 I personally evaluated the patient and discussed the management with Dr. Friend. I agree with the History, Examination, Assessment and Plan documented above with any addition or exceptions noted below.
[2019-10-19 14:14] LABS: SARS-CoV-2 NAA Rapid Test Not Detected (NotDetected)
[2019-10-19] MEDS ORDERED: Calcium Carbonate 500 MG ChewTAB PO PRN (14:35)
[2019-10-19] MEDS ORDERED: Guaifenesin DM 100-10/5 ML UDCUP PO PRN (14:35)
[2019-10-19] MEDS ORDERED: Ondansetron ODT 4 MG TAB PO PRN (14:35)
[2019-10-19] MEDS ORDERED: Nicotine 21 MG PATCH TD PRN (14:35)
[2019-10-19] MEDS ORDERED: Acetaminophen 325 MG TAB PO PRN (14:35)
[2019-10-19] MEDS ORDERED: Furosemide 20 MG/2 ML VIAL SLOW IVP SCH ×2 (15:00→16:02)
[2019-10-19 15:04] LABS: Troponin I 0.027 ng/mL (< 0.028)
[2019-10-19] MEDS ORDERED: Furosemide 20 MG/2 ML VIAL ONE (15:21)
[2019-10-20 04:30] LABS: #Basophils 0.1 thou/uL (0.0-0.2); #Eosinphils 0.1 thou/uL (0.0-0.7); #Lymphocytes 1.8 thou/uL (1.20-3.40); #Monocytes 0.7 thou/uL (0.11-0.59); #Neutrophils 3.7 thou/uL (1.40-6.50); %Basophils 0.9 % (0.0-1.0); %Lymphocytes 27.8 % (21.0-51.0); %Monocytes 11.2 % (0.0-10.0); %Neutrophils 58.1 % (42.0-75.0); Hemoglobin 11.1 g/dL (14.0-18.0); Mean Corpuscular HGB CONC 32.2 g/dL (32.0-36.0); Mean Corpuscular Hemoglobin 31.4 pg (27.0-31.0); Mean Corpuscular Volume 97.5 fL (78.0-98.0); Mean Platelet Volume 8.4 fL (7.4-10.4); Platelet Count 148 thou/uL (130-400); RBC Distribution Width 11.7 % (11.5-14.5); Red Blood Cell (RBC) Count 3.54 mill/uL (4.70-6.10); White Blood Cell (WBC) Count 6.4 thou/uL (4.8-10.8)
[2019-10-20 04:48] LABS: Anion Gap 12 mmol/L (10-20); BUN (Urea Nitrogen) 25 mg/dL (8.4-25.7); Calc. Creatinine Clearance 63 mL/min (70-130); Carbon Dioxide 27 mmol/L (23-31); Chloride 104 mmol/L (98-107); Estimated GFR-MDRD 45; Glucose 82 mg/dL (83-110); Potassium 3.9 mmol/L (3.5-5.1); Sodium 139 mmol/L (136-145)
--- NOTE | 2019-10-20 06:10 | PDOC.FM ---
- Subjective Subjective: Denies SOB, Chest pain. Reports good urine output. No complaints or concerns this morning. - Objective MAR Reviewed: Yes Vital Signs & Weight: Vital Signs (12 hours) Temp Pulse Resp BP Pulse Ox 10/20/19 04:10 97.4 F L 61 16 134/63 96 10/20/19 00:49 16 10/19/19 19:50 98.4 F 62 18 107/52 L 93 L 10/19/19 18:56 91 16 96 Weight Weight 105.959 kg I&O: 10/18/19 10/19/19 10/20/19 06:59 06:59 06:59 Intake Total 500 Output Total 890 Balance -390 Result Diagrams: 10/20/19 04:03 10/20/19 04:03 EKG Reviewed by me: Yes (10 seconds of Vtach; sleeing, no symptoms ) Phys Exam - Physical Examination Constitutional: NAD HEENT: PERRLA, moist MMs Neck: full ROM Rales in lower lobes, no respiratory distress Cardiovascular: RRR Possible murmur Gastrointestinal: soft, non-tender, positive bowel sounds edema of the feet, non pitting Neurological: non-focal, moves all 4 limbs Psychiatric: normal affect Skin: no rash Dx/Plan - Plan Plan: CHF vs COPD exacerbation - No longer on NC, used CPAP throughout the night - Procal 0.07 - s/p one dose of lasix, home lasix started - daily weights, fluid restrict, strict I/O - Resume home medications Indeterminant Trops - Trop 0.032 > .027 > .040 will trend Hx of HTN - resume home meds Hx of CKD - Cr 1.40 > 1.51 - likely due to lasix, will monitor Depression - continue paroxetine Hx of COPD -Duonebs ordered -consider starting Spiriva Hx of colon ca - s/p resection Hx of BPH - continue home meds H/o atrial arrhythmia - s/p ablation and AICD. - EKG showed atrial paced rhythm. - 10 seconds of Vtach overnight; pt was asymptomatic; will continue to monitor; consider cards consult and echo Tobacco use -patches ordered Code status: full code Diet: HH, fluid restict 1800 ml daily Ppx: home eliquis, home protonix PCP: Ajith Dispo: stable, admit to tele obs for continuous cardiac monitoring. Addendum - Attending - Attending Attestation Date/Time: 10/20/19 1231 I personally evaluated the patient and discussed the management with Dr. Sanders. I agree with the History, Examination, Assessment and Plan documented above with any addition or exceptions noted below. Patient with some improvement overnight. Admitted for LAMAR in setting of mild CHF exacberbation. No hypoxia. He is not taking all the medications he is prescribed. Diuresing well. He had some Vtach overnight so will consult cardiology given the potential for worsening CHF and need for AICD or Lifevest.
[2019-10-20] MEDS ORDERED: Lisinopril 5 MG TAB PO SCH (09:00)
[2019-10-20] MEDS ORDERED: Furosemide 20 MG TAB PO SCH (09:00)
[2019-10-20] MEDS ORDERED: Apixaban 5 MG TAB PO SCH ×2 (09:00)
[2019-10-20] MEDS ORDERED: PAROXETINE HCL 40 MG PO SCH (09:00)
[2019-10-20] MEDS ORDERED: Ubidecarenone 50 MG CAP PO SCH (09:00)
[2019-10-20] MEDS ORDERED: UBIDECARENONE PO SCH (09:00)
[2019-10-20] MEDS ORDERED: VIT E ACET PO SCH (09:00)
[2019-10-20] MEDS ORDERED: Non-Formulary Item 1 EACH (Esomeprazole Magnesium [Nexium Oral Suspension] 40 MG) PO SCH (09:00)
[2019-10-20] MEDS ORDERED: Fish Oil 1,000 MG CAP PO SCH (09:00)
[2019-10-20] MEDS ORDERED: FISH OIL PO SCH (09:00)
[2019-10-20] MEDS ORDERED: predniSONE 20 MG TAB PO SCH ×2 (09:00→17:15)
[2019-10-20] MEDS ORDERED: Furosemide 40 MG TAB PO SCH (09:00)
[2019-10-20] MEDS ORDERED: Finasteride 5 MG TAB PO SCH (09:00)
[2019-10-20] MEDS ORDERED: DHA PO SCH (09:00)
[2019-10-20] MEDS ORDERED: PARoxetine 20 MG TAB PO SCH (09:00)
[2019-10-20] MEDS ORDERED: EPA PO SCH (09:00)
[2019-10-20] MEDS ORDERED: Ferrous Sulfate 325 MG TAB PO SCH (09:00)
[2019-10-20 10:50] VITALS: BMI 29.2
[2019-10-20] MEDS ORDERED: Fluticasone Propionate Nasal Spray 16 gm Bottle NASAL SCH ×2 (11:00→15:30)
[2019-10-20 16:23] VITALS: BP 122/60; TEMP 98.9
[2019-10-20] MEDS ORDERED: Rivaroxaban 10 MG TAB PO SCH (17:00)
[2019-10-20] MEDS ORDERED: Mometasone 100 MCG/Formoterol 5 MCG 120 PUFF INHALER INH SCH (18:30)
--- NOTE | 2019-10-20 19:34 | CON ---
DATE OF CONSULTATION: 10/20/2019 REASON FOR CONSULTATION: Weakness and fatigue, history of congestive heart failure, history of coronary artery disease, and history of atrial arrhythmias. HISTORY OF PRESENT ILLNESS: Mr. Nettles is a 74-year-old gentleman. His predominant symptom is that he just feels progressively more fatigued in the last two months. He also noticed he has to get up at night more to urinate. He was retaining fluid. He was taking furosemide at some point, but at some point he stops. He is not having chest pain. He has occasional palpitations. No syncope or near syncope. MEDICATIONS: At home, he was taking; 1. Xarelto 20 mg a day with evening meal. 2. Spironolactone 12.5 mg a day. 3. Lisinopril 5 mg a day. 4. Lasix, he had stopped taking. 5. Carvedilol. He was taking it previously, but then stopped. SOCIAL HISTORY: He smokes. He continues to smoke, the nursing staff indicates to me that he has been going outside and smoking frequently including even at night. REVIEW OF SYSTEMS: CONSTITUTIONAL: Positive for weakness and fatigue. VISION: No changes. HEARING: No changes. PULMONARY: Shortness of breath with exertion. CARDIAC: No chest pain. GASTROINTESTINAL: No nausea, vomiting, or diarrhea. SKIN: No rashes. NEUROLOGIC: No unilateral weakness or numbness. PSYCHIATRIC: No unusual depression or anxiety. The patient is not taking aspirin. The patient is on iron. Apparently, he has been found to be iron deficient in the past. Reviewing the laboratory, he did have a ferritin of 123 in 2017, but it was down to 44 in October of 2018. PHYSICAL EXAMINATION: GENERAL: This is a 74-year-old gentleman, resting comfortably, in no distress. VITAL SIGNS: Blood pressure 122/60 and pulse 80 and regular. LUNGS: Clear. CARDIAC: Normal S1 and normal S2. ABDOMEN: Obese and nontender. EXTREMITIES: No clubbing or cyanosis. There is [id number] edema. LABORATORY DATA: Echocardiogram shows ejection fraction 30% to 35%, slightly below what it was previously at 35% to 40%. The patient on interrogating the pacemaker has had some very brief episodes of nonsustained ventricular tachycardia up to 5 seconds. The patient did have previous stent implantation in the circumflex artery. Most recent catheterization in 2014, the left main and LAD did not have obstructive stenosis. The circumflex stent was not obstructed. He has an obtuse marginal with a long plaque extends back to the parent vessel, not appropriate for stenting, would jeopardize the entire circumflex to try to open that. He has no significant stenosis in the right coronary artery. There is a posterior descending artery lesion borderline about midway down the posterior descending artery and that was best treated medically. In addition, it is unclear whether he could tolerate antiplatelet drugs as he does need antithrombotic drugs. ASSESSMENT AND PLAN: 1. Congestive heart failure, predominantly responsible for the fatigue symptoms. 2. Coronary artery disease best treated medically at most recent catheterization. 3. History of iron-deficiency anemia. He is not anemic now. 4. Noncompliance. At one point, he was on Coreg, we will need to get back on that. 5. Stop lisinopril, changed to Entresto. 6. Consideration for outpatient stress testing as he has some evidence of ischemia. 7. Need to be considered for upgrading his pacemaker to pacemaker defibrillator. 8. Strongly encouraged smoking cessation, he is significantly reducing his prognosis by continuing to smoke. 9. Can be followed up as an outpatient. 10. Also has aortic stenosis, which looks [id number] on echocardiogram today with a relatively low gradient. Please see the notes. Job ID: [id number]
--- NOTE | 2019-10-21 05:56 | CON ---
DATE OF CONSULTATION: 10/20/2019 HISTORY OF PRESENT ILLNESS: I am seeing Mr. Nettles at our [facility] as Electrophysiology pension consultant. His problems are; 1. Current admission with marked fatigue, tiredness, possible fluid overload. 2. Nonsustained ventricular tachycardia on telemetry. 3. Recurrent atrial arrhythmias: a. History of persisting atrial fibrillation, status post pulmonary venous isolation procedure on 08/28/2018. b. Narrow complex SVT during hospitalization on 03/28/2019. c. Transient sotalol use for suppression. d. Redo left atrial ablation as well as slow pathway modification on May 10, 2019, without subsequent recurrent arrhythmia. 4. History of bradycardia, status post dual-chamber pacemaker implant on 09/27/2014 with a Medtronic Advisa device: a. Pacemaker interrogation today reveals adequate Medtronic Advisa DR dual-chamber device. 5. Chronic systolic/diastolic heart failure with reduced LVEF: a. 2D echo from 02/18/2019, revealed LVEF 45% to 50%. b. Followup echo on 10/20/2019, reveals LVEF 30% to 35%. 6. History of anemia, on anticoagulation: a. Current hemoglobin is 12, on chronic apixaban. 7. History of kidney disease. BUN 24, creatinine 1.4. 8. History of colon cancer. 9. History of polymyalgia, on steroids. 10. History of depression and anxiety. ALLERGIES: NONE. MEDICATIONS: At home included; 1. Fish oil supplements. 2. Paroxetine. 3. Esomeprazole. 4. Finasteride. 5. Apixaban. 6. Spironolactone. 7. Ferrous sulfate. 8. Lisinopril. 9. Coenzyme Q10. 10. Furosemide. SUBJECTIVE: Mr. Nettles has been getting increasingly fatigued and tired. He also complains of polyuria, peeing all night, and decreased appetite. He has some dyspnea as well. He has some swelling on his legs, some gurgling when he is breathing noted and he needs to use his inhalers more often, hence he came to the ER. He denies palpitations or loss of consciousness. No stroke-like symptoms. No neurological deficits. No fever, chills, or cough. Rest of 12-point review of system otherwise unremarkable. In the hospital, he was evaluated by the Family Practice Residency Team. He was treated for heart failure with reduced ejection fraction, 2D echo rechecked with worsening LVEF compared to prior numbers. LVEF at 30% to 35%, also due to the COPD exacerbation, diuresis, I was consulted hence, has nonsustained ventricular arrhythmia on monitor and to evaluate his pacemaker function. So far, no arrhythmia noted on telemetry otherwise of significance. PAST MEDICAL HISTORY: As above. He has history of mild obesity; hypertension; depression; chronic kidney disease; BPH; anemia; history of smoking; hyperlipidemia; colon cancer; dyspnea; COPD exacerbation, acute on chronic; heart failure with reduced ejection fraction with some history of coronary artery disease in the past. SOCIAL HISTORY: He is a smoker. Denies EtOH or drug abuse. Lives alone. Prior left heart catheterization showed mild plaquing, no obstructive disease in the left main, 70% circumflex lesion, no significant disease in the LAD and RCA. LVEF 35% at that time. FAMILY HISTORY: Not contributory. OBJECTIVE DATA: VITAL SIGNS: Blood pressure is 126/73, heart rate 75, respirations 15, temperature 98.6 degrees Fahrenheit. GENERAL: Alert and oriented man, in no apparent distress. He has elevated BMI. NECK: Supple. Jugular veins slightly distended. CHEST: Coarse without crackles. HEART: Sounds are regular to rate and rhythm. No murmur or gallop. ABDOMEN: Benign. Bowel sounds positive. EXTREMITIES: Lower extremities with 2+ edema. No cyanosis. Pulses are diminished. Left precordial pacemaker insertion site is well healed. NEUROLOGIC: The patient is nonfocal. MUSCULOSKELETAL: No joint swelling or deformity. SKIN: Without rash. DATABASE: White cell count 6.4, hemoglobin is 11.1, platelet count is 148 from today. Sodium 139, potassium 3.9, BUN is 25, creatinine 1.51. Troponin levels 0.027, 0.04. The BNP is 234.9 on admission. The COVID test RT-PCR is negative. The EKG from admission reveals atrially paced rhythm conduction. Telemetry strips revealed sinus rhythm, no atrial fibrillation or SVT. A short 10-beat nonsustained ventricular tachycardia was noted. Interrogation of his pacemaker reveals a Medtronic Advisa dual-chamber device, battery longevity is 4.5 years. Lead parameters are adequate; impedances, sensing 1.4 and 8.6 mV. Capture thresholds are adequate. Atrial fibrillation episodes have resolved without major recurrences since January. Nonsustained ventricular tachycardia of 7 episodes were seen, no sustained ventricular arrhythmias are noted. Very short nonsustained 1-to-1 episodes are seen in April, but diminished since then. ASSESSMENT AND PLAN: Mr. Nettles is a 74-year-old man with history of recurrent atrial arrhythmias. 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 He had no recurrent atrial fibrillation or SVT since. He also has a pre-existing dual-chamber pacemaker for sinus node disease. He had history of mild to moderate LV dysfunction, moderate most recently in the 40% to 45% range. On the other hand, current echocardiogram reveals moderate to severely reduced LVEF at 30% to 35%. He also has occasional nonsustained ventricular tachycardia. Currently, he is admitted with heart failure exacerbation. He is likely to be at elevated ventricular arrhythmia risk. He may benefit from consideration of an ICD upgrade. Dual-chamber ICD likely would suffice. Currently he is ventricular pacing only 1.9%. The pros and cons of this approach will be discussed after recuperation from his admitting COPD/CHF exacerbation. This could be performed in or outpatient. Continue monitoring for atrial or supraventricular arrhythmias or ventricular tachycardia. Job ID: [id number]
[2019-10-21] MEDS ORDERED: Spironolactone 25 MG TAB PO SCH (08:00)
[2019-10-21] MEDS ORDERED: Carvedilol 3.125 MG TAB PO SCH (08:00)
[2019-10-21] MEDS ORDERED: predniSONE 20 MG TAB PO SCH (08:00)
[2019-10-21] MEDS ORDERED: Furosemide 20 MG TAB PO SCH (09:00)
[2019-10-21] MEDS ORDERED: Rivaroxaban 10 MG TAB PO SCH (09:00)
[2019-10-21] MEDS ORDERED: Fluticasone Propionate Nasal Spray 16 gm Bottle NASAL SCH (09:00)
--- NOTE | 2019-10-23 11:52 | DIS ---
DATE OF ADMISSION: 10/19/2019 DATE OF DISCHARGE: 10/20/2019 RESIDENT: Radha Sanders MD ADMITTING ATTENDING: Jg Servin MD DISCHARGE ATTENDING: Jg Servin MD CONSULT: Cardiology. PROCEDURES/IMAGES: 1. X-ray, atherosclerosis and signs of congestive heart failure. 2. Echocardiogram, ejection fraction of 30% to 35%. DISCHARGE MEDICATIONS: 1. Fish oil 720 mg p.o. b.i.d. 2. Paroxetine 40 mg p.o. daily. 3. Nexium 40 mg p.o. daily. 4. Finasteride 5 mg p.o. daily. 5. Spironolactone 12.5 mg p.o. q.a.m. with meals. 6. Ubidecarenone/vitamin E 1 tab p.o. daily. 7. Ferrous sulfate 325 mg p.o. daily. 8. Acetaminophen 650 mg p.o. q.4 hours p.r.n. 9. Carvedilol 3.125 mg p.o. b.i.d. with meals. 10. Lasix 20 mg p.o. daily. 11. DuoNeb as needed. 12. Dulera 1 puff b.i.d. 13. Prednisone 40 mg p.o. q.a.m. with meals for 4 days. 14. Xarelto 20 mg p.o. daily. 15. Entresto 1 tab p.o. twice a day. DISCONTINUED MEDICATION: Lisinopril 5 mg p.o. daily. PRIMARY DIAGNOSIS: Congestive heart failure exacerbation. SECONDARY DIAGNOSES: 1. Chronic obstructive pulmonary disease exacerbation. 2. Hypertension. 3. Chronic kidney disease. 4. Depression. 5. Atrial arrhythmia. HISTORY OF PRESENT ILLNESS/HOSPITAL COURSE: Mr. Nettles is a 74-year-old male with past medical history of atrial arrhythmia status post ablation x2, sick sinus syndrome status post pacemaker, hypertension, hyperlipidemia, heart failure with reduced ejection fraction, COPD, coronary artery disease status post stent, chronic kidney disease, and current tobacco use, who presented for not feeling well. He complained of weakness and shortness of breath. The patient was admitted for suspected CHF exacerbation as well as COPD exacerbation. He was evaluated by Cardiology, who performed an echo that revealed a 30% to 35% ejection fraction. He was given Lasix throughout his stay to help with his volume status. The patient also experienced wheezing and shortness of breath after his volume status had been corrected, making us suspect a COPD exacerbation in which he was given steroids to be taken for [address] field court researcher recommended Entresto and gave the patient samples. They recommended that he continue his Coreg at 3.125 mg twice a day as well as Lasix 20 mg daily. They recommended that he stop taking lisinopril. The patient was discharged home with the above adjusted medications as well as the remaining course of steroids and the Dulera inhaler prescription. DISPOSITION: Stable. DISCHARGE INSTRUCTIONS: 1. Location: Home. 2. Diet: Heart healthy. 3. Activity: As tolerated. 4. Followup: Follow up at [facility] and with Dr. Neil. Job ID: [id number]
--- NOTE | 2019-11-11 13:48 | EKG ---
Test Reason : SOB Blood Pressure : / mmHG Vent. Rate : 068 BPM Atrial Rate : 068 BPM P-R Int : 000 ms QRS Dur : 118 ms QT Int : 432 ms P-R-T Axes : 000 057 256 degrees QTc Int : 459 ms Atrial-paced rhythm with premature ventricular or aberrantly conducted complexes Incomplete left bundle branch block Nonspecific T wave abnormality Abnormal ECG Confirmed by HUONG ORTIZ, PIPER Sherwood ([id number]), film editor supervisor JOSHUA JENNINGS ([id number]) on 11/11/2019 1:47:34 PM Referred By: HUONG Confirmed By:PIPER BORJA MD
== END 2019-10-20 18:27 | disposition home or self-care (01) ==
LOC: ERS 10:50 → ERHOLD 12:34 → 2NO 16:16
PROVIDERS: ADMIT Student in an Organized Health Care Education/Training Program; ATTEND Student in an Organized Health Care Education/Training Program
DX: I13.0 Hypertensive heart and chronic kidney disease with heart failure and stage 1 through stage 4 chronic kidney disease, or unspecified chronic kidney disease (principal); I50.43 Acute on chronic combined systolic (congestive) and diastolic (congestive) heart failure; N18.9 Chronic kidney disease, unspecified; J44.1 Chronic obstructive pulmonary disease with (acute) exacerbation; F32.9 Major depressive disorder, single episode, unspecified; I47.2 Ventricular tachycardia; I48.19 Other persistent atrial fibrillation; J96.01 Acute respiratory failure with hypoxia; N40.1 Benign prostatic hyperplasia with lower urinary tract symptoms; R35.8 Other polyuria; F17.210 Nicotine dependence, cigarettes, uncomplicated; E78.5 Hyperlipidemia, unspecified; I25.10 Atherosclerotic heart disease of native coronary artery without angina pectoris; F41.9 Anxiety disorder, unspecified; M35.3 Polymyalgia rheumatica; I35.2 Nonrheumatic aortic (valve) stenosis with insufficiency; I08.1 Rheumatic disorders of both mitral and tricuspid valves; E66.9 Obesity, unspecified; Z68.29 Body mass index [BMI] 29.0-29.9, adult; Z85.038 Personal history of other malignant neoplasm of large intestine; Z91.14 Patient's other noncompliance with medication regimen; Z79.01 Long term (current) use of anticoagulants; Z79.899 Other long term (current) drug therapy; Z88.8 Allergy status to other drugs, medicaments and biological substances; Z91.041 Radiographic dye allergy status; Z90.49 Acquired absence of other specified parts of digestive tract; Z95.5 Presence of coronary angioplasty implant and graft; Z95.810 Presence of automatic (implantable) cardiac defibrillator; Z11.59 Encounter for screening for other viral diseases
CPT/HCPCS: 71045; 80048; 80053; 82553; 82805; 83605; 83735; 83880; 84145; 84443; 84484 ×2; 85025 ×2; 93005; 93306; 93798; 94640 ×3; 94664; 94760; 96374; 96376; 97139 ×2; 99285; 99406; G0378 ×3; U0002; 36415; J1940; J7512; J7620

== ENCOUNTER → 2019-11-15 | Day surgery (SDC) | payer MEDICARE, BC ==
[2019-11-10 12:56] VITALS: BMI 30.9
[~2019-11-15] MED LIST changes: +Adenosine 6 MG/2 ML VIAL ONE; +Fentanyl 100 MCG/2 ML VIAL ONE; -Heparin 1,000 UNITS/ML VIAL ONE; +Heparin 10,000 UNITS/ 10 ML VIAL ONE; +Iopamidol 370 76% 100 ML VIAL ONE; +Midazolam HCl 2 mg/2 ml Vial ONE
--- NOTE | 2019-11-18 06:44 | DIS ---
DATE OF ADMISSION: 11/15/2019 DATE OF DISCHARGE: 11/15/2019 Mr. Nettles underwent cardiac catheterization today revealed left main normal, RAMIREZ to LAD no obstructive disease. Circumflex, obtuse marginal 1 with a 65% lesion as before. Stent widely patent with good flow. Right coronary, no significant stenosis. Posterior descending artery is 60%. The patient has [id number] aortic stenosis. Please see the details from the heart catheterization. Will keep him here for a few more hours to give him some more fluid. I am going to see if he may be a candidate for transcutaneous valve replacement. Job ID: [id number]
== END ==
LOC: CCL 05:57
PROVIDERS: ATTEND Internal Medicine Cardiovascular Disease
PROC: 4A023N8 Measurement of Cardiac Sampling and Pressure, Bilateral, Percutaneous Approach (ICD-10-PCS; principal; 2019-11-15)
PROC: B2111ZZ Fluoroscopy of Multiple Coronary Arteries using Low Osmolar Contrast (ICD-10-PCS; 2019-11-15)
DX: I25.10 Atherosclerotic heart disease of native coronary artery without angina pectoris (principal); I48.0 Paroxysmal atrial fibrillation; I13.0 Hypertensive heart and chronic kidney disease with heart failure and stage 1 through stage 4 chronic kidney disease, or unspecified chronic kidney disease; N18.9 Chronic kidney disease, unspecified; I50.22 Chronic systolic (congestive) heart failure; I49.3 Ventricular premature depolarization; I47.1 Supraventricular tachycardia; E78.00 Pure hypercholesterolemia, unspecified; F17.210 Nicotine dependence, cigarettes, uncomplicated; M06.9 Rheumatoid arthritis, unspecified; Z79.899 Other long term (current) drug therapy; Z88.8 Allergy status to other drugs, medicaments and biological substances
CPT/HCPCS: 76942; 85347; 93460; 99152; 99153; J0153; J1644; J2250; J3010; Q9967

== ENCOUNTER 2020-02-23 11:49 | Inpatient (IN) | payer MEDICARE, BC ==
[2020-02-23 12:57] LABS: #Eosinphils 0.2 thou/uL (0.0-0.7); #Lymphocytes 1.5 thou/uL (1.20-3.40); #Monocytes 0.8 thou/uL (0.11-0.59); #Neutrophils 4.6 thou/uL (1.40-6.50); %Basophils 0.3 % (0.0-1.0); %Eosinophils 2.2 % (0.0-10.0); %Lymphocytes 21.9 % (21.0-51.0); %Monocytes 10.7 % (0.0-10.0); Hemoglobin 11.3 g/dL (14.0-18.0); Mean Corpuscular HGB CONC 31.7 g/dL (32.0-36.0); Mean Corpuscular Hemoglobin 30.5 pg (27.0-31.0); Mean Corpuscular Volume 96.1 fL (78.0-98.0); Mean Platelet Volume 8.2 fL (7.4-10.4); Platelet Count 106 thou/uL (130-400); RBC Distribution Width 13.7 % (11.5-14.5)
[2020-02-23] MEDS ORDERED: Piperacillin/Tazobactam 4.5 GM VIAL ONE (13:04)
[2020-02-23 13:12] LABS: ALT (SGPT) 14 U/L (8-55); AST (SGOT) 14 U/L (5-34); Albumin 3.3 g/dL (3.4-4.8); Alkaline Phosphatase 58 U/L (40-110); Anion Gap 13 mmol/L (10-20); BUN (Urea Nitrogen) 38 mg/dL (8.4-25.7); Bilirubin, Total 0.6 mg/dL (0.2-1.2); Calc. Creatinine Clearance 0 mL/min (70-130); Calcium 8.6 mg/dL (7.8-10.44); Carbon Dioxide 21 mmol/L (23-31); Chloride 109 mmol/L (98-107); Estimated GFR-MDRD 36; Globulin 3.2 g/dL (2.4-3.5); Glucose 115 mg/dL (83-110); Lipase 23 U/L (8-78); Magnesium 2.1 mg/dL (1.6-2.6); Potassium 4.1 mmol/L (3.5-5.1); Protein, Total 6.5 g/dL (5.8-8.1); Sodium 139 mmol/L (136-145)
[2020-02-23 13:14] LABS: MDiff Complete? YES; Ovalocytes SLIGHT = 2-5 cells (100X) (0-1/hpf); Platelet Morphology Comment Appears Decreased
[2020-02-23] MEDS ORDERED: MEROPENEM 1 GM/50 ML 1 GM in Premix Bag 1 BAG IVPB SCH (13:15)
--- NOTE | 2020-02-23 13:35 | RAD ---
PORTABLE CHEST ONE VIEW: 02/23/20 at 3:36 p.m. HISTORY: Chest pain. COMPARISON: 10/19/19 FINDINGS: A left sided AICD is present. The heart size is normal. The lungs are expanded without lobar consolid ation, pneumothoraces or pleural effusions. IMPRESSION: No acute process. POS: SUMANA
--- NOTE | 2020-02-23 13:49 | CT ---
CT ABDOMEN AND PELVIS WITHOUT CONTRAST USING STONE PROTOCOL: 02/23/20 HISTORY: Low back pain, abdominal pain, kidney infection. FINDINGS: Absence of oral and IV contrast reduces the sensitivity of the exam particularly for the evaluation o f solid organs and bowel. Comparison is made with the contrast enhanced exam of 08/28/19. The lung bases are unremarkable. No calcified gallstones are seen. There is a noncalcified gallstone or thickening of the wall of the gallbladder which would be better evaluated with ultrasound. Postop changes in the region of the gastroesophageal junction again seen. There are calcified granulomas of the spleen. No free air or free fluid is seen in the abdomen or pelvis. No calculi noted in the kidneys, ureters, or the urinary bladder. No hydroureteronephrosis is seen on either side. The prostate is enlarged. C ysts in the kidneys again noted. There are vascular calcifications without evidence of aneurysmal dilatation of the abdominal aorta. T he small bowel loops are not abnormally dilated. There is colonic diverticulosis. Multilevel degenera tive changes are seen in the spine. End plate compression abnormality of L1 is stable. IMPRESSION: 1. No CT evidence of urinary tract calculi or obstruction. 2. Bilateral renal cyst. 3. Prostatic enlargement. 4. Colonic diverticulosis. 5. Gallbladder findings should be evaluated with gallbladder ultrasound. POS: CORNEL
[2020-02-23 14:10] LABS: Bilirubin Negative (Negative); Blood, Urine 2+ (Negative); Clarity Clear (Clear); Glucose, Urine (Dipstick) Normal (Negative); Ketone, Urine Negative (Negative); Leukocyte 25 Leu/uL (Negative); Nitrite Negative (Negative); Protein, Urine (Dipstick) Negative (Neg-Trace); RBC/HPF 21-50 HPF (0-3); Specific Gravity, Urine 1.015 (1.002-1.036); Squamous Epithelial 0-3 HPF (0-3); Urobilinogen Normal mg/dL (Less than 2)
--- NOTE | 2020-02-23 14:16 | PDOC.FPRHP ---
- History of Present Illness Chief Complaint: UTI History of Present Illness: Patient is a 74 yo male with PMH of Atrial arrhythmia s/p ablation x2, sick sinus syndrome s/p AICD, CAD s/p stents, CKD3, HFrEF (EF 30-35% from 09/2019), COPD, HTN, HLD, Iron def. anemia, colon cancer s/p resection who presents to the ER for UTI. Patient reports that he began feeling weak about 1 week ago. He went to an urgent care center and was diagnosed with a UTI. He symptoms did not resolve with treatment of the antibiotic so he went to see his urologist, Dr. Brown, who obtained a urine culture and started the patient on cipro. Despite starting this antibiotic, the patient continued to feel, began experiencing back pain, and experiencing "shakes". He denies fever, N/V, cough, SOB, chest pain. Endorses myalgias. ED Course: S/P Zosyn, Meropenem, and 500L bolus - Allergies/Adverse Reactions Allergies Allergy/AdvReac Type Severity Reaction Status Date / Time iodine Allergy Unknown Verified 11/10/19 12:56 [id number] Reductase Allergy Verified 11/10/19 12:56 Inhibitor - Home Medications Medication Instructions Recorded Confirmed Type Fish Oil/DHA/EPA [Fish Oil 1,200 1,200 mg PO BID 11/13/13 11/15/19 History mg Fish Oil] PARoxetine HCl 40 mg PO DAILY 05/30/17 11/15/19 History Finasteride 5 mg PO DAILY 08/17/18 11/15/19 History Ferrous Sulfate [Feosol] 325 mg PO DAILY 03/26/19 11/15/19 History Ubidecarenone/Vit E Acet [Co Q-10 1 tab PO BID 03/26/19 11/15/19 History 100 mg Softgel] Acetaminophen [Tylenol Regular 650 mg PO Q4H PRN tab 10/20/19 11/15/19 Rx Strength] Carvedilol [Coreg] 3.125 mg PO BID 30 Days #60 tab 10/20/19 11/15/19 Rx Furosemide [Lasix] 20 mg PO DAILY 30 Days #30 tab 10/20/19 11/15/19 Rx Rivaroxaban [Xarelto] 20 mg PO 1700 tab 10/20/19 11/15/19 Rx Sacubitril/Valsartan [Entresto 24 1 tab PO BID tab 10/20/19 11/15/19 Rx mg-26 mg Tablet] Mometasone/Formoterol 100/5 1 puff INH ASDIR PRN 11/10/19 11/15/19 History [Dulera 100 Mcg/5 Mcg Inhaler] Ipratropium/Albuterol Sulfate 3 ml INH Q2H PRN 11/15/19 11/15/19 History [DuoNeb] Clopidogrel Bisulfate [Clopidogrel] 75 mg PO 02/23/20 History Lisinopril 5 mg PO DAILY 02/23/20 02/23/20 History Sacubitril/Valsartan 49/51 0.5 tab BID 02/23/20 02/23/20 History [Entresto 49 mg-51 mg Tablet] Spironolactone [Aldactone] 12.5 mg PO DAILY 02/23/20 02/23/20 History - History PMHx: Atrial arrhythmia s/p ablation x2, sick sinus syndrome s/p AICD, CAD s/p stents, CKD3, HFrEF (EF 30-35% from 09/2019), COPD, HTN, HLD, Iron def. anemia, colon cancer s/p resection PSHx: colon resection in mid 1980s, gastric ulcer repair, AICD FHx: father - valvular heart disease, mother - CF Social: smoke 2 PPD for 45 years; denies a/d - Review of Systems General: reports: fatigue. denies: fever/chills Eyes: denies: eye pain, vision changes ENT: denies: nasal congestion, rhinorrhea Respiratory: denies: cough, shortness of breath Cardiovascular: denies: chest pain, edema Gastrointestinal: denies: nausea, vomiting, diarrhea Genitourinary: denies: dysuria, polyuria Skin: denies: rashes, jaundice Musculoskeletal: reports: pain. denies: swelling Neurological: reports: weakness. denies: numbness Psychological: denies: anxiety, depression - Vital signs BP: 103/59 HR: 60 RR: Tmax: 98.3 Pox: 98% on RA Wt: 106 kg - Physical Exam Constitutional: NAD, awake, alert and oriented HEENT: normocephalic and atraumatic, grossly normal vision, grossly normal hea ring Neck: supple, FROM Heart: RRR, normal S1/S2 Lungs: CTAB, no respiratory distress Abdomen: soft, bowel sounds present -Abdomen: suprapubic tenderness Musculoskeletal: normal structure, normal tone Neurological: no focal deficit, normal sensation Skin: good turgor, no jaundice -Heme/Lymphatic: multiple bruises Psychiatric: normal mood and affect, intact recent and remote memory FMR H&P: Results - Labs Result Diagrams: 02/23/20 12:38 02/23/20 12:38 Lab results: WBC 7.0 thou/uL (4.8-10.8) 02/23/20 12:38 Hgb 11.3 g/dL (14.0-18.0) L 02/23/20 12:38 Hct 35.6 % (42.0-52.0) L 02/23/20 12:38 MCV 96.1 fL (78.0-98.0) 02/23/20 12:38 Plt Count 106 thou/uL (130-400) L 02/23/20 12:38 Neutrophils % 65.0 % (42.0-75.0) 02/23/20 12:38 Sodium 139 mmol/L (136-145) 02/23/20 12:38 Potassium 4.1 mmol/L (3.5-5.1) 02/23/20 12:38 Chloride 109 mmol/L (98-107) H 02/23/20 12:38 Carbon Dioxide 21 mmol/L (23-31) L 02/23/20 12:38 BUN 38 mg/dL (8.4-25.7) H 02/23/20 12:38 Creatinine 1.86 mg/dL (0.7-1.3) H 02/23/20 12:38 Glucose 115 mg/dL (83-110) H 02/23/20 12:38 Lactic Acid 1.3 mmol/L (0.5-2.2) 02/23/20 12:38 Calcium 8.6 mg/dL (7.8-10.44) 02/23/20 12:38 Total Bilirubin 0.6 mg/dL (0.2-1.2) 02/23/20 12:38 AST 14 U/L (5-34) 02/23/20 12:38 ALT 14 U/L (8-55) 02/23/20 12:38 Alkaline Phosphatase 58 U/L (40-110) 02/23/20 12:38 CK-MB (CK-2) 4.0 ng/mL (0-6.6) 02/23/20 12:38 B-Natriuretic Peptide 78.7 pg/mL (0-100) 02/23/20 12:38 Serum Total Protein 6.5 g/dL (5.8-8.1) 02/23/20 12:38 Albumin 3.3 g/dL (3.4-4.8) L 02/23/20 12:38 Lipase 23 U/L (8-78) 02/23/20 12:38 - EKG Interpretation EKG: Atrial paced rhythm, incomplete left bundle branch, unchanged from past EKGs - Radiology Interpretation Chest x-ray Status: image reviewed by me, report reviewed by me Additional comment: no acute process CT scan - abdomen Status: image reviewed by me, report reviewed by me Additional comment: 1. No CT evidence of urinary tract calculi or obstruction 2. bilateral renal cyst 3. prostatic enlargement 4. colonic diverticulosis FMR H&P: A/P - Problem List (1) UTI (urinary tract infection) Current Visit: Yes Status: Acute (2) COPD (chronic obstructive pulmonary disease) Current Visit: No Status: Chronic (3) Tobacco abuse Current Visit: Yes Status: Chronic Code(s): Z72.0 - TOBACCO USE (4) Elevated troponin Current Visit: No Status: Chronic Code(s): R74.8 - ABNORMAL LEVELS OF OTHER SERUM ENZYMES (5) HFrEF (heart failure with reduced ejection fraction) Current Visit: No Status: Chronic Code(s): I50.20 - UNSPECIFIED SYSTOLIC (CONGESTIVE) HEART FAILURE (6) History of colon cancer Current Visit: No Status: Chronic Code(s): Z85.038 - PERSONAL HISTORY OF MALIGNANT NEOPLASM OF LARGE INTESTINE - Plan UTI - patient saw Dr. Brown on 02/19, cultures were obtained and grew proteus mirabilis, started on cipro - resistant to oral antibiotics - sensitive to both zosyn and mirapenem - s/p zosyn, mirapenem, and 500 ml bolus in ED - will continue zosyn - consulted for as patient will need home HFrEF, no acute exacerbation - Echo 09/2019: EF of 30-35% - will continue to monitor strict Is&Os - will continue home meds Hx of COPD - no acute exacerbation, no wheezing on exam - patient did not bring inhalers to hospital - called pharmacy and patient is supposed to be on dulera inhaler BID, will resume while hospitalized Indeterminant Trops - 0.031, will trends - no chest pain - EKG unchanged from prior admission Hx of HTN - resume home meds JENNIE on CKD3 - Cr 1.86, CrCl 51 - baseline Cr around 1.50 - baseline around - s/p 500 ml bolus - will encourage PO intake Depression - continue paroxetine Hx of colon ca - s/p resection Hx of BPH - continue home meds H/o atrial arrhythmia - s/p ablation and AICD. - EKG showed atrial paced rhythm. - Will monitor on tele. Tobacco Abuse - encourage cessation - nicotine patch ordered PCP: Ajith Code status: full code Diet: HH DVT ppx: Lovenox Abx: Zosyn Dispo: stable, admit to medicine for IV antibiotics FMR H&P: Upper Level - Plan Date/Time: 02/23/20 1413 I, Amna Will, have evaluated this patient and agree with findings/plan as outlined by pr intern resident. Pertinent changes/additions are listed here. 74YOM with a PMH notable for CAD & aortic stenosis s/p recent heart cath & aortic valvuloplasty Afib s/p AICD placement, CKDIII, COPD & HFrEF (EF 30-35% in 09/2019) who presented to the ED with a chief complaint of worsening UTI symptoms. Reported first started feeling ill last week and went to and urgent care where he received antibiotics but continued to feel unwell so saw his urologist, Dr. Brown, who started him on cipro on 02/19 and got a urine sample that was sent for culture. Per the patient he continued to experience chills, generalized weakness & fatigue, myalgias and burning at the end of urination. He therefore decided to come to the ED for evaluation. On presentation to the ED his vitals were noted to be WNLs as well as his WBC count at 7.0. His platelets were slightly low at 106. He did have a slight elevation in his Cr compared to baseline at 1.86 and his eGFR was estimated to be 36. His troponin was mildly elevated at 0.031 but his EKG showed no significant ST changes & he denied any chest pain. He had an abd/pelvis CT which did not reveal any stones or signs of obstruction. His urine culture from 02/19 was noted to be positive for proteus mirabilis resistant to all oral agents. On exam his vitals were WNLs and he had some mild suprapubic tenderness but no CVA tenderness. He was given IV zosyn & meropenem and a 500ml bolus in the ED. Plan will be to admit the patient to the medical floor for continued IV abx for a proteus mirabilis UTI resistant to all PO abx. Will continue IV zosyn renally dosed. Will recheck his troponin 3 hrs from first draw & will likely stop trending if it downtrends. Will continue his home meds for his chronic issues. Nicotine patch and smoking cessation counselling for tobacco abuse. Lovenox for VTE PPX but will monitor Plts closely while on this since admission count was 106. No GI PPX. HH, Low Na diet. IVFs: SL in setting of NL vitals & HFrEF. Is s/p 500mL bolus in ED & will get f luids with his IV abx. PCP: ELISA Canseco CODE STATUS: FULL CODE. Addendum - Attending - Attending Attestation Date/Time: 02/23/20 1700 I personally evaluated the patient and discussed the management with Dr. Sanders. I agree with the History, Examination, Assessment and Plan documented above with any addition or exceptions noted below. The patient is admitting for multidrug resistent UTI. will continue iv antibiotics. Repeat cultures drawn.
[2020-02-23 14:20] LABS: Bacteria/HPF Rare-Few HPF (None Seen)
[2020-02-23] MEDS ORDERED: Acetaminophen 325 MG TAB PO PRN (14:48)
[2020-02-23] MEDS ORDERED: Ondansetron ODT 4 MG TAB PO PRN (14:48)
[2020-02-23 15:13] LABS: Hemoglobin A1c 5.3 % (4.0-6.0)
[2020-02-23 17:04] VITALS: BMI 30.2
[2020-02-23] MEDS: Mometasone 100 MCG/Formoterol 5 MCG 120 PUFF INHALER INH SCH (18:46)
[2020-02-23 20:00] LABS: SARS-CoV-2 MS2 Positive; SARS-CoV-2 N Gene Positive; SARS-CoV-2 S Gene Negative; SARS-CoV-2 by NAA DETECTED (NotDetected); SARS-CoV-2 orf1ab Positive
[2020-02-23] MEDS: Nicotine 14 MG PATCH TD SCH (20:00)
[2020-02-23] MEDS ORDERED: Piperacillin/Tazobactam 2.25 GM in Sodium Chloride 0.9% 100 ML IVPB SCH (20:00)
[2020-02-23] MEDS: Carvedilol 3.125 MG TAB PO SCH (20:53)
[2020-02-23] MEDS: Piperacillin/Tazobactam 3.375 GM in Sodium Chloride 0.9% 100 ML IVPB SCH (20:53)
[2020-02-24] MEDS: Piperacillin/Tazobactam 3.375 GM in Sodium Chloride 0.9% 100 ML IVPB SCH ×4 (02:21→19:59)
[2020-02-24 06:15] LABS: #Eosinphils 0.2 thou/uL (0.0-0.7); #Lymphocytes 1.6 thou/uL (1.20-3.40); #Monocytes 0.7 thou/uL (0.11-0.59); #Neutrophils 4.3 thou/uL (1.40-6.50); %Basophils 0.2 % (0.0-1.0); %Eosinophils 2.5 % (0.0-10.0); %Lymphocytes 23.8 % (21.0-51.0); %Monocytes 9.7 % (0.0-10.0); %Neutrophils 63.9 % (42.0-75.0); Hemoglobin 11.1 g/dL (14.0-18.0); Mean Corpuscular HGB CONC 32.4 g/dL (32.0-36.0); Mean Corpuscular Hemoglobin 31.2 pg (27.0-31.0); Mean Corpuscular Volume 96.3 fL (78.0-98.0); Mean Platelet Volume 7.7 fL (7.4-10.4); Platelet Count 102 thou/uL (130-400); RBC Distribution Width 13.6 % (11.5-14.5); Red Blood Cell (RBC) Count 3.56 mill/uL (4.70-6.10); White Blood Cell (WBC) Count 6.8 thou/uL (4.8-10.8)
[2020-02-24] MEDS: Mometasone 100 MCG/Formoterol 5 MCG 120 PUFF INHALER INH SCH ×2 (06:24→20:00)
[2020-02-24 06:32] LABS: Anion Gap 11 mmol/L (10-20); BUN (Urea Nitrogen) 27 mg/dL (8.4-25.7); Calc. Creatinine Clearance 59 mL/min (70-130); Calcium 8.5 mg/dL (7.8-10.44); Carbon Dioxide 22 mmol/L (23-31); Chloride 111 mmol/L (98-107); Estimated GFR-MDRD 41; Glucose 99 mg/dL (83-110); Potassium 4.3 mmol/L (3.5-5.1); Sodium 140 mmol/L (136-145)
--- NOTE | 2020-02-24 06:32 | PDOC.FM ---
- Subjective Subjective: Pt feeling well this morning. States his dysuria is improving and he has not had any more chills since admission. Discussed inpt/oupt treatment options - pt prefers potential outpt treatment if possible. Answered questions regarding incidental COVID + finding. - Objective Vital Signs & Weight: Vital Signs (12 hours) Temp Pulse Resp BP Pulse Ox 02/24/20 02:10 56 L 18 116/72 96 02/23/20 20:10 97.9 F 58 L 18 150/61 H 99 Weight Weight 106.73 kg Result Diagrams: 02/24/20 05:38 02/24/20 05:38 Phys Exam - Physical Examination Constitutional: NAD HEENT: moist MMs Respiratory: clear to auscultation bilateral Cardiovascular: RRR Gastrointestinal: soft, non-tender, no distention Musculoskeletal: no edema Neurological: moves all 4 limbs Psychiatric: normal affect, A&O x 3 Dx/Plan - Plan Plan: UTI - MDR Proteus - patient saw Dr. Brown on 02/19, cultures were obtained and grew proteus mirabilis, started on cipro - resistant to oral antibiotics, sensitive to both zosyn and mirapenem - Started on zosyn - consulted for HH as patient will need home COVID +, asymptomatic - positive on admission screen - no sx, no recollection of recent illness/sx - continue to monitor, no tx at this time - droplet precautions HFrEF, no acute exacerbation - Echo 09/2019: EF of 30-35% - will continue to monitor strict Is&Os - will continue home meds Hx of COPD - no acute exacerbation, no wheezing on exam - patient did not bring inhalers to hospital - called pharmacy and patient is supposed to be on dulera inhaler BID, will resume while hospitalized Indeterminant Trops - 0.031, will trends - no chest pain - EKG unchanged from prior admission Hx of HTN - resume home meds JENNIE on CKD3 - Cr 1.86, CrCl 51 - baseline Cr around 1.50 - trend: Depression - continue paroxetine Hx of colon ca - s/p resection Hx of BPH - continue home meds H/o atrial arrhythmia - s/p ablation and AICD. - EKG showed atrial paced rhythm. - Will monitor on tele. Tobacco Abuse - encourage cessation - nicotine patch ordered PCP: Ajith Code status: full code Diet: HH DVT ppx: Lovenox Abx: Zosyn Dispo: Resistant UTI requiring IV abx. Will continue inpt treatment until pt sx resolved. Will prep for outpt treatment potential. ELOS >48hr
[2020-02-24] MEDS ORDERED: Lisinopril 5 MG TAB PO SCH (09:00)
[2020-02-24] MEDS: PARoxetine 20 MG TAB PO SCH (09:24)
[2020-02-24] MEDS: Enoxaparin Sodium 40 MG/0.4 ML SYRINGE SC SCH (09:24)
[2020-02-24] MEDS: Spironolactone 25 MG TAB PO SCH (09:25)
[2020-02-24] MEDS: Carvedilol 3.125 MG TAB PO SCH ×2 (09:26→20:01)
[2020-02-24] MEDS: Finasteride 5 MG TAB PO SCH (09:26)
[2020-02-24] MEDS: Clopidogrel Bisulfate 75 MG TAB PO SCH (09:26)
[2020-02-24] MEDS: Ferrous Sulfate 325 MG TAB PO SCH (09:26)
--- NOTE | 2020-02-24 12:01 | PRG ---
DATE OF SERVICE: 02/24/2020 Please see note from Dr. Giles for which I agree. The patient was seen, evaluated, discussed and examined with the residents by bedside. This gentleman has a complicated UTI that was juarez resistant to most p.o. antibiotics, so he is on Zosyn. He is feeling better. He was found to be COVID positive even though he has absolutely no symptoms and they were isolating him, etc. But it does not seem like it is affecting him at this point in time. The exam is normal. Chest is clear. Abdomen is benign. No CVA tenderness. Plan is to continue same Zosyn prior to getting him set up for PICC line to get that placed as soon as possible and then hopefully be able to take care of the rest of this as an outpatient. Job ID: [id number]
[2020-02-24] MEDS: Nicotine 14 MG PATCH TD SCH (17:08)
[2020-02-25] MEDS: Piperacillin/Tazobactam 3.375 GM in Sodium Chloride 0.9% 100 ML IVPB SCH ×2 (02:08→08:26)
--- NOTE | 2020-02-25 06:14 | PDOC.FM ---
- Subjective Subjective: Pt states he had no dysuria yesterday. Aside from that denies any change. Was walking out of room last night to have a smoke and was instructed he can't come and go due to his COVID + status. - Objective Vital Signs & Weight: Vital Signs (12 hours) Temp Pulse Resp BP Pulse Ox 02/24/20 20:11 98.4 F 62 17 151/74 H 97 Weight Weight 106.73 kg I&O: 02/23/20 02/24/20 02/25/20 06:59 06:59 06:59 Intake Total 500 1200 Output Total 550 400 Balance -50 800 Result Diagrams: 02/24/20 05:38 02/24/20 05:38 Phys Exam - Physical Examination Constitutional: NAD HEENT: moist MMs CPAP mask on upon entering the room Neck: full ROM No respiratory distress Cardiovascular: RRR Gastrointestinal: soft, non-tender, no distention Musculoskeletal: no edema, pulses present Neurological: moves all 4 limbs Psychiatric: A&O x 3 Dx/Plan - Plan Plan: UTI - MDR Proteus - patient saw Dr. Brown on 02/19, cultures were obtained and grew proteus mirabilis, started on cipro - resistant to oral antibiotics, sensitive to both zosyn and mirapenem - Started on zosyn - CM consulted for HH as patient will need home - repeat urine culture during this admission confirms resistant proteus - PICC ordered for outpt abx COVID +, asymptomatic - positive on admission screen - no sx, no recollection of recent illness/sx - continue to monitor, no tx at this time - droplet precautions HFrEF, no acute exacerbation - Echo 09/2019: EF of 30-35% - will continue to monitor strict Is&Os - will continue home meds Hx of COPD - called pharmacy and patient is supposed to be on dulera inhaler BID, will resume while hospitalized HTN, BPH - resume home meds PCP: Ajith Code status: full code Diet: HH DVT ppx: Lovenox Abx: Zosyn Dispo: Resistant UTI requiring IV abx, confirmed on repeat culture. PICC ordered. CM consulted for outpt abx assistance. Continue treatment regimen.
[2020-02-25] MEDS: Mometasone 100 MCG/Formoterol 5 MCG 120 PUFF INHALER INH SCH (06:15)
[2020-02-25 07:53] LABS: #Basophils 0.1 thou/uL (0.0-0.2); #Eosinphils 0.2 thou/uL (0.0-0.7); #Lymphocytes 1.8 thou/uL (1.20-3.40); #Monocytes 0.6 thou/uL (0.11-0.59); #Neutrophils 4.1 thou/uL (1.40-6.50); %Basophils 0.9 % (0.0-1.0); %Eosinophils 2.3 % (0.0-10.0); %Lymphocytes 26.3 % (21.0-51.0); %Monocytes 9.2 % (0.0-10.0); %Neutrophils 61.2 % (42.0-75.0); Hemoglobin 11.5 g/dL (14.0-18.0); Mean Corpuscular HGB CONC 32.6 g/dL (32.0-36.0); Mean Corpuscular Hemoglobin 31.1 pg (27.0-31.0); Mean Corpuscular Volume 95.3 fL (78.0-98.0); Mean Platelet Volume 7.8 fL (7.4-10.4); Platelet Count 110 thou/uL (130-400); RBC Distribution Width 13.5 % (11.5-14.5); Red Blood Cell (RBC) Count 3.71 mill/uL (4.70-6.10); White Blood Cell (WBC) Count 6.7 thou/uL (4.8-10.8)
[2020-02-25 08:04] LABS: Anion Gap 11 mmol/L (10-20); BUN (Urea Nitrogen) 21 mg/dL (8.4-25.7); Calc. Creatinine Clearance 61 mL/min (70-130); Calcium 8.7 mg/dL (7.8-10.44); Carbon Dioxide 23 mmol/L (23-31); Chloride 110 mmol/L (98-107); Estimated GFR-MDRD 43; Glucose 89 mg/dL (83-110); Potassium 4.3 mmol/L (3.5-5.1); Sodium 140 mmol/L (136-145)
[2020-02-25] MEDS: Spironolactone 25 MG TAB PO SCH (08:24)
[2020-02-25] MEDS: PARoxetine 20 MG TAB PO SCH (08:25)
[2020-02-25] MEDS: Ferrous Sulfate 325 MG TAB PO SCH (08:25)
[2020-02-25] MEDS: Carvedilol 3.125 MG TAB PO SCH (08:25)
[2020-02-25] MEDS: Enoxaparin Sodium 40 MG/0.4 ML SYRINGE SC SCH (08:26)
[2020-02-25] MEDS: Clopidogrel Bisulfate 75 MG TAB PO SCH (08:26)
[2020-02-25] MEDS: Finasteride 5 MG TAB PO SCH (08:26)
[2020-02-25] MEDS ORDERED: Aspirin 81 mg Enteric Coated Tablet PO SCH (09:00)
[2020-02-25] MEDS ORDERED: GENTAMICIN IVPB SCH (10:00)
[2020-02-25] MEDS ORDERED: SODIUM CHLORIDE 0.9% IVPB SCH (10:00)
[2020-02-25] MEDS ORDERED: Gentamicin 20 MG/2 ML PF (Neonates) IVPB SCH (10:00)
--- NOTE | 2020-02-25 11:12 | DIS ---
DATE OF ADMISSION: 02/23/2020 DATE OF DISCHARGE: 02/25/2020 DISCHARGE ATTENDING: Dr. Matias Maddox. RESIDENT: Dr. Benton Giles. CONSULTS: None. PROCEDURES: None. IMAGING STUDIES: Chest x-ray on 02/23/2020. Impression: No acute process. Abdomen and pelvis CT on 02/23/2020. Impression: No CT evidence of urinary tract calculi or obstruction. Bilateral renal cysts. Prostatic enlargement. Colonic diverticulosis. PRIMARY DIAGNOSIS: Urinary tract infection. SECONDARY DIAGNOSES: Heart failure with reduced ejection fraction, chronic obstructive pulmonary disease, hypertension, chronic kidney disease 3, depression, BPH. DISCHARGE MEDICATIONS: 1. Fish oil 1200 mg b.i.d. 2. Paroxetine 40 mg daily. 3. Finasteride 5 mg daily. 4. CoQ10 one tablet b.i.d. 5. Ferrous sulfate 325 mg daily. 6. Lasix 20 mg daily. 7. Coreg 3.125 mg b.i.d. 8. Dulera one puff inhalation as directed p.r.n. 9. DuoNeb q.2 hours p.r.n. 10. Aldactone 12.5 mg daily. 11. Entresto 0.5 tablets b.i.d. 12. Lisinopril 5 mg daily. 13. Clopidogrel 75 mg p.o. daily. 14. Aspirin 81 mg daily. HISTORY OF PRESENT ILLNESS AND HOSPITAL COURSE: A 74-year-old male, presented to Dr. Brown, [facility] as an outpatient with complaints of dysuria and tremors. He had urinalysis performed with culture and started on Cipro. After the patient's symptoms continued and worsened, he presented to the emergency department on 02/23/2020. Review of the urine cultures at that time showed the patient's urinary tract infection was due to Proteus mirabilis that was resistant to Cipro as well as all other tested sensitivities for oral antibiotics. The patient was admitted to the hospital and started on Zosyn IV. He was continued on this for 3 days. He stated that his dysuria had improved significantly. During admission, he had a COVID swab done, which was incidentally found to be positive. The patient denied any respiratory symptoms whatsoever and had a chest x-ray that was completely clear upon admission. Nonetheless, he was started on COVID precautions for staff safety. Over the weekend, Dr. Santiago was kerbside and recommended given one time dose of weight adjusted gentamicin that will still present on the patient's bloodstream for several days and adequately treat the patient's urinary tract infection based on the reviewed cultures. Cultures performed in the hospital resulted with the same Proteus mirabilis that was resistant to oral antibiotics. On day of discharge, the patient received 600 mg of gentamicin IV and was subsequently discharged. He was instructed to follow up with his urologist, Dr. Brown ongoing. DISCHARGE INSTRUCTIONS: 1. Location: Home. 2. Diet: Heart healthy. 3. Activity: As tolerated. FOLLOWUP: Follow up with PCP, Dr. Trent Canseco within 5 days, follow up with Dr. Brown as directed. Job ID: [id number]
[2020-02-25 12:06] VITALS: BP 113/72; TEMP 98
--- NOTE | 2020-02-25 12:13 | PRG ---
DATE OF SERVICE: 02/25/2020 Please see note from Dr. Benton Giles for which I agree. Patient was seen, evaluated, discussed, and examined with residents by bedside. The urine culture was ran by Infectious Disease doctor yesterday and they recommended a one time dose of gentamicin and felt like that is all he would need. This gentleman is COVID positive although asymptomatic, but rather a hard time keeping him even in his room as he is constantly leaving his room and going outside through the hospital to go smoke. So plan is to give that dose of gentamicin and to follow up with Urology this next week. He was counseled at length about his contagiousness and needs to be quarantined for least 10 days. He lives home alone, so I think he is going to be able to do that without any problems. Job ID: [id number]
== END 2020-02-25 13:16 | disposition home or self-care (01) | DRG 689 ==
LOC: ERS 11:49 → T4-B 14:10
PROVIDERS: ADMIT Internal Medicine; ATTEND Internal Medicine
PROC: 8E0ZXY6 Isolation (ICD-10-PCS; principal; 2020-02-23)
DX: N39.0 Urinary tract infection, site not specified (principal); U07.1 COVID-19; I50.32 Chronic diastolic (congestive) heart failure; I13.0 Hypertensive heart and chronic kidney disease with heart failure and stage 1 through stage 4 chronic kidney disease, or unspecified chronic kidney disease; Z16.23 Resistance to quinolones and fluoroquinolones; N17.9 Acute kidney failure, unspecified; N18.30 Chronic kidney disease, stage 3 unspecified; J44.9 Chronic obstructive pulmonary disease, unspecified; F32.9 Major depressive disorder, single episode, unspecified; N40.0 Benign prostatic hyperplasia without lower urinary tract symptoms; B96.4 Proteus (mirabilis) (morganii) as the cause of diseases classified elsewhere; I25.10 Atherosclerotic heart disease of native coronary artery without angina pectoris; E78.5 Hyperlipidemia, unspecified; D50.9 Iron deficiency anemia, unspecified; F17.210 Nicotine dependence, cigarettes, uncomplicated; Z95.0 Presence of cardiac pacemaker; Z88.8 Allergy status to other drugs, medicaments and biological substances; Z79.899 Other long term (current) drug therapy; Z85.038 Personal history of other malignant neoplasm of large intestine
CPT/HCPCS: 36415; 71045; 74176; 80048; 80053; 81003; 81015; 82553; 83036; 83605; 83690; 83735; 83880; 84484; 85025; 87040; 87077; 87086; 87186; 87635; 93005; 96365; 96367; J1580; J1650; J2185; J2543; J3490; J7050; U0003

== ENCOUNTER 2020-05-06 09:48 | Emergency (ER) | payer MEDICARE, BC ==
[2020-05-06 10:20] LABS: #Eosinphils 0.1 thou/uL (0.0-0.7); #Lymphocytes 1.6 thou/uL (1.20-3.40); #Monocytes 0.8 thou/uL (0.11-0.59); #Neutrophils 5.8 thou/uL (1.40-6.50); %Basophils 0.1 % (0.0-1.0); %Eosinophils 1.4 % (0.0-10.0); %Lymphocytes 19.2 % (21.0-51.0); %Monocytes 9.2 % (0.0-10.0); %Neutrophils 70.1 % (42.0-75.0); Mean Corpuscular HGB CONC 32.8 g/dL (32.0-36.0); Mean Corpuscular Hemoglobin 32.1 pg (27.0-31.0); Mean Corpuscular Volume 97.7 fL (78.0-98.0); Mean Platelet Volume 7.7 fL (7.4-10.4); Platelet Count 102 thou/uL (130-400); RBC Distribution Width 13.8 % (11.5-14.5); Red Blood Cell (RBC) Count 3.73 mill/uL (4.70-6.10); White Blood Cell (WBC) Count 8.3 thou/uL (4.8-10.8)
--- NOTE | 2020-05-06 10:37 | RAD ---
EXAM: CHEST ONE VIEW HISTORY: Dyspnea. 6. Cough and shortness of breath. Chest pressure. COMPARISON: 02/23/2020 FINDINGS: Left subclavian AICD device remains in place. Postoperative changes related to aortic valve replaceme nt are again seen. Cardiac silhouette is stable in size. Pulmonary vasculature is within normal limits. There is increased density at the left lung base stable from prior study and shown to represe nt an epicardial fat pad on prior CT abdomen. No consolidation or pleural fluid is appreciated. Metallic density overlies the right axilla related to metallic foreign body unchanged. No interval ch cristo from prior study. IMPRESSION: No acute cardiopulmonary process.
[2020-05-06 10:41] LABS: ALT (SGPT) 18 U/L (8-55); AST (SGOT) 19 U/L (5-34); Albumin 3.5 g/dL (3.4-4.8); Alkaline Phosphatase 63 U/L (40-110); Anion Gap 12 mmol/L (10-20); BUN (Urea Nitrogen) 20 mg/dL (8.4-25.7); CK (CPK) 99 U/L (30-200); Calc. Creatinine Clearance 0 mL/min (70-130); Calcium 8.5 mg/dL (7.8-10.44); Carbon Dioxide 24 mmol/L (23-31); Chloride 107 mmol/L (98-107); Globulin 3.4 g/dL (2.4-3.5); Glucose 116 mg/dL (83-110); Lipase 22 U/L (8-78); Potassium 4.1 mmol/L (3.5-5.1); Protein, Total 6.9 g/dL (5.8-8.1); Sodium 139 mmol/L (136-145)
[2020-05-06 11:03] LABS: CKMB 3.1 ng/mL (0-6.6)
[2020-05-06] MEDS ORDERED: Furosemide 20 MG/2 ML VIAL ONE (12:11)
[2020-05-06] MEDS ORDERED: Doxycycline 100 MG CAP PO SCH (12:30)
[2020-05-06 20:49] LABS: SARS-CoV-2 PCR by NAA Not Detected (NotDetected)
== END 2020-05-06 14:37 | disposition home or self-care (01) ==
LOC: ERS 09:48
DX: J18.9 Pneumonia, unspecified organism (principal); I10 Essential (primary) hypertension; I48.91 Unspecified atrial fibrillation; E78.5 Hyperlipidemia, unspecified; Z20.822 Contact with and (suspected) exposure to COVID-19; J44.9 Chronic obstructive pulmonary disease, unspecified; F17.210 Nicotine dependence, cigarettes, uncomplicated; Z79.899 Other long term (current) drug therapy
CPT/HCPCS: 71045; 80053; 82550; 82553; 83690; 83880; 84484 ×2; 85025; 93005; 96374; 99285; U0003; U0005; 36415; 87635; J1940

== ENCOUNTER 2020-05-21 12:04 | Observation (INO) | payer MEDICARE, BC ==
--- NOTE | 2020-05-21 12:29 | RAD ---
EXAM: Chest 2 views: HISTORY: Shortness of breath and weakness COMPARISON: 05/06/2020; CT abdomen/pelvis 02/23/2020 FINDINGS: There is a normal-sized cardiomediastinal silhouette. The patient is status post aortic valve repair. Lucency is seen along the left heart border which could represent a small amount of air or fat within the pericardial sac. The pacemaker is unchanged in position. There is no evidence of consolid ation, mass, or pleural effusion. No acute osseous abnormality. IMPRESSION: Possible pneumopericardium.
[2020-05-21 12:50] LABS: #Lymphocytes 1.7 thou/uL (1.20-3.40); #Monocytes 1.6 thou/uL (0.11-0.59); #Neutrophils 9.1 thou/uL (1.40-6.50); %Eosinophils 0.3 % (0.0-10.0); %Lymphocytes 13.6 % (21.0-51.0); %Monocytes 12.7 % (0.0-10.0); %Neutrophils 73.4 % (42.0-75.0); Hemoglobin 12.3 g/dL (14.0-18.0); Mean Corpuscular HGB CONC 32.4 g/dL (32.0-36.0); Mean Corpuscular Hemoglobin 31.2 pg (27.0-31.0); Mean Corpuscular Volume 96.3 fL (78.0-98.0); Mean Platelet Volume 7.8 fL (7.4-10.4); Platelet Count 145 thou/uL (130-400); Red Blood Cell (RBC) Count 3.93 mill/uL (4.70-6.10); White Blood Cell (WBC) Count 12.4 thou/uL (4.8-10.8)
[2020-05-21 13:13] LABS: ALT (SGPT) 21 U/L (8-55); AST (SGOT) 19 U/L (5-34); Albumin 3.7 g/dL (3.4-4.8); Alkaline Phosphatase 68 U/L (40-110); Anion Gap 14 mmol/L (10-20); BUN (Urea Nitrogen) 31 mg/dL (8.4-25.7); Bilirubin, Total 1.3 mg/dL (0.2-1.2); Calc. Creatinine Clearance 0 mL/min (70-130); Calcium 9.1 mg/dL (7.8-10.44); Carbon Dioxide 25 mmol/L (23-31); Chloride 105 mmol/L (98-107); Globulin 3.1 g/dL (2.4-3.5); Glucose 102 mg/dL (83-110); Potassium 3.7 mmol/L (3.5-5.1); Protein, Total 6.8 g/dL (5.8-8.1); Sodium 140 mmol/L (136-145)
[2020-05-21 14:11] LABS: CK (CPK) 91 U/L (30-200); Lipase 30 U/L (8-78)
[2020-05-21 14:31] LABS: CKMB 2.7 ng/mL (0-6.6)
--- NOTE | 2020-05-21 15:32 | CT ---
Exam: Chest CT without contrast COMPARISON: 06/10/2015 HISTORY: Abnormal chest radiograph. Bronchitis. CORRELATION: Chest radiograph 05/21/2020. FINDINGS: Lower neck and axilla: No mass or lymphadenopathy. Mediastinum: No mass, lymphadenopathy or hematoma. Heart: Normal heart size. No significant pericardial fluid. Aorta: There is a stent at the aortic root. No evidence of aneurysm, dissection or periaortic fat str anding. There is evidence of coronary artery disease. Trachea and central bronchi are patent. Dependent atelectatic changes in the lung parenchyma. No mass, consolidation. Stable 0.5 cm nodule in the right upper lobe. No lytic or blastic lesions in the osseous structures. Chronic changes are identified. IMPRESSION: 1. Chronic changes. No acute cardiopulmonary process. 2. No evidence of pneumomediastinum. Transcribed Date/Time: 05/21/2020 4:41 PM
--- NOTE | 2020-05-21 16:15 | PDOC.FPRHP ---
- History of Present Illness Chief Complaint: Weakness History of Present Illness: 74yo M with PMHx of COPD, afib, HFrEF, complicated/MDR infections presented to the ED with complaints of 1 month of generalized weakness, shortness of breathing, and shakiness. Pt states that over the past couple of days these seemed to worsen which concerned him prompting him to seek further evaluation. Pt notes he has also had a cough during this time productive of clear phlegm and notes that he has been treated off an on for bronchitis. Pt states as long as he is not moving around his symptoms do not seem to bad. He denies experiencing chest pain at any point during this. Also denies fevers, chills, N/V/D, dysuria. He denies missing any medications. ED Course: Levoquin 750mg, Rocephin 2g, asa and nitro. - Allergies/Adverse Reactions Allergies Allergy/AdvReac Type Severity Reaction Status Date / Time iodine Allergy Unknown Verified 11/10/19 12:56 [id number] Reductase Allergy Verified 11/10/19 12:56 Inhibitor - Home Medications Medication Instructions Recorded Confirmed Type Fish Oil/DHA/EPA [Fish Oil 1,200 1,200 mg PO BID 11/13/13 05/21/20 History mg Fish Oil] PARoxetine HCl 40 mg PO DAILY 05/30/17 05/21/20 History Finasteride 5 mg PO DAILY 08/17/18 05/21/20 History Ferrous Sulfate [Feosol] 325 mg PO DAILY 03/26/19 02/23/20 History Ubidecarenone/Vit E Acet [Co Q-10 1 tab PO BID 03/26/19 05/21/20 History 100 mg Softgel] Carvedilol [Coreg] 3.125 mg PO BID 30 Days #60 tab 10/20/19 02/23/20 Rx Furosemide [Lasix] 20 mg PO DAILY 30 Days #30 tab 10/20/19 11/15/19 Rx Mometasone/Formoterol 100/5 1 puff INH ASDIR PRN 11/10/19 02/23/20 History [Dulera 100 Mcg/5 Mcg Inhaler] Ipratropium/Albuterol Sulfate 3 ml INH Q2H PRN 11/15/19 11/15/19 History [DuoNeb] Clopidogrel Bisulfate [Clopidogrel] 75 mg PO DAILY 02/23/20 05/21/20 History Lisinopril 5 mg PO DAILY 02/23/20 02/23/20 History Sacubitril/Valsartan 49/51 0.5 tab PO BID 02/23/20 02/23/20 History [Entresto 49 mg-51 mg Tablet] Spironolactone [Aldactone] 12.5 mg PO DAILY 02/23/20 05/21/20 History Aspirin [Ecotrin Low Strength] 81 mg PO DAILY #0 tab 02/25/20 05/21/20 Rx - History PMHx: COPD, HLD, Afib - resolved, HFrEF, HTN, anxiety, CKD 3 PSHx: Knee arthroscopy, aortic valve replacement, pacemaker and defibrillator, colon resection in mid 1980s, gastric ulcer repair FHx: father - valvular heart disease, mother - CF Social: 2ppd smoker, no alcohol or drugs - Review of Systems General: reports: fatigue. denies: fever/chills, weight/appetite/sleep changes Eyes: denies: eye pain, vision changes ENT: denies: nasal congestion, rhinorrhea Respiratory: reports: cough, shortness of breath Cardiovascular: denies: chest pain, palpitation, edema Gastrointestinal: denies: nausea, vomiting, diarrhea, constipation, abdominal pain Genitourinary: denies: dysuria, polyuria Skin: denies: rashes, lesions Musculoskeletal: denies: pain Neurological: denies: syncope, weakness - Vital signs BP: 138/87 HR: 75 RR: 19 Tmax: 97.7F Pox: 96% on RA Wt: 115 kg - Physical Exam Constitutional: NAD, awake, alert and oriented HEENT: normocephalic and atraumatic, conjunctiva clear, no scleral icterus, gr ossly normal vision, grossly normal hearing Neck: supple Chest: no-tender to palpation Heart: RRR, pulses present (1+), no edema -Heart: heart sounds obscured by wheezing Lungs: no respiratory distress, other (diffuse inspiratory and expiratory wheezing) Abdomen: soft, non-tender, bowel sounds present, other (incisional hernia, easily reducible) Musculoskeletal: normal structure Neurological: no focal deficit Skin: capillary refill <2 seconds, other (dry skin) Heme/Lymphatic: other (senile purpura bilateral upper extremity) Psychiatric: other (poor recall of recent medication use) FMR H&P: Results - Labs Result Diagrams: 05/22/20 03:54 05/22/20 03:54 Lab results: WBC 12.4 thou/uL (4.8-10.8) H 05/21/20 12:40 Hgb 12.3 g/dL (14.0-18.0) L 05/21/20 12:40 Hct 37.9 % (42.0-52.0) L 05/21/20 12:40 MCV 96.3 fL (78.0-98.0) 05/21/20 12:40 Plt Count 145 thou/uL (130-400) 05/21/20 12:40 Neutrophils % 73.4 % (42.0-75.0) 05/21/20 12:40 Sodium 140 mmol/L (136-145) 05/21/20 12:40 Potassium 3.7 mmol/L (3.5-5.1) 05/21/20 12:40 Chloride 105 mmol/L (98-107) 05/21/20 12:40 Carbon Dioxide 25 mmol/L (23-31) 05/21/20 12:40 BUN 31 mg/dL (8.4-25.7) H 05/21/20 12:40 Creatinine 1.60 mg/dL (0.7-1.3) H 05/21/20 12:40 Glucose 102 mg/dL (83-110) 05/21/20 12:40 Calcium 9.1 mg/dL (7.8-10.44) 05/21/20 12:40 Total Bilirubin 1.3 mg/dL (0.2-1.2) H 05/21/20 12:40 AST 19 U/L (5-34) 05/21/20 12:40 ALT 21 U/L (8-55) 05/21/20 12:40 Alkaline Phosphatase 68 U/L (40-110) 05/21/20 12:40 Creatine Kinase 91 U/L (30-200) 05/21/20 12:40 CK-MB (CK-2) 2.7 ng/mL (0-6.6) 05/21/20 12:40 B-Natriuretic Peptide 174.1 pg/mL (0-100) H 05/21/20 12:40 Serum Total Protein 6.8 g/dL (5.8-8.1) 05/21/20 12:40 Albumin 3.7 g/dL (3.4-4.8) 05/21/20 12:40 Lipase 30 U/L (8-78) 05/21/20 12:40 - EKG Interpretation EKG: EKG: non-specific T wave changes, no ST elevation, NSR rate 70s FMR H&P: A/P - Plan COPD exacerbation Diffuse wheezing, no respiratory failure. No use of controller medications in outpatient setting. Seen at multiple facilities for reported bronchitis, appears to have been treated with prednisone and multiple antibiotics including clarithromycin and doxycycline. Reports seeing Dr. Cunningham in the past. - will start steroids: solumedrol tonight and transition to PO prednisone in AM - scheduled duonebs, albuterol PRN - will start dulera for controller medication - will not start azithromycin as low suspicion for bacterial component to this exacerbation Hx of COVID-19 Screened positive within the past 90 days, on 02/23/20. No symptoms. Hx complicated UTI Past infections presenting with similar symptoms of generalized weakness. s/p rocephin + levaquin in ED. - f/u UA - f/u procal - consider abx if positive, otherwise will defer abx at this time for antibiotic stewardship Tobacco use 2 ppd x 45 years. 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 Reported non-compliance with plavix in outpatient setting - resume DAPT with plavix 75 mg daily + ASA 81 mg daily Chronic problems: Hx atrial fibrillation - aware, s/p cardioversion per pt Anxiety - continue home paroxetine HTN - aware, continue home meds HLD - not on statin (allergy), continue coq10/fish oil Dispo: Admit to medical obs, anticipate DC to home when COPD exacerbation is improved FMR H&P: Upper Level - Pertinent history S: 74yo with 1 mo history of exertional dyspnea, cough, and generalized weakness. Treated outpatient for "bronchitis" a couple of different places, re ceived doxy, furosemide, prednisone and clarithromycin during these visits. Notes minimal improvement. Pt has a significant smoking history, recent diagnosis of COPD, and only takes albuterol inhaler once in a while. Has not taken it anytime recently. Denies any other signs of infection - fever, chills, nausea, vomiting, diarrhea. - Pertinent findings O: Exam Constitutional: NAD HEENT: Dry MM, poor dentition Heart: RRR Lungs: Diffuse wheezing in all german Abd: Non tender Ext: No edema, cyanosis Neuro: A&O x3 A/P: Presumed COPD exacerbation - wheezing on exam - check procal - steroids - neb tx - dulera Chronic Medical Conditions - Resume home medications as outlined above Dispo: Admit to medical. ELOS <48hr Benton Giles DO - PGY2 - Plan Date/Time: 05/21/20 [id number] I, Benton Giles DO, have evaluated this patient and agree with findings/plan as outlined by internet marketing executive resident. Pertinent changes/additions are listed here. Addendum - Attending - Attending Attestation Date/Time: 05/22/20 1175 I personally evaluated the patient and discussed the management with Dr. Felix/Chan I agree with the History, Examination, Assessment and Plan documented above with any addition or exceptions noted below.
[2020-05-21] MEDS ORDERED: Ondansetron ODT 4 MG TAB PO PRN (16:57)
[2020-05-21] MEDS ORDERED: Acetaminophen 325 MG TAB PO PRN (16:57)
[2020-05-21] MEDS ORDERED: Albuterol Sulfate 2.5 mg/3 ml Neb NEB PRN (16:57)
[2020-05-21] MEDS ORDERED: cefTRIAXone\\ROCEPHIN 1 GM VIAL ONE (17:08)
[2020-05-21] MEDS ORDERED: Nitroglycerin 2% Ointment 1 INCH/1 GM Packet ONE (17:08)
[2020-05-21] MEDS ORDERED: Aspirin Chewable 81 MG TAB ONE (17:08)
--- NOTE | 2020-05-21 17:14 | PDOC.EVN ---
Event Note - Event Note Event Note: Seen and evaluated on 05/21/20 at 1645. COPD exacerbation. steroids, duonebs, and albuterol for tx. UA pending. No abx until procal and UA return. See resident note for details.
[2020-05-21] MEDS ORDERED: Nicotine 14 MG PATCH TD PRN (17:16)
[2020-05-21 17:40] LABS: Bacteria/HPF None Seen HPF (None Seen); Bilirubin Negative (Negative); Blood, Urine 2+ (Negative); Clarity Clear (Clear); Glucose, Urine (Dipstick) Normal (Negative); Ketone, Urine Negative (Negative); Leukocyte Negative Leu/uL (Negative); Nitrite Negative (Negative); Protein, Urine (Dipstick) 20 mg/dL (Neg-Trace); Specific Gravity, Urine 1.015 (1.002-1.036); Squamous Epithelial 0-3 HPF (0-3); Urobilinogen Normal mg/dL (Less than 2); WBC/HPF 0-3 HPF (0-3); pH, Urine 5.5 (5.0-9.0)
[2020-05-21] MEDS ORDERED: methylPREDNISolone Sod Succ/PF 125 MG/2 ML VIAL IVP SCH (17:45)
[2020-05-21 18:20] LABS: Troponin I 0.049 ng/mL (< 0.028)
[2020-05-21] MEDS: Mometasone 100 MCG/Formoterol 5 MCG 120 PUFF INHALER INH SCH (18:35)
[2020-05-21] MEDS ORDERED: methylPREDNISolone Sod Succ/PF 125 MG/2 ML VIAL ONE (18:48)
[2020-05-21] MEDS ORDERED: hydrOXYzine 25 MG TAB ONE (18:48)
[2020-05-21 20:28] LABS: Troponin I 0.043 ng/mL (< 0.028)
[2020-05-21] MEDS: Ubidecarenone 50 MG CAP PO SCH (21:39)
[2020-05-22 01:20] LABS: SARS-CoV-2 PCR by NAA Not Detected (NotDetected)
[2020-05-22 04:21] LABS: #Lymphocytes 0.5 thou/uL (1.20-3.40); #Monocytes 0.2 thou/uL (0.11-0.59); #Neutrophils 5.8 thou/uL (1.40-6.50); %Eosinophils 0.1 % (0.0-10.0); %Lymphocytes 7.2 % (21.0-51.0); %Monocytes 2.5 % (0.0-10.0); %Neutrophils 90.2 % (42.0-75.0); Mean Corpuscular HGB CONC 32.8 g/dL (32.0-36.0); Mean Corpuscular Hemoglobin 30.9 pg (27.0-31.0); Mean Corpuscular Volume 94.3 fL (78.0-98.0); Mean Platelet Volume 8.1 fL (7.4-10.4); Platelet Count 141 thou/uL (130-400); Red Blood Cell (RBC) Count 3.89 mill/uL (4.70-6.10); White Blood Cell (WBC) Count 6.4 thou/uL (4.8-10.8)
[2020-05-22 04:38] LABS: Anion Gap 13 mmol/L (10-20); BUN (Urea Nitrogen) 28 mg/dL (8.4-25.7); Calc. Creatinine Clearance 0 mL/min (70-130); Calcium 8.8 mg/dL (7.8-10.44); Carbon Dioxide 22 mmol/L (23-31); Chloride 106 mmol/L (98-107); Glucose 168 mg/dL (83-110); Potassium 4.3 mmol/L (3.5-5.1); Sodium 137 mmol/L (136-145)
--- NOTE | 2020-05-22 05:42 | PDOC.FM ---
- Subjective Subjective: No acute overnight events. Slept well overnight, has not yet been out of bed to try ambulating. No new complaints this AM. Reports breathing feels stable. - Objective Vital Signs & Weight: Vital Signs (12 hours) Pulse Resp Pulse Ox 05/22/20 02:01 16 05/21/20 21:50 85 16 95 05/21/20 18:35 87 16 97 Result Diagrams: 05/22/20 03:54 05/22/20 03:54 Phys Exam - Physical Examination Constitutional: NAD HEENT: moist MMs Neck: supple Respiratory: no rales, no rhonchi, wheezing present occasional diffuse expiratory wheezes Cardiovascular: RRR, no significant murmur Gastrointestinal: soft, non-tender, no distention Musculoskeletal: no edema, pulses present Psychiatric: A&O x 3 Skin: normal turgor Dx/Plan - Plan Plan: COPD exacerbation Diffuse wheezing, no respiratory failure. No use of controller medications in outpatient setting. Seen at multiple facilities for reported bronchitis, appears to have been treated with prednisone and multiple antibiotics including cl arithromycin and doxycycline. Reports seeing Dr. Cunningham in the past. - transition to PO prednisone - scheduled duonebs, albuterol PRN - will start dulera for controller medication - will not start azithromycin as low suspicion for bacterial component to this exacerbation, negative procalcitonin Hx of COVID-19 Screened positive within the past 90 days, on 02/23/20. No symptoms. - COVID neg on admission Hx complicated UTI Past infections presenting with similar symptoms of generalized weakness. s/p rocephin + levaquin in ED. - no sign of infection on UA Hematuria 2+ blood and 11-20 RBCs on UA. Established with Dr. Brown, urology. - recommend outpatient f/u with urology HFrEF EF 30-35% on echo 09/2019. No signs of volume overload on exam. - continue to monitor respiratory status Tobacco use 2 ppd x 45 years. 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 Reported non-compliance with plavix in outpatient setting - resume DAPT with plavix 75 mg daily + ASA 81 mg daily Chronic problems: Hx atrial fibrillation - aware, s/p cardioversion per pt Anxiety - continue home paroxetine HTN - aware, continue home meds HLD - not on statin (allergy), continue coq10/fish oil Dispo: Admit to medical obs, anticipate DC to home when COPD exacerbation is improved Addendum - Attending - Attending Attestation Date/Time: 05/22/20 1030 I personally evaluated the patient and discussed the management with Dr. Felix. I agree with the History, Examination, Assessment and Plan documented above with any addition or exceptions noted below. Rx for nebulizer completed through clinic. D/c on 2 wk steroid taper. continue current inhalers. d/c early PM.
[2020-05-22] MEDS ORDERED: Fish Oil 1,000 MG CAP PO SCH (09:00)
[2020-05-22] MEDS ORDERED: Enoxaparin Sodium 40 MG/0.4 ML SYRINGE SC SCH (09:00)
[2020-05-22] MEDS ORDERED: Finasteride 5 MG TAB PO SCH (09:00)
[2020-05-22] MEDS ORDERED: Aspirin 81 mg Enteric Coated Tablet PO SCH (09:00)
[2020-05-22] MEDS ORDERED: PARoxetine 20 MG TAB PO SCH (09:00)
[2020-05-22] MEDS ORDERED: predniSONE 20 MG TAB PO SCH (09:00)
[2020-05-22] MEDS ORDERED: Spironolactone 25 MG TAB PO SCH (09:00)
[2020-05-22] MEDS ORDERED: Clopidogrel Bisulfate 75 MG TAB PO SCH (09:00)
[2020-05-22] MEDS ORDERED: predniSONE 20 MG TAB ONE (09:09)
[2020-05-22] MEDS ORDERED: Enoxaparin Sodium 40 MG/0.4 ML SYRINGE ONE (09:09)
[2020-05-22] MEDS ORDERED: Aspirin 81 mg Enteric Coated Tablet ONE (09:09)
[2020-05-22] MEDS: Ubidecarenone 50 MG CAP PO SCH (09:46)
[2020-05-22] MEDS: Mometasone 100 MCG/Formoterol 5 MCG 120 PUFF INHALER INH SCH (10:11)
== END 2020-05-22 12:09 | disposition home or self-care (01) ==
LOC: ERS 12:04 → ERHOLD 17:13
PROVIDERS: ADMIT Family Medicine; ATTEND Family Medicine
DX: J44.1 Chronic obstructive pulmonary disease with (acute) exacerbation (principal); R31.9 Hematuria, unspecified; I13.0 Hypertensive heart and chronic kidney disease with heart failure and stage 1 through stage 4 chronic kidney disease, or unspecified chronic kidney disease; I50.20 Unspecified systolic (congestive) heart failure; N18.30 Chronic kidney disease, stage 3 unspecified; F17.210 Nicotine dependence, cigarettes, uncomplicated; I48.91 Unspecified atrial fibrillation; F41.9 Anxiety disorder, unspecified; E78.5 Hyperlipidemia, unspecified; Z86.16 Personal history of COVID-19; Z87.440 Personal history of urinary (tract) infections; Z79.02 Long term (current) use of antithrombotics/antiplatelets; Z79.82 Long term (current) use of aspirin; Z79.899 Other long term (current) drug therapy; Z88.8 Allergy status to other drugs, medicaments and biological substances; Z91.041 Radiographic dye allergy status; Z95.0 Presence of cardiac pacemaker; Z95.2 Presence of prosthetic heart valve; Z90.49 Acquired absence of other specified parts of digestive tract; Z20.822 Contact with and (suspected) exposure to COVID-19
CPT/HCPCS: 71046; 71250; 80048; 80053; 82550; 82553; 83605; 83690; 83880; 84145; 84484 ×2; 85025 ×2; 87040; 87086; 93005; 94640 ×5; 96365; 96367; 97139 ×2; 99285; U0003; U0005; 36415; 81003; 81015; 87635; 96375; G0378; J0696; J1650; J1956; J2930; J7512; J7620

== ENCOUNTER 2020-06-17 10:30 | Emergency (ER) | payer MEDICARE, BC ==
[2020-06-17 11:22] LABS: Hemoglobin 12.9 g/dL (14.0-18.0); Mean Corpuscular HGB CONC 31.5 g/dL (32.0-36.0); Mean Corpuscular Volume 95.2 fL (78.0-98.0); Mean Platelet Volume 8.1 fL (7.4-10.4); Platelet Count 146 thou/uL (130-400); RBC Distribution Width 13.6 % (11.5-14.5); Red Blood Cell (RBC) Count 4.32 mill/uL (4.70-6.10); White Blood Cell (WBC) Count 5.9 thou/uL (4.8-10.8)
[2020-06-17 11:39] LABS: Band 1 % (5-11); Eosinophils 1 % (0-10); Lymphocytes 28 % (21-51); MDiff Complete? YES; Monocytes 17 % (0-10); Neutrophil 50 % (42-75); Platelet Morphology Comment Appears Adequate; RBC Morphology Normal; Reactive Lymphocytes 1 % (0-10)
[2020-06-17 11:40] LABS: ALT (SGPT) 18 U/L (8-55); AST (SGOT) 19 U/L (5-34); Albumin 3.5 g/dL (3.4-4.8); Alkaline Phosphatase 71 U/L (40-110); Anion Gap 11 mmol/L (10-20); BUN (Urea Nitrogen) 17 mg/dL (8.4-25.7); Bilirubin, Total 0.8 mg/dL (0.2-1.2); Calc. Creatinine Clearance 0 mL/min (70-130); Calcium 9.2 mg/dL (7.8-10.44); Carbon Dioxide 26 mmol/L (23-31); Chloride 103 mmol/L (98-107); Globulin 3.7 g/dL (2.4-3.5); Glucose 128 mg/dL (83-110); Potassium 4.4 mmol/L (3.5-5.1); Protein, Total 7.2 g/dL (5.8-8.1); Sodium 136 mmol/L (136-145)
[2020-06-17 12:30] LABS: Bacteria/HPF None Seen HPF (None Seen); Bilirubin Negative (Negative); Blood, Urine 2+ (Negative); Clarity Clear (Clear); Glucose, Urine (Dipstick) Normal (Negative); Ketone, Urine Negative (Negative); Leukocyte Negative Leu/uL (Negative); Nitrite Negative (Negative); Protein, Urine (Dipstick) 30 mg/dL (Neg-Trace); Specific Gravity, Urine 1.015 (1.002-1.036); Squamous Epithelial 0-3 HPF (0-3); Urobilinogen Normal mg/dL (Less than 2); WBC/HPF 0-3 HPF (0-3)
== END 2020-06-17 14:45 | disposition home or self-care (01) ==
LOC: ERS 10:30
DX: R53.1 Weakness (principal); I48.91 Unspecified atrial fibrillation; E78.5 Hyperlipidemia, unspecified; I10 Essential (primary) hypertension; J44.9 Chronic obstructive pulmonary disease, unspecified; F17.210 Nicotine dependence, cigarettes, uncomplicated; Z95.0 Presence of cardiac pacemaker; Z79.899 Other long term (current) drug therapy; Z79.82 Long term (current) use of aspirin
CPT/HCPCS: 71045; 80053; 81003; 81015; 84484; 85025; 87086; 93005

== ENCOUNTER 2020-07-22 09:06 | Outpatient (CLI) | payer MEDICARE, BC ==
[2020-07-23 01:17] LABS: SARS-CoV-2 PCR by NAA Not Detected (NotDetected)
== END 2020-07-22 09:07 | disposition home or self-care (01) ==
LOC: LABBT 09:06
PROVIDERS: ATTEND Internal Medicine Gastroenterology
DX: Z01.812 Encounter for preprocedural laboratory examination (principal); R94.39 Abnormal result of other cardiovascular function study; Z20.822 Contact with and (suspected) exposure to COVID-19
CPT/HCPCS: U0003; U0005; 87635

== ENCOUNTER 2020-07-25 11:37 | Day surgery (SDC) | payer MEDICARE, BC ==
[2020-07-24 14:02] VITALS: BMI 31.4
[2020-07-25] MEDS ORDERED: Midazolam HCl 2 mg/2 ml Vial ONE (13:27)
[2020-07-25] MEDS ORDERED: Ketamine 50 MG/ML (10ML VIAL) ONE (13:28)
[2020-07-25] MEDS ORDERED: Glycopyrrolate 0.2 MG/ML 5 ML SYRINGE ONE (13:28)
[2020-07-25] MEDS ORDERED: PHENYLEPHRINE-NS 100 MCG/ML 10 ML SYRINGE ONE (13:28)
[2020-07-25] MEDS ORDERED: PROPOFOL 200 MG/20 ML VIAL ONE (15:13)
== END 2020-07-25 17:06 | disposition home or self-care (01) ==
LOC: SDC 11:37
PROVIDERS: ATTEND Internal Medicine Gastroenterology
PROC: 0DJD8ZZ Inspection of Lower Intestinal Tract, Via Natural or Artificial Opening Endoscopic (ICD-10-PCS; principal; 2020-07-25)
PROC: 0DJ08ZZ Inspection of Upper Intestinal Tract, Via Natural or Artificial Opening Endoscopic (ICD-10-PCS; 2020-07-25)
DX: D64.9 Anemia, unspecified (principal); K57.30 Diverticulosis of large intestine without perforation or abscess without bleeding; K64.8 Other hemorrhoids; K21.9 Gastro-esophageal reflux disease without esophagitis; M19.90 Unspecified osteoarthritis, unspecified site; I25.10 Atherosclerotic heart disease of native coronary artery without angina pectoris; E78.00 Pure hypercholesterolemia, unspecified; G47.30 Sleep apnea, unspecified; F17.210 Nicotine dependence, cigarettes, uncomplicated; Z85.038 Personal history of other malignant neoplasm of large intestine; Z79.01 Long term (current) use of anticoagulants; Z79.899 Other long term (current) drug therapy; Z95.0 Presence of cardiac pacemaker; Z95.5 Presence of coronary angioplasty implant and graft; Z88.8 Allergy status to other drugs, medicaments and biological substances
CPT/HCPCS: J2250; J2704

== ENCOUNTER 2020-10-02 10:57 | Outpatient (CLI) | payer MEDICARE, BC | END 2020-10-02 10:58 | disposition home or self-care (01) | LOC: BICULT 10:57 | PROVIDERS: ATTEND Internal Medicine Nephrology | DX: N18.30 Chronic kidney disease, stage 3 unspecified (principal); N28.1 Cyst of kidney, acquired; R93.421 Abnormal radiologic findings on diagnostic imaging of right kidney; R93.422 Abnormal radiologic findings on diagnostic imaging of left kidney | CPT/HCPCS: 76770 ==

== ENCOUNTER 2020-10-31 12:13 | Outpatient (CLI) | payer MEDICARE, BC | END 2020-10-31 12:14 | disposition home or self-care (01) | LOC: BICRAD 12:13 | PROVIDERS: ATTEND Internal Medicine Pulmonary Disease | DX: R06.00 Dyspnea, unspecified (principal) | CPT/HCPCS: 71046 ==

== ENCOUNTER 2021-03-05 10:37 | Outpatient (CLI) | payer MEDICARE, BC | END 2021-03-05 10:38 | disposition home or self-care (01) | LOC: BICRAD 10:37 | PROVIDERS: ATTEND Nurse Practitioner Family | DX: I50.22 Chronic systolic (congestive) heart failure (principal) | CPT/HCPCS: 36415; 71046; 80053; 85025 ==

== ENCOUNTER 2021-05-28 08:08 | Outpatient (CLI) | payer MEDICARE, BC ==
[2021-05-28] MEDS ORDERED: Iopamidol 370 76% 100 ML VIAL ONE (08:59)
== END 2021-05-28 08:09 | disposition home or self-care (01) ==
LOC: CT 08:08
PROVIDERS: ATTEND Student in an Organized Health Care Education/Training Program
DX: R63.4 Abnormal weight loss (principal); R53.82 Chronic fatigue, unspecified; R63.39 Other feeding difficulties; N28.1 Cyst of kidney, acquired; K40.90 Unilateral inguinal hernia, without obstruction or gangrene, not specified as recurrent; K57.30 Diverticulosis of large intestine without perforation or abscess without bleeding; I70.0 Atherosclerosis of aorta; M47.816 Spondylosis without myelopathy or radiculopathy, lumbar region
CPT/HCPCS: 74178; 82565; Q9967

== ENCOUNTER 2021-07-09 11:15 | Outpatient (CLI) | payer MEDICARE, BC | END 2021-07-09 11:16 | disposition home or self-care (01) | LOC: BICCT 11:15 | PROVIDERS: ATTEND Student in an Organized Health Care Education/Training Program | DX: Z12.2 Encounter for screening for malignant neoplasm of respiratory organs (principal); F17.210 Nicotine dependence, cigarettes, uncomplicated; I25.10 Atherosclerotic heart disease of native coronary artery without angina pectoris; I70.0 Atherosclerosis of aorta | CPT/HCPCS: 71271 ==

== ENCOUNTER 2021-08-20 19:00 | Outpatient (CLI) | payer MEDICARE, BC | END 2021-08-20 19:01 | disposition home or self-care (01) | LOC: SLEEPLAB 19:00 | PROVIDERS: ATTEND Student in an Organized Health Care Education/Training Program | DX: G47.33 Obstructive sleep apnea (adult) (pediatric) (principal); R53.83 Other fatigue; G47.61 Periodic limb movement disorder; R06.83 Snoring; I50.9 Heart failure, unspecified; J44.9 Chronic obstructive pulmonary disease, unspecified; R35.1 Nocturia; K21.9 Gastro-esophageal reflux disease without esophagitis; G47.10 Hypersomnia, unspecified; I25.10 Atherosclerotic heart disease of native coronary artery without angina pectoris; E66.9 Obesity, unspecified; I49.1 Atrial premature depolarization; I49.3 Ventricular premature depolarization; Z68.31 Body mass index [BMI] 31.0-31.9, adult | CPT/HCPCS: 95811 ==

== ENCOUNTER 2021-08-26 13:19 | Emergency (ER) | payer MEDICARE, BC ==
[2021-08-26 14:07] LABS: #Eosinphils 0.2 thou/uL (0.0-0.7); #Lymphocytes 1.2 thou/uL (1.20-3.40); #Monocytes 0.6 thou/uL (0.11-0.59); %Basophils 0.2 % (0.0-1.0); %Eosinophils 2.3 % (0.0-10.0); %Lymphocytes 17.9 % (21.0-51.0); %Monocytes 8.5 % (0.0-10.0); %Neutrophils 71.2 % (42.0-75.0); Hemoglobin 9.2 g/dL (14.0-18.0); Mean Corpuscular HGB CONC 31.6 g/dL (32.0-36.0); Mean Corpuscular Hemoglobin 26.8 pg (27.0-31.0); Mean Corpuscular Volume 84.9 fL (78.0-98.0); Mean Platelet Volume 7.4 fL (7.4-10.4); Platelet Count 198 thou/uL (130-400); RBC Distribution Width 14.5 % (11.5-14.5); Red Blood Cell (RBC) Count 3.43 mill/uL (4.70-6.10)
[2021-08-26 14:27] LABS: ALT (SGPT) 12 U/L (8-55); AST (SGOT) 15 U/L (5-34); Albumin 3.6 g/dL (3.4-4.8); Alkaline Phosphatase 58 U/L (40-110); Anion Gap 12 mmol/L (10-20); BUN (Urea Nitrogen) 17 mg/dL (8.4-25.7); Bilirubin, Total 0.9 mg/dL (0.2-1.2); Calc. Creatinine Clearance 0 mL/min (70-130); Calcium 9.1 mg/dL (7.8-10.44); Carbon Dioxide 24 mmol/L (23-31); Chloride 106 mmol/L (98-107); Globulin 3.4 g/dL (2.4-3.5); Glucose 89 mg/dL (83-110); Potassium 4.2 mmol/L (3.5-5.1); Sodium 138 mmol/L (136-145)
== END 2021-08-26 17:17 | disposition left against medical advice (07) ==
LOC: ERS 13:19
DX: R53.1 Weakness (principal); I49.3 Ventricular premature depolarization
CPT/HCPCS: 36415; 71045; 80053; 83880; 84484; 85025; 93005

== ENCOUNTER 2021-09-01 12:38 | Outpatient (CLI) | payer MEDICARE, BC | END 2021-09-01 12:39 | disposition home or self-care (01) | LOC: BICCT 12:38 | PROVIDERS: ATTEND Student in an Organized Health Care Education/Training Program | DX: R51.9 Headache, unspecified (principal); I25.10 Atherosclerotic heart disease of native coronary artery without angina pectoris; I67.2 Cerebral atherosclerosis; Z90.89 Acquired absence of other organs; Z98.890 Other specified postprocedural states | CPT/HCPCS: 70450 ==

== ENCOUNTER 2021-09-10 17:37 | Emergency (ER) | payer MEDICARE, BC ==
[2021-09-10 18:11] LABS: #Eosinphils 0.1 thou/uL (0.0-0.7); #Lymphocytes 1.6 thou/uL (1.20-3.40); #Monocytes 0.8 thou/uL (0.11-0.59); #Neutrophils 3.9 thou/uL (1.40-6.50); %Basophils 0.4 % (0.0-1.0); %Eosinophils 1.8 % (0.0-10.0); %Lymphocytes 25.7 % (21.0-51.0); %Monocytes 11.7 % (0.0-10.0); %Neutrophils 60.4 % (42.0-75.0); Hemoglobin 8.5 g/dL (14.0-18.0); Mean Corpuscular HGB CONC 31.3 g/dL (32.0-36.0); Mean Corpuscular Hemoglobin 26.8 pg (27.0-31.0); Mean Corpuscular Volume 85.6 fL (78.0-98.0); Mean Platelet Volume 7.7 fL (7.4-10.4); Platelet Count 176 thou/uL (130-400); RBC Distribution Width 14.9 % (11.5-14.5); Red Blood Cell (RBC) Count 3.18 mill/uL (4.70-6.10); White Blood Cell (WBC) Count 6.4 thou/uL (4.8-10.8)
[2021-09-10 18:35] LABS: ALT (SGPT) 8 U/L (8-55); AST (SGOT) 17 U/L (5-34); Albumin 3.6 g/dL (3.4-4.8); Alkaline Phosphatase 55 U/L (40-110); Anion Gap 12 mmol/L (10-20); BUN (Urea Nitrogen) 26 mg/dL (8.4-25.7); Bilirubin, Total 0.8 mg/dL (0.2-1.2); Calc. Creatinine Clearance 0 mL/min (70-130); Calcium 9.3 mg/dL (7.8-10.44); Carbon Dioxide 23 mmol/L (23-31); Chloride 104 mmol/L (98-107); Globulin 3.2 g/dL (2.4-3.5); Glucose 99 mg/dL (83-110); Lipase 19 U/L (8-78); Potassium 4.3 mmol/L (3.5-5.1); Protein, Total 6.8 g/dL (5.8-8.1); Sodium 135 mmol/L (136-145)
== END 2021-09-10 21:56 | disposition home or self-care (01) ==
LOC: ERS 17:37
DX: I49.3 Ventricular premature depolarization (principal); D64.9 Anemia, unspecified; I10 Essential (primary) hypertension; I48.91 Unspecified atrial fibrillation; F17.210 Nicotine dependence, cigarettes, uncomplicated
CPT/HCPCS: 36415; 71045; 80053; 83690; 84484; 85025; 93005

== ENCOUNTER 2021-09-18 19:00 | Outpatient (CLI) | payer MEDICARE, BC | END 2021-09-18 19:01 | disposition home or self-care (01) | LOC: SLEEPLAB 19:00 | PROVIDERS: ATTEND Student in an Organized Health Care Education/Training Program | DX: G47.33 Obstructive sleep apnea (adult) (pediatric) (principal); I50.9 Heart failure, unspecified; J44.9 Chronic obstructive pulmonary disease, unspecified; R53.83 Other fatigue; R06.83 Snoring; R35.1 Nocturia; G47.10 Hypersomnia, unspecified; E66.9 Obesity, unspecified; Z68.31 Body mass index [BMI] 31.0-31.9, adult | CPT/HCPCS: 95811 ==

== ENCOUNTER 2022-05-05 14:19 | Outpatient (CLI) | payer OTHER ==
[2022-05-05 15:10] LABS: Bilirubin Neg (Negative); Blood, Urine 150 (Negative); Clarity Clear (Clear); Glucose, Urine (Dipstick) Normal (Negative); Hemoglobin 11.2 g/dL (13.5-17.5); Ketone, Urine Negative (Negative); Leukocyte 500 (Negative); Mean Corpuscular HGB CONC 31.8 g/dL (32.0-36.0); Mean Corpuscular Hemoglobin 28.1 pg (27.0-33.0); Mean Corpuscular Volume 88.2 fl (81.2-95.1); Mean Platelet Volume 9.4 fl (7.4-10.4); Nitrite Negative (Negative); Platelet Count 169 10x3/uL (150-450); Protein, Urine (Dipstick) 15 mg/dl (Neg-Trace); RBC Distribution Width 18.3 % (11.5-14.5); Red Blood Cell (RBC) Count 3.99 10x6/uL (4.32-5.72); Specific Gravity, Urine 1.015 (1.005-1.030); White Blood Cell (WBC) Count 6.7 10x3/uL (3.5-10.5)
[2022-05-05 15:32] LABS: ALT (SGPT) 17 U/L (8-55); AST (SGOT) 22 U/L (5-34); Albumin 3.7 g/dL (3.4-4.8); Alkaline Phosphatase 67 U/L (40-110); Anion Gap 13 mmol/L (10-20); BUN (Urea Nitrogen) 23 mg/dL (8.4-25.7); Bilirubin, Total 0.6 mg/dL (0.2-1.2); Calc. Creatinine Clearance 0 mL/min (70-130); Calcium 8.6 mg/dL (7.8-10.44); Carbon Dioxide 23 mmol/L (23-31); Chloride 105 mmol/L (98-107); Estimated GFR 30; Globulin 3.2 g/dL (2.4-3.5); Glucose 106 mg/dL (83-110); Protein, Total 6.9 g/dL (5.8-8.1); Sodium 137 mmol/L (136-145)
[2022-05-05 15:34] LABS: INR-International Normal Ratio 1.1; PTT 31.2 sec (22.0-33.0); Prothrombin Time 11.5 sec (9.5-12.1)
== END 2022-05-05 14:20 | disposition home or self-care (01) ==
LOC: LABBT 14:19
PROVIDERS: ATTEND Internal Medicine Cardiovascular Disease
DX: Z01.812 Encounter for preprocedural laboratory examination (principal); I48.91 Unspecified atrial fibrillation
CPT/HCPCS: 80053; 81003; 85027; 85610; 85730

== ENCOUNTER 2022-05-05 14:30 | Inpatient (IN) | payer MEDICARE, BC ==
[2022-05-11 10:35] VITALS: BMI 31.4
[2022-05-13] MEDS ORDERED: Heparin 10,000 UNITS/ 10 ML VIAL ONE (08:48)
[2022-05-13] MEDS ORDERED: Protamine Sulfate 50 MG/5 ML VIAL ONE (08:48)
[2022-05-13] MEDS ORDERED: diphenhydrAMINE 50 MG/ML VIAL ONE (08:48)
[2022-05-13] MEDS ORDERED: CEFAZOLIN 2 GM VIAL ONE ×2 (08:48→08:56)
[2022-05-13] MEDS ORDERED: CEFAZOLIN 1 GM VIAL ONE (08:56)
[2022-05-13] MEDS ORDERED: Iopamidol 370 76% 100 ML VIAL ONE (08:57)
[2022-05-13] MEDS ORDERED: Ipratropium/Albuterol 3 ML NEB ONE (09:04)
[2022-05-13] MEDS ORDERED: FENTANYL 50 MCG/ML 1 ML VIAL ONE (09:44)
[2022-05-13] MEDS ORDERED: Lidocaine 1% PF 5 ML VIAL ONE (09:55)
[2022-05-13] MEDS ORDERED: Ondansetron PF 4 MG/2 ML Vial ONE (09:55)
[2022-05-13] MEDS ORDERED: Rocuronium Bromide 10 MG/ML (10ML VIAL) ONE (09:55)
[2022-05-13] MEDS ORDERED: PROPOFOL 200 MG/20 ML VIAL ONE (09:55)
[2022-05-13] MEDS ORDERED: SUGAMMADEX SODIUM 200 MG/2 ML VIAL ONE (10:50)
== END 2022-05-13 16:13 | disposition home or self-care (01) | DRG 274 ==
LOC: SURG A 05-13 06:55
PROVIDERS: ADMIT Internal Medicine Cardiovascular Disease; ATTEND Internal Medicine Cardiovascular Disease
PROC: 02L73DK Occlusion of Left Atrial Appendage with Intraluminal Device, Percutaneous Approach (ICD-10-PCS; principal; 2022-05-13)
PROC: B246ZZ4 Ultrasonography of Right and Left Heart, Transesophageal (ICD-10-PCS; 2022-05-13)
DX: I48.0 Paroxysmal atrial fibrillation (principal); Z00.6 Encounter for examination for normal comparison and control in clinical research program; I50.22 Chronic systolic (congestive) heart failure; M35.3 Polymyalgia rheumatica; I25.10 Atherosclerotic heart disease of native coronary artery without angina pectoris; F32.A Depression, unspecified; F41.9 Anxiety disorder, unspecified; I25.5 Ischemic cardiomyopathy; F17.210 Nicotine dependence, cigarettes, uncomplicated; N18.9 Chronic kidney disease, unspecified; I35.0 Nonrheumatic aortic (valve) stenosis; Z79.01 Long term (current) use of anticoagulants; Z86.79 Personal history of other diseases of the circulatory system; Z98.890 Other specified postprocedural states; Z95.5 Presence of coronary angioplasty implant and graft; Z95.0 Presence of cardiac pacemaker; Z86.2 Personal history of diseases of the blood and blood-forming organs and certain disorders involving the immune mechanism; Z87.448 Personal history of other diseases of urinary system; Z85.038 Personal history of other malignant neoplasm of large intestine; Z79.82 Long term (current) use of aspirin; Z79.899 Other long term (current) drug therapy; Z79.85 Long-term (current) use of injectable non-insulin antidiabetic drugs; Z88.8 Allergy status to other drugs, medicaments and biological substances; Z91.09 Other allergy status, other than to drugs and biological substances
CPT/HCPCS: 33340; 36415; 85347; 86850; 86900; 86901; 93005; 93010; 93306; 93312; C1759; C1760; C1769; C1894; J0690; J1200; J1644; J2405; J2704; J2720; J3010; J7620; Q9967

== ENCOUNTER 2022-06-29 06:31 | Day surgery (SDC) | payer MEDICARE, BC ==
[2022-06-26 09:59] VITALS: BMI 31.4
[2022-06-29 07:35] LABS: Hemoglobin 10.9 g/dL (14.0-18.0); Mean Corpuscular HGB CONC 30.4 g/dL (32.0-36.0); Mean Corpuscular Hemoglobin 26.7 pg (27.0-31.0); Mean Platelet Volume 8.7 fL (7.4-10.4); Platelet Count 177 10x3/uL (130-400); RBC Distribution Width 17.2 % (11.5-14.5); White Blood Cell (WBC) Count 6.6 10x3/uL (4.8-10.8)
[2022-06-29 07:50] LABS: Anion Gap 11 mmol/L (10-20); BUN (Urea Nitrogen) 28 mg/dL (8.4-25.7); Calc. Creatinine Clearance 60 mL/min (70-130); Calcium 9.1 mg/dL (7.8-10.44); Carbon Dioxide 22 mmol/L (23-31); Chloride 108 mmol/L (98-107); Estimated GFR 43; Glucose 89 mg/dL (83-110); Potassium 4.2 mmol/L (3.5-5.1); Sodium 137 mmol/L (136-145)
[2022-06-29] MEDS ORDERED: Lidocaine 1% PF 5 ML VIAL ONE (08:18)
[2022-06-29] MEDS ORDERED: PROPOFOL 200 MG/20 ML VIAL ONE (08:18)
[2022-06-29 10:58] LABS: Band 1 % (5-11); Eosinophils 8 % (0-10); Lymphocytes 23 % (21-51); MDiff Complete? YES; Monocytes 9 % (0-10); Neutrophil 59 % (42-75); Platelet Morphology Comment Appears Adequate; Polychromasia SLIGHT = 2-3 cells (100X) (0-2/hpf)
== END 2022-06-29 10:37 | disposition home or self-care (01) ==
LOC: SDC 06:31
PROVIDERS: ATTEND Internal Medicine Cardiovascular Disease
PROC: B246ZZ4 Ultrasonography of Right and Left Heart, Transesophageal (ICD-10-PCS; principal; 2022-06-29)
DX: I48.19 Other persistent atrial fibrillation (principal); I08.1 Rheumatic disorders of both mitral and tricuspid valves; I13.0 Hypertensive heart and chronic kidney disease with heart failure and stage 1 through stage 4 chronic kidney disease, or unspecified chronic kidney disease; N18.9 Chronic kidney disease, unspecified; I50.20 Unspecified systolic (congestive) heart failure; G47.33 Obstructive sleep apnea (adult) (pediatric); I25.10 Atherosclerotic heart disease of native coronary artery without angina pectoris; I49.3 Ventricular premature depolarization; N40.0 Benign prostatic hyperplasia without lower urinary tract symptoms; M19.90 Unspecified osteoarthritis, unspecified site; M35.3 Polymyalgia rheumatica; I47.1 Supraventricular tachycardia; I25.5 Ischemic cardiomyopathy; F17.210 Nicotine dependence, cigarettes, uncomplicated; D50.9 Iron deficiency anemia, unspecified; Z85.038 Personal history of other malignant neoplasm of large intestine; Z79.01 Long term (current) use of anticoagulants; Z79.82 Long term (current) use of aspirin; Z79.84 Long term (current) use of oral hypoglycemic drugs; Z79.899 Other long term (current) drug therapy; Z88.8 Allergy status to other drugs, medicaments and biological substances; Z91.041 Radiographic dye allergy status; Z95.5 Presence of coronary angioplasty implant and graft; Z95.810 Presence of automatic (implantable) cardiac defibrillator; Z95.818 Presence of other cardiac implants and grafts
CPT/HCPCS: 36415; 80048; 85025; 93312; J2704

== ENCOUNTER 2023-04-20 13:34 | Outpatient (CLI) | payer MEDICARE | END 2023-04-20 13:35 | disposition home or self-care (01) | LOC: BICRAD 13:34 | PROVIDERS: ATTEND Student in an Organized Health Care Education/Training Program | DX: M54.2 Cervicalgia (principal); R10.12 Left upper quadrant pain; M47.812 Spondylosis without myelopathy or radiculopathy, cervical region; Z98.1 Arthrodesis status | CPT/HCPCS: 71111; 72040 ==

== ENCOUNTER 2023-05-24 14:00 | Outpatient (CLI) | payer MEDICARE | END 2023-05-24 14:01 | disposition home or self-care (01) | LOC: BICRAD 14:00 | PROVIDERS: ATTEND Student in an Organized Health Care Education/Training Program | DX: G89.29 Other chronic pain (principal); M17.12 Unilateral primary osteoarthritis, left knee ==

== ENCOUNTER 2023-09-01 14:49 | Outpatient (CLI) | payer MEDICARE | END 2023-09-01 14:50 | disposition home or self-care (01) | LOC: BICCT 14:49 | PROVIDERS: ATTEND Student in an Organized Health Care Education/Training Program | DX: M54.2 Cervicalgia (principal); Z98.1 Arthrodesis status | CPT/HCPCS: 72125 ==

== ENCOUNTER 2024-01-14 13:46 | Inpatient (IN) | payer MEDICARE ==
[2024-01-14 15:13] VITALS: BMI 32.1
[2024-01-14] MEDS ORDERED: Ondansetron PF 4 MG/2 ML Vial IVP PRN (15:19)
[2024-01-14] MEDS ORDERED: Nicotine 21 MG PATCH TD PRN (15:19)
[2024-01-14] MEDS ORDERED: Ondansetron ODT 4 MG TAB PO PRN (15:19)
[2024-01-14] MEDS ORDERED: Acetaminophen 325 MG TAB PO PRN (15:19)
[2024-01-14] MEDS: Aspirin 81 mg Enteric Coated Tablet PO SCH (20:51)
[2024-01-14] MEDS: Amiodarone 200 MG TAB PO SCH (20:51)
[2024-01-14] MEDS: Rosuvastatin 10 MG TAB PO SCH (20:51)
[2024-01-14] MEDS: Valsartan 80 MG TAB PO SCH (20:51)
[2024-01-14] MEDS: Finasteride 5 MG TAB PO SCH (20:51)
[2024-01-14] MEDS: PARoxetine 20 MG TAB PO SCH (20:51)
[2024-01-14] MEDS: Dapagliflozin Propanediol 10 MG TAB PO SCH (21:18)
[2024-01-15 04:23] LABS: #Basophils 0.03 10x3/uL (0.0-0.2); %Basophils 0.5 % (0.0-1.0); %Eosinophils 2.3 % (0.0-10.0); %Lymphocytes 24.6 % (21.0-51.0); %Neutrophils 61.3 % (42.0-75.0); Hematocrit 35.4 % (42.0-52.0); Hemoglobin 11.3 g/dL (14.0-18.0); Hemoglobin A1c 5.5 % (4.0-6.0); Mean Corpuscular HGB CONC 31.9 g/dL (32.0-36.0); Mean Corpuscular Hemoglobin 29.7 pg (27.0-31.0); Mean Corpuscular Volume 93.2 fL (78.0-98.0); Mean Platelet Volume 10.7 fL (7.4-10.4); Platelet Count 120 10x3/uL (130-400); RBC Distribution Width 14.2 % (11.5-14.5)
[2024-01-15 04:49] LABS: ALT (SGPT) 10 U/L (8-55); AST (SGOT) 17 U/L (5-34); Albumin 3.1 g/dL (3.4-4.8); Alkaline Phosphatase 67 U/L (40-110); Anion Gap 12 mmol/L (10-20); BUN (Urea Nitrogen) 21 mg/dL (8.4-25.7); Bilirubin, Total 1.1 mg/dL (0.2-1.2); Calc. Creatinine Clearance 51 mL/min (70-130); Calcium 8.8 mg/dL (7.8-10.44); Carbon Dioxide 21 mmol/L (23-31); Cardiac Risk 3.1 (Less than 4.5); Chloride 108 mmol/L (98-107); Cholesterol 86 mg/dl (< 200 Desired); Estimated GFR 36; Globulin 3.4 g/dL (2.4-3.5); Glucose 89 mg/dL (83-110); HDL Cholesterol 28 mg/dL (>60 Neg Risk); LDL Cholesterol, Calculated 42 mg/dL; Potassium 3.9 mmol/L (3.5-5.1); Protein, Total 6.5 g/dL (5.8-8.1); Sodium 137 mmol/L (136-145); Triglycerides 78 mg/dL (Less than 150)
[2024-01-16 04:01] LABS: #Basophils 0.04 10x3/uL (0.0-0.2); %Basophils 0.6 % (0.0-1.0); %Eosinophils 2.8 % (0.0-10.0); %Neutrophils 60.3 % (42.0-75.0); Hematocrit 36.2 % (42.0-52.0); Hemoglobin 11.6 g/dL (14.0-18.0); Mean Corpuscular Hemoglobin 30.6 pg (27.0-31.0); Mean Corpuscular Volume 95.5 fL (78.0-98.0); Mean Platelet Volume 10.7 fL (7.4-10.4); Platelet Count 117 10x3/uL (130-400); RBC Distribution Width 14.1 % (11.5-14.5); Red Blood Cell (RBC) Count 3.79 mill/uL (4.70-6.10)
[2024-01-16 04:33] LABS: ALT (SGPT) 11 U/L (8-55); AST (SGOT) 17 U/L (5-34); Albumin 3.1 g/dL (3.4-4.8); Alkaline Phosphatase 66 U/L (40-110); Anion Gap 11 mmol/L (10-20); BUN (Urea Nitrogen) 25 mg/dL (8.4-25.7); Calc. Creatinine Clearance 48 mL/min (70-130); Calcium 8.8 mg/dL (7.8-10.44); Carbon Dioxide 21 mmol/L (23-31); Chloride 106 mmol/L (98-107); Estimated GFR 34; Globulin 3.5 g/dL (2.4-3.5); Glucose 86 mg/dL (83-110); Potassium 3.8 mmol/L (3.5-5.1); Protein, Total 6.6 g/dL (5.8-8.1); Sodium 134 mmol/L (136-145)
[2024-01-16] MEDS ORDERED: Lorazepam 0.5 MG TAB PO PRN (07:00)
[2024-01-16] MEDS: FLU (Fluad Triv) TS24-25 (65UP)/MF59C/PF 45 MCG/0.5 ML Syringe IM ONE (09:30)
[2024-01-16] MEDS: Potassium Chloride 20 MEQ TAB PO SCH (09:32)
[2024-01-16] MEDS ORDERED: Iopamidol-370 76% 500 ML MDV (1 ML CHARGE) ONE (13:02)
[2024-01-16] MEDS: Acetaminophen 500 MG TAB PO SCH (16:54)
[2024-01-16] MEDS: Polyethylene Glycol 3350 17 GM Packet PO PRN (16:54)
[2024-01-16] MEDS: Cyclobenzaprine 10 MG TAB PO SCH (16:55)
[2024-01-17 05:06] LABS: #Basophils 0.05 10x3/uL (0.0-0.2); %Basophils 0.9 % (0.0-1.0); %Eosinophils 3.2 % (0.0-10.0); %Lymphocytes 26.2 % (21.0-51.0); %Monocytes 12.9 % (0.0-10.0); %Neutrophils 56.6 % (42.0-75.0); Hematocrit 36.9 % (42.0-52.0); Hemoglobin 11.7 g/dL (14.0-18.0); Mean Corpuscular HGB CONC 31.7 g/dL (32.0-36.0); Mean Corpuscular Hemoglobin 30.4 pg (27.0-31.0); Mean Corpuscular Volume 95.8 fL (78.0-98.0); Mean Platelet Volume 10.8 fL (7.4-10.4); Platelet Count 120 10x3/uL (130-400); RBC Distribution Width 14.2 % (11.5-14.5); Red Blood Cell (RBC) Count 3.85 mill/uL (4.70-6.10)
[2024-01-17 05:25] LABS: ALT (SGPT) 11 U/L (8-55); AST (SGOT) 19 U/L (5-34); Albumin 3.2 g/dL (3.4-4.8); Alkaline Phosphatase 70 U/L (40-110); Anion Gap 13 mmol/L (10-20); BUN (Urea Nitrogen) 29 mg/dL (8.4-25.7); Calc. Creatinine Clearance 45 mL/min (70-130); Carbon Dioxide 21 mmol/L (23-31); Chloride 105 mmol/L (98-107); Estimated GFR 31; Globulin 3.6 g/dL (2.4-3.5); Glucose 74 mg/dL (83-110); Potassium 4.1 mmol/L (3.5-5.1); Protein, Total 6.8 g/dL (5.8-8.1); Sodium 135 mmol/L (136-145)
[2024-01-17] MEDS: Mometasone 200 MCG/Formoterol 5 MCG 120 PUFF INHALER INH SCH (19:21)
[2024-01-17] MEDS: Rosuvastatin 20 MG TAB PO SCH (21:11)
[2024-01-17 22:03] LABS: Creatinine, Urine 105.39 mg/dL (63-166)
[2024-01-18 04:22] LABS: #Basophils 0.04 10x3/uL (0.0-0.2); %Basophils 0.5 % (0.0-1.0); %Eosinophils 3.3 % (0.0-10.0); %Lymphocytes 23.7 % (21.0-51.0); %Monocytes 11.6 % (0.0-10.0); %Neutrophils 60.5 % (42.0-75.0); Hematocrit 36.8 % (42.0-52.0); Hemoglobin 11.8 g/dL (14.0-18.0); Mean Corpuscular HGB CONC 32.1 g/dL (32.0-36.0); Mean Corpuscular Hemoglobin 29.7 pg (27.0-31.0); Mean Corpuscular Volume 92.7 fL (78.0-98.0); Mean Platelet Volume 10.5 fL (7.4-10.4); Platelet Count 121 10x3/uL (130-400); RBC Distribution Width 14.2 % (11.5-14.5); Red Blood Cell (RBC) Count 3.97 mill/uL (4.70-6.10)
[2024-01-18 04:44] LABS: ALT (SGPT) 13 U/L (8-55); AST (SGOT) 21 U/L (5-34); Albumin 3.3 g/dL (3.4-4.8); Alkaline Phosphatase 72 U/L (40-110); Anion Gap 14 mmol/L (10-20); BUN (Urea Nitrogen) 33 mg/dL (8.4-25.7); Bilirubin, Total 1.1 mg/dL (0.2-1.2); Calc. Creatinine Clearance 37 mL/min (70-130); Carbon Dioxide 21 mmol/L (23-31); Chloride 105 mmol/L (98-107); Estimated GFR 24; Globulin 3.5 g/dL (2.4-3.5); Glucose 79 mg/dL (83-110); Potassium 4.1 mmol/L (3.5-5.1); Protein, Total 6.8 g/dL (5.8-8.1); Sodium 136 mmol/L (136-145)
[2024-01-18] MEDS: Bisacodyl 5 MG TAB PO SCH (12:16)
[2024-01-18] MEDS: Lactated Ringer's 500 ML IV SCH (12:17)
[2024-01-18] MEDS: Simethicone Chewable 80 MG TAB PO PRN (16:17)
[2024-01-18] MEDS: Senokot 8.6 MG TAB PO PRN (21:29)
[2024-01-19 04:08] LABS: ALT (SGPT) 14 U/L (8-55); AST (SGOT) 20 U/L (5-34); Albumin 3.2 g/dL (3.4-4.8); Alkaline Phosphatase 66 U/L (40-110); Anion Gap 13 mmol/L (10-20); BUN (Urea Nitrogen) 35 mg/dL (8.4-25.7); Bilirubin, Total 0.9 mg/dL (0.2-1.2); Calc. Creatinine Clearance 41 mL/min (70-130); Calcium 8.9 mg/dL (7.8-10.44); Carbon Dioxide 22 mmol/L (23-31); Chloride 106 mmol/L (98-107); Estimated GFR 28; Globulin 3.5 g/dL (2.4-3.5); Glucose 86 mg/dL (83-110); Potassium 3.9 mmol/L (3.5-5.1); Protein, Total 6.7 g/dL (5.8-8.1); Sodium 137 mmol/L (136-145)
[2024-01-19 04:09] LABS: #Basophils 0.04 10x3/uL (0.0-0.2); %Basophils 0.6 % (0.0-1.0); %Eosinophils 2.9 % (0.0-10.0); %Monocytes 11.7 % (0.0-10.0); %Neutrophils 58.4 % (42.0-75.0); Hematocrit 35.1 % (42.0-52.0); Hemoglobin 11.4 g/dL (14.0-18.0); Mean Corpuscular HGB CONC 32.5 g/dL (32.0-36.0); Mean Corpuscular Volume 92.4 fL (78.0-98.0); Mean Platelet Volume 10.7 fL (7.4-10.4); Platelet Count 125 10x3/uL (130-400); RBC Distribution Width 14.4 % (11.5-14.5)
[2024-01-19] MEDS: Lactated Ringer's 500 ML IV SCH (08:18)
[2024-01-19 11:42] VITALS: TEMP 97.8
[2024-01-19 15:39] VITALS: BP 130/74
== END 2024-01-19 16:38 | disposition home or self-care (01) | DRG 65 ==
LOC: 2SE 13:57
PROVIDERS: ADMIT Family Medicine; ATTEND Family Medicine
DX: I63.9 Cerebral infarction, unspecified (principal); C18.9 Malignant neoplasm of colon, unspecified; I50.22 Chronic systolic (congestive) heart failure; N17.9 Acute kidney failure, unspecified; I49.5 Sick sinus syndrome; I12.9 Hypertensive chronic kidney disease with stage 1 through stage 4 chronic kidney disease, or unspecified chronic kidney disease; N18.32 Chronic kidney disease, stage 3b; I35.0 Nonrheumatic aortic (valve) stenosis; N40.0 Benign prostatic hyperplasia without lower urinary tract symptoms; I25.10 Atherosclerotic heart disease of native coronary artery without angina pectoris; I48.91 Unspecified atrial fibrillation; Z90.49 Acquired absence of other specified parts of digestive tract; E78.00 Pure hypercholesterolemia, unspecified; Z79.899 Other long term (current) drug therapy; Z95.2 Presence of prosthetic heart valve; Z95.810 Presence of automatic (implantable) cardiac defibrillator; Z79.82 Long term (current) use of aspirin; Z95.0 Presence of cardiac pacemaker; Z82.49 Family history of ischemic heart disease and other diseases of the circulatory system; F17.210 Nicotine dependence, cigarettes, uncomplicated; R53.1 Weakness
CPT/HCPCS: 36415; 70450; 70496; 70498; 80053; 80061; 82570; 83036; 84300; 84443; 85025; 93306; 93880; J7120; Q9967

== ENCOUNTER 2024-11-07 07:14 | Day surgery (SDC) | payer MEDICARE ==
[2024-10-31 14:12] VITALS: BMI 32.1
[2024-11-07] MEDS ORDERED: Rocuronium Bromide 10 MG/ML (10ML VIAL) ONE (09:04)
[2024-11-07] MEDS ORDERED: PROPOFOL 20 ML ONE (09:04)
[2024-11-07] MEDS ORDERED: Lidocaine 1% PF 5 ML VIAL ONE (09:04)
[2024-11-07] MEDS ORDERED: fentaNYL PF 100 MCG/2 ML SYRINGE ONE (10:48)
[2024-11-07] MEDS ORDERED: Bupivacaine 0.25% HCL 30 ML VIAL ONE (10:55)
[2024-11-07] MEDS ORDERED: CEFAZOLIN 2 GM VIAL ONE (11:09)
[2024-11-07] MEDS ORDERED: NOREPINEPHRINE 8 MG/250 ML-D5W 250 ML ONE (11:33)
[2024-11-07] MEDS ORDERED: SUGAMMADEX SODIUM 200 MG/2 ML VIAL ONE (12:02)
[2024-11-07] MEDS ORDERED: Albuterol HFA (OR) 200 PUFF INH ONE (12:09)
[2024-11-07] MEDS ORDERED: Ondansetron PF 4 MG/2 ML Vial ONE (12:13)
[2024-11-07] MEDS ORDERED: HYDROmorphone 0.5 MG/0.5 ML SYRINGE ONE (12:34)
== END 2024-11-07 14:17 | disposition home or self-care (01) ==
LOC: SDC 07:14
PROVIDERS: ATTEND Surgery
PROC: 0YU54JZ Supplement Right Inguinal Region with Synthetic Substitute, Percutaneous Endoscopic Approach (ICD-10-PCS; principal; 2024-11-07)
DX: K40.90 Unilateral inguinal hernia, without obstruction or gangrene, not specified as recurrent (principal); I10 Essential (primary) hypertension; G47.33 Obstructive sleep apnea (adult) (pediatric); Z87.891 Personal history of nicotine dependence; Z96.1 Presence of intraocular lens; Z95.818 Presence of other cardiac implants and grafts; Z98.890 Other specified postprocedural states; Z88.8 Allergy status to other drugs, medicaments and biological substances
CPT/HCPCS: 49650; C1781; J0169; J0665; J1171; J2405; J2704; J3010; S2900

== ENCOUNTER 2025-01-24 12:41 | Outpatient (CLI) | payer MEDICARE | END 2025-01-24 12:42 | disposition home or self-care (01) | LOC: BICCT 12:41 | PROVIDERS: ATTEND Specialist | DX: R09.81 Nasal congestion (principal); J34.89 Other specified disorders of nose and nasal sinuses; Z98.890 Other specified postprocedural states ==

== ENCOUNTER 2025-02-26 13:30 | Inpatient (IN) | payer MEDICARE ==
[2025-02-26 15:33] LABS: Bacteria/HPF None Seen HPF (None Seen); CAUTI Indications for Culture Alt mental st,lethar; Glucose, Urine (Dipstick) Normal (Negative); Leukocyte Negative Leu/uL (Negative); Protein, Urine (Dipstick) 20 mg/dL (Neg-Trace); Specific Gravity, Urine 1.007 (1.002-1.036); WBC/HPF 0-3 HPF (0-3)
[2025-02-26 15:34] LABS: Urine Culture Reflex No No
[2025-02-26 18:05] LABS: #Basophils 0.05 10x3/uL (0.0-0.2); #Eosinophils 0.12 10x3/uL (0.0-0.7); #Monocytes 0.83 10x3/uL (0.11-0.59); #Neutrophils 5.17 10x3/uL (1.40-6.50); %Basophils 0.6 % (0.0-1.0); %Eosinophils 1.5 % (0.0-10.0); %Lymphocytes 22.2 % (21.0-51.0); %Monocytes 10.4 % (0.0-10.0); %Neutrophils 65.0 % (42.0-75.0); Hematocrit 37.6 % (42.0-52.0); Hemoglobin 12.4 g/dL (14.0-18.0); Mean Corpuscular Hemoglobin 30.1 pg (27.0-31.0); Mean Corpuscular Volume 91.3 fL (78.0-98.0); Platelet Count 169 10x3/uL (130-400); Red Blood Cell (RBC) Count 4.12 mill/uL (4.70-6.10); White Blood Cell (WBC) Count 7.96 10x3/uL (4.8-10.8)
[2025-02-26 18:20] LABS: ALT (SGPT) 13 U/L (Less than 45); AST (SGOT) 23 U/L (11-34); Albumin 3.4 g/dL (3.1-4.5); Alkaline Phosphatase 61 U/L (40-110); Anion Gap 13 mmol/L (10-20); BUN (Urea Nitrogen) 20 mg/dL (8.4-25.7); Bilirubin, Total 0.7 mg/dL (0.3-1.2); Calc. Creatinine Clearance 0 mL/min (70-130); Calcium 9.9 mg/dL (7.8-10.44); Carbon Dioxide 27 mmol/L (23-31); Chloride 104 mmol/L (98-107); Globulin 3.9 g/dL (2.4-3.5); Glucose 89 mg/dL (83-110); Potassium 4.1 mmol/L (3.5-5.1); Sodium 140 mmol/L (136-145)
[2025-02-26] MEDS ORDERED: Aspirin Chewable 81 MG TAB ONE (19:45)
[2025-02-26 23:28] VITALS: BMI 31.7
[2025-02-27] MEDS: Carvedilol 6.25 MG TAB PO SCH (00:42)
[2025-02-27] MEDS: PARoxetine 20 MG TAB PO SCH (00:42)
[2025-02-27] MEDS: Amiodarone 200 MG TAB PO SCH (00:42)
[2025-02-27] MEDS: Finasteride 5 MG TAB PO SCH (00:42)
[2025-02-27 04:38] LABS: #Basophils 0.05 10x3/uL (0.0-0.2); #Eosinophils 0.17 10x3/uL (0.0-0.7); #Monocytes 0.77 10x3/uL (0.11-0.59); #Neutrophils 3.07 10x3/uL (1.40-6.50); %Basophils 0.9 % (0.0-1.0); %Eosinophils 3.0 % (0.0-10.0); %Lymphocytes 28.5 % (21.0-51.0); %Monocytes 13.5 % (0.0-10.0); %Neutrophils 53.7 % (42.0-75.0); Hematocrit 36.8 % (42.0-52.0); Hemoglobin 11.7 g/dL (14.0-18.0); Mean Corpuscular Hemoglobin 29.5 pg (27.0-31.0); Mean Corpuscular Volume 92.7 fL (78.0-98.0); Platelet Count 140 10x3/uL (130-400); Red Blood Cell (RBC) Count 3.97 mill/uL (4.70-6.10); White Blood Cell (WBC) Count 5.71 10x3/uL (4.8-10.8)
[2025-02-27 05:13] LABS: ALT (SGPT) 12 U/L (Less than 45); AST (SGOT) 19 U/L (11-34); Albumin 3.1 g/dL (3.1-4.5); Alkaline Phosphatase 55 U/L (40-110); Anion Gap 11 mmol/L (10-20); BUN (Urea Nitrogen) 21 mg/dL (8.4-25.7); Bilirubin, Total 0.7 mg/dL (0.3-1.2); Calc. Creatinine Clearance 55 mL/min (70-130); Calcium 9.3 mg/dL (7.8-10.44); Carbon Dioxide 25 mmol/L (23-31); Cardiac Risk 4.1 (Less than 4.5); Chloride 107 mmol/L (98-107); Cholesterol 124 mg/dl (< 200 Desired); Globulin 3.5 g/dL (2.4-3.5); Glucose 90 mg/dL (83-110); HDL Cholesterol 30 mg/dL (>60 Neg Risk); LDL Cholesterol, Calculated 76 mg/dL; Potassium 3.9 mmol/L (3.5-5.1); Sodium 139 mmol/L (136-145); Triglycerides 90 mg/dL (Less than 150)
[2025-02-27] MEDS: Enoxaparin 40 MG (0.4 mL) SYRINGE SC SCH (10:13)
[2025-02-27] MEDS: Acetaminophen 325 MG TAB PO PRN (12:41)
[2025-02-27] MEDS: Aspirin 81 mg Enteric Coated Tablet PO SCH (20:30)
[2025-02-28 04:24] LABS: #Basophils 0.05 10x3/uL (0.0-0.2); #Eosinophils 0.14 10x3/uL (0.0-0.7); #Monocytes 0.94 10x3/uL (0.11-0.59); #Neutrophils 3.10 10x3/uL (1.40-6.50); %Basophils 0.8 % (0.0-1.0); %Eosinophils 2.3 % (0.0-10.0); %Lymphocytes 28.9 % (21.0-51.0); %Monocytes 15.8 % (0.0-10.0); %Neutrophils 52.0 % (42.0-75.0); Hematocrit 34.9 % (42.0-52.0); Hemoglobin 11.2 g/dL (14.0-18.0); Mean Corpuscular Hemoglobin 30.1 pg (27.0-31.0); Mean Corpuscular Volume 93.8 fL (78.0-98.0); Platelet Count 141 10x3/uL (130-400); Red Blood Cell (RBC) Count 3.72 mill/uL (4.70-6.10); White Blood Cell (WBC) Count 5.96 10x3/uL (4.8-10.8)
[2025-02-28 04:51] LABS: ALT (SGPT) 12 U/L (Less than 45); AST (SGOT) 49 U/L (11-34); Albumin 3.2 g/dL (3.1-4.5); Alkaline Phosphatase 55 U/L (40-110); Anion Gap 12 mmol/L (10-20); BUN (Urea Nitrogen) 22 mg/dL (8.4-25.7); Bilirubin, Total 0.9 mg/dL (0.3-1.2); Calc. Creatinine Clearance 47 mL/min (70-130); Calcium 9.1 mg/dL (7.8-10.44); Carbon Dioxide 24 mmol/L (23-31); Chloride 108 mmol/L (98-107); Globulin 3.4 g/dL (2.4-3.5); Glucose 86 mg/dL (83-110); Potassium 3.9 mmol/L (3.5-5.1); Sodium 140 mmol/L (136-145)
[2025-02-28 11:35] VITALS: BP 110/71; TEMP 98.2
[2025-03-02] MEDS ORDERED: PNEUMOC 20-VAL CONJ-DIP CRM/PF 0.5 ML SYRINGE IM ONE (09:00)
== END 2025-02-28 14:55 | disposition home or self-care (01) | DRG 65 ==
LOC: ERS 13:30 → ERHOLD 19:42 → OBS 22:53 → OBSVTOIN 02-27 16:13
PROVIDERS: ADMIT Emergency Medicine; ATTEND Emergency Medicine
PROC: 5A09357 Assistance with Respiratory Ventilation, Less than 24 Consecutive Hours, Continuous Positive Airway Pressure (ICD-10-PCS; principal; 2025-02-26)
DX: I63.9 Cerebral infarction, unspecified (principal); I13.0 Hypertensive heart and chronic kidney disease with heart failure and stage 1 through stage 4 chronic kidney disease, or unspecified chronic kidney disease; I50.22 Chronic systolic (congestive) heart failure; N18.9 Chronic kidney disease, unspecified; I48.91 Unspecified atrial fibrillation; E78.5 Hyperlipidemia, unspecified; C07 Malignant neoplasm of parotid gland; Z95.810 Presence of automatic (implantable) cardiac defibrillator; Z86.73 Personal history of transient ischemic attack (TIA), and cerebral infarction without residual deficits; Z88.8 Allergy status to other drugs, medicaments and biological substances; Z79.82 Long term (current) use of aspirin; Z79.899 Other long term (current) drug therapy; Z79.51 Long term (current) use of inhaled steroids; Z95.818 Presence of other cardiac implants and grafts; Z98.890 Other specified postprocedural states; Z87.891 Personal history of nicotine dependence; Z71.6 Tobacco abuse counseling; R29.700 NIHSS score 0
CPT/HCPCS: 36415; 36416; 70450; 72125; 76014; 80053; 80061; 81001; 83036; 84443; 84484; 85025; 93005; 93306; 96372; G0378; J1650